=== PATIENT | female | born 1950 | race African-American/Black ===

== ENCOUNTER 2017-05-23 18:22 | Observation (INO) | payer OTHER ==
--- NOTE | 2017-05-23 19:42 | PDOC ---
History of Present Illness - General Chief Complaint: Chest Pain Stated Complaint: CHEST PAIN Time Seen by Provider: 05/23/17 18:42 - History of Present Illness Initial Comments: 05/23/17 19:27 66 F with h/o HTN, pre-DM, presenting to ER with chest pain that began at approx 5:30 PM. Pt states that she was at rest when it began. The pain starts in her L chest and radiates down to her L arm. Pt denies SOB but endorses occasional lightheadedness since pain began. Denies any diaphoresis. Pt states that the pain is not exertional, not pleuritic. She does not know of any exacerbating or alleviating factors. Pt denies any leg swelling. No h/o immobilization or blood clots. Past History - Past Medical History Allergies/Adverse Reactions: Allergies Allergy/AdvReac Type Severity Reaction Status Date / Time No Known Drug Allergies Allergy Verified 05/23/17 18:31 peanut [Peanut] Allergy Verified 05/23/17 18:31 Home Medications: Ambulatory Orders Levothyroxine [Synthroid -] 50 mcg PO DAILY 03/23/14 Valsartan/Hydrochlorothiazide [Diovan Hct 160-25 mg Tablet] 1 combo PO DAILY Anemia: Yes Asthma: Yes COPD: No HTN: Yes Thyroid Disease: Yes (HYPO.) Other medical history: VERTIGO. - Surgical History Orthopedic Surgery: Yes (right knee replacement) - Immunization History Immunization Up to Date: Yes - Suicide/Smoking/Psychosocial Hx Smoking Status: No Smoking History: Never smoked Number of Cigarettes Smoked Daily: 0 Hx Alcohol Use: No Drug/Substance Use Hx: No Substance Use Type: None Review of Systems - Review of Systems Comments:: 05/23/17 19:47 "GENERAL/CONSTITUTIONAL: No fever or chills. No weakness. HEAD, EYES, EARS, NOSE AND THROAT: No change in vision. No ear pain or discharge. No sore throat. CARDIOVASCULAR: + chest pain, no shortness of breath. RESPIRATORY: No cough, wheezing, or hemoptysis. GASTROINTESTINAL: No nausea, vomiting, diarrhea or constipation. GENITOURINARY: No dysuria, frequency, or change in urination. MUSCULOSKELETAL: No joint or muscle swelling or pain. No neck or back pain. SKIN: No rash NEUROLOGIC: No headache, vertigo, loss of consciousness, or change in strength/ sensation. ENDOCRINE: No increased thirst. No abnormal weight change. HEMATOLOGIC/LYMPHATIC: No anemia, easy bleeding, or history of blood clots. ALLERGIC/IMMUNOLOGIC: No hives or skin allergy. " *Physical Exam - Vital Signs Last Vital Signs Temp Pulse Resp BP Pulse Ox 98.4 F 78 22 111/97 99 05/23/17 18:23 05/23/17 18:23 05/23/17 18:23 05/23/17 18:23 05/23/17 18:53 - Physical Exam Comments: 05/23/17 19:48 "GENERAL: Awake, alert, and fully oriented, in no acute distress HEAD: No signs of trauma EYES: PERRLA, EOMI, sclera anicteric, conjunctiva clear ENT: Auricles normal inspection, hearing grossly normal, nares patent, oropharynx clear without exudates. Moist mucosa NECK: Nontender, no stepoffs, Normal ROM, supple, no lymphadenopathy, JVD, or masses LUNGS: Breath sounds equal, clear to auscultation bilaterally. No wheezes, and no crackles HEART: Regular rate and rhythm, normal S1 and S2, no murmurs, rubs or gallops ABDOMEN: Soft, nontender, normoactive bowel sounds. No guarding, no rebound. No masses EXTREMITIES: Normal range of motion, no edema. No clubbing or cyanosis. No cords, erythema, or tenderness NEUROLOGICAL: Cranial nerves II through XII intact. 5/5 strength and sensation in all extremities, Normal speech, normal gait SKIN: Warm, Dry, normal turgor, no rashes or lesions noted. " Heart Score/ECG Review - History History: Moderately suspicious - Electrocardiogram EKG: Normal - Age Age: >/= 65 - Risk Factors Risk Factors Heart Score: Yes Hx Hypertension, Yes Hx Obesity Based on the list above the patient has:: 1-2 risk factors - Troponin Troponin: </= normal limit - Score Heart Score - Total: 4 - ECG Impressions Comment:: 05/23/17 19:50 NSR, no KATRIN/STDs, no TWIs, axis wnll, intervals wnl ED Treatment Course - LABORATORY CBC & Chemistry Diagram: 05/23/17 19:50 05/23/17 19:50 - ADDITIONAL ORDERS Additional order review: Laboratory Results 05/23/17 05/23/17 05/23/17 20:10 19:50 19:50 PT with INR 12.40 H INR 1.10 PTT (Actin FS) 28.6 Sodium 142 Potassium 3.8 Chloride 107 Carbon Dioxide 29 Anion Gap 6 L BUN 33 H Creatinine 1.1 H Creat Clearance w eGFR 49.69 Random Glucose 87 D Calcium 7.9 L Total Bilirubin 0.2 D AST 25 D ALT 28 D Alkaline Phosphatase 101 Creatine Kinase 639 H Creatine Kinase Index 0.3 CK-MB (CK-2) 2.422 Troponin I < 0.02 B-Natriuretic Peptide 36.80 Total Protein 7.6 Albumin 2.7 L Lipase 137 05/23/17 19:50 RBC 3.76 MCV 78.5 L MCHC 32.6 RDW 17.9 H MPV 8.7 Neutrophils % 64.8 Lymphocytes % 18.0 D Monocytes % 8.9 Eosinophils % 7.3 H Basophils % 1.0 - RADIOLOGY Radiology Studies Ordered: Category Date Time Status CHEST PA & LAT [RAD] Stat Radiology 05/23/17 19:24 Taken Medical Decision Making - Medical Decision Making 05/23/17 19:50 66 F with chest pain radiating to L arm associated with lightheadedness. Concerning for ACS. Pt with no PE risk factors, no clinical findings of DVT on exam. Vitals stable. - Labs, trop - CXR - Admit tele 05/23/17 21:45 CBC,CMP WBC 6.3 K/mm3 (4.0-10.0) D 05/23/17 19:50 RBC 3.76 M/mm3 (3.60-5.2) 05/23/17 19:50 Hgb 9.6 GM/dL (10.7-15.3) L 05/23/17 19:50 Hct 29.5 % (32.4-45.2) L 05/23/17 19:50 MCV 78.5 fl (80-96) L 05/23/17 19:50 MCH 25.6 pg (25.7-33.7) L 05/23/17 19:50 MCHC 32.6 g/dl (32.0-36.0) 05/23/17 19:50 RDW 17.9 % (11.6-15.6) H 05/23/17 19:50 Plt Count 206 K/MM3 (134-434) 05/23/17 19:50 MPV 8.7 fl (7.5-11.1) 05/23/17 19:50 Neutrophils % 64.8 % (42.8-82.8) 05/23/17 19:50 Lymphocytes % 18.0 % (8-40) D 05/23/17 19:50 Monocytes % 8.9 % (3.8-10.2) 05/23/17 19:50 Eosinophils % 7.3 % (0-4.5) H 05/23/17 19:50 Basophils % 1.0 % (0-2.0) 05/23/17 19:50 Sodium 142 mmol/L (136-145) 05/23/17 19:50 Potassium 3.8 mmol/L (3.5-5.1) 05/23/17 19:50 Chloride 107 mmol/L (98-107) 05/23/17 19:50 Carbon Dioxide 29 mmol/L (21-32) 05/23/17 19:50 Anion Gap 6 (8-16) L 05/23/17 19:50 BUN 33 mg/dL (7-18) H 05/23/17 19:50 Creatinine 1.1 mg/dL (0.55-1.02) H 05/23/17 19:50 Creat Clearance w eGFR 49.69 (>60) 05/23/17 19:50 Random Glucose 87 mg/dL (74-106) D 05/23/17 19:50 Calcium 7.9 mg/dL (8.5-10.1) L 05/23/17 19:50 Total Bilirubin 0.2 mg/dL (0.2-1.0) D 05/23/17 19:50 AST 25 U/L (15-37) D 05/23/17 19:50 ALT 28 U/L (12-78) D 05/23/17 19:50 Alkaline Phosphatase 101 U/L (45-117) 05/23/17 19:50 Creatine Kinase 639 IU/L (26-192) H 05/23/17 20:10 Creatine Kinase Index 0.3 % (0.0-5.0) 05/23/17 20:10 CK-MB (CK-2) 2.422 ng/mL (0.5-3.6) 05/23/17 20:10 Troponin I < 0.02 ng/ml (0.00-0.05) 05/23/17 20:10 B-Natriuretic Peptide 36.80 pg/ml (5-125) 05/23/17 20:10 Total Protein 7.6 g/dl (6.4-8.2) 05/23/17 19:50 Albumin 2.7 g/dl (3.4-5.0) L 05/23/17 19:50 Lipase 137 U/L (73-393) 05/23/17 19:50 Trop negative x 1. Case discussed with Dr. Lopez, who has accepted pt for admission to [facility]. Case discussed in detail with admitting physician including history, physical exam and ancillary studies. Admitting physician has assumed care for the patient and will follow all pending diagnostics and complete the evaluation and treatment. *DC/Admit/Observation/Transfer Diagnosis at time of Disposition: Chest pain - Discharge Dispostion Admit: Yes - Referrals - Patient Instructions - Post Discharge Activity - Attestations Physician Attestion: 05/23/17 21:44 I, Dr. Ga Ramires MD, attest that this document has been prepared under my direction and personally reviewed by me in its entirety. I further attest, that it accurately reflects all work, treatment, procedures and medical decision -making performed by me.
[2017-05-23 19:56] LABS: EOS % 7.3 % (0-4.5); MCH 25.6 pg (25.7-33.7); MCHC 32.6 g/dl (32.0-36.0); MEAN CELL VOLUME 78.5 fl (80-96); MEAN PLT VOLUME 8.7 fl (7.5-11.1); NEUT % 64.8 % (42.8-82.8); PLATELET COUNT 206 K/MM3 (134-434); RDW 17.9 % (11.6-15.6); WHITE BLOOD COUNT 6.3 K/mm3 (4.0-10.0)
[2017-05-23 20:18] LABS: INR 1.1 (0.82-1.09); PROTHROMBIN TIME (PATIENT) 12.4 SEC (9.98-11.88)
[2017-05-23 20:20] LABS: ALBUMIN 2.7 g/dl (3.4-5.0); ANION GAP 6 (8-16); CALCIUM 7.9 mg/dL (8.5-10.1); CO2 29 mmol/L (21-32); CREATININE 1.1 mg/dL (0.55-1.02); GLUCOSE,RANDOM 87 mg/dL (74-106); SGOT/AST 25 U/L (15-37); SGPT/ALT 28 U/L (12-78)
[2017-05-23 20:21] LABS: ACTIVATED PTT 28.6 SECONDS (26.9-34.4)
[2017-05-23 20:22] LABS: ALK PHOS 101 U/L (45-117); BILIRUBIN,TOTAL 0.2 mg/dL (0.2-1.0); TOT PROT 7.6 g/dl (6.4-8.2)
[2017-05-23 20:43] LABS: CPK 639 IU/L (26-192); TROPONIN I < 0.02 ng/ml (0.00-0.05)
[2017-05-23 23:36] VITALS: BMI 53.9
--- NOTE | 2017-05-24 01:08 | HP ---
CHIEF COMPLAINT: Chest tightness PCP: Dr. Whittaker HISTORY OF PRESENT ILLNESS: Patient is a 66 year old female with a PMHx of HTN, Asthma, Anemia, Hypothyroidism and Vertigo who presented today for increasing left sided chest tightness and dull pain that started yesterday around 17:00. Patient states the pain is constant radiating to her left arm and across the back. Patient reports she took two baby aspirins with no relief of symptoms, which prompted this hospital visit. Patient reports she does have shortness of breath but has been chronic and at baseline due to her being overweight. Patient states she is still performing her normal daily activities. Patient states she is more comfortable sleeping on a recliner rather than flat due to her vertigo. Patient reports feeling dizzy and more off balance when she lays flat and would rather stay up on a recliner. Otherwise, patient denies fever, chills, nausea, diaphoresis, LOC, dizziness, headaches, diarrhea, constipation, abdominal pain, dysuria, frequency, hematuria. ER course was notable for: (1) EKG wnl (2) Chest X-Ray revealed no acute pathology (3) Troponin negative x1 Recent Travel: Denies PAST MEDICAL HISTORY: HTN, Asthma, Anemia, Hypothyroidism and Vertigo PAST SURGICAL HISTORY: Right Knee replacement Social History: Smoking: Denies Alcohol: Denies Drugs: Denies Family History: Mother and Sister had breast cancer Allergies: No Known Drug Allergies Allergy (Verified 05/23/17 18:31) peanut [Peanut] Allergy (Verified 05/23/17 18:31) HOME MEDICATIONS: Home Medications Medication Instructions Recorded Levothyroxine [Synthroid -] 50 mcg PO DAILY 03/23/14 Valsartan/Hydrochlorothiazide 1 combo PO DAILY 03/23/14 [Diovan Hct 160-25 mg Tablet] REVIEW OF SYSTEMS CONSTITUTIONAL: Absent: fever, chills, diaphoresis, generalized weakness, malaise, loss of appetite, weight change HEENT: Absent: rhinorrhea, nasal congestion, throat pain, throat swelling, difficulty swallowing, mouth swelling, ear pain, eye pain, visual changes CARDIOVASCULAR: Chest tightness Absent: chest pain, syncope, palpitations, irregular heart rate, lightheadedness , peripheral edema RESPIRATORY: Absent: cough, shortness of breath, dyspnea with exertion, orthopnea, wheezing, stridor, hemoptysis GASTROINTESTINAL: Absent: abdominal pain, abdominal distension, nausea, vomiting, diarrhea, constipation, melena, hematochezia GENITOURINARY: Absent: dysuria, frequency, urgency, hesitancy, hematuria, flank pain, genital pain MUSCULOSKELETAL: Absent: myalgia, arthralgia, joint swelling, back pain, neck pain SKIN: Absent: rash, itching, pallor HEMATOLOGIC/IMMUNOLOGIC: Absent: easy bleeding, easy bruising, lymphadenopathy, frequent infections ENDOCRINE: Absent: unexplained weight gain, unexplained weight loss, heat intolerance, cold intolerance NEUROLOGIC: Absent: headache, focal weakness or paresthesias, dizziness, unsteady gait, seizure, mental status changes, bladder or bowel incontinence PSYCHIATRIC: Absent: anxiety, depression, suicidal or homicidal ideation, hallucinations. PHYSICAL EXAMINATION Vital Signs - 24 hr 05/23/17 05/23/17 05/23/17 18:23 18:53 22:36 Temperature 98.4 F 98.4 F Pulse Rate 78 Pulse Rate [ 75 Left Radial] Respiratory 22 19 Rate Blood Pressure 111/97 Blood Pressure 112/57 [Right Arm] O2 Sat by Pulse 100 99 96 Oximetry (%) 05/23/17 05/23/17 23:32 23:53 Temperature 97.8 F Pulse Rate 72 Pulse Rate [ Left Radial] Respiratory 20 20 Rate Blood Pressure 121/70 Blood Pressure [Right Arm] O2 Sat by Pulse 96 Oximetry (%) GENERAL: Awake, alert, and fully oriented, in no acute distress. HEAD: Normal with no signs of trauma. EYES: Pupils equal, round and reactive to light, extraocular movements intact, sclera anicteric, conjunctiva clear. No lid lag. EARS, NOSE, THROAT: Oropharynx clear without exudates. Moist mucous membranes. NECK: Normal range of motion, supple without lymphadenopathy, JVD, or masses. LUNGS: Breath sounds equal, clear to auscultation bilaterally. No wheezes, and no crackles. No accessory muscle use. HEART: Regular rate and rhythm, normal S1 and S2 without murmur, rub or gallop. ABDOMEN: Soft, Obese, nontender, not distended, normoactive bowel sounds, no guarding, no rebound, no masses. MUSCULOSKELETAL: No CVA tenderness. UPPER EXTREMITIES: No peripheral edema. LOWER EXTREMITIES: Chronic venous stasis L>R, especially on the Left calf. Tenderness upon palpation of bilateral shins and calf NEUROLOGICAL: Cranial nerves II-XII intact. Normal speech. Motor strength 5/5 bilaterally. Sensory intact PSYCHIATRIC: Cooperative. Good eye contact. Appropriate mood and affect. SKIN: Warm, dry, normal turgor, no rashes or lesions noted, normal capillary refill. Laboratory Results - last 24 hr 05/23/17 05/23/17 05/23/17 19:50 19:50 19:50 WBC 6.3 D RBC 3.76 Hgb 9.6 L Hct 29.5 L MCV 78.5 L MCH 25.6 L MCHC 32.6 RDW 17.9 H Plt Count 206 MPV 8.7 Neutrophils % 64.8 Lymphocytes % 18.0 D Monocytes % 8.9 Eosinophils % 7.3 H Basophils % 1.0 PT with INR 12.40 H INR 1.10 PTT (Actin FS) 28.6 Sodium 142 Potassium 3.8 Chloride 107 Carbon Dioxide 29 Anion Gap 6 L BUN 33 H Creatinine 1.1 H Creat Clearance w eGFR 49.69 Random Glucose 87 D Calcium 7.9 L Total Bilirubin 0.2 D AST 25 D ALT 28 D Alkaline Phosphatase 101 Creatine Kinase Creatine Kinase Index CK-MB (CK-2) Troponin I B-Natriuretic Peptide Total Protein 7.6 Albumin 2.7 L Lipase 137 05/23/17 20:10 WBC RBC Hgb Hct MCV MCH MCHC RDW Plt Count MPV Neutrophils % Lymphocytes % Monocytes % Eosinophils % Basophils % PT with INR INR PTT (Actin FS) Sodium Potassium Chloride Carbon Dioxide Anion Gap BUN Creatinine Creat Clearance w eGFR Random Glucose Calcium Total Bilirubin AST ALT Alkaline Phosphatase Creatine Kinase 639 H Creatine Kinase Index 0.3 CK-MB (CK-2) 2.422 Troponin I < 0.02 B-Natriuretic Peptide 36.80 Total Protein Albumin Lipase Chest X-Ray (05/23/17): ASSESSMENT/PLAN: Patient is a 66 year old female who presented with chest tightness and admitted for observation to rule out ACS Chest Tightness -Patient denies chest pain and reports feeling more of a chest tightness radiating to the left arm. -Patient has Risk factors of HTN and morbid obesity -First set of troponin negative. Repeat Troponins at 0200. -EKG normal rate and rhythm with no ST-T changes -Lipid panel ordered -A1C ordered Microcytic Anemia -Patient reports history of iron deficiency -Continue to trend Iron CKD -Creatnine 1.1 at baseline -Reports taking Ibuprofen 200mg every night -Continue to trend BMP HTN-Controlled -Continue Valsartan/HCTZ 160/25mg -Continue to monitor BP Hypothyroidism -Continue Levothyroxine 50mcg -Will check TSH Asthma-Controlled -Patient on Advair and reports not being compliant F/E/N -On no fluids. Tolerating PO -Electrolytes wnl -Sodium controlled diet Prophylaxis -Low risk. Ambulation -No GI required Disposition -Full code -Will remain under obs to rule out ACS with repeat Troponins Visit type - Emergency Visit Emergency Visit: Yes ED Registration Date: 05/23/17 Care time: The patient presented to the Emergency Department on the above date and was hospitalized for further evaluation of their emergent condition. - New Patient This patient is new to me today: Yes Date on this admission: 05/23/17 - Critical Care Critical Care patient: No
--- NOTE | 2017-05-24 02:08 | PN ---
Teaching Attending Note Name of Resident: Lima Morgan ATTENDING PHYSICIAN STATEMENT I saw and evaluated the patient. Chart, data, imaging reviewed. I reviewed the resident's note and discussed the case with the resident. I agree with the resident's findings and plan as documented. SUBJECTIVE: 66 year old female with a PMHx of HTN, Asthma, Anemia, Hypothyroidism and Vertigo c/o left sided chest tightness, left arm pain that started 05/23 around 17:00. She reports that she was moving a shovel when she developed pain in her left arm. There is tenderness to palpation of her left arm. She denied any significant shortness of breath. Patient does not have any cardiac history, no tobacco use. Grandfather with heart disease. OBJECTIVE: Last Vital Signs Temp Pulse Resp BP Pulse Ox 97.7 F 74 18 115/64 96 05/24/17 00:10 05/24/17 00:10 05/24/17 00:10 05/24/17 00:10 05/24/17 00:10 General- nad, aaox3, obese, appears comfortable heent- nc, at, moist oral mucosa CV-s1+s2+ rrr, no murmurs chest- cta b/l abdomen- obese, nt, BS+ ext -no pitting edema Abnormal Lab Results 05/23/17 05/23/17 05/23/17 19:50 19:50 19:50 Hgb 9.6 L Hct 29.5 L MCV 78.5 L MCH 25.6 L RDW 17.9 H Eosinophils % 7.3 H PT with INR 12.40 H Anion Gap 6 L BUN 33 H Creatinine 1.1 H Calcium 7.9 L Creatine Kinase Albumin 2.7 L 05/23/17 20:10 Hgb Hct MCV MCH RDW Eosinophils % PT with INR Anion Gap BUN Creatinine Calcium Creatine Kinase 639 H Albumin ekg- NSR, no ST -T changes ASSESSMENT AND PLAN: #chest pain- r/o PR - unlikely acs, EKG normal, troponin negative x2. More likely to be musculoskelatal type of pain related to pushing shovel. Tenderness to palpation of left upper extremity. -observation telemetry -send one more troponin -can give ibuprofen prn for left arm pain continue home medications for chronic medical problems -heparin sc for dvt ppx -2gNa, low fat diet
[2017-05-24] MEDS: LEVOTHYROXINE NA 50 MCG TABLET (FP) PO SCH (06:32)
[2017-05-24 09:14] LABS: MCH 24.8 pg (25.7-33.7); MCHC 31.4 g/dl (32.0-36.0); MEAN CELL VOLUME 78.9 fl (80-96); MEAN PLT VOLUME 9.2 fl (7.5-11.1); PLATELET COUNT 207 K/MM3 (134-434); RDW 17.7 % (11.6-15.6); WHITE BLOOD COUNT 6.3 K/mm3 (4.0-10.0)
[2017-05-24] MEDS: HYDROCHLOROTHIAZIDE 25 MG TABLET (FP) PO SCH (09:34)
[2017-05-24] MEDS: IBUPROFEN 600 MG TABLET (FP) PO PRN (09:34)
[2017-05-24] MEDS: VALSARTAN 160 MG TABLET (UD) PO SCH (09:34)
[2017-05-24 09:43] LABS: ANION GAP 8 (8-16); CHOLESTEROL 149 mg/dL (50-200); CO2 28 mmol/L (21-32); CREATININE 0.9 mg/dL (0.55-1.02); GLUCOSE,RANDOM 88 mg/dL (74-106); THYROID STIMULATING HORMONE 2.92 uIU/ml (0.358-3.74)
[2017-05-24] MEDS ORDERED: PATIENT'S OWN MEDICATION (NON-FORMULARY) (Valsartan/Hydrochlorothiazide [Diovan Hct 160-25 PO SCH (10:00)
[2017-05-24] MEDS ORDERED: ALBUTEROL SO4 2.5/IPRATROPIUM 0.5 INH SOL 3 ML VIAL.NEB. NEB ONE (10:56)
[2017-05-24] MEDS ORDERED: ALBUTEROL SO4 2.5/IPRATROPIUM 0.5 INH SOL 3 ML VIAL.NEB. NEB PRN (10:56)
--- NOTE | 2017-05-24 10:58 | PN ---
Physical Exam: SUBJECTIVE: Patient seen and examined at the bedside. Still having chest tightness, does not radiate, on center of chest. States she had chest tightness at 0745 again this morning. OBJECTIVE: + wheezing auscultated on posterior lungs, chest tightness may be due to asthma. Pt reports non compliance with her advair. She also has a few cardiac risk factors: hypertension history, morbid obesity, age and race. She is asking for a referral to a programmer operator numerical control and PCP as her insurance is changing in the near future Her last echo was over 10 years ago. Trops negative x 2, elevated cpk plan: cardio consult, albuterol, echo, d/c in a.m. likely Vital Signs Period Temp Pulse Resp BP Sys/Gaona Pulse Ox Last 24 Hr 97.7 F-98.4 F 72-78 18-22 110-121/57-97 96-100 GENERAL: The patient is awake, alert, and fully oriented, in no acute distress. HEAD: Normal with no signs of trauma. EYES: PERRL, extraocular movements intact, sclera anicteric, conjunctiva clear. No ptosis. ENT: Ears normal, nares patent, oropharynx clear without exudates, moist mucous membranes. NECK: Trachea midline, full range of motion, supple. LUNGS: mild expiratory wheezing on bilateral lung brewster HEART: NSR on tele monitor ABDOMEN: Soft, nontender, nondistended, normoactive bowel sounds, no guarding, no rebound, no hepatosplenomegaly, no masses. EXTREMITIES: bilateral trace edema. NEUROLOGICAL: Normal speech, gait not observed. PSYCH: Normal mood, normal affect. SKIN: Warm, dry, normal turgor, no rashes or lesions noted Laboratory Results - last 24 hr 05/23/17 05/23/17 05/23/17 19:50 19:50 19:50 WBC 6.3 D RBC 3.76 Hgb 9.6 L Hct 29.5 L MCV 78.5 L MCH 25.6 L MCHC 32.6 RDW 17.9 H Plt Count 206 MPV 8.7 Neutrophils % 64.8 Lymphocytes % 18.0 D Monocytes % 8.9 Eosinophils % 7.3 H Basophils % 1.0 PT with INR 12.40 H INR 1.10 PTT (Actin FS) 28.6 Sodium 142 Potassium 3.8 Chloride 107 Carbon Dioxide 29 Anion Gap 6 L BUN 33 H Creatinine 1.1 H Creat Clearance w eGFR 49.69 Random Glucose 87 D Calcium 7.9 L Total Bilirubin 0.2 D AST 25 D ALT 28 D Alkaline Phosphatase 101 Creatine Kinase Creatine Kinase Index CK-MB (CK-2) Troponin I B-Natriuretic Peptide Total Protein 7.6 Albumin 2.7 L Triglycerides Cholesterol Total LDL Cholesterol HDL Cholesterol Lipase 137 TSH 05/23/17 05/24/17 05/24/17 20:10 01:30 07:00 WBC RBC Hgb Hct MCV MCH MCHC RDW Plt Count MPV Neutrophils % Lymphocytes % Monocytes % Eosinophils % Basophils % PT with INR INR PTT (Actin FS) Sodium 144 Potassium 3.9 Chloride 108 H Carbon Dioxide 28 Anion Gap 8 BUN 27 H Creatinine 0.9 Creat Clearance w eGFR Random Glucose 88 Calcium 8.0 L Total Bilirubin AST ALT Alkaline Phosphatase Creatine Kinase 639 H Creatine Kinase Index 0.3 CK-MB (CK-2) 2.422 Troponin I < 0.02 < 0.02 B-Natriuretic Peptide 36.80 Total Protein Albumin Triglycerides 53 Cholesterol 149 Total LDL Cholesterol 92 HDL Cholesterol 48 Lipase TSH 2.92 05/24/17 07:00 WBC 6.3 RBC 3.72 Hgb 9.2 L Hct 29.4 L MCV 78.9 L MCH 24.8 L MCHC 31.4 L RDW 17.7 H Plt Count 207 MPV 9.2 Neutrophils % Lymphocytes % Monocytes % Eosinophils % Basophils % PT with INR INR PTT (Actin FS) Sodium Potassium Chloride Carbon Dioxide Anion Gap BUN Creatinine Creat Clearance w eGFR Random Glucose Calcium Total Bilirubin AST ALT Alkaline Phosphatase Creatine Kinase Creatine Kinase Index CK-MB (CK-2) Troponin I B-Natriuretic Peptide Total Protein Albumin Triglycerides Cholesterol Total LDL Cholesterol HDL Cholesterol Lipase TSH Active Medications Generic Name Dose Route Start Last Admin Trade Name Freq PRN Reason Stop Dose Admin Albuterol/Ipratropium 1 amp 05/24/17 10:56 Duoneb - NEB 05/24/17 10:57 ONCE ONE Albuterol/Ipratropium 1 amp 05/24/17 10:56 Duoneb - NEB Q6H PRN SHORTNESS OF BREATH Hydrochlorothiazide 25 mg 05/24/17 10:00 05/24/17 09:34 Hctz - PO 25 mg DAILY DAVONTE Administration Ibuprofen 600 mg 05/24/17 09:26 05/24/17 09:34 Motrin - PO 600 mg Q8H PRN Administration PAIN Levothyroxine Sodium 50 mcg 05/24/17 07:00 05/24/17 06:32 Synthroid - PO 50 mcg DAILY@0700 DAVONTE Administration Valsartan 160 mg 05/24/17 10:00 05/24/17 09:34 Diovan - PO 160 mg DAILY DAVONTE Administration ASSESSMENT/PLAN: Patient is a 66 year old female with a past medical history of hypertension, asthma, anemia, vertigo and hypothyroidism. She presented to the ED on 2016 with complaints of left sided chest pain and chest tightness that started yesterday after shoveling outside. On exam, patient states she is still having chest tightness at rest, that comes and goes. Last episode of chest tightness was today at 0745, she describes the tightness as intermittent, with mild shortness of breath. On exam, she was noted to have mild wheezing auscultated on posterior lung brewster. Cardiology: Chest tightness/Chest pain, acute Continues to c/o of chest pain/tightness Wheezing auscultated on bilateral lung brewster Trops negative x 2, will trend one more Risk factors of htn, obesity, hypothyroidism Hmga1c wnl, lipid panel wnl Rule out ACS EKG Hypertension, controlled On Hctz 25mg PO daily Diovan 160mg PO daily Last echo was 10 years ago, echo ordered for a.m. Monitor BP Hypothyroidism, on home dose of Synthroid Pulmonary: Asthma history with wheezing on bilateral lung brewster Patient reports non compliance with daily use of Advair 500/50, which she carries with her Will order this med to continue here Albuterol ordered for nebs q6 Monitor respiratory status Tolerating room air Importance of maintenance advair discussed Hematology Anemia Patient reported that she was worked up for anemia by PCP and told she needed to start iron supplements but has not yet done so hmg/hmt low stable F.E.N. Fluids: tolerating PO Electrolytes: monitor Nutrition: low salt Prophylaxis: DVT: LOS <48 hrs GI; deferred Disposition: requires inpatient observation, full code. Visit type - Emergency Visit Emergency Visit: Yes ED Registration Date: 05/23/17 Care time: The patient presented to the Emergency Department on the above date and was hospitalized for further evaluation of their emergent condition. - New Patient This patient is new to me today: Yes Date on this admission: 05/24/17 - Critical Care Critical Care patient: No - Discharge Referral Referred to [facility] Yes Physician Referral: Dima Deleon MD ([facility]), Ambar Paez MD ([facility])
[2017-05-24] MEDS ORDERED: FLUTICASONE/SALMETEROL 100 MCG/50 MCG DISKUS IH SCH (11:15)
[2017-05-24 13:17] LABS: TROPONIN I < 0.02 ng/ml (0.00-0.05)
[2017-05-24] MEDS: SALMETEROL PO SCH (17:41)
[2017-05-24] MEDS: FLUTICASONE PO SCH (17:41)
--- NOTE | 2017-05-24 22:23 | CON.CARD ---
Consult Consult Specialty:: prelim note--chart reviewed, pt not yet seen - History of Present Illness History of Present Illness: 66 yo female here for cp. - Past Medical History Cardio/Vascular: Yes: HTN Pulmonary: Yes: Asthma ...: No Endocrine: Yes: Hypothyroidism - Past Surgical History Past Surgical History: Yes: None - Alcohol/Substance Use Hx Alcohol Use: No History of Substance Use: reports: None - Smoking History Smoking history: Never smoked Have you smoked in the past 12 months: No Aproximately how many cigarettes per day: 0 Home Medications - Allergies Allergies/Adverse Reactions: Allergies Allergy/AdvReac Type Severity Reaction Status Date / Time No Known Drug Allergies Allergy Verified 05/23/17 18:31 peanut [Peanut] Allergy Verified 05/23/17 18:31 - Home Medications Home Medications: Ambulatory Orders Levothyroxine [Synthroid -] 50 mcg PO DAILY 03/23/14 Valsartan/Hydrochlorothiazide [Diovan Hct 160-25 mg Tablet] 1 combo PO DAILY Latanoprost 0.005% Eye Drops [Xalatan 0.005% Eye Drops -] 1 drop HS 05/24/17 Vital Signs: Vital Signs Temperature 98.0 F 05/24/17 21:00 Pulse Rate 80 05/24/17 21:00 Respiratory Rate 20 05/24/17 21:08 Blood Pressure 103/60 05/24/17 21:00 O2 Sat by Pulse Oximetry (%) 97 05/24/17 21:08 - Other Data Labs, Other Data: CBC, BMP 05/24/17 07:00 05/24/17 07:00 INR, PTT INR 1.10 (0.82-1.09) 05/23/17 19:50 Troponin, BNP 05/24/17 05/24/17 01:30 07:00 Troponin I < 0.02 < 0.02 Troponin, BNP 05/24/17 05/24/17 01:30 07:00 Troponin I < 0.02 < 0.02 Assessment/Plan - ECG 05/23/17: NSR, normal axis/intervals; no q waves, no ST-T abn CXR (images reviewed): clear lungs/pleura; no widened mediastinum chest pain: -ecg normal, trop neg x 3 HTN: -bp controlled -cont home meds
[2017-05-24] MEDS: LATANOPROST 0.005% OPHTH SOLN 2.5ML BOTTLE OU SCH (22:54)
[2017-05-25] MEDS: IBUPROFEN 600 MG TABLET (FP) PO PRN ×2 (00:23→21:45)
[2017-05-25] MEDS: LEVOTHYROXINE NA 50 MCG TABLET (FP) PO SCH (06:55)
[2017-05-25] MEDS: HYDROCHLOROTHIAZIDE 25 MG TABLET (FP) PO SCH (09:23)
[2017-05-25] MEDS: FLUTICASONE PO SCH (09:23)
[2017-05-25] MEDS: VALSARTAN 160 MG TABLET (UD) PO SCH (09:23)
[2017-05-25] MEDS: SALMETEROL PO SCH (09:23)
--- NOTE | 2017-05-25 09:40 | DS ---
Physical Exam: SUBJECTIVE: Patient seen and examined OBJECTIVE: Vital Signs Period Temp Pulse Resp BP Sys/Gaona Pulse Ox Last 24 Hr 97.7 F-98.4 F 74-86 18-20 101-119/53-60 96-97 PHYSICAL EXAM GENERAL: The patient is awake, alert, and fully oriented, in no acute distress. HEAD: Normal with no signs of trauma. EYES: PERRL, extraocular movements intact, sclera anicteric, conjunctiva clear. ENT: Ears normal, nares patent, oropharynx clear without exudates, moist mucous membranes. NECK: Trachea midline, full range of motion, supple. LUNGS: Breath sounds equal, clear to auscultation bilaterally, no wheezes, no crackles, no accessory muscle use. HEART: Regular rate and rhythm, S1, S2 without murmur, rub or gallop. ABDOMEN: Soft, nontender, nondistended, normoactive bowel sounds, no guarding, no rebound, no hepatosplenomegaly, no masses. EXTREMITIES: 2+ pulses, warm, well-perfused, no edema. NEUROLOGICAL: Cranial nerves II through XII grossly intact. Normal speech, gait not observed. PSYCH: Normal mood, normal affect. SKIN: Warm, dry, normal turgor, no rashes or lesions noted. LABS Laboratory Results - last 24 hr 05/24/17 05/24/17 07:00 07:00 Sodium 144 Potassium 3.9 Chloride 108 H Carbon Dioxide 28 Anion Gap 8 BUN 27 H Creatinine 0.9 Random Glucose 88 Hemoglobin A1c % 5.8 Calcium 8.0 L Troponin I < 0.02 Triglycerides 53 Cholesterol 149 Total LDL Cholesterol 92 HDL Cholesterol 48 TSH 2.92 HOSPITAL COURSE: Date of Admission:05/23/17 Date of Discharge: 05/25/17 Discharge Summary Reason For Visit: CHEST PAIN Current Active Problems Chest pain (Acute) - Instructions Referrals: Dima Carcamo MD [Staff Physician] - Ambar Paez MD [Staff Physician] - - Home Medications Comprehensive Discharge Medication List: Ambulatory Orders Levothyroxine [Synthroid -] 50 mcg PO DAILY 03/23/14 Valsartan/Hydrochlorothiazide [Diovan Hct 160-25 mg Tablet] 1 combo PO DAILY Latanoprost 0.005% Eye Drops [Xalatan 0.005% Eye Drops -] 1 drop HS 05/24/17 - Discharge Referral Referred to [facility] Yes Physician Referral: Dima Deleon MD ([facility]), Ambar Paez MD ([facility])
--- NOTE | 2017-05-25 11:59 | CON.CARD ---
Consult Consult Specialty:: cardio Referred by:: hospitalist Reason for Consultation:: cp - History of Present Illness Chief Complaint: cp History of Present Illness: 66 yo female here with cp. had cp at rest on DOA. lasted approx 1-2 min only she says. also assctd with 1 min or so of pain down the L arm, ? tingling in L hand. felt assctd LH with it one time. no sob or diaph asstd. says she has had this pain off and on in the past. still has had brief (1 min) episodes pain including earlier this am, but no more LH assctd walks with cane sec to prior TKRs PMH: HTN denies HPL, DM denies cigs denies FH of [place]/CAD - Past Medical History Cardio/Vascular: Yes: HTN Pulmonary: Yes: Asthma ...: No Endocrine: Yes: Hypothyroidism - Past Surgical History Past Surgical History: Yes: None - Alcohol/Substance Use Hx Alcohol Use: No History of Substance Use: reports: None - Smoking History Smoking history: Never smoked Have you smoked in the past 12 months: No Aproximately how many cigarettes per day: 0 Home Medications - Allergies Allergies/Adverse Reactions: Allergies Allergy/AdvReac Type Severity Reaction Status Date / Time No Known Drug Allergies Allergy Verified 05/23/17 18:31 peanut [Peanut] Allergy Verified 05/23/17 18:31 - Home Medications Home Medications: Ambulatory Orders Levothyroxine [Synthroid -] 50 mcg PO DAILY 03/23/14 Valsartan/Hydrochlorothiazide [Diovan Hct 160-25 mg Tablet] 1 combo PO DAILY Latanoprost 0.005% Eye Drops [Xalatan 0.005% Eye Drops -] 1 drop HS 05/24/17 Review of Systems - Review of Systems Constitutional: denies: Chills, Fever Eyes: denies: Eye Pain HENT: denies: Nasal Congestion Neck: denies: Stiffness Cardiovascular: denies: Palpitations Respiratory: denies: Orthopnea, PND Gastrointestinal: denies: Diarrhea, Rectal Bleeding Genitourinary: denies: Burning, Hematuria Musculoskeletal: denies: Muscle Pain Integumentary: denies: Rash Neurological: denies: Numbness, Seizure, Syncope Endocrine: denies: Excessive Sweating Hematology/Lymphatic: denies: Excessive Bleeding Vital Signs: Vital Signs Temperature 97.8 F 05/25/17 09:00 Pulse Rate 78 05/25/17 10:45 Respiratory Rate 18 05/25/17 09:00 Blood Pressure 120/62 05/25/17 09:00 O2 Sat by Pulse Oximetry (%) 96 05/25/17 10:45 Constitutional: Yes: No Distress, Obese Eyes: No: Sclera Icterus HENT: No: Nasal Congestion Neck: No: Decreased ROM Respiratory: Yes: CTA Bilaterally. No: Accessory Muscle Use, Rales, Wheezes Gastrointestinal: Yes: Normal Bowel Sounds. No: Distention, Hepatomegaly, Palpable Mass, Tenderness Cardiovascular: Yes: Regular Rate and Rhythm JVD: No Carotid Bruit: No PMI: Non-Displaced Heart Sounds: Yes: S1, S2. No: Gallop Murmur: No: Systolic Murmur, Diastolic Murmur Musculoskeletal: Yes: Other (No kyphosis) Extremities: No: Cold, Cyanosis Edema: No Peripheral Pulses: 2+ Left Carotid, 2+ Right Carotid, 2+ Left Doralis Pedis, 2+ Right Dorsalis Pedis Integumentary: No: Jaundice Neurological: Yes: Alert, Oriented (x3) Psychiatric: No: Agitated - Other Data Labs, Other Data: CBC, BMP 05/24/17 07:00 05/24/17 07:00 INR, PTT INR 1.10 (0.82-1.09) 05/23/17 19:50 Troponin, BNP 05/24/17 07:00 Troponin I < 0.02 Troponin, BNP 05/24/17 07:00 Troponin I < 0.02 telem: NSR, artifact Assessment/Plan ECG 05/23/17: NSR, normal axis/intervals; no q waves, no ST-T abn CXR (images reviewed): clear lungs/pleura; no widened mediastinum Echo here: nl LVEF, no RWMA. nl RV. mod TR. RVSP 30-40 chest pain: -sx features c/w atypical angina -r/o ischemia, vs ? c-spine or shoulder pathology (denies known c-spine dz or arthritis of shoulder) -ecg normal, trop neg x 3 -echo normal -interm pretest probability--per guidelines, reasonable to do inpatient vs outpatient dobutamine stress echo. d/w'd pt who is uncertain which she prefers, needs to speak to her dtr. HTN: -bp controlled -cont home meds
--- NOTE | 2017-05-25 13:55 | PN ---
Physical Exam: SUBJECTIVE: Patient seen and examined OBJECTIVE: Vital Signs Period Temp Pulse Resp BP Sys/Gaona Pulse Ox Last 24 Hr 97.7 F-98.4 F 74-80 18-20 101-120/56-62 96-97 GENERAL: The patient is awake, alert, and fully oriented, in no acute distress. HEAD: Normal with no signs of trauma. EYES: PERRL, extraocular movements intact, sclera anicteric, conjunctiva clear. No ptosis. ENT: Ears normal, nares patent, oropharynx clear without exudates, moist mucous membranes. NECK: Trachea midline, full range of motion, supple. LUNGS: clear upper lobes, diminished lungs at the bases, tolerating room air HEART: NSR on tele monitor ABDOMEN: Soft, nontender, nondistended, normoactive bowel sounds, no guarding, no rebound, no hepatosplenomegaly, no masses. EXTREMITIES: bilateral trace edema. NEUROLOGICAL: Normal speech, gait not observed. PSYCH: Normal mood, normal affect. SKIN: Warm, dry, normal turgor, no rashes or lesions noted Active Medications Generic Name Dose Route Start Last Admin Trade Name Freq PRN Reason Stop Dose Admin Albuterol/Ipratropium 1 amp 05/24/17 10:56 05/24/17 21:45 Duoneb - NEB 1 amp Q6H PRN Administration SHORTNESS OF BREATH Hydrochlorothiazide 25 mg 05/24/17 10:00 05/25/17 09:23 Hctz - PO 25 mg DAILY DAVONTE Administration Ibuprofen 600 mg 05/24/17 09:26 05/25/17 00:23 Motrin - PO 600 mg Q8H PRN Administration PAIN Latanoprost 1 drop 05/24/17 22:30 05/24/17 22:54 Xalatan 0.005% Eye Drops - OU 1 drop HS DAVONTE Administration Levothyroxine Sodium 50 mcg 05/24/17 07:00 05/25/17 06:55 Synthroid - PO 50 mcg DAILY@0700 DAVONTE Administration Fluticasone/ 1 each 05/24/17 16:00 05/25/17 09:23 Salmeterol (Advair) PO 1 each 500mcg/50mcg (Pt's DAILY DAVONTE Administration Own) Valsartan 160 mg 05/24/17 10:00 05/25/17 09:23 Diovan - PO 160 mg DAILY DAVONTE Administration ASSESSMENT/PLAN: Patient is a 66 year old female with a past medical history of hypertension, asthma, anemia, vertigo and hypothyroidism. She presented to the ED on 2016 with complaints of left sided chest pain and chest tightness that started yesterday after shoveling outside. On exam, patient states she is still having chest tightness at rest, that comes and goes. Last episode of chest tightness was today at 0745, she describes the tightness as intermittent, with mild shortness of breath. On exam, she was noted to have mild wheezing auscultated on posterior lung brewster. Cardiology: Chest tightness/Chest pain, acute/improving Denies chest pain, but has intermittent left arm pain, for stress test tomorrow Lungs clear/diminished to auscultation Trops negative Risk factors of htn, obesity, hypothyroidism Hmga1c wnl, lipid panel wnl Hypertension, controlled On Hctz 25mg PO daily Diovan 160mg PO daily echo reviewed Hypothyroidism, on home dose of Synthroid Pulmonary: Asthma history with wheezing on bilateral lung brewster Patient reports non compliance with daily use of Advair 500/50, which she carries with her Albuterol ordered for nebs q6 Tolerating room air Importance of maintenance advair discussed Hematology Anemia Patient reported that she was worked up for anemia by PCP and told she needed to start iron supplements but has not yet done so hmg/hmt low stable F.E.N. Fluids: tolerating PO Electrolytes: monitor Nutrition: low salt Prophylaxis: DVT: ambulatory GI; deferred Disposition: full code. discharge tomorrow after stress test.
[2017-05-25] MEDS: LATANOPROST 0.005% OPHTH SOLN 2.5ML BOTTLE OU SCH (21:47)
--- NOTE | 2017-05-26 01:40 | EKG ---
Test Reason : Blood Pressure : / mmHG Vent. Rate : 073 BPM Atrial Rate : 073 BPM P-R Int : 174 ms QRS Dur : 096 ms QT Int : 392 ms P-R-T Axes : 039 023 034 degrees QTc Int : 431 ms NORMAL SINUS RHYTHM NORMAL ECG WHEN COMPARED WITH ECG OF 23-MAR-2014 01:50, NO SIGNIFICANT CHANGE WAS FOUND Confirmed by SARA URIAS MD ([id number]) on 05/26/2017 1:40:26 AM Referred By: Confirmed By:SARA URIAS MD
[2017-05-26] MEDS: LEVOTHYROXINE NA 50 MCG TABLET (FP) PO SCH (06:36)
[2017-05-26 07:29] LABS: BASO % 0.9 % (0-2.0); EOS % 8.5 % (0-4.5); MCH 24.9 pg (25.7-33.7); MCHC 31.6 g/dl (32.0-36.0); MEAN CELL VOLUME 78.9 fl (80-96); MEAN PLT VOLUME 9.2 fl (7.5-11.1); PLATELET COUNT 193 K/MM3 (134-434); RDW 17.6 % (11.6-15.6); WHITE BLOOD COUNT 6.4 K/mm3 (4.0-10.0)
[2017-05-26 07:32] LABS: ALBUMIN 2.7 g/dl (3.4-5.0); ANION GAP 8 (8-16); CALCIUM 8.4 mg/dL (8.5-10.1); CO2 30 mmol/L (21-32); GLUCOSE,RANDOM 77 mg/dL (74-106)
[2017-05-26 07:35] LABS: ALK PHOS 87 U/L (45-117); BILIRUBIN,TOTAL 0.4 mg/dL (0.2-1.0); SGOT/AST 16 U/L (15-37); SGPT/ALT 22 U/L (12-78); TOT PROT 7.2 g/dl (6.4-8.2)
--- NOTE | 2017-05-26 08:46 | PN ---
Physical Exam: SUBJECTIVE: Patient seen and examined, waiting for stress test. OBJECTIVE: Vital Signs Period Temp Pulse Resp BP Sys/Gaona Pulse Ox Last 24 Hr 97.8 F-98.7 F 64-79 16-20 90-131/52-71 96-98 GENERAL: The patient is awake, alert, and fully oriented, in no acute distress. HEAD: Normal with no signs of trauma. EYES: PERRL, extraocular movements intact, sclera anicteric, conjunctiva clear. No ptosis. ENT: Ears normal, nares patent, oropharynx clear without exudates, moist mucous membranes. NECK: Trachea midline, full range of motion, supple. LUNGS: clear upper lobes, diminished lungs at the bases, tolerating room air HEART: NSR on tele monitor ABDOMEN: Soft, nontender, nondistended, normoactive bowel sounds, no guarding, no rebound, no hepatosplenomegaly, no masses. EXTREMITIES: bilateral trace edema. NEUROLOGICAL: Normal speech, gait not observed. PSYCH: Normal mood, normal affect. SKIN: Warm, dry, normal turgor, no rashes or lesions noted Laboratory Results - last 24 hr 05/26/17 05/26/17 05:05 05:05 WBC 6.4 RBC 3.52 L Hgb 8.8 L Hct 27.7 L MCV 78.9 L MCH 24.9 L MCHC 31.6 L RDW 17.6 H Plt Count 193 MPV 9.2 Neutrophils % 63.0 Lymphocytes % 19.8 Monocytes % 7.8 Eosinophils % 8.5 H Basophils % 0.9 Sodium 141 Potassium 3.8 Chloride 103 Carbon Dioxide 30 Anion Gap 8 BUN 20 H D Creatinine 1.0 Creat Clearance w eGFR 55.47 Random Glucose 77 Calcium 8.4 L Total Bilirubin 0.4 D AST 16 D ALT 22 D Alkaline Phosphatase 87 Total Protein 7.2 Albumin 2.7 L Active Medications Generic Name Dose Route Start Last Admin Trade Name Freq PRN Reason Stop Dose Admin Albuterol/Ipratropium 1 amp 05/24/17 10:56 05/24/17 21:45 Duoneb - NEB 1 amp Q6H PRN Administration SHORTNESS OF BREATH Hydrochlorothiazide 25 mg 05/24/17 10:00 05/25/17 09:23 Hctz - PO 25 mg DAILY DAVONTE Administration Ibuprofen 600 mg 05/24/17 09:26 05/25/17 21:45 Motrin - PO 600 mg Q8H PRN Administration PAIN Latanoprost 1 drop 05/24/17 22:30 05/25/17 21:47 Xalatan 0.005% Eye Drops - OU 1 drop HS DAVONTE Administration Levothyroxine Sodium 50 mcg 05/24/17 07:00 05/26/17 06:36 Synthroid - PO 50 mcg DAILY@0700 DAVONTE Administration Fluticasone/ 1 each 05/24/17 16:00 05/25/17 09:23 Salmeterol (Advair) PO 1 each 500mcg/50mcg (Pt's DAILY DAVONTE Administration Own) Valsartan 160 mg 05/24/17 10:00 05/25/17 09:23 Diovan - PO 160 mg DAILY DAVONTE Administration ASSESSMENT/PLAN: Patient is a 66 year old female with a past medical history of hypertension, asthma, anemia, vertigo and hypothyroidism. She presented to the ED on 2016 with complaints of left sided chest pain and chest tightness that started yesterday after shoveling outside. On exam, patient states she is still having chest tightness at rest, that comes and goes. Last episode of chest tightness was today at 0745, she describes the tightness as intermittent, with mild shortness of breath. On exam, she was noted to have mild wheezing auscultated on posterior lung brewster. Cardiology: Chest tightness/Chest pain, resolved Denies chest pain, but has intermittent left arm pain Dobutamine stress echo today Lungs clear/diminished to auscultation Trops negative x 3 Risk factors of htn, obesity, hypothyroidism Hmga1c wnl, lipid panel wnl d/c once cleared by cardiology Pt asking for cardiology consult on d/c Hypertension, controlled On Hctz 25mg PO daily Diovan 160mg PO daily echo reviewed Hypothyroidism, on home dose of Synthroid Pulmonary: Asthma history, not in exacerbation On home advair, nebs prn Tolerating room air Importance of maintenance advair discussed Hematology: Anemia Patient reported that she was worked up for anemia by PCP and told she needed to start iron supplements but has not yet done so hmg/hmt low stable Outpatient followup with PCP [facility]. Fluids: tolerating PO Electrolytes: monitor Nutrition: low salt Prophylaxis: DVT: ambulatory GI; deferred Disposition: full code. Patient is requesting a new PCP on discharge secondary to change of insurance . She will also need a cardiology follow up. Visit type - Emergency Visit Emergency Visit: Yes ED Registration Date: 05/23/17 Care time: The patient presented to the Emergency Department on the above date and was hospitalized for further evaluation of their emergent condition. - New Patient This patient is new to me today: No - Critical Care Critical Care patient: No - Discharge Referral Referred to [facility] Yes Physician Referral: Dima Deleon MD ([facility]), Ambar Paez MD ([facility])
[2017-05-26] MEDS ORDERED: DOBUTAMINE HCL 100,000 MCG in DEXTROSE 5%-WATER - 92 ML IVPB ONE (11:30)
--- NOTE | 2017-05-26 12:40 | PN ---
Progress Note (short form) - Note Progress Note: Chief Complaint: cp History of Present Illness: - Past Medical History Cardio/Vascular: Yes: HTN Pulmonary: Yes: Asthma ...: No Endocrine: Yes: Hypothyroidism Current Medications Albuterol/Ipratropium (Duoneb -) 1 amp NEB Q6H PRN PRN Reason: SHORTNESS OF BREATH Last Admin: 05/24/17 21:45 Dose: 1 amp Hydrochlorothiazide (Hctz -) 25 mg PO DAILY [facility] Last Admin: 05/25/17 09:23 Dose: 25 mg Dobutamine HCl 100,000 mcg/ (Dextrose) 100 mls @ 41.47 mls/hr IVPB ONCE ONE; 5 MCG/KG/MIN PRN Reason: Protocol Stop: 05/26/17 13:54 Ibuprofen (Motrin -) 600 mg PO Q8H PRN PRN Reason: PAIN Last Admin: 05/25/17 21:45 Dose: 600 mg Latanoprost (Xalatan 0.005% Eye Drops -) 1 drop OU HS [facility] Last Admin: 05/25/17 21:47 Dose: 1 drop Levothyroxine Sodium (Synthroid -) 50 mcg PO DAILY@0700 [facility] Last Admin: 05/26/17 06:36 Dose: 50 mcg Fluticasone/Salmeterol (Advair) 500mcg/50mcg (Pt's Own) 1 each PO DAILY [facility] Last Admin: 05/25/17 09:23 Dose: 1 each Valsartan (Diovan -) 160 mg PO DAILY [facility] Last Admin: 05/25/17 09:23 Dose: 160 mg Vital Signs - 24 hr 05/25/17 05/25/17 05/25/17 14:15 16:00 17:00 Temperature 98 F 97.9 F Pulse Rate 78 79 Respiratory 18 20 Rate Blood Pressure 123/70 131/71 O2 Sat by Pulse 98 Oximetry (%) 05/25/17 05/25/17 05/25/17 18:00 20:15 22:00 Temperature 98.2 F 98.0 F Pulse Rate 74 72 Respiratory 18 20 Rate Blood Pressure 112/70 125/66 O2 Sat by Pulse 98 Oximetry (%) 05/26/17 05/26/17 05/26/17 02:00 05:46 07:30 Temperature 98.7 F 98.3 F 97.9 F Pulse Rate 64 70 69 Respiratory 20 20 16 Rate Blood Pressure 108/57 90/52 126/71 O2 Sat by Pulse 97 Oximetry (%) Intake & Output 05/24/17 05/25/17 05/26/17 05/27/17 07:59 07:59 07:59 07:59 Intake Total 200 490 410 Output Total 2 1 Balance 198 489 410 Weight 304 lb 12.8 oz Constitutional: Yes: No Distress, Obese Eyes: No: Sclera Icterus HENT: No: Nasal Congestion Neck: No: Decreased ROM Respiratory: Yes: CTA Bilaterally. No: Accessory Muscle Use, Rales, Wheezes Gastrointestinal: Yes: Normal Bowel Sounds. No: Distention, Hepatomegaly, Palpable Mass, Tenderness Cardiovascular: Yes: Regular Rate and Rhythm JVD: No Carotid Bruit: No PMI: Non-Displaced Heart Sounds: Yes: S1, S2. No: Gallop Murmur: No: Systolic Murmur, Diastolic Murmur Musculoskeletal: Yes: Other (No kyphosis) Extremities: No: Cold, Cyanosis Edema: No Peripheral Pulses: 2+ Left Carotid, 2+ Right Carotid, 2+ Left Doralis Pedis, 2+ Right Dorsalis Pedis Integumentary: No: Jaundice Neurological: Yes: Alert, Oriented (x3) Psychiatric: No: Agitated - Other Data Labs, Other Data: CBC, BMP 05/26/17 05:05 05/26/17 05:05 Laboratory Tests 05/24/17 05/26/17 07:00 05:05 Albumin 2.7 L Total LDL Cholesterol 92 TSH 2.92 telem: NSR, artifact Assessment/Plan ECG 05/23/17: NSR, normal axis/intervals; no q waves, no ST-T abn CXR (images reviewed): clear lungs/pleura; no widened mediastinum Echo here: nl LVEF, no RWMA. nl RV. mod TR. RVSP 30-40 chest pain: -sx features c/w atypical angina -r/o ischemia, vs ? c-spine or shoulder pathology (denies known c-spine dz or arthritis of shoulder). plan for stress echo today. -ecg normal, trop neg x 3 HTN: -bp controlled -cont home meds
[2017-05-26] MEDS: HYDROCHLOROTHIAZIDE 25 MG TABLET (FP) PO SCH (14:16)
[2017-05-26] MEDS: VALSARTAN 160 MG TABLET (UD) PO SCH (14:16)
[2017-05-26] MEDS: FLUTICASONE PO SCH (14:19)
[2017-05-26] MEDS: SALMETEROL PO SCH (14:19)
--- NOTE | 2017-05-26 17:10 | DS ---
Physical Exam: SUBJECTIVE: Patient seen and examined OBJECTIVE: Vital Signs Period Temp Pulse Resp BP Sys/Gaona Pulse Ox Last 24 Hr 97.5 F-98.7 F 64-80 16-20 90-126/52-71 97-98 PHYSICAL EXAM GENERAL: The patient is awake, alert, and fully oriented, in no acute distress. HEAD: Normal with no signs of trauma. EYES: PERRL, extraocular movements intact, sclera anicteric, conjunctiva clear. No ptosis. ENT: Ears normal, nares patent, oropharynx clear without exudates, moist mucous membranes. NECK: Trachea midline, full range of motion, supple. LUNGS: clear upper lobes, diminished lungs at the bases, tolerating room air HEART: NSR on tele monitor ABDOMEN: Soft, nontender, nondistended, normoactive bowel sounds, no guarding, no rebound, no hepatosplenomegaly, no masses. EXTREMITIES: bilateral trace edema. NEUROLOGICAL: Normal speech, gait not observed. PSYCH: Normal mood, normal affect. SKIN: Warm, dry, normal turgor, no rashes or lesions noted LABS Laboratory Results - last 24 hr 05/26/17 05/26/17 05:05 05:05 WBC 6.4 RBC 3.52 L Hgb 8.8 L Hct 27.7 L MCV 78.9 L MCH 24.9 L MCHC 31.6 L RDW 17.6 H Plt Count 193 MPV 9.2 Neutrophils % 63.0 Lymphocytes % 19.8 Monocytes % 7.8 Eosinophils % 8.5 H Basophils % 0.9 Sodium 141 Potassium 3.8 Chloride 103 Carbon Dioxide 30 Anion Gap 8 BUN 20 H D Creatinine 1.0 Creat Clearance w eGFR 55.47 Random Glucose 77 Calcium 8.4 L Total Bilirubin 0.4 D AST 16 D ALT 22 D Alkaline Phosphatase 87 Total Protein 7.2 Albumin 2.7 L HOSPITAL COURSE: Date of Admission:05/23/17 Date of Discharge: 05/26/17 ASSESSMENT/PLAN: Patient is a 66 year old female with a past medical history of hypertension, asthma, anemia, vertigo and hypothyroidism. She presented to the ED on 2016 with complaints of left sided chest pain and chest tightness that started yesterday after shoveling outside. Cardiology: Chest tightness/Chest pain, resolved Denies chest pain, intermittent left arm pain likely muscular/skeletal Lungs clear/diminished to auscultation Trops negative x 3 Hmga1c wnl, lipid panel wnl Echo and stress test negative Follow up with meat grader outpatient Hypertension, controlled On Hctz 25mg PO daily Diovan 160mg PO daily Hypothyroidism, on home dose of Synthroid Pulmonary: Asthma history, not in exacerbation On home advair, nebs prn Tolerating room air Importance of maintenance advair discussed Hematology: Anemia Patient reported that she was worked up for anemia by PCP and told she needed to start iron supplements but has not yet done so hmg/hmt low stable Outpatient followup with PCP Disposition: full code. Patient is requesting a new PCP on discharge secondary to change of insurance . She will also need a cardiology follow up. Minutes to complete discharge: 60 Discharge Summary Reason For Visit: CHEST PAIN Current Active Problems Chest pain (Acute) Condition: Improved - Instructions Diet, Activity, Other Instructions: Mrs. Ann: Please continue all your home medications as ordered. Please follow up with meat grader and new primary care physician as outlined on your discharge instructions. Please call me with any questions you may have. Amaris Sorensen [place] [employer] [facility] [phone] Referrals: Dima Carcamo MD [Staff Physician] - Ambar Paez MD [Staff Physician] - James Domínguez MD [Staff Physician] - 1 Week Disposition: HOME - Home Medications Comprehensive Discharge Medication List: Ambulatory Orders Levothyroxine [Synthroid -] 50 mcg PO DAILY 03/23/14 Valsartan/Hydrochlorothiazide [Diovan Hct 160-25 mg Tablet] 1 combo PO DAILY Latanoprost 0.005% Eye Drops [Xalatan 0.005% Eye Drops -] 1 drop HS 05/24/17 This patient is new to me today: No Emergency Visit: Yes ED Registration Date: 05/23/17 Care time: The patient presented to the Emergency Department on the above date and was hospitalized for further evaluation of their emergent condition. Critical Care patient: No - Discharge Referral Referred to [facility] Yes Physician Referral: Dima Deleon MD ([facility]), Ambar Paez MD ([facility])
[2017-05-26 18:02] VITALS: BP 110/58; PULSE 78; TEMP 97.7
== END 2017-05-26 18:04 | disposition home or self-care (01) ==
LOC: JER 18:22 → JERBED 21:45 → J4W 23:14
PROVIDERS: ADMIT Internal Medicine; ATTEND Nurse Practitioner Family
PROC: 3E033GC Introduction of Other Therapeutic Substance into Peripheral Vein, Percutaneous Approach (ICD-10-PCS; principal; 2017-05-23)
PROC: 3E0F7GC Introduction of Other Therapeutic Substance into Respiratory Tract, Via Natural or Artificial Opening (ICD-10-PCS; 2017-05-23)
PROC: 3E0F7GC Introduction of Other Therapeutic Substance into Respiratory Tract, Via Natural or Artificial Opening (ICD-10-PCS; 2017-05-23)
DX: R07.9 Chest pain, unspecified (principal); R73.03 Prediabetes; J45.909 Unspecified asthma, uncomplicated; D50.9 Iron deficiency anemia, unspecified; E03.9 Hypothyroidism, unspecified; Z91.010 Allergy to peanuts; Z96.651 Presence of right artificial knee joint; I12.9 Hypertensive chronic kidney disease with stage 1 through stage 4 chronic kidney disease, or unspecified chronic kidney disease; N18.9 Chronic kidney disease, unspecified
CPT/HCPCS: 36415; 71020-TC; 80048; 80053; 80061; 82550; 82553; 83036; 83690; 83721; 83880; 84443; 84484; 85025; 85027; 85610; 85730; 93005; 93010; 93306-TC; 93351; 94640; 96365; 99285-25; G0378

== ENCOUNTER 2017-07-18 17:09 | Emergency (ER) | payer OTHER ==
[2017-07-18 17:51] VITALS: BP 119/63; PULSE 81; TEMP 98.8; BMI 51.3
--- NOTE | 2017-07-18 18:26 | PDOC ---
History of Present Illness - General Chief Complaint: Weakness Stated Complaint: WEAKNESS Time Seen by Provider: 07/18/17 17:21 History Source: Patient Exam Limitations: No Limitations - History of Present Illness Initial Comments: 07/18/17 18:09 The patient is a 67F with a PMH of HTN and prediabetes who presents to the ER after having an episode of lightheadedness. The patient states that she ate at 3 -4 am today, then [place] the [place], where she began to feel lightheaded and nauseous. She went to look for a place to eat, had some crackers and juice and felt better. EMS was called so she came to our facility. She states that when she felt lightheaded, she also felt a sensation like her heart was racing. She denies any current CP, SOB, fever, chills, nausea, vomiting, numbness, tingling , weakness. Past History - Past Medical History Allergies/Adverse Reactions: Allergies Allergy/AdvReac Type Severity Reaction Status Date / Time No Known Drug Allergies Allergy Verified 07/18/17 17:44 peanut [Peanut] Allergy Verified 07/18/17 17:44 Home Medications: Ambulatory Orders Levothyroxine [Synthroid -] 50 mcg PO DAILY 03/23/14 Valsartan/Hydrochlorothiazide [Diovan Hct 160-25 mg Tablet] 1 combo PO DAILY Latanoprost 0.005% Eye Drops [Xalatan 0.005% Eye Drops -] 1 drop HS 05/24/17 Anemia: Yes Asthma: Yes COPD: No HTN: Yes Thyroid Disease: Yes (HYPO.) - Surgical History Orthopedic Surgery: Yes (right knee replacement) - Immunization History Immunization Up to Date: Yes - Suicide/Smoking/Psychosocial Hx Smoking Status: No Smoking History: Never smoked Have you smoked in the past 12 months: No Number of Cigarettes Smoked Daily: 0 Hx Alcohol Use: No Drug/Substance Use Hx: No Substance Use Type: None Hx Substance Use Treatment: No Review of Systems - Review of Systems Able to Perform ROS?: Yes Comments:: 07/18/17 18:26 GENERAL/CONSTITUTIONAL: Positive for lightheadedness. No fever or chills. HEAD, EYES, EARS, NOSE AND THROAT: No change in vision. No ear pain or discharge. No sore throat. CARDIOVASCULAR: Positive for heart racing. No chest pain or lightheadedness. RESPIRATORY: No cough, wheezing, shortness of breath, or hemoptysis. GASTROINTESTINAL: No nausea, vomiting, diarrhea, constipation, or abdominal pain. GENITOURINARY: No dysuria, frequency, hematuria, or change in urination. MUSCULOSKELETAL: No joint or muscle swelling or pain. No neck or back pain. SKIN: No rash or lesions. NEUROLOGIC: No headache, numbness, tingling, loss of consciousness, or change in strength/sensation. ENDOCRINE: No increased thirst. No abnormal weight change. HEMATOLOGIC/LYMPHATIC: No anemia, easy bleeding, or history of blood clots. ALLERGIC/IMMUNOLOGIC: No hives or skin allergy. Is the patient limited Peruvian proficient: No *Physical Exam - Vital Signs Last Vital Signs Temp Pulse Resp BP Pulse Ox 98.8 F 81 19 119/63 100 07/18/17 17:48 07/18/17 17:48 07/18/17 17:48 07/18/17 17:48 07/18/17 17:48 - Physical Exam Comments: 07/18/17 18:26 GENERAL: Well developed, well nourished. Awake and alert. No acute distress. HEENT: Normocephalic, atraumatic. Hearing grossly normal. Moist mucous membranes. PERRLA, EOMI. No conjunctival pallor. Sclera are non-icteric. NECK: Supple. Full ROM. No JVD. No lymphadenopathy. CARDIOVASCULAR: Regular rate and rhythm. No murmurs, rubs, or gallops. PULMONARY: No evidence of respiratory distress. Lungs clear to auscultation bilaterally. No wheezing, rales or rhonchi. ABDOMINAL: Soft. Non-tender. Non-distended. No rebound or guarding. GENITOURINARY: No CVA tenderness bilaterally. MUSCULOSKELETAL: Normal range of motion at all joints. No bony deformities or tenderness. EXTREMITIES: No cyanosis. No clubbing. No edema. No calf tenderness. SKIN: Warm and dry. Normal capillary refill. No rashes. No jaundice. NEUROLOGICAL: Alert, awake, appropriate. Cranial nerves 2-12 intact. No deficits to light touch and temperature in face, upper extremities and lower extremities. No motor deficits in the in face, upper extremities and lower extremities. Finger to nose normal bilaterally. Normal speech. Gait is normal without ataxia. PSYCHIATRIC: Cooperative. Good eye contact. Appropriate mood and affect. Heart Score/ECG Review #1 ECG reviewed & interpreted by me at: 18:28 General ECG Interpretation: Sinus Rhythm, Normal Rate, Normal Intervals, No acute ischemic changes Compared to previous ECG there are: No significant change 07/18/17 18:28 NSR Rate 79 OH 182 QRS 86 QTc 438 No acute ischemic changes noted. ED Treatment Course - LABORATORY CBC & Chemistry Diagram: 07/18/17 18:05 07/18/17 18:05 - RADIOLOGY Radiology Studies Ordered: Category Date Time Status CHEST X-RAY PORTABLE* [RAD] Stat Radiology 07/18/17 17:59 Taken Medical Decision Making - Medical Decision Making 07/18/17 18:30 The patient is a well appearing 67F with a PMH of HTN and prediabetes who presents with a near syncopal episode. She was recently admitted for a cardiac workup which was negative. Based on a negative physical exam, I have low concern for an acute pathology. Will monitor closely and f/u will labs and imaging. 07/18/17 19:00 Labs WNL. Preliminary read for XR negative. Will give fluid and d/c home with PCP f/u. *DC/Admit/Observation/Transfer Diagnosis at time of Disposition: Lightheadedness - Discharge Dispostion Disposition: HOME Condition at time of disposition: Stable Admit: No - Referrals Referrals: Sukhwinder Mccoy MD [Staff Physician] - - Patient Instructions Additional Instructions: Please return to the ER if symptoms persist, worsen, or new symptoms arise. Please follow up with your primary care physician in 2-3 days, which is at the [facility] listed. Please return to the ER if you have any signs or symptoms of chest pain, shortness of breath, uncontrollable fever, chills, nausea, vomiting, numbness, tingling, or weakness in any part of your body, changes in vision, or slurred speech. - Post Discharge Activity
--- NOTE | 2017-07-18 18:27 | PDOC ---
Attending Attestation - Resident Resident Name: MahadcinthyaUri - ED Attending Attestation I have performed the following: I have examined & evaluated the patient, The case was reviewed & discussed with the resident, I agree w/resident's findings & plan, Exceptions are as noted - HPI HPI: 07/18/17 18:23 67-year-old female with history of hypertension, borderline diabetes presents with episode of lightheadedness today. Patient was in her usual state of good health, last had by mouth intake around 3 AM, [place] all day and around 4 PM developed lightheadedness with nausea while seated, no associated chest pain or difficulty breathing or focal neurological deficit. Her symptoms resolved after eating juice and crackers, but EMS had been activated and she presents now without complaints. At baseline, has unlimited exercise tolerance. Had admission in May which was negative including echo and stress test. No recent infectious or dehydration complaints. - Physicial Exam PE: 07/18/17 18:24 Vital signs stable. Well-appearing, smiling and persistent Heart is regular without audible murmur Lungs are clear Neurologically intact - Medical Decision Making 07/18/17 18:25 Patient seen and evaluated with the resident. I agree with the overall evaluation, assessment, and management with the following summary of visit: 67-year-old female with episode of lightheadedness, likely hypoglycemia under the circumstances. Less likely cardiovascular or neurological in etiology, asymptomatic now. Willl check labs, EKG, chest x-ray Monitor and dispo accordingly. In light of recently negative cardiac workup, if continues to feel well could be discharged to outpatient follow-up. Heart Score/ECG Review #1 ECG reviewed & interpreted by me at: 17:35 General ECG Interpretation: Sinus Rhythm, Normal Rate (79), Normal Intervals ( qtc 438), No acute ischemic changes
[2017-07-18 18:28] LABS: BASO % 0.5 % (0-2.0); EOS % 2.2 % (0-4.5); HEMATOCRIT 31.8 % (32.4-45.2); HEMOGLOBIN 10.3 GM/dL (10.7-15.3); LYMPH % 11.1 % (8-40); MCH 25.3 pg (25.7-33.7); MCHC 32.3 g/dl (32.0-36.0); MEAN CELL VOLUME 78.3 fl (80-96); MONO % 6.4 % (3.8-10.2); NEUT % 79.8 % (42.8-82.8); PLATELET COUNT 188 K/MM3 (134-434); RBC 4.06 M/mm3 (3.60-5.2); RDW 17.2 % (11.6-15.6); URINE APPEARANCE CLEAR; URINE BILIRUBIN NEGATIVE (NEGATIVE); URINE BLOOD 1+ (NEGATIVE); URINE COLOR YELLOW; URINE GLUCOSE (UA) NEGATIVE (NEGATIVE); URINE KETONE NEGATIVE (NEGATIVE); URINE LEUK ESTERASE TRACE (NEGATIVE); URINE NITRITE NEGATIVE (NEGATIVE); URINE PROTEIN NEGATIVE (NEGATIVE); URINE UROBILINOGEN NEGATIVE mg/dL (0.2-1.0); WHITE BLOOD COUNT 7.8 K/mm3 (4.0-10.0)
[2017-07-18 18:37] LABS: EPI CELLS RARE /HPF (FEW); URINE BACTERIA RARE /hpf (NONE SEEN); URINE MUCUS FEW
[2017-07-18 18:49] LABS: ALBUMIN 3.2 g/dl (3.4-5.0); ANION GAP 6 (8-16); BILIRUBIN,TOTAL 0.4 mg/dL (0.2-1.0); BLOOD UREA NITROGEN 27 mg/dL (7-18); CALCIUM 8.3 mg/dL (8.5-10.1); CHLORIDE 102 mmol/L (98-107); CO2 30 mmol/L (21-32); CREATININE 1.2 mg/dL (0.55-1.02); GLUCOSE,RANDOM 105 mg/dL (74-106); POTASSIUM 3.6 mmol/L (3.5-5.1); SGOT/AST 17 U/L (15-37); SGPT/ALT 22 U/L (12-78); SODIUM 138 mmol/L (136-145); TOT PROT 8.5 g/dl (6.4-8.2)
[2017-07-18] MEDS ORDERED: SODIUM CHLORIDE 500 ML IV ONE (18:50)
[2017-07-18 18:52] LABS: ALK PHOS 107 U/L (45-117)
--- NOTE | 2017-07-19 08:41 | EKG ---
Test Reason : Blood Pressure : / mmHG Vent. Rate : 079 BPM Atrial Rate : 079 BPM P-R Int : 182 ms QRS Dur : 086 ms QT Int : 382 ms P-R-T Axes : 043 027 034 degrees QTc Int : 438 ms NORMAL SINUS RHYTHM NORMAL ECG WHEN COMPARED WITH ECG OF 23-MAY-2017 19:01, NO SIGNIFICANT CHANGE WAS FOUND Confirmed by LAKEISHA DEGROOT MD ([id number]) on 07/19/2017 8:41:14 AM Referred By: Confirmed By:LAKEISHA DEGROOT MD
== END 2017-07-18 20:38 | disposition home or self-care (01) ==
LOC: JER 17:09
PROC: 3E0337Z Introduction of Electrolytic and Water Balance Substance into Peripheral Vein, Percutaneous Approach (ICD-10-PCS; principal; 2017-07-18)
DX: R42 Dizziness and giddiness (principal); I10 Essential (primary) hypertension; E03.9 Hypothyroidism, unspecified; J45.909 Unspecified asthma, uncomplicated
CPT/HCPCS: 36415; 71045-TC; 80053; 81003; 81015; 82550; 82553; 83735; 84484; 85025; 93005; 93010; 96360; 99282-25

== ENCOUNTER 2017-07-21 02:18 | Observation (INO) | payer OTHER ==
[2017-07-21] MEDS ORDERED: ONDANSETRON 4 MG/2 ML VIAL IVPUSH ONE (03:05)
[2017-07-21] MEDS ORDERED: ONDANSETRON 4 MG/2 ML VIAL ONE (03:16)
--- NOTE | 2017-07-21 03:25 | PDOC ---
Attending Attestation - HPI HPI: 07/21/17 06:53 Patient is a 67 year old female with a significant past medical history of HTN, Diabetes, Anemia, Asthma, COPD, who presents to the ED with complaints of Sob and palpitations that began tonight at 9pm. Patient reports drinking peppermint tea when she suddenly began to experience heart palpitations and SOB that she states was constant until past midnight, prompting her to come to the ED for further evaluation. She reports experiencing intermittent nausea and left sided chest pain that she states radiated to her L arm. Rhythm strip from EMS with possible atrial flutter with 5/1 block vs artifact which resolved to sinus rhythm on arrival to the ED. Denies fevers, chills. Denies head pain, change in vision. Denies change in diet , constipation, diarrhea, dysuria, hematuria. Denies any other symptoms. Allergies: Peanuts. Social history: No smoking. No alcohol. No illicit drugs. Surgical history: right knee replacement PMD: Gavi Son: Pranav [phone] - Physicial Exam PE: 07/21/17 06:53 GENERAL: Obese, awake, alert, and fully oriented, in no acute distress HEAD: No signs of trauma EYES: PERRLA, EOMI, sclera anicteric, conjunctiva clear ENT: Auricles normal inspection, hearing grossly normal, nares patent, oropharynx clear without exudates. Moist mucosa NECK: Normal ROM, supple, no lymphadenopathy, JVD, or masses LUNGS: Breath sounds equal, clear to auscultation bilaterally. No wheezes, and no crackles HEART: Regular rate and rhythm, normal S1 and S2, no murmurs, rubs or gallops ABDOMEN: Soft, nontender, normoactive bowel sounds. No guarding, no rebound. No masses EXTREMITIES: +2+ symmetric lower extreme edema to the calves Normal range of motion, no edema. No clubbing or cyanosis. No cords, erythema, or tenderness NEUROLOGICAL: Normal speech, cranial nerves intact, negative pronator drift, 5/ 5 strength in all 4 extremities, normal sensation to light touch in all 4 extremities, normal cerebellar exam, normal gait, normal reflexes and tone SKIN: Warm, Dry, normal turgor, no rashes or lesions noted. - Medical Decision Making 07/21/17 06:53 Documentation prepared by Jer Cottrell, acting as medical claims specialist for Lizzie Marks MD, /DO. <Jer Cottrell - Last Filed: 07/21/17 06:53> - Resident Resident Name: Uri Cat - ED Attending Attestation I have performed the following: I have examined & evaluated the patient, The case was reviewed & discussed with the resident, I agree w/resident's findings & plan, Exceptions are as noted - Medical Decision Making 07/21/17 06:55 67yo F hx HTN, Diabetes, Anemia, Asthma, COPD presents to ED with SOB, CP, palpitations with possible Aflutter in the field, resolved in the ED. Vitals on arrival wnl. Exam unremarkable other than LE edema. GIven possible aflutter and associate palpitaitons and SOB, pt will require observation on telemetry. Will obtain labs, CXR and admit. <Lizzie Marks - Last Filed: 07/21/17 06:57> Heart Score/ECG Review #1 07/21/17 06:57 Twelve-lead EKG was performed and reviewed by me. Normal sinus rhythm, rate 71. Normal axis and intervals. No ST elevations or T-wave inversions. <Lizzie Marks - Last Filed: 07/21/17 06:57>
--- NOTE | 2017-07-21 04:37 | PDOC ---
History of Present Illness - General Chief Complaint: Palpitations Stated Complaint: PALPATATIONS Time Seen by Provider: 07/21/17 02:38 History Source: Patient Exam Limitations: No Limitations - History of Present Illness Initial Comments: 07/21/17 04:30 The patient is a 67F with a PMH of HTN and DM who presents to the ER with complaints of palpitations, shortness of breath, and nausea. The patient states that at 2100 on 07/20/17 she felt like her heart was racing, had SOB, with associated L sided CP and nausea. She called EMS and was found to be in a- flutter on their monitor. She states that she currently only feels nauseous with intermittent CP. Past History - Past Medical History Allergies/Adverse Reactions: Allergies Allergy/AdvReac Type Severity Reaction Status Date / Time No Known Drug Allergies Allergy Verified 07/21/17 02:33 peanut [Peanut] Allergy Verified 07/21/17 02:33 Home Medications: Ambulatory Orders Levothyroxine [Synthroid -] 50 mcg PO DAILY 03/23/14 Valsartan/Hydrochlorothiazide [Diovan Hct 160-25 mg Tablet] 1 combo PO DAILY Latanoprost 0.005% Eye Drops [Xalatan 0.005% Eye Drops -] 1 drop HS 05/24/17 Anemia: Yes Asthma: Yes COPD: No HTN: Yes Thyroid Disease: Yes (HYPO.) - Surgical History Orthopedic Surgery: Yes (right knee replacement) - Immunization History Immunization Up to Date: Yes - Suicide/Smoking/Psychosocial Hx Smoking Status: No Smoking History: Never smoked Have you smoked in the past 12 months: No Number of Cigarettes Smoked Daily: 0 Information on smoking cessation initiated: No Hx Alcohol Use: No Drug/Substance Use Hx: No Substance Use Type: None Hx Substance Use Treatment: No Review of Systems - Review of Systems Able to Perform ROS?: Yes Comments:: 07/21/17 04:38 GENERAL/CONSTITUTIONAL: No fever or chills. No weakness. HEAD, EYES, EARS, NOSE AND THROAT: No change in vision. No ear pain or discharge. No sore throat. CARDIOVASCULAR: Positive for CP and palpitations.No chest pain, palpitations, or lightheadedness. RESPIRATORY: Positive for shortness of breath. No cough, wheezing, or hemoptysis. GASTROINTESTINAL: Positive for nausea. No vomiting, diarrhea, constipation, or abdominal pain. GENITOURINARY: No dysuria, frequency, hematuria, or change in urination. MUSCULOSKELETAL: No joint or muscle swelling or pain. No neck or back pain. SKIN: No rash or lesions. NEUROLOGIC: No headache, numbness, tingling, weakness, loss of consciousness, or change in strength/sensation. ENDOCRINE: No increased thirst. No abnormal weight change. HEMATOLOGIC/LYMPHATIC: No anemia, easy bleeding, or history of blood clots. ALLERGIC/IMMUNOLOGIC: No hives or skin allergy. Is the patient limited Turkish proficient: No *Physical Exam - Vital Signs Last Vital Signs Temp Pulse Resp BP Pulse Ox 97.8 F 71 18 137/70 96 07/21/17 02:18 07/21/17 02:18 07/21/17 02:18 07/21/17 02:18 07/21/17 02:18 - Physical Exam Comments: 07/21/17 04:55 GENERAL: Well developed, well nourished. Awake and alert. No acute distress. HEENT: Normocephalic, atraumatic. Hearing grossly normal. Moist mucous membranes. PERRLA, EOMI. No conjunctival pallor. Sclera are non-icteric. NECK: Supple. Full ROM. No JVD. Carotid pulses 2+ and symmetric, without bruits. CARDIOVASCULAR: Regular rate and rhythm. No murmurs, rubs, or gallops. PULMONARY: No evidence of respiratory distress. Lungs clear to auscultation bilaterally. No wheezing, rales or rhonchi. ABDOMINAL: Soft. Non-tender. Non-distended. No rebound or guarding. MUSCULOSKELETAL: Normal range of motion at all joints. No bony deformities or tenderness. EXTREMITIES: No cyanosis. No clubbing. 3+ edema in b/l LE. No calf tenderness. SKIN: Warm and dry. Normal capillary refill. No rashes. No jaundice. NEUROLOGICAL: Alert, awake, appropriate. Cranial nerves 2-12 intact. Normal speech. Gait is normal without ataxia. PSYCHIATRIC: Cooperative. Good eye contact. Appropriate mood and affect. Heart Score/ECG Review #1 ECG reviewed & interpreted by me at: 04:56 General ECG Interpretation: Sinus Rhythm, Normal Rate, Normal Intervals, No acute ischemic changes Compared to previous ECG there are: Other (See remarks) 07/21/17 04:56 Obtained from rhythm strip off EMS A-flutter noted Rate 99 #2 ECG reviewed & interpreted by me at: 04:57 General ECG Interpretation: Sinus Rhythm, Normal Rate, Normal Intervals, No acute ischemic changes Compared to previous ECG there are: Changes noted (No longer in a-flutter) 07/21/17 04:58 NSR 71 IN 188 QRS 90 Qtc 430 ED Treatment Course - LABORATORY CBC & Chemistry Diagram: 07/21/17 03:06 07/21/17 04:00 - RADIOLOGY Radiology Studies Ordered: Category Date Time Status CHEST X-RAY PORTABLE* [RAD] Stat Radiology 07/21/17 03:57 Taken - Medications Given in the ED: ED Medications Discontinued Medications Generic Name Dose Route Start Last Admin Trade Name Freq PRN Reason Stop Dose Admin Ondansetron HCl 4 mg 07/21/17 03:05 07/21/17 03:19 Zofran Injection IVPUSH 07/21/17 03:06 4 mg ONCE ONE Administration Medical Decision Making - Medical Decision Making 07/21/17 04:58 The patient is a 67F with a PMH of HTN and DM who presents with palpitations and nausea. EKG strip with EMS looks like a-flutter. Pt is in NSR in ED stating that her symptoms resolved. Pending labs/imaging. CXR negative on preliminary reading. 07/21/17 06:59 Dr. Perera accepts admission with Dr. Stanfodr for cardiology. *DC/Admit/Observation/Transfer Diagnosis at time of Disposition: Palpitations - Discharge Dispostion Condition at time of disposition: Stable Admit: Yes - Referrals Referrals: Jeanmarie Gatica MD [Primary Care Provider] - - Patient Instructions - Post Discharge Activity
[2017-07-21 05:22] LABS: ALBUMIN 3.1 g/dl (3.4-5.0); ANION GAP 6 (8-16); BILIRUBIN,TOTAL 0.5 mg/dL (0.2-1.0); BLOOD UREA NITROGEN 18 mg/dL (7-18); CHLORIDE 104 mmol/L (98-107); CO2 28 mmol/L (21-32); CREATININE 0.9 mg/dL (0.55-1.02); GLUCOSE,RANDOM 92 mg/dL (74-106); MAGNESIUM 1.9 mg/dL (1.8-2.4); POTASSIUM 3.5 mmol/L (3.5-5.1); SGOT/AST 15 U/L (15-37); SGPT/ALT 21 U/L (12-78); SODIUM 138 mmol/L (136-145); TOT PROT 7.7 g/dl (6.4-8.2)
[2017-07-21 05:24] LABS: BASO % 0.8 % (0-2.0); EOS % 5.4 % (0-4.5); HEMATOCRIT 29.7 % (32.4-45.2); HEMOGLOBIN 9.7 GM/dL (10.7-15.3); MCH 25.4 pg (25.7-33.7); MCHC 32.5 g/dl (32.0-36.0); MEAN CELL VOLUME 78.3 fl (80-96); MEAN PLT VOLUME 9.1 fl (7.5-11.1); NEUT % 71.8 % (42.8-82.8); PLATELET COUNT 184 K/MM3 (134-434); RDW 17.3 % (11.6-15.6); WHITE BLOOD COUNT 6.7 K/mm3 (4.0-10.0)
[2017-07-21 05:25] LABS: ALK PHOS 101 U/L (45-117)
[2017-07-21 08:36] LABS: N-TERMINAL BNP 25.73 pg/ml (5-125)
--- NOTE | 2017-07-21 08:56 | CON.CARD ---
Consult Consult Specialty:: Cardiology Referred by:: Dr. Jeanmarie Gatica Reason for Consultation:: Evaluate for possible aflutter - History of Present Illness Chief Complaint: palpitations History of Present Illness: 67 F w/ hypothyroidism, HTN, obesity admitted here 2 months ago with atypical CP, had dobutamine stress echo which was normal at 95% of predicted heart rate. Now returns via EMS for episodes of palpitations at rest. As per EMS, possible "aflutter" noted on initial rhythm strip. On review of strip, it is artifact. She reports feeling depressed, anxious, tired and dizzy lately since the passing of her . She is tearful and thinks she may have anxiety and or depression. + Chronic MURILLO, unchanged. Denies syncope or PND/orhtopnea. No recent URI. No fevers/chills. No neuro sx. 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 - History Source History Provided By: Patient, Medical Record Limitations to Obtaining History: No Limitations - Past Medical History Cardio/Vascular: Yes: HTN Pulmonary: Yes: Asthma (triggered by Viral URIs) Endocrine: Yes: Hypothyroidism - Past Surgical History Past Surgical History: Yes: None, Joint Replacement Additional Surgical History: Lumpectomy for benign disease - Alcohol/Substance Use Hx Alcohol Use: No History of Substance Use: reports: None - Smoking History Smoking history: Never smoked Have you smoked in the past 12 months: No Aproximately how many cigarettes per day: 0 - Social History Usual Living Arrangement: With Child Occupation: Retired History of Recent Travel: No Home Medications - Allergies Allergies/Adverse Reactions: Allergies Allergy/AdvReac Type Severity Reaction Status Date / Time No Known Drug Allergies Allergy Verified 07/21/17 02:33 peanut [Peanut] Allergy Verified 07/21/17 02:33 - Home Medications Home Medications: Ambulatory Orders Levothyroxine [Synthroid -] 50 mcg PO DAILY 03/23/14 Valsartan/Hydrochlorothiazide [Diovan Hct 160-25 mg Tablet] 1 combo PO DAILY Latanoprost 0.005% Eye Drops [Xalatan 0.005% Eye Drops -] 1 drop HS 05/24/17 Family Disease History - Family Disease History Family History: Unremarkable (not pertinent to this presentation: no early CAD or SCD) Review of Systems Findings/Remarks: SEE HPI - Review of Systems Constitutional: reports: Weakness Cardiovascular: reports: Palpitations Respiratory: reports: Exercise Intolerance Neurological: reports: Dizziness - Risk Factors Known Risk Factors: Yes: Hypertension Vital Signs: Vital Signs Temperature 97.8 F 07/21/17 02:18 Pulse Rate 74 07/21/17 06:26 Respiratory Rate 19 07/21/17 06:26 Blood Pressure 104/51 07/21/17 06:26 O2 Sat by Pulse Oximetry (%) 100 07/21/17 06:26 Constitutional: Yes: Calm Eyes: Yes: Conjunctiva Clear, EOM Intact HENT: Yes: Atraumatic, Normocephalic Neck: Yes: Supple, Trachea Midline Respiratory: Yes: Regular, CTA Bilaterally Gastrointestinal: Yes: Soft, Abdomen, Obese (non-tender) Cardiovascular: Yes: Regular Rate and Rhythm JVD: No Carotid Bruit: No PMI: Non-Displaced Heart Sounds: Yes: S1, S2 (RRR, no murmurs) Edema: No Peripheral Pulses WNL: Yes Integumentary: Yes: WNL Neurological: Yes: Alert, Oriented ...Motor Strength: WNL Psychiatric: Yes: WNL - Other Data Labs, Other Data: CBC, BMP 07/21/17 03:06 07/21/17 04:00 Troponin, BNP 07/21/17 04:00 Troponin I < 0.02 B-Natriuretic Peptide 25.73 Troponin, BNP 07/21/17 04:00 Troponin I < 0.02 B-Natriuretic Peptide 25.73 Laboratory Tests 07/21/17 07/21/17 07/21/17 03:06 04:00 04:00 WBC 6.7 Hgb 9.7 L Hct 29.7 L Plt Count 184 Sodium 138 Potassium 3.5 BUN 18 Creatinine 0.9 Creatine Kinase 374 H Creatine Kinase Index 0.4 Troponin I < 0.02 Albumin 3.1 L TSH 2.36 NSR, no acute ST changes Rhythm strip from EMS: almost certainly artifact. Unlikely a-flutter as V- beats clearly march out at a normal rate. Echo: Pending, Report Reviewed Stress Echo: Report Reviewed (negative 05/24) Imaging - Results Chest X-ray: Image Reviewed (increased interstitial markings.) EKG: Image Reviewed Problem List - Problems (1) Palpitations Code(s): R00.2 - PALPITATIONS (2) Abnormal chest xray Code(s): R93.8 - ABNORMAL FINDINGS ON DIAGNOSTIC IMAGING OF BODY STRUCTURES (3) Anemia Code(s): D64.9 - ANEMIA, UNSPECIFIED Qualifiers: Chronic kidney disease stage: unspecified stage (4) Dyspnea Code(s): R06.00 - DYSPNEA, UNSPECIFIED (5) Hypertension Code(s): I10 - ESSENTIAL (PRIMARY) HYPERTENSION Qualifiers: Hypertension type: essential hypertension Qualified Code(s): I10 - Essential (primary) hypertension (6) Hypothyroidism Code(s): E03.9 - HYPOTHYROIDISM, UNSPECIFIED Qualifiers: Hypothyroidism type: acquired Qualified Code(s): E03.9 - Hypothyroidism, unspecified Assessment/Plan IMP: Palpitations Chronic fatigue and MURILLO Anemia Abnl CXR REC: 1. Review of EMS rhythm strip shows artifact, no arrhythmias detected thus far. Continue telemetry x 24 hours; recommend extended outpatient holter as outpatient. Would not initiate AC at this point as we have no evidence of AF or Aflutter. Echo today, compare 05/2017. TSH is WNL. Recent dobutamine echo 05/2017 was normal, no indication to repeat ischemic evaluation at this time. 2. Work up of anemia as per PMD: microcytic. 3. CXR with increased interstitial markings, lungs clear and nl BNP. Pulmonary consult. Thank you.
[2017-07-21 16:08] VITALS: BMI 49.6
--- NOTE | 2017-07-21 16:41 | EKG ---
Test Reason : Blood Pressure : / mmHG Vent. Rate : 071 BPM Atrial Rate : 071 BPM P-R Int : 188 ms QRS Dur : 090 ms QT Int : 396 ms P-R-T Axes : 039 026 029 degrees QTc Int : 430 ms NORMAL SINUS RHYTHM NORMAL ECG WHEN COMPARED WITH ECG OF 18-JUL-2017 17:35, NO SIGNIFICANT CHANGE WAS FOUND Confirmed by MD Myrick Edward ([id number]) on 07/21/2017 4:40:28 PM Referred By: Confirmed By:Kadeem Myrick MD
--- NOTE | 2017-07-21 19:21 | HP ---
Admitting History and Physical - Admission History of Present Illness: Patient is a 67 year old female with a significant past medical history of HTN, Diabetes, Anemia, Asthma, COPD, who presents to the ED with complaints of Sob and palpitations that began tonight at 9pm. Patient reports drinking peppermint tea when she suddenly began to experience heart palpitations and SOB that she states was constant until past midnight, prompting her to come to the ED for further evaluation. She reports experiencing intermittent nausea and left sided chest pain that she states radiated to her L arm. Rhythm strip from EMS with possible atrial flutter with 5/1 block vs artifact which resolved to sinus rhythm on arrival to the ED. Pt also c/o feeling fatigued and depressed since passing of her in 09/22. - Past Medical History Cardiovascular: Yes: HTN Pulmonary: Yes: Asthma (triggered by Viral URIs) Endocrine: Yes: Hypothyroidism - Past Surgical History Past Surgical History: Yes: None, Joint Replacement - Smoking History Smoking history: Never smoked Have you smoked in the past 12 months: No Aproximately how many cigarettes per day: 0 - Alcohol/Substance Use Hx Alcohol Use: No History of Substance Use: reports: None - Social History Occupation: Retired History of Recent Travel: No Home Medications - Allergies Allergies/Adverse Reactions: Allergies Allergy/AdvReac Type Severity Reaction Status Date / Time No Known Drug Allergies Allergy Verified 07/21/17 02:33 peanut [Peanut] Allergy Verified 07/21/17 02:33 - Home Medications Home Medications: Ambulatory Orders Levothyroxine [Synthroid -] 50 mcg PO DAILY 03/23/14 Valsartan/Hydrochlorothiazide [Diovan Hct 160-25 mg Tablet] 1 combo PO DAILY Latanoprost 0.005% Eye Drops [Xalatan 0.005% Eye Drops -] 1 drop HS 05/24/17 Family Disease History - Family Disease History Family History: Unremarkable Review of Systems - Review of Systems Constitutional: reports: Lethargy, Loss of Appetite Eyes: reports: No Symptoms HENT: reports: No Symptoms Neck: reports: No Symptoms Cardiovascular: reports: Palpitations, Shortness of Breath Respiratory: reports: SOB Gastrointestinal: reports: No Symptoms Psychiatric: reports: Depression Physical Examination Vital Signs: Vital Signs Temperature 97.8 F 07/21/17 17:00 Pulse Rate 69 07/21/17 17:00 Respiratory Rate 20 07/21/17 17:00 Blood Pressure 113/70 07/21/17 17:00 O2 Sat by Pulse Oximetry (%) 98 07/21/17 17:00 Constitutional: Yes: Well Nourished Eyes: Yes: WNL HENT: Yes: WNL Neck: Yes: WNL, Supple Cardiovascular: Yes: WNL, Regular Rate and Rhythm Respiratory: Yes: WNL, Regular, CTA Bilaterally Gastrointestinal: Yes: WNL, Normal Bowel Sounds, Soft, Abdomen, Obese Musculoskeletal: Yes: WNL Extremities: Yes: WNL Edema: No Neurological: Yes: WNL, Alert, Oriented ...Motor Strength: WNL Labs: CBC, BMP 07/21/17 03:06 07/21/17 04:00 Problem List - Problems (1) Palpitations Assessment/Plan: Admit to tele Serial cpk/troponin As per cardio Observe on tele Possible artifact Possible dc planning in am Code(s): R00.2 - PALPITATIONS (2) Hypertension Assessment/Plan: BP stable Cont hctz/diovan Code(s): I10 - ESSENTIAL (PRIMARY) HYPERTENSION Qualifiers: Hypertension type: essential hypertension Qualified Code(s): I10 - Essential (primary) hypertension (3) Hypothyroidism Assessment/Plan: Cont loevothyroxine TSH was normal Code(s): E03.9 - HYPOTHYROIDISM, UNSPECIFIED Qualifiers: Hypothyroidism type: acquired Qualified Code(s): E03.9 - Hypothyroidism, unspecified (4) Asthma Code(s): J45.909 - UNSPECIFIED ASTHMA, UNCOMPLICATED (5) Anemia Assessment/Plan: Further w/u as outpt Code(s): D64.9 - ANEMIA, UNSPECIFIED Qualifiers: Chronic kidney disease stage: unspecified stage
[2017-07-22 06:01] VITALS: TEMP 98.1
[2017-07-22] MEDS ORDERED: LEVOTHYROXINE NA 50 MCG TABLET (FP) PO SCH (07:00)
[2017-07-22 07:14] LABS: BASO % 0.8 % (0-2.0); EOS % 7.2 % (0-4.5); HEMATOCRIT 28.7 % (32.4-45.2); HEMOGLOBIN 9.2 GM/dL (10.7-15.3); LYMPH % 21.3 % (8-40); MCH 25.2 pg (25.7-33.7); MCHC 32.1 g/dl (32.0-36.0); MEAN CELL VOLUME 78.6 fl (80-96); MEAN PLT VOLUME 9.2 fl (7.5-11.1); MONO % 8.9 % (3.8-10.2); NEUT % 61.8 % (42.8-82.8); PLATELET COUNT 173 K/MM3 (134-434); RBC 3.66 M/mm3 (3.60-5.2); RDW 17.8 % (11.6-15.6); WHITE BLOOD COUNT 6.4 K/mm3 (4.0-10.0)
[2017-07-22 07:39] LABS: BLOOD UREA NITROGEN 23 mg/dL (7-18); CHLORIDE 104 mmol/L (98-107); GLUCOSE,RANDOM 80 mg/dL (74-106); POTASSIUM 3.9 mmol/L (3.5-5.1); SGOT/AST 16 U/L (15-37); SGPT/ALT 20 U/L (12-78); SODIUM 141 mmol/L (136-145)
[2017-07-22 07:45] LABS: ALBUMIN 2.6 g/dl (3.4-5.0); ALK PHOS 98 U/L (45-117); ANION GAP 7 (8-16); BILIRUBIN,TOTAL 0.4 mg/dL (0.2-1.0); CALCIUM 8.9 mg/dL (8.5-10.1); CO2 30 mmol/L (21-32); TOT PROT 7.5 g/dl (6.4-8.2)
[2017-07-22 08:11] VITALS: BP 123/72; PULSE 70
--- NOTE | 2017-07-22 08:36 | PN ---
Progress Note, Physician Chief Complaint: TELE: NORMAL SINUS NO ARRHYTHMIAS x 24 HOURS ECHO: NL LV FX, NL RVSP, no valve disease - Current Medication List Current Medications: Active Medications Hydrochlorothiazide (Hctz -) 25 mg PO DAILY [facility] Levothyroxine Sodium (Synthroid -) 50 mcg PO DAILY@0700 [facility] Last Admin: 07/22/17 06:07 Dose: 50 mcg Valsartan (Diovan -) 160 mg PO DAILY [facility] - Objective Vital Signs: Vital Signs Temperature 98.1 F 07/22/17 08:11 Pulse Rate 70 07/22/17 08:11 Respiratory Rate 16 07/22/17 08:11 Blood Pressure 123/72 07/22/17 08:11 O2 Sat by Pulse Oximetry (%) 97 07/22/17 03:19 Constitutional: Yes: No Distress, Calm Eyes: Yes: Conjunctiva Clear Cardiovascular: Yes: Regular Rate and Rhythm Respiratory: Yes: CTA Bilaterally Gastrointestinal: Yes: Soft, Abdomen, Obese Edema: No Neurological: Yes: Alert, Oriented ...Motor Strength: WNL Labs: CBC, BMP 07/22/17 06:25 07/22/17 06:25 - ....Imaging EKG: Image Reviewed Problem List - Problems (1) Palpitations Code(s): R00.2 - PALPITATIONS (2) Abnormal chest xray Code(s): R93.8 - ABNORMAL FINDINGS ON DIAGNOSTIC IMAGING OF BODY STRUCTURES (3) Anemia Code(s): D64.9 - ANEMIA, UNSPECIFIED Qualifiers: Chronic kidney disease stage: unspecified stage (4) Dyspnea Code(s): R06.00 - DYSPNEA, UNSPECIFIED (5) Hypertension Code(s): I10 - ESSENTIAL (PRIMARY) HYPERTENSION Qualifiers: Hypertension type: essential hypertension Qualified Code(s): I10 - Essential (primary) hypertension (6) Hypothyroidism Code(s): E03.9 - HYPOTHYROIDISM, UNSPECIFIED Qualifiers: Hypothyroidism type: acquired Qualified Code(s): E03.9 - Hypothyroidism, unspecified Assessment/Plan IMP: Palpitations Chronic fatigue and MURILLO Anemia Abnl CXR REC: No arrhythmias x 24 hour. Nl EF, normal right sided pressures. Can d/c tele. Further w/u w/ extended holter as outpatient. Work up of anemia and ?abnl CXR as outpatient as per PMD.
[2017-07-22] MEDS ORDERED: PATIENT'S OWN MEDICATION (NON-FORMULARY) (Valsartan/Hydrochlorothiazide [Diovan Hct 160-25 PO SCH (10:00)
[2017-07-22] MEDS ORDERED: VALSARTAN 160 MG TABLET (UD) PO SCH (10:00)
[2017-07-22] MEDS ORDERED: HYDROCHLOROTHIAZIDE 25 MG TABLET (FP) PO SCH (10:00)
--- NOTE | 2017-07-22 12:14 | CON.PSY ---
Psychiatry Consult Chief Complaint: I am in more leg pain, I feel sad but I am not depressed. I have never been trated for DEpression. Symptoms: reports: Somatic Symptoms - Previous Psychiatric Treatment Outpatient: None Inpatient: None - Previous Substance Abuse Treatment Outpatient: None Inpatient: None - Current Medications Current Medications: Active Medications Hydrochlorothiazide (Hctz -) 25 mg PO DAILY [facility] Last Admin: 07/22/17 10:23 Dose: 25 mg Levothyroxine Sodium (Synthroid -) 50 mcg PO DAILY@0700 [facility] Last Admin: 07/22/17 06:07 Dose: 50 mcg Valsartan (Diovan -) 160 mg PO DAILY [facility] Last Admin: 07/22/17 10:23 Dose: 160 mg - Allergies Allergies: Allergies Allergy/AdvReac Type Severity Reaction Status Date / Time No Known Drug Allergies Allergy Verified 07/21/17 02:33 peanut [Peanut] Allergy Verified 07/21/17 02:33 - Current Living Status Usual Living Arrangement: Alone - Current Mental Status Evaluation Appearance: Well Groomed Attitude: Cooperative - Affect Affect: Constrictive Appropriateness: Appropriate to Content - Mood Mood: Irritable - Speech/Language Expressive: Coherent - Psychomotor Activity Psychomotor Activity: Slowed - Thought Process Thought Process: Intact - Thought Content Hallucinations: Absent Delusions: Absent - Self Perception Self Perception: No Impairment - Cognition Attention: Alert Orientation: Time Memory, Immediate Recall: Intact Memory, Short Term: 3/3 Memory, Remote with Promptin/3 - Concentration Serial Sevens Intact: No Simple Calculations Intact: No - Abstraction Proverb Interpretation: Intact Judgement: Intact - Insight Insight: Intact - Impulse Control Impulse Control: Good Control - Suicidal Ideation Suicidal Ideation: No - Homicidal Ideation Homicidal Ideation: No Assessment/Plan 1) Patient is not clinically depressed at this time and is not suicidal. 2) May need Psychotherapy for grief reaction, advised to seek grief therapy.
[2017-07-22] MEDS ORDERED: ACETAMINOPHEN 325 MG TABLET (FP) PO ONE (13:15)
== END 2017-07-22 19:39 | disposition home or self-care (01) ==
LOC: JER 02:18 → INTOOBSV 07:00 → JERBED 07:00 → J4W 16:49
PROVIDERS: ADMIT Internal Medicine; ATTEND Internal Medicine
PROC: 3E033GC Introduction of Other Therapeutic Substance into Peripheral Vein, Percutaneous Approach (ICD-10-PCS; principal; 2017-07-21)
DX: R00.2 Palpitations (principal); R93.8 Abnormal findings on diagnostic imaging of other specified body structures; D64.9 Anemia, unspecified; R06.00 Dyspnea, unspecified; I10 Essential (primary) hypertension; E03.9 Hypothyroidism, unspecified; J45.909 Unspecified asthma, uncomplicated; J44.9 Chronic obstructive pulmonary disease, unspecified; Z91.010 Allergy to peanuts; E66.9 Obesity, unspecified; Z68.42 Body mass index [BMI] 45.0-49.9, adult; Z96.651 Presence of right artificial knee joint
CPT/HCPCS: 36415; 71045-TC-FY; 80053; 82550; 82553; 83735; 83880; 84443; 84484; 85025; 93005; 93010; 93306-TC; 93970-TC; 96374; 99285-25; G0378

== ENCOUNTER 2017-10-14 05:02 | Day surgery (SDC) | payer OTHER ==
[2017-10-12 15:17] VITALS: BMI 55.0
[2017-10-14] MEDS ORDERED: oxyCODONE HCL 5 MG TABLET PO PRN (13:03)
[2017-10-14] MEDS ORDERED: LIDOCAINE HCL 1%, 10 MG/ML (20ML VIAL) ONE (13:03)
[2017-10-14] MEDS ORDERED: ONDANSETRON 4 MG/2 ML VIAL IVPUSH PRN (13:03)
[2017-10-14] MEDS ORDERED: LACTATED RINGERS SOLUTION 1,000 ML IV SCH (13:15)
[2017-10-14] MEDS ORDERED: PROPOFOL 20 ML ONE (13:28)
[2017-10-14] MEDS ORDERED: MIDAZOLAM HCL 2 MG/2 ML SINGLE DOSE VIAL ONE ×3 (13:28→13:45)
[2017-10-14] MEDS ORDERED: ceFAZolin SODIUM 1 GM VIAL IVPB ONE (13:36)
[2017-10-14] MEDS ORDERED: LIDOCAINE HCL 1%, 10 MG/ML (50 mL VIAL) IJ ONE ×2 (13:51)
--- NOTE | 2017-10-14 14:53 | OP ---
Operative Note - Note: Operative Date: 10/14/17 Pre-Operative Diagnosis: R/O temporal arteritis Operation: Right temporal artery biopsy Post-Operative Diagnosis: Same as Pre-op Surgeon: Akash Jacob Anesthesia: Fractional Estimated Blood Loss (mls): 10 Operative Report Dictated: Yes
[2017-10-14 14:56] VITALS: TEMP 98
--- NOTE | 2017-10-14 14:56 | HP ---
Admitting History and Physical - Admission Chief Complaint: right sided headaches, elevated ERS, CRP Limitations to Obtaining History: No Limitations - Past Medical History Cardiovascular: Yes: HTN Pulmonary: Yes: Asthma (triggered by Viral URIs) ...: No Endocrine: Yes: Hypothyroidism - Past Surgical History Past Surgical History: Yes: None, Joint Replacement - Advance Directives Advance Directives: Yes: Living Will, Health Care Proxy - Smoking History Smoking history: Never smoked Have you smoked in the past 12 months: No Aproximately how many cigarettes per day: 0 - Alcohol/Substance Use Hx Alcohol Use: No History of Substance Use: reports: None - Social History Occupation: Retired History of Recent Travel: No Home Medications - Allergies Allergies/Adverse Reactions: Allergies Allergy/AdvReac Type Severity Reaction Status Date / Time No Known Drug Allergies Allergy Verified 10/12/17 15:04 peanut [Peanut] Allergy Verified 10/12/17 15:04 - Home Medications Home Medications: Ambulatory Orders Levothyroxine [Synthroid -] 50 mcg PO DAILY 03/23/14 Valsartan/Hydrochlorothiazide [Diovan Hct 160-25 mg Tablet] 1 combo PO DAILY Latanoprost 0.005% Eye Drops [Xalatan 0.005% Eye Drops -] 1 drop OU HS 10/14/17 Review of Systems - Review of Systems Constitutional: reports: No Symptoms Eyes: reports: No Symptoms HENT: reports: No Symptoms Neck: reports: No Symptoms Cardiovascular: reports: No Symptoms Respiratory: reports: No Symptoms Gastrointestinal: reports: No Symptoms Genitourinary: reports: No Symptoms Breasts: reports: No Symptoms Reported Musculoskeletal: reports: No Symptoms Integumentary: reports: No Symptoms Neurological: reports: No Symptoms Endocrine: reports: No Symptoms Hematology/Lymphatic: reports: No Symptoms Psychiatric: reports: No Symptoms Physical Examination Vital Signs: Vital Signs Temperature 98.2 F 10/14/17 14:26 Pulse Rate 69 10/14/17 14:40 Respiratory Rate 18 10/14/17 14:40 Blood Pressure 112/62 10/14/17 14:40 O2 Sat by Pulse Oximetry (%) 95 10/14/17 14:40 Constitutional: Yes: Well Nourished, No Distress, Calm Eyes: Yes: WNL, Conjunctiva Clear, EOM Intact HENT: Yes: WNL, Atraumatic, Normocephalic Neck: Yes: WNL, Supple, Trachea Midline Cardiovascular: Yes: WNL, Regular Rate and Rhythm Respiratory: Yes: WNL, Regular, CTA Bilaterally Gastrointestinal: Yes: WNL, Normal Bowel Sounds Musculoskeletal: Yes: WNL Extremities: Yes: WNL Edema: No Integumentary: Yes: WNL Neurological: Yes: WNL, Alert, Oriented ...Motor Strength: WNL Psychiatric: Yes: WNL Problem List - Problems (1) Temporal arteritis Code(s): M31.6 - OTHER GIANT CELL ARTERITIS Assessment/Plan headaches, R/O temporal arteritis 1. For right temporal artery biopsy
[2017-10-14 16:35] VITALS: BP 115/63; PULSE 79
--- NOTE | 2017-10-16 12:12 | PATH ---
Surgical Pathology Report Patient Name: BEULAH TESFAYE Med. Rec. #: [id number] /Age/Gender: 1950 (Age: 67) / F Account: [id number] Location: [facility] Taken: 10/14/2017 Received: 10/15/2017 Reported: 10/16/2017 Physicians: Akash Jacob Specimen(s) Received RIGHT TEMPORAL ARTERY Clinical History Giant cell arteritis Final Diagnosis TEMPORAL ARTERY, RIGHT, BIOPSY: MUSCULAR ARTERY WITH NO EVIDENCE OF ARTERITIS. MULTIPLE LEVELS EXAMINED. Electronically Signed Belle Buchanan M.D. Gross Description Received in formalin labeled "right temporal artery biopsy," is a 0.9 cm in length portion of vasculature, consistent with a temporal artery biopsy. The specimen is trisected and entirely submitted in one cassette. /10/15/2017 saudi10/15/2017
== END 2017-10-14 16:30 | disposition home or self-care (01) ==
LOC: JASU-SURG 05:02
PROVIDERS: ATTEND Surgery Vascular Surgery
PROC: 03BS0ZX Excision of Right Temporal Artery, Open Approach, Diagnostic (ICD-10-PCS; principal; 2017-10-14 13:00)
DX: M31.6 Other giant cell arteritis (principal)
CPT/HCPCS: 88305-TC; 94760

== ENCOUNTER 2018-02-26 02:25 | Emergency (ER) | payer OTHER ==
[2018-02-26 02:59] VITALS: BP 109/66; PULSE 83; TEMP 98.4; BMI 44.0
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
[2018-02-26] MEDS ORDERED: KETOROLAC TROMETHAMINE 30 MG/1 ML VIAL IM ONE (03:14)
[2018-02-26] MEDS ORDERED: diazePAM 5 MG TABLET PO ONE (03:14)
[2018-02-26] MEDS ORDERED: diazePAM 5 MG TABLET ONE (03:24)
[2018-02-26] MEDS ORDERED: KETOROLAC TROMETHAMINE 30 MG/1 ML VIAL ONE (03:24)
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
[2018-02-26] MEDS ORDERED: BENZOCAINE/MENTH/CETYLPYRD CL 1 EACH LOZENGE MM ONE (03:27)
--- NOTE | 2018-02-27 07:51 | PDOC ---
Patient Follow-up (Call Back) - Post ED Follow - Up Condition at time of discharge: Stable Disposition at time of original discharge: HOME Reason for Call Back: Radiology (Received phone call from radiologist stating positive vertebral swelling to the cervical column greater around C5 recommending a CT of the cervical region. Called patient at both numbers listed in chart and left message at [phone]. Patient returned phone call will return to the ER for CAT scan the neck.)
== END 2018-02-26 06:15 | disposition home or self-care (01) ==
LOC: JER 02:25
PROC: 3E0233Z Introduction of Anti-inflammatory into Muscle, Percutaneous Approach (ICD-10-PCS; principal; 2018-02-26)
DX: S16.1XXA Strain of muscle, fascia and tendon at neck level, initial encounter (principal); V43.52XA Car driver injured in collision with other type car in traffic accident, initial encounter; Y93.89 Activity, other specified; Y92.410 Unspecified street and highway as the place of occurrence of the external cause; I10 Essential (primary) hypertension; E03.9 Hypothyroidism, unspecified; R42 Dizziness and giddiness; J45.909 Unspecified asthma, uncomplicated
CPT/HCPCS: 70360-TC-FY; 71046-TC-FY; 96372; 99283-25

== ENCOUNTER 2018-02-27 09:56 | Emergency (ER) | payer OTHER ==
[2018-02-27 10:26] VITALS: BP 128/56; PULSE 68; TEMP 98.4; BMI 57.2
--- NOTE | 2018-02-27 10:27 | PDOC ---
History of Present Illness - General Chief Complaint: Revisit,Radiology Variance Stated Complaint: PCP SENT Time Seen by Provider: 02/27/18 10:19 History Source: Patient Exam Limitations: No Limitations (Recall for C-spine CT) - History of Present Illness Associated Symptoms: denies: chest pain, cough, fever/chills Past History - Travel Traveled outside of the country in the last 30 days: No Close contact w/someone who was outside of country & ill: No - Past Medical History Allergies/Adverse Reactions: Allergies Allergy/AdvReac Type Severity Reaction Status Date / Time peanut [Peanut] Allergy Verified 02/27/18 10:16 Home Medications: Ambulatory Orders Levothyroxine [Synthroid -] 50 mcg PO DAILY 03/23/14 Valsartan/Hydrochlorothiazide [Diovan Hct 160-25 mg Tablet] 1 combo PO DAILY Latanoprost 0.005% Eye Drops [Xalatan 0.005% Eye Drops -] 1 drop OU HS 10/14/17 Naproxen 250 mg PO BID PRN #10 tablet 02/26/18 Anemia: Yes Asthma: Yes Cancer: No Cardiac Disorders: Yes (chest pain 07/2017) CVA: No COPD: No CHF: No Dementia: No Diabetes: No GI Disorders: No Disorders: No HTN: Yes Hypercholesterolemia: No Liver Disease: No Seizures: No Thyroid Disease: Yes (HYPO.) - Surgical History Abdominal Surgery: No Appendectomy: No Cardiac Surgery: No Cholecystectomy: No Lung Surgery: No Neurologic Surgery: No Orthopedic Surgery: Yes (right knee replacement) - Immunization History Immunization Up to Date: Yes - Suicide/Smoking/Psychosocial Hx Smoking Status: No Smoking History: Never smoked Have you smoked in the past 12 months: No Number of Cigarettes Smoked Daily: 0 Hx Alcohol Use: No Drug/Substance Use Hx: No Substance Use Type: None Hx Substance Use Treatment: No Review of Systems - Review of Systems Constitutional: No: Chills, Fever HEENTM: No: Nose Congestion Respiratory: No: Orthopnea, Shortness of Breath, Stridor Cardiac (ROS): No: Chest Pain, Edema, Irregular Heart Rate ABD/GI: No: Abdominal Distended Neurological: No: Headache, Numbness, Paresthesia, Weakness *Physical Exam - Vital Signs Last Vital Signs Temp Pulse Resp BP Pulse Ox 98.4 F 68 16 128/56 L 99 02/27/18 10:10 02/27/18 10:10 02/27/18 10:10 02/27/18 10:10 02/27/18 10:10 - Physical Exam Neck: positive: Supple Respiratory/Chest: positive: Lungs Clear, Normal Breath Sounds Cardiovascular: positive: Regular Rhythm, Regular Rate, S1, S2 Extremity: positive: Normal Capillary Refill Neurologic: positive: [facility] II-XII NML intact, Fully Oriented, Alert ED Treatment Course - RADIOLOGY Radiology Studies Ordered: Category Date Time Status CERVICAL SPINE CT W/O CONTR [CT] Stat CT Scan 02/27/18 10:19 Ordered Medical Decision Making - Medical Decision Making 02/27/18 10:25 67y/o F in the seen in the ER yesterday for neck pain status post trauma she was recalled to emergency room for abnormal thickening noted in the C4-C5 of the spine CT. dedicated C spine CT recommended. Patiet denies any new complaints today she is otherwise okay. CTA of the spine ordered 02/27/18 11:[address] consistent with muscle spasm is no evidence of fracture or any bony pathology noted patient made aware of this *DC/Admit/Observation/Transfer Diagnosis at time of Disposition: Strain of neck muscle Qualifiers: Encounter type: initial encounter Qualified Code(s): S16.1XXA - Strain of muscle, fascia and tendon at neck level, initial encounter - Discharge Dispostion Disposition: HOME Condition at time of disposition: Stable Decision to Admit order: No - Referrals - Patient Instructions Printed Discharge Instructions: Whiplash Additional Instructions: I discussed the physical exam findings, ancillary test results and final diagnoses with the patient. I answered all of the patient's questions. The patient was satisfied with the care received and felt comfortable with the discharge plan and treatment plan. The patient will call their primary care physician within 24 hours to arrange follow-up and will return to the Emergency Department with any new, persistant or worsening symptoms. - Post Discharge Activity
== END 2018-02-27 11:15 | disposition home or self-care (01) ==
LOC: JERFT 09:56
DX: M62.830 Muscle spasm of back (principal); S16.1XXD Strain of muscle, fascia and tendon at neck level, subsequent encounter; V49.49XD Driver injured in collision with other motor vehicles in traffic accident, subsequent encounter; I10 Essential (primary) hypertension; E03.9 Hypothyroidism, unspecified; Z87.09 Personal history of other diseases of the respiratory system; Z86.2 Personal history of diseases of the blood and blood-forming organs and certain disorders involving the immune mechanism; Z96.651 Presence of right artificial knee joint
CPT/HCPCS: 72125-TC; 99281-25

== ENCOUNTER 2018-04-23 14:08 | Emergency (ER) | payer OTHER ==
[2018-04-23 14:18] VITALS: BMI 53.0
--- NOTE | 2018-04-23 14:32 | PDOC ---
History of Present Illness - General Chief Complaint: Chest Pain Stated Complaint: CHEST PAIN Time Seen by Provider: 04/23/18 14:32 History Source: Patient, Old Records Exam Limitations: No Limitations - History of Present Illness Initial Comments: 67 y/o female presenting to [facility] ER via cab complaining of chest pain for the past four days. Pain radiates across the right and left upper chest, described as sharp pain. Pt reports she has been coughing for the past two weeks with clear/white-royer sputum. Also endorses wheezing starting today. Used her albuterol inhaler for the first time during this period. Immediately felt lightheaded and dizzy, something she reports has happened to her in the past after using Albuterol. This feeling prompted her to seek emergency care. Medical Hx: - HTN - Asthma - Anemia - Hypothyroidism - Vertigo Past History - Past Medical History Allergies/Adverse Reactions: Allergies Allergy/AdvReac Type Severity Reaction Status Date / Time peanut [Peanut] Allergy Verified 04/23/18 14:14 Home Medications: Ambulatory Orders Levothyroxine [Synthroid -] 50 mcg PO DAILY 03/23/14 Valsartan/Hydrochlorothiazide [Diovan Hct 160-25 mg Tablet] 1 combo PO DAILY Latanoprost 0.005% Eye Drops [Xalatan 0.005% Eye Drops -] 1 drop OU HS 10/14/17 Albuterol 0.083% Nebulizer Dalia [Ventolin 0.083% Nebulizer Soln -] 1 neb NEB Q6H PRN #60 vial 04/23/18 Aspirin [ASA -] 81 mg PO ONCE 04/23/18 Prednisone [Deltasone] 40 mg PO DAILY 4 Days #8 tablet 04/23/18 Anemia: Yes Asthma: Yes Cancer: No Cardiac Disorders: Yes (chest pain 07/2017) CVA: No COPD: No CHF: No Dementia: No Diabetes: No GI Disorders: No Disorders: No HTN: Yes Hypercholesterolemia: No Liver Disease: No Seizures: No Thyroid Disease: Yes (HYPO.) - Surgical History Abdominal Surgery: No Appendectomy: No Cardiac Surgery: No Cholecystectomy: No Lung Surgery: No Neurologic Surgery: No Orthopedic Surgery: Yes (right knee replacement) - Immunization History Immunization Up to Date: Yes - Suicide/Smoking/Psychosocial Hx Smoking Status: No Smoking History: Never smoked Have you smoked in the past 12 months: No Number of Cigarettes Smoked Daily: 0 Hx Alcohol Use: No Drug/Substance Use Hx: No Substance Use Type: None Hx Substance Use Treatment: No Review of Systems - Review of Systems Able to Perform ROS?: Yes Comments:: In addition to that documented in the HPI above, the additional ROS was obtained : Constitutional: Denies fevers or chills Eyes: Denies vision changes ENMT: Denies sore throat CV: Endorses chest pain Resp: Endorses SOB GI: Denies vomiting or diarrhea *Physical Exam - Vital Signs Last Vital Signs Temp Pulse Resp BP Pulse Ox 97.7 F 96 H 19 107/49 L 98 04/23/18 14:14 04/23/18 14:14 04/23/18 14:14 04/23/18 14:14 04/23/18 14:14 - Physical Exam Comments: Constitutional: Well-developed, well-nourished, obese female in no acute distress or obvious discomfort. Found semi-fowlers in hospital bed. Alert and oriented x4. Answered all questions appropriately and completely. Speech was non -labored, non-pressured. HEENT: Normocephalic. No obvious external signs of trauma. Hearing grossly normal. No nasal discharge. Neck is supple, trachea is midline. Cardiovascular/Chest: Regular rate and regular rhythm. No murmur, rubs, clicks , or gallops. Peripheral pulses: Radial pulses full. Exquisite tenderness to palpation of costovertebral joints. Pain also reproducible with movement of left upper extremity. Respiratory: Breathing unlabored. Equal chest rise and fall. Diffuse wheezing in all lung brewster. No stridor or rhonchi. Gastrointestinal: abdomen is soft, non-tender, non-distended. Neuro: Alert and oriented. Moving all four extremities spontaneously. Skin: Warm, dry, and intact. Psych: Affect: appropriate. Mood: normal. ED Treatment Course - LABORATORY CBC & Chemistry Diagram: 04/23/18 14:41 04/23/18 14:41 Medical Decision Making - Medical Decision Making *Reviewed vital signs, nursing notes, and prior visit documentation (if available). 67 y/o female complaining of reproducible chest pain, coughing, and wheezing. H/ o asthma. Afebrile. Vitals unremarkable. Suspect URI with overlying asthma/ bronchospasm. D/D includes pneumonia, ACS, aortic dissection, pericardial effusion, pericarditis, metabolic derangement. EKG showed a sinus rhythm without ectopy. CBC unrevealing for leukocytosis or anemia. CMP revealed borderline hypokalemia. Suspect this is secondary to albuterol use just prior to arrival. CXR unremarkable for acute cardiopulmonary process. Low suspicion for pneumonia. Continue to suspect URI with overlying acute asthma exacerbation. Will prescribed albuterol ampules and four day course of prednisone for asthma exacerbation. Discussed imaging and laboratory results with pt. Answered all questions. Provided return precautions. Pt expressed verbal understanding and agreement with plan to discharge home with outpatient follow up. [facility] called after pt was discharged from the pharmacy. Requested switching Albuterol to lower dose. New prescription transmitted. *DC/Admit/Observation/Transfer Diagnosis at time of Disposition: Asthma exacerbation Qualifiers: Asthma severity: mild Asthma persistence: intermittent Qualified Code(s): J45.21 - Mild intermittent asthma with (acute) exacerbation Chest pain Qualifiers: Chest pain type: unspecified Qualified Code(s): R07.9 - Chest pain, unspecified - Discharge Dispostion Disposition: HOME Condition at time of disposition: Stable Decision to Admit order: No - Prescriptions Prescriptions: Albuterol 0.083% Nebulizer Dalia [Ventolin 0.083% Nebulizer Soln -] 1 neb NEB Q6H PRN #60 vial PRN Reason: Asthma Prednisone [Deltasone] 40 mg PO DAILY 4 Days #8 tablet - Referrals Referrals: Anju Diamond MD [Primary Care Provider] - - Patient Instructions Printed Discharge Instructions: DI for Asthma -- Adult, DI for Viral Upper Respiratory Infection -- Adult, DI for Atypical Chest Pain Additional Instructions: Your labs and chest xray did not show signs of pneumonia, heart problems, or infections. Your symptoms are likely because of a viral respiratory infection and an acute asthma exacerbation. I have sent a prescription for Prednisone and Albuterol to your pharmacy. Takes as directed on the package insert. Do not take more than the recommended dose. You can follow up with your primary care physician within the next 3-4 days. You will need to call to make an appointment. Take your home medications as instructed. No change was made in your medications today. Go to the nearest emergency department if your condition worsens or you feel like you need additional emergency evaluation. Print Language: [place] ISLAND[place] - Post Discharge Activity
[2018-04-23 14:52] LABS: BASO % 0.6 % (0-2.0); EOS % 4.6 % (0-4.5); HEMATOCRIT 32.8 % (32.4-45.2); HEMOGLOBIN 10.5 GM/dL (10.7-15.3); LYMPH % 18.2 % (8-40); MCH 24.9 pg (25.7-33.7); MEAN PLT VOLUME 8.8 fl (7.5-11.1); MONO % 7.7 % (3.8-10.2); NEUT % 68.9 % (42.8-82.8); PLATELET COUNT 244 K/MM3 (134-434); RBC 4.21 M/mm3 (3.60-5.2); RDW 17.6 % (11.6-15.6); WHITE BLOOD COUNT 6.1 K/mm3 (4.0-10.0)
--- NOTE | 2018-04-23 14:58 | PDOC ---
Attending Attestation - Resident Resident Name: LiDanny - ED Attending Attestation I have performed the following: I have examined & evaluated the patient, The case was reviewed & discussed with the resident, I agree w/resident's findings & plan, Exceptions are as noted - HPI HPI: 04/23/18 14:58 67y F hx of asthma, copd, htn, CP x 3 days, described as a tingling sensation in the chest radiating to th eL arm. The patient endorses having approximately 2 weeks of nasal congestion, cough productive of yellowish whitish sputum associated fever, chills. The patient does endorse some chest tightness and shortness breath and wheezing that is consistent with her asthma. Patient notes that for the past 3 days she has been having a brief intermittent spike like chest pain in her left chest that lasts for 1-2 seconds at a time before resolving. The patient use her albuterol this morning and began to feel lightheaded and had an episode of chest pain to present to the ER. The patient denies any dyspnea on exertion, hemoptysis, leg swelling, calf pain. no recent travel. The patient endorses her chest tightness, shortness of breath is consistent with her asthma she also notes that her symptoms are improved after using his albuterol. - Physicial Exam PE: 04/23/18 15:31 GENERAL: The patient is awake, alert, and fully oriented, Nontoxic - in no acute distress. HEAD: Normocephalic, atraumatic. EYES: extraocular movements intact, sclera anicteric, conjunctiva clear. ENT: Normal voice, Moist mucous membranes. NECK: Normal range of motion, supple LUNGS: Diffuse wheezing bilaterally, good inspiratory effort and lung excursion , speaking sentences without acute respiratory distress, mildly tachpneic, mild ttp to L chest HEART: Regular rate and rhythm, normal S1 and S2 without murmur, rub or gallop. ABDOMEN: Soft, nontender, normoactive bowel sounds. No guarding, no rebound. . No CVA tenderness EXTREMITIES: Normal range of motion, no edema, no calf tendernes, neg homans b/l NEUROLOGICAL: No facial assymetry, Normal speech, moving all 4 extremities spontneously. PSYCH: Normal mood, normal affect. SKIN: Warm, Dry, normal turgor, - Medical Decision Making 11/16/18 15:33 suspect viral syndrome with acute asthma exacerbation will give prednisone, albuterol xray to r/o pna ekg to screen for acs 04/23/18 16:22 The patient's blood work was reviewed there is no leukocytosis, labs otherwise unremarkable. will erassess anticipate dc with pmd fu Heart Score/ECG Review - ECG Impressions Comment:: 04/23/18 15:39 Twelve-lead EKG was performed and reviewed by me. There is normal sinus rhythm with a normal rate. Rate of 91 The axis is normal. The intervals are normal. There is normal R wave progression There are no ST or T wave abnormalities. Impression: Normal twelve-lead EKG
[2018-04-23] MEDS ORDERED: ASPIRIN 81 MG CHEWABLE TABLETS PO ONE (15:06)
[2018-04-23] MEDS ORDERED: ASPIRIN 81 MG CHEWABLE TABLETS ONE (15:08)
[2018-04-23 15:21] LABS: ALBUMIN 2.9 g/dl (3.4-5.0); ALK PHOS 105 U/L (45-117); ANION GAP 9 MMOL/L (8-16); BILIRUBIN,TOTAL 0.3 mg/dL (0.2-1); BLOOD UREA NITROGEN 21 mg/dL (7-18); CALCIUM 8.6 mg/dL (8.5-10.1); CHLORIDE 104 mmol/L (98-107); CO2 27 mmol/L (21-32); CREATININE 1.2 mg/dL (0.55-1.3); GLUCOSE,RANDOM 124 mg/dL (74-106); POTASSIUM 3.4 mmol/L (3.5-5.1); SGOT/AST 22 U/L (15-37); SGPT/ALT 24 U/L (13-61); SODIUM 140 mmol/L (136-145); TOT PROT 8.2 g/dl (6.4-8.2)
[2018-04-23] MEDS ORDERED: ALBUTEROL SO4 2.5/IPRATROPIUM 0.5 INH SOL 3 ML VIAL.NEB. NEB ONE ×5 (16:03→17:06)
[2018-04-23] MEDS ORDERED: predniSONE 20 MG TABLET (UD) PO ONE (16:34)
[2018-04-23] MEDS ORDERED: predniSONE 20 MG TABLET (UD) ONE ×2 (16:36→17:06)
[2018-04-23 19:18] VITALS: BP 115/58; PULSE 87; TEMP 98.2
--- NOTE | 2018-04-26 23:47 | EKG ---
Test Reason : Blood Pressure : / mmHG Vent. Rate : 091 BPM Atrial Rate : 091 BPM P-R Int : 172 ms QRS Dur : 086 ms QT Int : 376 ms P-R-T Axes : 026 003 046 degrees QTc Int : 462 ms NORMAL SINUS RHYTHM NORMAL ECG WHEN COMPARED WITH ECG OF 21-JUL-2017 02:30, NO SIGNIFICANT CHANGE WAS FOUND Confirmed by SARA URIAS MD ([id number]) on 04/26/2018 11:47:05 PM Referred By: Confirmed By:SARA URIAS MD
== END 2018-04-23 19:19 | disposition home or self-care (01) ==
LOC: JER 14:08
PROC: 3E0F7GC Introduction of Other Therapeutic Substance into Respiratory Tract, Via Natural or Artificial Opening (ICD-10-PCS; principal; 2018-04-23)
DX: J45.21 Mild intermittent asthma with (acute) exacerbation (principal); E03.9 Hypothyroidism, unspecified; D64.9 Anemia, unspecified; I10 Essential (primary) hypertension; Z96.651 Presence of right artificial knee joint
CPT/HCPCS: 36415; 71046-TC-FY; 80053; 82550; 82553; 84484; 85025; 93005; 93010; 94640; 99285-25

== ENCOUNTER 2018-05-03 18:18 | Observation (INO) | payer OTHER ==
--- NOTE | 2018-05-03 18:36 | PDOC ---
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
[2018-05-03 19:40] LABS: BASO % 0.7 % (0-2.0); EOS % 6.6 % (0-4.5); HEMATOCRIT 31.4 % (32.4-45.2); HEMOGLOBIN 10.6 GM/dL (10.7-15.3); LYMPH % 18.5 % (8-40); MCH 26.2 pg (25.7-33.7); MCHC 33.7 g/dl (32.0-36.0); MEAN CELL VOLUME 77.6 fl (80-96); MONO % 7.5 % (3.8-10.2); NEUT % 66.7 % (42.8-82.8); PLATELET COUNT 225 K/MM3 (134-434); RBC 4.05 M/mm3 (3.60-5.2); RDW 17.7 % (11.6-15.6); WHITE BLOOD COUNT 7.1 K/mm3 (4.0-10.0)
[2018-05-03 19:44] LABS: ALBUMIN 2.9 g/dl (3.4-5.0); ALK PHOS 95 U/L (45-117); ANION GAP 10 MMOL/L (8-16); BILIRUBIN,TOTAL 0.3 mg/dL (0.2-1); BLOOD UREA NITROGEN 21 mg/dL (7-18); CALCIUM 8.4 mg/dL (8.5-10.1); CHLORIDE 104 mmol/L (98-107); CO2 27 mmol/L (21-32); CREATININE 1.1 mg/dL (0.55-1.3); GLUCOSE,RANDOM 90 mg/dL (74-106); POTASSIUM 3.8 mmol/L (3.5-5.1); SGOT/AST 18 U/L (15-37); SGPT/ALT 24 U/L (13-61); SODIUM 140 mmol/L (136-145); TOT PROT 7.8 g/dl (6.4-8.2)
--- NOTE | 2018-05-03 20:31 | PDOC ---
Attending Attestation - HPI HPI: 05/03/18 21:37 The patient is a 67 year old female, with a significant past medical history of anemia, asthma, CAD, HTN, and HLD, who presents to the emergency department with , chest pain and left calf pain radiating to her groin. Patient notes her chest pain has been ongoing for multiple weeks and she was worked up in the ED for this 04/23. Patient endorses that her calf pain onset yesterday, prompting her visit to the ER. She denies recent fevers, chills, headache or dizziness. She denies recent nausea, vomit, diarrhea or constipation. She denies recent dysuria, frequency, urgency or hematuria. Allergies: Peanut. Primary Care Physician: Dr. Diamond. - Physicial Exam PE: 05/03/18 21:37 +GENERAL: Obese. Awake, alert, and fully oriented, in no acute distress HEAD: No signs of trauma NECK: Normal ROM. LUNGS: Breath sounds equal, clear to auscultation bilaterally. No wheezes, and no crackles HEART: Regular rate and rhythm, normal S1 and S2, no murmurs, rubs or gallops EXTREMITIES: Left thigh and calf tenderness. Left shoulder tenderness. NEUROLOGICAL: Cranial nerves II through XII grossly intact. Normal speech. SKIN: Warm, Dry, normal turgor, no rashes or lesions noted. <Edwardo Atkins - Last Filed: 05/03/18 21:37> - Resident Resident Name: Emerson Dasilva - ED Attending Attestation I have performed the following: I have examined & evaluated the patient, The case was reviewed & discussed with the resident, I agree w/resident's findings & plan, Exceptions are as noted - Medical Decision Making 05/03/18 21:28 A portion of this note was documented by scribe services under my direction. I have reviewed the details of the note, within reason, and agree with the documentation with the following case summary and management plan written by me. Patient treated in the ED. Nursing notes are reviewed and incorporated into the medical decision-making. Vital signs reviewed. Peripheral IV access obtained by the nurse, laboratory studies are drawn and sent, reviewed and interpreted by myself. Vital Signs Temp Pulse Resp BP Pulse Ox 97.9 F 16 L 18 131/71 97 05/03/18 18:31 05/03/18 18:31 05/03/18 18:31 05/03/18 18:31 05/03/18 18:31 67 year old female with past medical history of hypertension, obesity, diabetes , anemia, asthma, COPD presents with persistent chest pain and left leg pain.The patient was seen here on April 23 for chest pain for 3 days. She described it as aching with sensation rating to left arm. At that time, she did endorse some chest tightness and shortness of breath. They suspect viral syndrome at that time patient patient was given prednisone and albuterol. Patient was then discharged. However, the patient continued to have persistent left sided chest pain. The pain is not told exertional. States that sometimes it occurs with movement and palpation. However, the pain does come at rest as well. Denies shortness of breath. 2 days ago, did develop some left calf pain. Patient's last stress test and echocardiogram reportedly one year ago was normal. Given the circumstances, and her age and her comorbidities, I agree with resident's finding rule out pulmonary embolism and DVT. We'll also rule out OR, though has some atypical features. Ultimately, given that this is her second presentation for chest pain, I would consider at the minimum observation the hospital for cardiac workup. 05/03/18 22:59 CBC, BMP 05/03/18 19:09 05/03/18 19:09 CMP Sodium 140 mmol/L (136-145) 05/03/18 19:09 Potassium 3.8 mmol/L (3.5-5.1) 05/03/18 19:09 Chloride 104 mmol/L (98-107) 05/03/18 19:09 Carbon Dioxide 27 mmol/L (21-32) 05/03/18 19:09 Anion Gap 10 MMOL/L (8-16) 05/03/18 19:09 BUN 21 mg/dL (7-18) H 05/03/18 19:09 Creatinine 1.1 mg/dL (0.55-1.3) 05/03/18 19:09 Creat Clearance w eGFR 49.54 (>60) 05/03/18 19:09 Random Glucose 90 mg/dL (74-106) 05/03/18 19:09 Calcium 8.4 mg/dL (8.5-10.1) L 05/03/18 19:09 Total Bilirubin 0.3 mg/dL (0.2-1) 05/03/18 19:09 AST 18 U/L (15-37) 05/03/18 19:09 ALT 24 U/L (13-61) 05/03/18 19:09 Alkaline Phosphatase 95 U/L (45-117) 05/03/18 19:09 Creatine Kinase 200 IU/L (26-192) H 05/03/18 19:09 Creatine Kinase Index 0.7 % (0.0-5.0) 05/03/18 19:09 CK-MB (CK-2) 1.4 ng/mL (0.5-3.6) 05/03/18 19:09 Troponin I < 0.02 ng/ml (0.00-0.05) 05/03/18 19:09 Total Protein 7.8 g/dl (6.4-8.2) 05/03/18 19:09 Albumin 2.9 g/dl (3.4-5.0) L 05/03/18 19:09 05/03/18 23:00 CAT scan demonstrates no evidence of pulmonary embolism but the main pulmonary diameter appears borderline measuring 2.97 m possible suggest increased pulmonary artery pressure. There is some minimal to mild bilateral ground glass interstitial thickening in the mid lung brewster which could be small airway disease. Cholelithiasis. Will discuss case with pt's primary care physician. <Buddy Tran - Last Filed: 05/03/18 23:00> Heart Score/ECG Review #1 ECG reviewed & interpreted by me at: 18:50 05/03/18 20:31 NSR 89 no std/johnathan, T wave flat III, normal axis, normal intervals, QTC 428 msec <Buddy Tran - Last Filed: 05/03/18 23:00> Attestations - Attestations 05/03/18 21:37 Documentation prepared by Edwardo Atkins, acting as vp medical for Buddy Tran MD. <Edwardo Atkins - Last Filed: 05/03/18 21:37>
--- NOTE | 2018-05-03 20:34 | PDOC ---
History of Present Illness - General Chief Complaint: Chest Pain Stated Complaint: CHEST PAIN Time Seen by Provider: 05/03/18 18:31 - History of Present Illness Initial Comments: 05/03/18 21:09 The patient is a 67 year old female with a history of HTN, HLD, CAD, Asthma, Anemia who presents for evaluation of chest pain and calf pain. The patient reports a several week history of intermittent left sided chest pain. She states that over the past few days she has been experiencing worsening left sided chest pain with new radiation down her left arm worse with movements. She also noted left calf and thigh pain prompting her presentation to the ED for further evaluation. She otherwise denies fevers, chills, cough, SOB, nausea , vomiting, abdominal pain, or changes with urination or bowel movements. Past History - Past Medical History Allergies/Adverse Reactions: Allergies Allergy/AdvReac Type Severity Reaction Status Date / Time peanut [Peanut] Allergy Verified 05/03/18 18:30 Home Medications: Ambulatory Orders Levothyroxine [Synthroid -] 50 mcg PO DAILY 03/23/14 Valsartan/Hydrochlorothiazide [Diovan Hct 160-25 mg Tablet] 1 combo PO DAILY Latanoprost 0.005% Eye Drops [Xalatan 0.005% Eye Drops -] 1 drop OU HS 10/14/17 Albuterol 0.083% Nebulizer Dalia [Ventolin 0.083% Nebulizer Soln -] 1 neb NEB Q6H PRN #60 vial 04/23/18 Aspirin [ASA -] 81 mg PO ONCE 04/23/18 Prednisone [Deltasone] 40 mg PO DAILY 4 Days #8 tablet 04/23/18 Anemia: Yes Asthma: Yes Cancer: No Cardiac Disorders: Yes (chest pain 07/2017) CVA: No COPD: No CHF: No Dementia: No Diabetes: No GI Disorders: No Disorders: No HTN: Yes Hypercholesterolemia: No Liver Disease: No Seizures: No Thyroid Disease: Yes (HYPO.) - Surgical History Abdominal Surgery: No Appendectomy: No Cardiac Surgery: No Cholecystectomy: No Lung Surgery: No Neurologic Surgery: No Orthopedic Surgery: Yes (right knee replacement) - Immunization History Immunization Up to Date: Yes - Suicide/Smoking/Psychosocial Hx Smoking Status: No Smoking History: Never smoked Have you smoked in the past 12 months: No Number of Cigarettes Smoked Daily: 0 Hx Alcohol Use: No Drug/Substance Use Hx: No Substance Use Type: None Hx Substance Use Treatment: No Review of Systems - Review of Systems Comments:: 05/03/18 21:11 Constitutional: No fevers, chills, fatigue, malaise HEENT: No Rhinorrhea, nasal congestion, visual changes Cardiovascular: Chest pain. No syncope, palpitations, lightheadedness Respiratory: No Cough, SOB, Hemoptysis, Gastrointestinal: No Abdominal pain, Nausea, Vomiting, Constipation, Diarrhea, Melena Genitourinary: No Dysuria, Frequency, Urgency, Hesitancy, Hematuria, Flank pain Musculoskeletal: Left Lower extremity pain. No Myalgia, arthralgia Skin: No rashes, itching, bruising, pallor Neurologic: No Headache, Dizziness, Numbness, Weakness, or Tingling Psychiatric: No Hallucinations. No SI or HI *Physical Exam - Vital Signs Last Vital Signs Temp Pulse Resp BP Pulse Ox 97.9 F 16 L 18 131/71 97 05/03/18 18:31 05/03/18 18:31 05/03/18 18:31 05/03/18 18:31 05/03/18 18:31 - Physical Exam Comments: 05/03/18 21:13 General Appearance: Nourished. Obese. No Apparent Distress HEENT: No Pharyngeal Erythema, Tonsillar Exudate, Tonsillar Erythema Neck: No Cervical Lymphadenopathy Respiratory/Chest: Lungs Clear, Normal Breath Sounds. No Crackles, Rales, Rhonchi, Wheezing Cardiovascular: Regular Rhythm, Regular Rate. No Murmur, Gallops, Rubs Gastrointestinal/Abdominal: Normal Bowel Sounds, Soft. No Guarding, Rebound, Tenderness Musculoskeletal: No CVA Tenderness Extremity: Bilateral pitting edema noted on exam with tenderness to palpation of the left calf and left thigh. Normal Capillary Refill Integumentary: Normal Color, Dry, Warm Neurologic: Fully Oriented, Alert, Normal Mood/Affect, Normal Response, Heart Score/ECG Review - History History: Slightly suspicious - Electrocardiogram EKG: Normal - Age Age: >/= 65 - Risk Factors Risk Factors Heart Score: Yes Hx Hypercholesterolemia, Yes Hx Hypertension, Yes Hx Obesity Based on the list above the patient has:: >/=3 risk factors or Hx atherosclerotic disease - Troponin Troponin: </= normal limit - Score Heart Score - Total: 4 #1 ECG reviewed & interpreted by me at: 21:14 General ECG Interpretation: Sinus Rhythm, Normal Rate, Normal Intervals, No acute ischemic changes ED Treatment Course - LABORATORY CBC & Chemistry Diagram: 05/03/18 19:09 05/03/18 19:09 - ADDITIONAL ORDERS Additional order review: Laboratory Results 05/03/18 05/03/18 19:09 19:09 D-Dimer 2353 H Sodium 140 Potassium 3.8 Chloride 104 Carbon Dioxide 27 Anion Gap 10 BUN 21 H Creatinine 1.1 Creat Clearance w eGFR 49.54 Random Glucose 90 Calcium 8.4 L Total Bilirubin 0.3 AST 18 ALT 24 Alkaline Phosphatase 95 Creatine Kinase 200 H Creatine Kinase Index 0.7 CK-MB (CK-2) 1.4 Troponin I < 0.02 Total Protein 7.8 Albumin 2.9 L 05/03/18 19:09 RBC 4.05 MCV 77.6 L MCHC 33.7 RDW 17.7 H MPV 9.0 Neutrophils % 66.7 Lymphocytes % 18.5 Monocytes % 7.5 Eosinophils % 6.6 H Basophils % 0.7 Medical Decision Making - Medical Decision Making 05/03/18 21:14 The patient is a 67 year old female with a history of HTN, HLD, CAD, Asthma, Anemia who presents for evaluation of chest pain and calf pain. Differential includes but is not limited to: PE, ACS, Arrhythmia, Pneumonia, Musculoskeletal , Infectious, Metabolic Derangement. CBC, cmp, troponin obtained in the [facility] were unremarkable. D-dimer was elevated. Given the patient's history and physical exam, we will obtain a CTA chest and lower extremity US to evaluate further. The patient will likely require observation admission for further monitoring. We will continue to monitor and reassess while here in the ED. 05/04/18 01:41 CTA was unremarkable as read by our radiologist. Lower extremity US was unremarkable as read by our radiologist. We discussed the case with the admitting team who accepted the patient for admission. *DC/Admit/Observation/Transfer Diagnosis at time of Disposition: Chest pain Qualifiers: Chest pain type: unspecified Qualified Code(s): R07.9 - Chest pain, unspecified - Discharge Dispostion Condition at time of disposition: Stable Decision to Admit order: Yes - Referrals - Patient Instructions - Post Discharge Activity
[2018-05-04] MEDS ORDERED: SODIUM CHLORIDE 1,000 ML IV STA (01:07)
[2018-05-04] MEDS ORDERED: ACETAMINOPHEN 325 MG TABLET (FP) PO PRN (01:48)
[2018-05-04] MEDS ORDERED: ALBUTEROL SO4 0.083% IH SOL 2.5 MG/3 ML VIAL.NEB. NEB PRN (01:52)
[2018-05-04] MEDS ORDERED: ASPIRIN 81 MG CHEWABLE TABLETS PO ONE (02:00)
--- NOTE | 2018-05-04 02:30 | PN ---
Teaching Attending Note Name of Resident: Servando Quinonez ATTENDING PHYSICIAN STATEMENT I saw and evaluated the patient. I reviewed the resident's note and discussed the case with the resident. I agree with the resident's findings and plan as documented. SUBJECTIVE: Seen and examined; in summation this is a 67 y/o AAF with a PMH significant for HTN, HLD, Hypothyroidism, Asthma, Anemia, Morbid Obesity, Vertigo who has been seen here in the past for similar issues presents to the ER with a CC of chest and body pain; when pursued deeper this reveals that she has reproducible L-arm , R-chest, L-chest, L-leg, and some R-leg pain. Here in the ER >1 wk ago for this and was DC'd home. Some of the pain radiates to her abdomen. Present with movement or at rest, somewhat improved after she took aspirin at jom,e; ROM restricted in upper and lower ext 2/2 pain. Has had these sx before worsening over the past several weeks. Review of her chart shows that she had a normal echo in july and a negative stress test in May when she was seen by Dr. Domínguez with her dobutamine stress without any ischemia at 95% of predicted HR. She came back in July for the same complaint and was cleared by after checking an echo for any WMAs. He recommended pulmonary medicine eval and stated no further benefit to repeating a stress test at that point. It should be noted that she saw psychiatry and in the CC of the consult the pateint was complaining of leg pain. She is hemodynamically stable and afebrile. She is very sensitive to touch which limits exam. She has had elevated ESR in the past and recently had a negative temporal artery bx. Admit to medicine. 10 sys ROS done and negative aside from HPI PMH and PSH reviewed Medications reviewed Socially she denies EtOH or tobacco. Admits she may be depressed since her . FH asked and noncontributory OBJECTIVE: VS, labs, imaging reviewed NAD, resting in bed RRR s1/2 no mgr Lung exam limited by habitus but appearing clear with sym exp NT ND +BS Pain to palpation in the LE (L>>R), LUE, L-chest, R-chest; venous stasis changes evident on LE. Very large legs but one is not frankly swollen more than the other. CN2-12 wnl, no fnd Labs show elevated D dimer in 2k range, Albumin of 2.9, Hb 10, normal WBC with eosinophilia that has been chronic since 2012, 2x negative cardiac enzymes, unremarkable LFTs and chemistry. US LE negative for DVT bilaterally EKG without any significant ST-T changes in contiguous leads Old Echocardiogram reviewed CTA today shows no PE with questionably increased PAP and ground glass findings in the mid lungs. ASSESSMENT AND PLAN: Ms. Bustillo presents with atypical chest pain and limb/body pain; within 12 months she has had a negative stress test, 2 cardiology consults, and 2 echoes all unrevealing for underlying ischemia. She would by guidelines have an intermediate pretest probability but given repeat recent workups being negative and the atypical nature of her sx I have a low index of suspicion clinically that her pain is cardiac but given her risk factors must assess for CAD. 1) Atypical Chest Pain -Moderate risk factors include age, race, PMH, obesity but with aforementioned negative workup willopt to trend troponins and check a limited echo to assess for any wma's. We will work up the non-cardiac causes of CP as well. PRN APAP -Admit to obsevation on tele; negative trop x2 and unremarkable EKG 2) Limb pain -Negative for DVT; been present weeks -Elevated ESR in the past; rechecking and will go ahead and also order B12, TSH , and screening KARTHIKEYAN and RF to rule out any esoteric causes. Distribution is non -stocking/glove but if persistent could try gabapentin, etc. to see if any relief. -Consider OP PT referral given this limiting her home functional status; she actually has been quite sedetary for the past year. 3) Elevated D Dimer -Negative CTA and LE doppler; consider non-PE causes. 4) Groundglass lung findings -Agree with prior CV consult; she is doing well now and satting well w/o pulm complaints, but we will refer to pulm on DC for further workup 5) HLD -Checking lipids; adjust tx as needed 6) Hypothyroidism -Checking TSH; adjust synthroid as needed 7) Asthma -No exacerbation 8) Cholelithiasis -Nonemergent; incidental finding 9) Hypoalbuminemia -Consider checking prealbumin and nutritional supplementation Full Code
[2018-05-04 03:05] LABS: URINE APPEARANCE CLEAR; URINE BILIRUBIN NEGATIVE (<2.0 mg/dL); URINE COLOR STRAW; URINE GLUCOSE (UA) NEGATIVE (NEGATIVE); URINE KETONE NEGATIVE (NEGATIVE); URINE LEUK ESTERASE NEGATIVE (NEGATIVE); URINE NITRITE NEGATIVE (NEGATIVE); URINE PROTEIN NEGATIVE (NEGATIVE); URINE UROBILINOGEN NEGATIVE mg/dL (0.2-1.0)
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
[2018-05-04 05:33] LABS: HEMATOCRIT 30.5 % (32.4-45.2); HEMOGLOBIN 9.7 GM/dL (10.7-15.3); MCH 24.8 pg (25.7-33.7); MCHC 31.8 g/dl (32.0-36.0); MEAN PLT VOLUME 8.9 fl (7.5-11.1); PLATELET COUNT 201 K/MM3 (134-434); RBC 3.92 M/mm3 (3.60-5.2); WHITE BLOOD COUNT 6.3 K/mm3 (4.0-10.0)
[2018-05-04 06:17] LABS: ANION GAP 7 MMOL/L (8-16); BLOOD UREA NITROGEN 19 mg/dL (7-18); CALCIUM 8.4 mg/dL (8.5-10.1); CHLORIDE 105 mmol/L (98-107); CO2 28 mmol/L (21-32); GLUCOSE,RANDOM 92 mg/dL (74-106); MAGNESIUM 1.9 mg/dL (1.8-2.4); PHOSPHOROUS 3.4 mg/dL (2.5-4.9); SODIUM 140 mmol/L (136-145)
[2018-05-04] MEDS ORDERED: LEVOTHYROXINE NA 25 MCG TABLET (FP) ONE (06:51)
[2018-05-04] MEDS: LEVOTHYROXINE NA 50 MCG TABLET (FP) PO SCH (07:14)
--- NOTE | 2018-05-04 09:43 | PN ---
Progress Note, Physician Chief Complaint: Body pain and chest pain History of Present Illness: 67AAF with a PMH significant for HTN, HLD, Hypothyroidism, Asthma, Anemia, Morbid Obesity, Vertigo who has been seen here in the past for similar issues presents to the ER with a CC of chest and body pain, previously worked up -ve stress test in May 2018 and ECHO in Jul 2017, also worked up for temporal arteritits -ve Temporal A Biopsy, yesterday elevated D Dimmers CTA for PE and LE Doppler -ve for DVT elevated ESR - Current Medication List Current Medications: Active Medications Acetaminophen (Tylenol -) 650 mg PO Q4H PRN PRN Reason: PAIN Albuterol Sulfate (Ventolin 0.083% Nebulizer Soln -) 1 amp NEB Q6H PRN PRN Reason: ASTHMA Aspirin (Ecotrin -) 81 mg PO DAILY DAVONTE Enoxaparin Sodium (Lovenox -) 40 mg SQ DAILY DAVONTE Hydrochlorothiazide (Hctz -) 25 mg PO DAILY [facility] Latanoprost (Xalatan 0.005% Eye Drops -) 1 drop OU HS [facility] Levothyroxine Sodium (Synthroid -) 50 mcg PO DAILY@0700 [facility] Last Admin: 05/04/18 07:14 Dose: 50 mcg Valsartan (Diovan -) 160 mg PO DAILY [facility] - Objective Vital Signs: Vital Signs Temperature 98.0 F 05/04/18 07:15 Pulse Rate 78 05/04/18 07:15 Respiratory Rate 18 05/04/18 07:15 Blood Pressure 122/78 05/04/18 07:15 O2 Sat by Pulse Oximetry (%) 98 05/04/18 07:15 Elderly F not in distress HEENT: Mm moist, no JVd No Brui CHEST: CTA B/L ,tenderness + Left pectoral area aband shoulder aggravates with passive movement. CVS: S1S2 R no m/g/r ABD: no distention non tender BS + EXT: Trace edema, tenderness + Left calf and thigh no joints pain or swelling [employer]ATOR: AOX3 non focal Labs: CBC, BMP 05/04/18 05:05 05/04/18 05:05 Problem List - Problems (1) Chest pain Assessment/Plan: Atypical no EKG changes normal serial CE X3, last Dobutamine stress test -ve in May 2017 and Last ECHO reported normal in 07/2017 cont ASA BP meds Code(s): R07.9 - CHEST PAIN, UNSPECIFIED Qualifiers: Chest pain type: unspecified Qualified Code(s): R07.9 - Chest pain, unspecified (2) Asthma Assessment/Plan: Satble cont home meds Code(s): J45.909 - UNSPECIFIED ASTHMA, UNCOMPLICATED (3) Hypothyroidism Assessment/Plan: Cont Levothyroxine F/U TSH Code(s): E03.9 - HYPOTHYROIDISM, UNSPECIFIED Qualifiers: Hypothyroidism type: acquired Qualified Code(s): E03.9 - Hypothyroidism, unspecified (4) Hypertension Assessment/Plan: Cont home meds Code(s): I10 - ESSENTIAL (PRIMARY) HYPERTENSION Qualifiers: Hypertension type: essential hypertension Qualified Code(s): I10 - Essential (primary) hypertension (5) Musculoskeletal arm pain Assessment/Plan: Most likely myofacitis, considering recurrent Chronic multiple point pain , Elevated ESR was elevated in the past Temporal artery Biopsy -ve, possibility of Rhematological disorders will F/U KARTHIKEYAN, CRP, ESR RA factor Consider Rhematology consult , add Motrin 400 mg q6 hrs PRN for inflamatory pain. Code(s): M79.603 - PAIN IN ARM, UNSPECIFIED Qualifiers: Laterality: left Qualified Code(s): M79.602 - Pain in left arm (6) Elevated d-dimer Assessment/Plan: -ve CT chest for PE and LE Doppler can be due to acute inflammation Code(s): R79.89 - OTHER SPECIFIED ABNORMAL FINDINGS OF BLOOD CHEMISTRY (7) Anemia Assessment/Plan: Chronic H/H are stable Code(s): D64.9 - ANEMIA, UNSPECIFIED Qualifiers: Chronic kidney disease stage: unspecified stage
[2018-05-04] MEDS ORDERED: PATIENT'S OWN MEDICATION (NON-FORMULARY) (Valsartan/Hydrochlorothiazide [Diovan Hct 160-25 PO SCH (10:00)
[2018-05-04] MEDS ORDERED: IBUPROFEN 400 MG TABLET (FP) PO PRN (10:23)
[2018-05-04] MEDS ORDERED: RANITIDINE HCL 150 MG TABLET (FP) ONE (12:13)
[2018-05-04] MEDS: ENOXAPARIN NA (PORCINE) 40 MG/0.4 ML DISP.SYRIN SQ SCH (12:22)
--- NOTE | 2018-05-04 12:34 | EKG ---
Test Reason : Blood Pressure : / mmHG Vent. Rate : 089 BPM Atrial Rate : 089 BPM P-R Int : 166 ms QRS Dur : 078 ms QT Int : 352 ms P-R-T Axes : 034 012 024 degrees QTc Int : 428 ms NORMAL SINUS RHYTHM NORMAL ECG Confirmed by MD ISAACS GREGORY ([id number]) on 05/04/2018 12:34:29 PM Referred By: Confirmed By:HALLE ISAACS MD
[2018-05-04] MEDS: ASPIRIN COATED 81 MG TABLET.EC PO SCH (13:01)
[2018-05-04] MEDS: VALSARTAN 160 MG TABLET (UD) PO SCH (13:01)
[2018-05-04] MEDS: RANITIDINE HCL 150 MG TABLET (FP) PO SCH ×2 (13:01→21:39)
[2018-05-04] MEDS: HYDROCHLOROTHIAZIDE 25 MG TABLET (FP) PO SCH (13:01)
[2018-05-04 20:51] VITALS: BMI 53.0
[2018-05-04] MEDS ORDERED: LATANOPROST 0.005% OPHTH SOLN 2.5ML BOTTLE OU SCH (22:00)
[2018-05-05] MEDS: LEVOTHYROXINE NA 50 MCG TABLET (FP) PO SCH (06:35)
[2018-05-05 07:21] LABS: BASO % 0.8 % (0-2.0); HEMATOCRIT 29.8 % (32.4-45.2); HEMOGLOBIN 9.4 GM/dL (10.7-15.3); LYMPH % 22.2 % (8-40); MCH 24.8 pg (25.7-33.7); MCHC 31.6 g/dl (32.0-36.0); MEAN CELL VOLUME 78.6 fl (80-96); MEAN PLT VOLUME 9.2 fl (7.5-11.1); PLATELET COUNT 191 K/MM3 (134-434); RBC 3.79 M/mm3 (3.60-5.2); RDW 18.2 % (11.6-15.6); WHITE BLOOD COUNT 5.1 K/mm3 (4.0-10.0)
[2018-05-05 08:17] LABS: ALBUMIN 2.6 g/dl (3.4-5.0); ALK PHOS 93 U/L (45-117); ANION GAP 8 MMOL/L (8-16); BILIRUBIN,TOTAL 0.8 mg/dL (0.2-1); BLOOD UREA NITROGEN 15 mg/dL (7-18); CALCIUM 8.3 mg/dL (8.5-10.1); CHLORIDE 105 mmol/L (98-107); CO2 28 mmol/L (21-32); GLUCOSE,RANDOM 81 mg/dL (74-106); POTASSIUM 3.8 mmol/L (3.5-5.1); SGOT/AST 22 U/L (15-37); SGPT/ALT 22 U/L (13-61); SODIUM 140 mmol/L (136-145); TOT PROT 7.1 g/dl (6.4-8.2)
[2018-05-05] MEDS: VALSARTAN 160 MG TABLET (UD) PO SCH (09:02)
[2018-05-05] MEDS: HYDROCHLOROTHIAZIDE 25 MG TABLET (FP) PO SCH (09:03)
[2018-05-05] MEDS: RANITIDINE HCL 150 MG TABLET (FP) PO SCH (09:03)
[2018-05-05] MEDS: ASPIRIN COATED 81 MG TABLET.EC PO SCH (09:04)
[2018-05-05] MEDS: ENOXAPARIN NA (PORCINE) 40 MG/0.4 ML DISP.SYRIN SQ SCH (09:04)
[2018-05-05] MEDS ORDERED: FLU VACCINE QUAD 60 MCG/0.5 ML (MDV 18-19) IM ONE (10:00)
[2018-05-05 11:05] VITALS: BP 130/77; PULSE 76; TEMP 97.8
--- NOTE | 2018-05-05 12:33 | DS ---
Physical Examination Vital Signs: Vital Signs Temperature 36.6 C 05/05/18 10:00 Pulse Rate 76 05/05/18 10:00 Respiratory Rate 20 05/05/18 10:00 Blood Pressure 130/77 05/05/18 10:00 O2 Sat by Pulse Oximetry (%) 97 05/05/18 10:00 Constitutional: Yes: No Distress, Calm, Obese Cardiovascular: Yes: Regular Rate and Rhythm. No: Gallop, Murmur, Rub Respiratory: Yes: Regular, CTA Bilaterally. No: Rales, Rhonchi, Wheezes Gastrointestinal: Yes: Normal Bowel Sounds, Soft. No: Distention, Tenderness Extremities: Yes: WNL Edema: No Labs: CBC, BMP 05/05/18 05:30 05/05/18 05:30 Discharge Summary Reason For Visit: CHEST PAIN Current Active Problems Body condition unknown (Acute) Chest pain (Acute) Elevated d-dimer (Acute) Musculoskeletal arm pain (Acute) Hospital Course: (1) Chest pain Code(s): R07.9 - CHEST PAIN, UNSPECIFIED Qualifiers: Chest pain type: unspecified Qualified Code(s): R07.9 - Chest pain, unspecified (2) Asthma Code(s): J45.909 - UNSPECIFIED ASTHMA, UNCOMPLICATED (3) Hypothyroidism Code(s): E03.9 - HYPOTHYROIDISM, UNSPECIFIED Qualifiers: Hypothyroidism type: acquired Qualified Code(s): E03.9 - Hypothyroidism, unspecified (4) Hypertension Code(s): I10 - ESSENTIAL (PRIMARY) HYPERTENSION Qualifiers: Hypertension type: essential hypertension Qualified Code(s): I10 - Essential (primary) hypertension (5) Musculoskeletal arm pain Code(s): M79.603 - PAIN IN ARM, UNSPECIFIED Qualifiers: Laterality: left Qualified Code(s): M79.602 - Pain in left arm (6) Elevated d-dimer Code(s): R79.89 - OTHER SPECIFIED ABNORMAL FINDINGS OF BLOOD CHEMISTRY (7) Anemia Code(s): D64.9 - ANEMIA, UNSPECIFIED Qualifiers: Chronic kidney disease stage: unspecified stage Ms Bustillo is a pleasant 67 year old female who came in with chest pain. Cardiac enzymes x3 were sent and negative. Her pain was reproducible and atypical. She was found to have an elevated D-dimer, CTA and vascular studies were negative. She also had elevated ESR and CRP. Rheumatoid factor is negative. She was feeling better and safe for discharge home. She will continue on her home regimen without change. She is to follow up with her PCP and consider outpatient rheumatology consult. 33 minutes spent in preparation of this discharge Condition: Stable - Instructions Diet, Activity, Other Instructions: resume previous diet and activity Referrals: Anju Diamond MD [Primary Care Provider] - Disposition: HOME - Home Medications Comprehensive Discharge Medication List: Ambulatory Orders Levothyroxine [Synthroid -] 50 mcg PO DAILY 03/23/14 Valsartan/Hydrochlorothiazide [Diovan Hct 160-25 mg Tablet] 1 combo PO DAILY Latanoprost 0.005% Eye Drops [Xalatan 0.005% Eye Drops -] 1 drop OU HS 10/14/17 Albuterol 0.083% Nebulizer Dalia [Ventolin 0.083% Nebulizer Soln -] 1 neb NEB Q6H PRN #60 vial 04/23/18 Aspirin [ASA -] 81 mg PO ONCE 04/23/18
== END 2018-05-05 15:01 | disposition home or self-care (01) ==
LOC: JER 18:18 → JERBED 05-04 00:43 → UNDOADMOB 05-04 00:53 → J4W 05-04 20:28
PROVIDERS: ADMIT Internal Medicine; ATTEND Internal Medicine
PROC: 3E0337Z Introduction of Electrolytic and Water Balance Substance into Peripheral Vein, Percutaneous Approach (ICD-10-PCS; principal; 2018-05-04)
PROC: 3E013GC Introduction of Other Therapeutic Substance into Subcutaneous Tissue, Percutaneous Approach (ICD-10-PCS; 2018-05-04)
PROC: 3E0234Z Introduction of Serum, Toxoid and Vaccine into Muscle, Percutaneous Approach (ICD-10-PCS; 2018-05-04)
DX: R07.89 Other chest pain (principal); M79.662 Pain in left lower leg; R79.89 Other specified abnormal findings of blood chemistry; R91.8 Other nonspecific abnormal finding of lung field; I10 Essential (primary) hypertension; E78.5 Hyperlipidemia, unspecified; E03.9 Hypothyroidism, unspecified; I25.10 Atherosclerotic heart disease of native coronary artery without angina pectoris; D64.9 Anemia, unspecified; J45.909 Unspecified asthma, uncomplicated; K80.20 Calculus of gallbladder without cholecystitis without obstruction; E88.09 Other disorders of plasma-protein metabolism, not elsewhere classified; M79.602 Pain in left arm; E66.9 Obesity, unspecified; Z68.43 Body mass index [BMI] 50.0-59.9, adult; Z96.651 Presence of right artificial knee joint; Z91.010 Allergy to peanuts; Z79.82 Long term (current) use of aspirin; Z23 Encounter for immunization
CPT/HCPCS: 36415; 71045-TC-FY; 71275-TC; 80048; 80053; 80061; 81003; 82550; 82553; 82607; 83036; 83721; 83735; 84100; 84443; 84484; 85025; 85027; 85379; 85651; 86038; 86140; 86431; 90471; 90688; 93005; 93010; 93970-TC; 94010; 96360; 96372; 99285-25; G0378; J7030

== ENCOUNTER 2018-06-05 13:24 | Emergency (ER) | payer OTHER ==
[2018-06-05 13:33] VITALS: TEMP 98.7; BMI 53.0
--- NOTE | 2018-06-05 16:09 | PDOC ---
History of Present Illness - General Chief Complaint: Asthma Stated Complaint: ASTHMA Time Seen by Provider: 06/05/18 16:09 History Source: Patient Exam Limitations: No Limitations - History of Present Illness Initial Comments: Pt is a 68 yo F, with PMH of HTN, HLD, asthma, anemia, hypothyroidism, and vertigo, who is presenting with complaints of wheezing since this morning. Pt has also noticed productive white, "sticky" sputum for a few days, with b/l pedal edema which is chronic for her. Pt normally cannot sleep flat, but that is due to her vertigo. Pt denies any recent fevers/chills, headache, vision changes, hemoptysis, chest pain, palpitations, nausea/vomiting, abdominal pain, urinary symptoms, or diarrhea/constipation. Pt was recently admitted in April for chest pain. Work-up at that time showed elevated D-dimer, but negative CTA and b/l LE doppler (r/o DVT and PE). Pt had echo done this year with normal EF. PCP: [facility] Social: Pt denies any cigarette, alcohol, or drug use. Pt denies any recent travel or sick contacts. Surgical: no relevant history Family: no relevant history 06/05/18 16:59 Past History - Travel Traveled outside of the country in the last 30 days: No Close contact w/someone who was outside of country & ill: No - Past Medical History Allergies/Adverse Reactions: Allergies Allergy/AdvReac Type Severity Reaction Status Date / Time No Known Drug Allergies Allergy Verified 06/05/18 13:33 peanut [Peanut] Allergy Verified 06/05/18 13:33 Home Medications: Ambulatory Orders Levothyroxine [Synthroid -] 50 mcg PO DAILY 03/23/14 Valsartan/Hydrochlorothiazide [Diovan Hct 160-25 mg Tablet] 1 combo PO DAILY Latanoprost 0.005% Eye Drops [Xalatan 0.005% Eye Drops -] 1 drop OU HS 10/14/17 Albuterol 0.083% Nebulizer Dalia [Ventolin 0.083% Nebulizer Soln -] 1 neb NEB Q6H PRN #60 vial 04/23/18 Aspirin [ASA -] 81 mg PO ONCE 04/23/18 Azithromycin 250 mg PO DAILY #4 tablet 06/05/18 Prednisone [Prednisone 50 MG TABLETS] 50 mg PO DAILY #4 tablet 06/05/18 Anemia: Yes Asthma: Yes Cancer: No Cardiac Disorders: Yes (chest pain 07/2017) CVA: No COPD: No CHF: No Dementia: No Diabetes: No GI Disorders: No Disorders: No HTN: Yes Hypercholesterolemia: Yes Liver Disease: No Seizures: No Thyroid Disease: Yes (HYPO.) - Surgical History Abdominal Surgery: No Appendectomy: No Cardiac Surgery: No Cholecystectomy: No Lung Surgery: No Neurologic Surgery: No Orthopedic Surgery: Yes (right knee replacement) - Immunization History Immunization Up to Date: Yes - Suicide/Smoking/Psychosocial Hx Smoking Status: No Smoking History: Never smoked Have you smoked in the past 12 months: No Number of Cigarettes Smoked Daily: 0 Hx Alcohol Use: No Drug/Substance Use Hx: No Substance Use Type: None Hx Substance Use Treatment: No Review of Systems - Review of Systems Able to Perform ROS?: Yes Is the patient limited British proficient: No Constitutional: Yes: Weight Stable. No: Chills, Diaphoresis, Fever, Loss of Appetite, Weakness HEENTM: No: Recent change in vision, Nose Congestion, Throat Pain, Difficulty Swallowing Respiratory: Yes: See HPI, Cough, Shortness of Breath, Wheezing, Productive cough. No: Orthopnea, Hemoptysis Cardiac (ROS): Yes: See HPI, Edema, Chest Tightness. No: Chest Pain, Irregular Heart Rate, Lightheadedness, Palpitations, Syncope ABD/GI: No: Constipated, Diarrhea, Nausea, Poor Appetite, Poor Fluid Intake, Vomiting : No: Burning, Dysuria, Pain, Urgency Musculoskeletal: No: Back Pain, Joint Pain Integumentary: No: Rash Neurological: No: Headache, Weakness, Unsteady Gait, Dizziness Psychiatric: No: Sleep Pattern Change, Change in Appetite Endocrine: No: Increased Urine, Change in Weight Hematologic/Lymphatic: Yes: Anemia. No: Blood Clots, Easy Bleeding, Easy Bruising All Other Systems: Reviewed and Negative *Physical Exam - Vital Signs Last Vital Signs Temp Pulse Resp BP Pulse Ox 98.7 F 92 H 18 110/65 98 06/05/18 13:31 06/05/18 13:31 06/05/18 13:31 06/05/18 13:31 06/05/18 13:31 - Physical Exam General Appearance: Yes: Nourished, Appropriately Dressed, Mild Distress (mild dyspnea when walking to the bathroom), Obese HEENT: positive: EOMI, MARIELA, Normal ENT Inspection, Normal Voice, Symmetrical, Pharynx Normal, Hearing Grossly Normal. negative: Scleral Icterus (R), Scleral Icterus (L), Pharyngeal Erythema, Tonsillar Exudate, Tonsillar Erythema, Rhinorrhea Neck: positive: Trachea midline, Normal Thyroid, Supple. negative: Tender, Rigid, Decreased range of motion, Lymphadenopathy (R), Lymphadenopathy (L) Respiratory/Chest: positive: Wheezing (b/l wheezing, no crackles. mild dyspnea, but no accessory muscle use). negative: Chest Tender, Lungs Clear, Normal Breath Sounds, Respiratory Distress, Accessory Muscle Use, Crackles, Stridor Cardiovascular: positive: Regular Rhythm, Regular Rate, S1, S2. negative: Edema , JVD, Murmur, Tachycardia Vascular Pulses: Carotid (R): 4+, Carotid (L): 4+ Gastrointestinal/Abdominal: positive: Normal Bowel Sounds, Flat, Soft. negative : Tender, Organomegaly, Pulsatile Mass, Distended, Guarding, Rebound Rectal Exam: positive: deferred Lymphatic: negative: Adenopathy, Tenderness Musculoskeletal: positive: Normal Inspection. negative: CVA Tenderness Extremity: positive: Normal Capillary Refill, Normal Inspection, Normal Range of Motion, Pelvis Stable. negative: Tender Integumentary: positive: Normal Color, Dry, Warm. negative: Jaundice, Clammy, Diaphoresis, Rash Neurologic: positive: lacquer sprayer II-XII NML intact, Fully Oriented, Alert, Normal Mood/ Affect, Normal Response, Motor Strength 5/5 Moderate Sedation - Procedure Monitoring Vital Signs: Procedure Monitoring Vital Signs Temperature 98.7 F 06/05/18 13:31 Pulse Rate 92 H 06/05/18 13:31 Respiratory Rate 18 06/05/18 13:31 Blood Pressure 110/65 06/05/18 13:31 O2 Sat by Pulse Oximetry (%) 98 06/05/18 13:31 ED Treatment Course - LABORATORY CBC & Chemistry Diagram: 06/05/18 16:43 06/05/18 16:43 Medical Decision Making - Medical Decision Making Pt was seen at bedside, also will be seen by attending Dr. Lewis. Pt presenting with complaints of wheezing since this morning. Pt has also noticed productive white, "sticky" sputum for a few days, with b/l pedal edema which is chronic for her. Pt normally cannot sleep flat, but that is due to her vertigo. Pt denies any recent fevers/chills, headache, vision changes, chest pain, palpitations, nausea/vomiting, abdominal pain, urinary symptoms, or diarrhea/ constipation. PE showed diffuse wheezing b/l, no focal decrease with percussion. Strong s1/s2 , no murmur. Considering asthma exacerbation 2/2 viral URI vs pneumonia vs ACS vs heart failure. Ordered work-up including CBC, CMP, troponin, BNP, chest x-ray, ECG. Provided duoneb and 125 mg IV solumedrol for improvement of dyspnea/wheezing. Will continue to reassess pt and monitor for symptomatic improvement. 06/05/18 16:54 CBC: anemia, but at pt baseline. Pt receiving nebs and then will go for chest x-ray. 06/05/18 17:05 ECG NSR, normal intervals. No acute changes from prior ECG. Chest x-ray read in ED with Dr. Lewis showed no acute infiltrate. Trop and BNP WNL. CMP generally WNL. 06/05/18 18:07 Pt states feels much improved after treatments. Only mild expiratory wheeze remains, but pt comfortable and moving much better air. Spoke with Dr. Jackman, who agreed with plan. Pt can follow-up on Thursday morning or walk-in to clinic. Provided first dose of azithromycin in ED. Sent additional azithro and prednisone to pt pharmacy. Pt can be discharged to home with follow-up. Pt advised to follow-up with PCP in 1-2 days. Strict return precautions provided with pt understanding. 06/05/18 18:45 *DC/Admit/Observation/Transfer Diagnosis at time of Disposition: Asthma exacerbation Qualifiers: Asthma severity: mild Asthma persistence: unspecified Qualified Code(s): J45.901 - Unspecified asthma with (acute) exacerbation - Discharge Dispostion Disposition: HOME Condition at time of disposition: Improved Decision to Admit order: No - Prescriptions Prescriptions: Azithromycin 250 mg PO DAILY #4 tablet Prednisone [Prednisone 50 MG TABLETS] 50 mg PO DAILY #4 tablet - Referrals Referrals: Anju Diamond MD [Staff Physician] - - Patient Instructions Printed Discharge Instructions: Asthma -- Adult Additional Instructions: You were seen in the ER today for an asthma exacerbation. The results of your labs and imaging today were normal. Please follow-up with your primary care doctor within 1-2 days to discuss your visit and make sure your symptoms have improved. Please return to the ER if you have any worsening wheezing or trouble breathing, development of fevers or chills, loss of consciousness, inability to tolerate food or fluids, or any other concerns. We have sent azithromycin (to cover for any potential pneumonia to your pharmacy ). Please take 1 tablet (250 mg) per day for 4 more days. Please take 50 mg prednisone also for 4 more days. - Post Discharge Activity
[2018-06-05] MEDS ORDERED: methylPREDNISolone NA SUCC 125 MG/2 ML VIAL IVPB ONE (16:26)
[2018-06-05] MEDS ORDERED: ALBUTEROL SO4 2.5/IPRATROPIUM 0.5 INH SOL 3 ML VIAL.NEB. NEB ONE ×3 (16:27→16:48)
[2018-06-05] MEDS ORDERED: methylPREDNISolone NA SUCC 125 MG/2 ML VIAL ONE (16:32)
--- NOTE | 2018-06-05 16:50 | PDOC ---
Attending Attestation - Medical Decision Making 06/05/18 18:[address] Diamond's answering service to update, awaiting call back. <Edwardo Atkins - Last Filed: 06/05/18 18:12> - Resident Resident Name: Lnua Falcon - ED Attending Attestation I have performed the following: I have examined & evaluated the patient, The case was reviewed & discussed with the resident, I agree w/resident's findings & plan - HPI HPI: 06/05/18 17:49 Mereigh 68 YOF with HTN, HLD, anemia, hypothyroidism, anemia, asthma Presenting with cough/sputum production and wheezing x 1 week. No fevers. PMD: Dr Blum Last admitted 05/03-- with neg CTA and vascular studies, ruled out for ACS with neg trops. - Physicial Exam PE: 06/05/18 17:49 NAD, well appearing, +coughing. PERRL, EOMI, MMM, nl conjunctiva, anicteric; neck supple. +scant bilateral exp wheezing, RRR, abdomen soft nontender. VOGEL x4 , no focal neuro deficits. No peripheral edema. normal color for ethnicity, WWP. - Medical Decision Making 06/05/18 18:03 See HPI for details Vital signs reviewed, wnl. Prior notes reviewed, including admissions, discharges and consultations. laboratory results and imaging reviewed, basic labs and lytes wnl, notable for_ . CXR_clear, no acute pathology Cardiac panel_neg trop and bnp, doubt cardiac/cardiomyopathy EKG normal sinus rhythm, no interval abnormalities, narrow QRS, ST and T wave segments and morphology normal. Nonspecific T wave abnormalities ED course: duonebs x3, with relief. IV steroids. feels symptomatically improved PMD called, updated, close followup rx azithromycin for suspected atypical pna with clinical sx, prednisone and albuterol use Q4-6 hr Dispo: I discussed the physical exam findings, ancillary test results and final diagnoses with the patient. I answered all of the patient's questions. The patient was satisfied with the care received and felt comfortable with the discharge plan and treatment plan. The patient will return to the Emergency Department with any new, persistent or worsening symptoms. I, Shannan Lewis MD, attest that this document has been prepared under my direction and personally reviewed by me in its entirety. I further attest, that it accurately reflects all work, treatment, procedures and medical decision -making performed by me. 06/05/18 18:04 06/05/18 19:17 <Shannan Lewis - Last Filed: 06/05/18 19:17> Heart Score/ECG Review - ECG Impressions Normal ECG: Yes Comment:: 06/05/18 18:04 EKG normal sinus rhythm, no interval abnormalities, narrow QRS, ST and T wave segments and morphology normal. Nonspecific T wave abnormalities <Shannan Lewis - Last Filed: 06/05/18 19:17> Attestations - Attestations 06/05/18 18:14 Documentation prepared by Edwardo Atkins, acting as medical policy specialist for Shannan Lewis MD. <Edwardo Atkins - Last Filed: 06/05/18 18:12>
[2018-06-05 16:52] LABS: BASO % 1.1 % (0-2.0); EOS % 3.6 % (0-4.5); HEMATOCRIT 29.9 % (32.4-45.2); HEMOGLOBIN 10.2 GM/dL (10.7-15.3); LYMPH % 14.6 % (8-40); MCH 26.6 pg (25.7-33.7); MEAN CELL VOLUME 78.2 fl (80-96); MEAN PLT VOLUME 8.6 fl (7.5-11.1); MONO % 6.1 % (3.8-10.2); NEUT % 74.6 % (42.8-82.8); PLATELET COUNT 252 K/MM3 (134-434); RBC 3.83 M/mm3 (3.60-5.2); RDW 17.8 % (11.6-15.6); WHITE BLOOD COUNT 7.1 K/mm3 (4.0-10.0)
[2018-06-05 17:31] LABS: ALBUMIN 3.1 g/dl (3.4-5.0); ALK PHOS 105 U/L (45-117); ANION GAP 7 MMOL/L (8-16); BILIRUBIN,TOTAL 0.3 mg/dL (0.2-1); BLOOD UREA NITROGEN 21 mg/dL (7-18); CALCIUM 8.8 mg/dL (8.5-10.1); CHLORIDE 104 mmol/L (98-107); CO2 27 mmol/L (21-32); GLUCOSE,RANDOM 89 mg/dL (74-106); MAGNESIUM 1.9 mg/dL (1.8-2.4); SGOT/AST 32 U/L (15-37); SGPT/ALT 28 U/L (13-61); SODIUM 138 mmol/L (136-145); TOT PROT 8.2 g/dl (6.4-8.2)
[2018-06-05 17:37] LABS: N-TERMINAL BNP 22.9 pg/ml (5-125)
[2018-06-05] MEDS ORDERED: AZITHROMYCIN 250 MG TABLET PO ONE (18:10)
[2018-06-05 19:22] VITALS: BP 147/78; PULSE 71
[2018-06-05] MEDS ORDERED: AZITHROMYCIN 250 MG TABLET ONE (19:27)
--- NOTE | 2018-06-06 11:26 | EKG ---
Test Reason : Blood Pressure : / mmHG Vent. Rate : 098 BPM Atrial Rate : 098 BPM P-R Int : 172 ms QRS Dur : 084 ms QT Int : 298 ms P-R-T Axes : 057 021 004 degrees QTc Int : 380 ms POOR DATA QUALITY, INTERPRETATION MAY BE ADVERSELY AFFECTED NORMAL SINUS RHYTHM NONSPECIFIC T WAVE ABNORMALITY ABNORMAL ECG WHEN COMPARED WITH ECG OF 03-MAY-2018 18:46, NONSPECIFIC T WAVE ABNORMALITY NOW EVIDENT IN LATERAL LEADS Confirmed by CRISTINA IBANEZ MD ([id number]) on 06/06/2018 11:26:30 AM Referred By: Confirmed By:CRISTINA IBANEZ MD
== END 2018-06-05 19:19 | disposition home or self-care (01) ==
LOC: JER 13:24
PROC: 3E0333Z Introduction of Anti-inflammatory into Peripheral Vein, Percutaneous Approach (ICD-10-PCS; principal; 2018-06-05)
PROC: 3E0F7GC Introduction of Other Therapeutic Substance into Respiratory Tract, Via Natural or Artificial Opening (ICD-10-PCS; 2018-06-05)
PROC: 3E0F7GC Introduction of Other Therapeutic Substance into Respiratory Tract, Via Natural or Artificial Opening (ICD-10-PCS; 2018-06-05)
DX: J45.901 Unspecified asthma with (acute) exacerbation (principal); I10 Essential (primary) hypertension; E78.5 Hyperlipidemia, unspecified; E03.9 Hypothyroidism, unspecified; R42 Dizziness and giddiness; D86.2 Sarcoidosis of lung with sarcoidosis of lymph nodes
CPT/HCPCS: 36415; 71046-TC-FY; 80053; 83735; 83880; 84484; 85025; 93005; 93010; 99283-25

== ENCOUNTER 2018-08-04 12:12 | Inpatient (IN) | payer OTHER ==
--- NOTE | 2018-08-04 12:30 | PDOC ---
History of Present Illness - General History Source: Patient Exam Limitations: No Limitations - History of Present Illness Initial Comments: 08/04/18 13:47 The patient is a 68-year-old female, with a past medical history of anemia, asthma, HTN, HLD, and hypothyroidism, who presents to the ED with 1.5 weeks of LT temporal and LT facial pain. The patient states that her pain initially was localized to the left temporal region but has now traveled down the left side of her face to her neck. She called her PCP who advised her to report to the ED for further evaluation. On exam, the patient states that she feels like her mouth is twisted. Patient has been experiencing drooling from the LT side of her mouth and bilateral blurred vision. Son is at bedside and states that he does not notice any facial changes. The patient denies any fevers, chills, nausea, vomiting, diarrhea, or abdominal pain. She denies any chest pain or shortness of breath. Denies any Allergies: NKDA, peanut Surgical History: RT knee replacement. Social History: None reported. PCP: Dr. Diamond <Remedios Scanlon - Last Filed: 08/04/18 13:47> <Niles Dickson - Last Filed: 08/11/18 15:56> - General Stated Complaint: Headache Time Seen by Provider: 08/04/18 12:30 Past History <Remedios Scanlon - Last Filed: 08/04/18 13:47> - Past Medical History Anemia: Yes Asthma: Yes Cancer: No Cardiac Disorders: Yes (chest pain 07/2017) CVA: No COPD: No CHF: No Dementia: No Diabetes: No GI Disorders: No Disorders: No HTN: Yes Hypercholesterolemia: Yes Liver Disease: No Seizures: No Thyroid Disease: Yes (HYPO.) - Surgical History Abdominal Surgery: No Appendectomy: No Cardiac Surgery: No Cholecystectomy: No Lung Surgery: No Neurologic Surgery: No Orthopedic Surgery: Yes (right knee replacement) - Immunization History Immunization Up to Date: Yes - Suicide/Smoking/Psychosocial Hx Smoking Status: No Smoking History: Never smoked Have you smoked in the past 12 months: No Number of Cigarettes Smoked Daily: 0 Hx Alcohol Use: No Drug/Substance Use Hx: No Substance Use Type: None Hx Substance Use Treatment: No <Niles Dickson - Last Filed: 08/11/18 15:56> - Past Medical History Allergies/Adverse Reactions: Allergies Allergy/AdvReac Type Severity Reaction Status Date / Time No Known Drug Allergies Allergy Verified 08/08/18 10:14 peanut [Peanut] Allergy Verified 08/08/18 10:14 Home Medications: Ambulatory Orders Levothyroxine [Synthroid -] 50 mcg PO DAILY 03/23/14 Valsartan/Hydrochlorothiazide [Diovan Hct 160-25 mg Tablet] 1 combo PO DAILY Latanoprost 0.005% Eye Drops [Xalatan 0.005% Eye Drops -] 1 drop OU HS 10/14/17 Albuterol 0.083% Nebulizer Dalia [Ventolin 0.083% Nebulizer Soln -] 1 neb NEB Q6H PRN #60 vial 04/23/18 Aspirin [ASA -] 81 mg PO ONCE 04/23/18 predniSONE [Deltasone -] See Taper PO ASDIR #32 tab 08/06/18 Review of Systems - Review of Systems Able to Perform ROS?: Yes Comments:: 08/04/18 13:50 CONSTITUTIONAL: No fever, no chills, no fatigue EYES: (+)Blurred vision. ENT: (+)LT sided facial pain. No ear pain, no sore throat CARDIOVASCULAR: No chest pain, no palpitations RESPIRATORY: No cough, no SOB GI: No abdominal pain, no nausea, no vomiting, no constipation, no diarrhea GENITOURINARY: No dysuria, no frequency, no hematuria MUSKULOSKELETAL: No back pain, no joint pain, no myalgias SKIN: No rash NEURO: (+)Left temporal pain. <Remedios Scanlon - Last Filed: 08/04/18 13:47> *Physical Exam - Vital Signs Last Vital Signs Temp Pulse Resp BP Pulse Ox 97.4 F L 77 22 H 145/76 100 08/04/18 12:27 08/04/18 12:27 08/04/18 12:27 08/04/18 12:27 08/04/18 12:27 <Remedios Scanlon - Last Filed: 08/04/18 13:47> - Physical Exam Comments: 08/04/18 16:16 EXAMINATION CONSTITUTIONAL: alert, awake, morbidly [place] HEAD: Normocephalic; atraumatic EYES: PERRL; EOM intact ENMT: External appears normal; + reproducable ttp along the left temporal region , left tmj, left parotid gland and left submandibular area; +poor dentition NECK: Supple; non-tender; no cervical lymphadenopathy CARD: Normal S1, S2; no murmurs, rubs, or gallops RESP: Normal chest excursion with respiration; breath sounds clear and equal bilaterally; no wheezes, rhonchi, or rales ABD: Soft, non-distended; non-tender; no palpable organomegaly, no palpable hernias EXT: Normal ROM in all four extremities; non-tender to palpation; distal pulses intact SKIN: Warm, dry, several plaque like lessions to dorsum of [place] hands (more prominent on the left) NEURO: cn ii-xii groslly intact; motor: 5/5x4; ambulates with cane. <Niles Dickson - Last Filed: 08/11/18 15:56> Moderate Sedation - Procedure Monitoring Vital Signs: Procedure Monitoring Vital Signs Temperature 97.4 F L 08/04/18 12:27 Pulse Rate 77 08/04/18 12:27 Respiratory Rate 22 H 08/04/18 12:27 Blood Pressure 145/76 08/04/18 12:27 O2 Sat by Pulse Oximetry (%) 100 08/04/18 12:27 <Remedios Scanlon - Last Filed: 08/04/18 13:47> ED Treatment Course - LABORATORY CBC & Chemistry Diagram: 08/04/18 12:50 08/04/18 12:50 - ADDITIONAL ORDERS Additional order review: Laboratory Results 08/04/18 08/04/18 12:50 12:50 PT with INR 14.20 H INR 1.20 H Sodium 140 Potassium 3.7 Chloride 104 Carbon Dioxide 29 Anion Gap 7 L BUN 14 Creatinine 1.0 Creat Clearance w eGFR 55.14 Random Glucose 81 Calcium 8.6 Total Bilirubin 0.4 AST 15 ALT 17 Alkaline Phosphatase 104 Total Protein 8.0 Albumin 2.9 L 08/04/18 12:50 RBC 3.86 MCV 79.9 L MCHC 33.1 RDW 17.0 H MPV 9.2 Neutrophils % 71.7 Lymphocytes % 15.3 Monocytes % 7.7 Eosinophils % 4.1 Basophils % 1.2 - Medications Given in the ED: ED Medications Discontinued Medications Generic Name Dose Route Start Last Admin Trade Name Freq PRN Reason Stop Dose Admin Acetaminophen 1,000 mg 08/04/18 12:46 08/04/18 13:00 Ofirmev Injection - IVPB 08/04/18 12:47 1,000 mg ONCE ONE Administration <Remedios Scanlon - Last Filed: 08/04/18 13:47> - LABORATORY CBC & Chemistry Diagram: 08/06/18 06:30 08/06/18 06:30 <Niles Dickson - Last Filed: 08/11/18 15:56> Medical Decision Making - Medical Decision Making 08/04/18 16:40 68-year-old morbidly obese female who presents with atraumatic left-sided hemicranial headache that extends Into the left TMJ, left mandible and left submandibular area. CT of head and CT of facial bones reveals no evidence of acute pathology. There is no evidence of parotid gland pathology. Patient's is our is noted to be 94. Patient has in the past undergone a right temporal artery biopsy for suspected giant cell arteritis which was found to be negative. Will obtain CT of neck to rule out carotid artery dissection. We'll administer prednisone will admit for a repeat biopsy on the left. We'll consult neurology and vascular surgery. <Niles Dickson - Last Filed: 08/11/18 15:56> *DC/Admit/Observation/Transfer - Attestations Scribe Attestion: 08/04/18 13:51 Documentation prepared by Remedios Scanlon, acting as biomedical scientist for Niles Dickson MD. <Remedios Scanlon - Last Filed: 08/04/18 13:47> - Attestations Physician Attestion: 08/04/18 16:16 The documentation was prepared by the scribe under my direct supervision. I have reviewed the documentation which correctly represents the findings, medical decision-making and critical action taken by me. <Niles Dickson - Last Filed: 08/11/18 15:56> Diagnosis at time of Disposition: Headache Qualifiers: Headache type: unspecified Headache chronicity pattern: acute headache Intractability: not intractable Qualified Code(s): R51 - Headache - Discharge Dispostion Disposition: HOME Condition at time of disposition: Stable
[2018-08-04] MEDS ORDERED: ACETAMINOPHEN 1000 MG/100 ML VIAL (NON FORMULARY) IVPB ONE (12:46)
[2018-08-04] MEDS ORDERED: ACETAMINOPHEN INJECTION 100 ML IVPB ONE (12:49)
[2018-08-04 13:04] LABS: BASO % 1.2 % (0-2.0); EOS % 4.1 % (0-4.5); HEMATOCRIT 30.9 % (32.4-45.2); HEMOGLOBIN 10.2 GM/dL (10.7-15.3); LYMPH % 15.3 % (8-40); MCH 26.4 pg (25.7-33.7); MCHC 33.1 g/dl (32.0-36.0); MEAN CELL VOLUME 79.9 fl (80-96); MEAN PLT VOLUME 9.2 fl (7.5-11.1); MONO % 7.7 % (3.8-10.2); NEUT % 71.7 % (42.8-82.8); PLATELET COUNT 211 K/MM3 (134-434); RBC 3.86 M/mm3 (3.60-5.2); WHITE BLOOD COUNT 6.1 K/mm3 (4.0-10.0)
[2018-08-04 13:30] LABS: ALBUMIN 2.9 g/dl (3.4-5.0); ALK PHOS 104 U/L (45-117); ANION GAP 7 MMOL/L (8-16); BILIRUBIN,TOTAL 0.4 mg/dL (0.2-1); BLOOD UREA NITROGEN 14 mg/dL (7-18); CALCIUM 8.6 mg/dL (8.5-10.1); CHLORIDE 104 mmol/L (98-107); CO2 29 mmol/L (21-32); GLUCOSE,RANDOM 81 mg/dL (74-106); POTASSIUM 3.7 mmol/L (3.5-5.1); SGOT/AST 15 U/L (15-37); SGPT/ALT 17 U/L (13-61); SODIUM 140 mmol/L (136-145)
[2018-08-04 13:42] LABS: INR 1.2 (0.83-1.09); PROTHROMBIN TIME (PATIENT) 14.2 SEC (9.7-13.0)
[2018-08-04] MEDS ORDERED: oxyCODONE HCL 5 MG TABLET PO ONE (14:36)
[2018-08-04] MEDS ORDERED: oxyCODONE HCL 5 MG TABLET ONE (14:40)
[2018-08-04 15:01] LABS: URINE APPEARANCE CLEAR; URINE BILIRUBIN NEGATIVE (<2.0 mg/dL); URINE COLOR LTYELLOW; URINE GLUCOSE (UA) NEGATIVE (NEGATIVE); URINE KETONE NEGATIVE (NEGATIVE); URINE LEUK ESTERASE NEGATIVE (NEGATIVE); URINE NITRITE NEGATIVE (NEGATIVE); URINE PROTEIN NEGATIVE (NEGATIVE); URINE UROBILINOGEN NEGATIVE mg/dL (0.2-1.0)
[2018-08-04] MEDS ORDERED: predniSONE 20 MG TABLET (UD) PO ONE (15:18)
[2018-08-04] MEDS ORDERED: predniSONE 20 MG TABLET (UD) ONE (18:10)
--- NOTE | 2018-08-04 21:20 | HP ---
CHIEF COMPLAINT: left temporal headache PCP: Dr. Diamond HISTORY OF PRESENT ILLNESS: 68-year-old female c/o 1.5 weeks of LT temporal and LT facial pain, associated with pulsating headaches. Denied any nausea, vomiting or vision changes, although she reports that light does bother her at times. Denied any significant dizziness. Patient reports similar incidence on her right side and underwent right temporal a. biopsy which was wnl. She reports some relief with ibuprofen. ER course was notable for: (1) prednisone 60mg (2) head CT (3) Recent Travel:no PAST MEDICAL HISTORY: anemia, asthma, HTN, HLD, and hypothyroidism PAST SURGICAL HISTORY:RT knee replacement, lumpectomy Social History: Smoking: no Alcohol: no Drugs: no Family History: extensive family history of breast cancer Allergies No Known Drug Allergies Allergy (Verified 08/04/18 12:39) peanut [Peanut] Allergy (Verified 08/04/18 12:39) HOME MEDICATIONS: Home Medications Medication Instructions Recorded Levothyroxine [Synthroid -] 50 mcg PO DAILY 03/23/14 Valsartan/Hydrochlorothiazide 1 combo PO DAILY 03/23/14 [Diovan Hct 160-25 mg Tablet] Latanoprost 0.005% Eye Drops 1 drop OU HS 10/14/17 [Xalatan 0.005% Eye Drops -] Albuterol 0.083% Nebulizer Dalia 1 neb NEB Q6H PRN #60 vial 04/23/18 [Ventolin 0.083% Nebulizer Soln -] Aspirin [ASA -] 81 mg PO ONCE 04/23/18 REVIEW OF SYSTEMS CONSTITUTIONAL: Absent: fever, chills, diaphoresis, generalized weakness, malaise, loss of appetite, weight change HEENT: Absent: rhinorrhea, nasal congestion, throat pain, throat swelling, difficulty swallowing, mouth swelling, ear pain, eye pain, visual changes CARDIOVASCULAR: Absent: chest pain, syncope, palpitations, irregular heart rate, lightheadedness , peripheral edema RESPIRATORY: Absent: cough, shortness of breath, dyspnea with exertion, orthopnea, wheezing, stridor, hemoptysis GASTROINTESTINAL: Absent: abdominal pain, abdominal distension, nausea, vomiting, diarrhea, constipation, melena, hematochezia GENITOURINARY: Absent: dysuria, frequency, urgency, hesitancy, hematuria, flank pain, genital pain MUSCULOSKELETAL: Absent: myalgia, arthralgia, joint swelling, back pain, neck pain SKIN: Absent: rash, itching, pallor HEMATOLOGIC/IMMUNOLOGIC: Absent: easy bleeding, easy bruising, lymphadenopathy, frequent infections ENDOCRINE: Absent: unexplained weight gain, unexplained weight loss, heat intolerance, cold intolerance NEUROLOGIC: Absent: focal weakness or paresthesias, dizziness, unsteady gait, seizure, mental status changes, bladder or bowel incontinence present- headache, PSYCHIATRIC: Absent: anxiety, depression, suicidal or homicidal ideation, hallucinations. PHYSICAL EXAMINATION Vital Signs - 24 hr 08/04/18 08/04/18 12:27 18:18 Temperature 97.4 F L 97.8 F Pulse Rate 77 Pulse Rate [ 72 Left Brachial] Respiratory 22 H 20 Rate Blood Pressure 145/76 Blood Pressure 124/64 [Left Arm] O2 Sat by Pulse 100 97 Oximetry (%) GENERAL: Awake, alert, and fully oriented, in no acute distress, obese HEAD: left temporal area of head was tender to touch EYES: Pupils equal, round and reactive to light, extraocular movements intact, sclera anicteric, conjunctiva clear. No lid lag. EARS, NOSE, THROAT: Ears normal, nares patent, oropharynx clear without exudates. Moist mucous membranes. NECK: Normal range of motion, supple without lymphadenopathy, JVD, or masses. LUNGS: Breath sounds equal, clear to auscultation bilaterally. No wheezes, and no crackles. No accessory muscle use. HEART: Regular rate and rhythm, normal S1 and S2 without murmur, rub or gallop. ABDOMEN: Soft, nontender, not distended, normoactive bowel sounds, no guarding, no rebound, no masses. No hepatomegaly or splenomegaly. MUSCULOSKELETAL: Normal range of motion at all joints. No bony deformities or tenderness. No CVA tenderness. UPPER EXTREMITIES: 2+ pulses, warm, well-perfused. No cyanosis. No clubbing. No peripheral edema. LOWER EXTREMITIES: 2+ pulses, warm, well-perfused. No calf tenderness. No peripheral edema. NEUROLOGICAL: Cranial nerves II-XII intact. Normal speech. PSYCHIATRIC: Cooperative. Good eye contact. Appropriate mood and affect. SKIN: Warm, dry, normal turgor, no rashes or lesions noted, normal capillary refill. Laboratory Results - last 24 hr 08/04/18 08/04/18 08/04/18 12:50 12:50 12:50 WBC 6.1 RBC 3.86 Hgb 10.2 L Hct 30.9 L MCV 79.9 L MCH 26.4 MCHC 33.1 RDW 17.0 H Plt Count 211 MPV 9.2 Absolute Neuts (auto) 4.3 Neutrophils % 71.7 Lymphocytes % 15.3 Monocytes % 7.7 Eosinophils % 4.1 Basophils % 1.2 Nucleated RBC % 0 ESR PT with INR 14.20 H INR 1.20 H Sodium 140 Potassium 3.7 Chloride 104 Carbon Dioxide 29 Anion Gap 7 L BUN 14 Creatinine 1.0 Creat Clearance w eGFR 55.14 Random Glucose 81 Calcium 8.6 Total Bilirubin 0.4 AST 15 ALT 17 Alkaline Phosphatase 104 Total Protein 8.0 Albumin 2.9 L Urine Color Urine Appearance Urine pH Ur Specific [place] Urine Protein Urine Glucose (UA) Urine Ketones Urine Blood Urine Nitrite Urine Bilirubin Urine Urobilinogen Ur Leukocyte Esterase 08/04/18 08/04/18 12:50 14:50 WBC RBC Hgb Hct MCV MCH MCHC RDW Plt Count MPV Absolute Neuts (auto) Neutrophils % Lymphocytes % Monocytes % Eosinophils % Basophils % Nucleated RBC % ESR 94 H PT with INR INR Sodium Potassium Chloride Carbon Dioxide Anion Gap BUN Creatinine Creat Clearance w eGFR Random Glucose Calcium Total Bilirubin AST ALT Alkaline Phosphatase Total Protein Albumin Urine Color Ltyellow Urine Appearance Clear Urine pH 7.0 Ur Specific [place] 1.011 Urine Protein Negative Urine Glucose (UA) Negative Urine Ketones Negative Urine Blood Negative Urine Nitrite Negative Urine Bilirubin Negative Urine Urobilinogen Negative Ur Leukocyte Esterase Negative imaging studies reviewed head CT was negative for any acute insults neck CTA- no evidence of carotid a. dissection ASSESSMENT/PLAN: #68yo woman with temporal, pulsating headache. High suspiscion for temporal arteritis as there are questionable visual changes (patient attributes them to not wearing glasses), high ESR, and tenderness to palpation of left temporal area. She is s/p prednisone 60mg in ER. Differential diagnosis also includes migraine (photophotobia, pulsating nature) -admit to med/surg -c/w prednisone 60mg po daily -ibuprofen 400mg po prn if headache -neuro evaluation -vascular surgery evaluation for possible left temporal artery biospy #Hypothyroidism -c/w home dose levothyroxine #HTN -c/w home dose valsartan/HCTZ #DVT ppx- heparin sc Visit type - Emergency Visit Emergency Visit: Yes ED Registration Date: 08/04/18 Care time: The patient presented to the Emergency Department on the above date and was hospitalized for further evaluation of their emergent condition. - New Patient This patient is new to me today: Yes Date on this admission: 08/05/18 - Critical Care Critical Care patient: No
[2018-08-04] MEDS ORDERED: ALBUTEROL SO4 0.083% IH SOL 2.5 MG/3 ML VIAL.NEB. NEB PRN (21:25)
[2018-08-04] MEDS ORDERED: SODIUM CHLORIDE 1,000 ML IV SCH (21:30)
[2018-08-04] MEDS ORDERED: ACETAMINOPHEN 500 MG TABLET (FP) PO PRN (21:34)
[2018-08-04] MEDS ORDERED: ASPIRIN 81 MG CHEWABLE TABLETS ONE (21:48)
[2018-08-04] MEDS: ASPIRIN 81 MG CHEWABLE TABLETS PO SCH (21:54)
[2018-08-04] MEDS ORDERED: HEPARIN NA (PORCINE) 5,000 UNITS/ML 1ML VIAL ONE (21:55)
[2018-08-04] MEDS: HEPARIN NA (PORCINE) 5,000 UNITS/ML 1ML VIAL SQ SCH (21:59)
[2018-08-05] MEDS ORDERED: IBUPROFEN 400 MG TABLET (FP) PO PRN (00:04)
[2018-08-05] MEDS: LEVOTHYROXINE NA 50 MCG TABLET (FP) PO SCH (06:39)
[2018-08-05 08:11] LABS: BASO % 0.2 % (0-2.0); EOS % 0.1 % (0-4.5); HEMOGLOBIN 9.7 GM/dL (10.7-15.3); LYMPH % 7.8 % (8-40); MCHC 32.5 g/dl (32.0-36.0); MEAN PLT VOLUME 9.5 fl (7.5-11.1); MONO % 1.3 % (3.8-10.2); NEUT % 90.6 % (42.8-82.8); PLATELET COUNT 179 K/MM3 (134-434); RBC 3.75 M/mm3 (3.60-5.2); RDW 17.2 % (11.6-15.6); WHITE BLOOD COUNT 5.5 K/mm3 (4.0-10.0)
[2018-08-05 08:34] LABS: ANION GAP 8 MMOL/L (8-16); BLOOD UREA NITROGEN 21 mg/dL (7-18); CALCIUM 8.7 mg/dL (8.5-10.1); CHLORIDE 105 mmol/L (98-107); CO2 27 mmol/L (21-32); CREATININE 1.2 mg/dL (0.55-1.3); GLUCOSE,RANDOM 124 mg/dL (74-106); POTASSIUM 4.2 mmol/L (3.5-5.1); SODIUM 140 mmol/L (136-145)
[2018-08-05] MEDS ORDERED: PATIENT'S OWN MEDICATION (NON-FORMULARY) (Valsartan/Hydrochlorothiazide [Diovan Hct 160-25 PO SCH (10:00)
[2018-08-05] MEDS: ASPIRIN 81 MG CHEWABLE TABLETS PO SCH (10:57)
[2018-08-05] MEDS: VALSARTAN 160 MG TABLET (UD) PO SCH (10:57)
[2018-08-05] MEDS: HYDROCHLOROTHIAZIDE 25 MG TABLET (FP) PO SCH (10:58)
[2018-08-05] MEDS: HEPARIN NA (PORCINE) 5,000 UNITS/ML 1ML VIAL SQ SCH ×2 (10:58→21:49)
[2018-08-05] MEDS ORDERED: ACETAMINOPHEN 325 MG TABLET (FP) PO PRN (11:49)
[2018-08-05 12:02] VITALS: BMI 52.0
--- NOTE | 2018-08-05 12:47 | PN ---
Physical Exam: SUBJECTIVE: Patient seen and examined at bed side still complaing of slight headach 5/10 , phtophobia , she reports recent ear ringing but no loss of hearing , she denies any recent cole work up , deneis any fever, chills, N/V/D?C. denies any chest pain or shortness of breath. for possible temporal biopsy today OBJECTIVE: Vital Signs Period Temp Pulse Resp BP Sys/Gaona Pulse Ox Last 24 Hr 97.8 F-98 F 72-76 17-20 124-138/64-77 97-98 GENERAL: AAOx3 in NAD HEAD: NC/AT , slight tenderness on left side . EYES: PERRLA, EOMI, ENT: MMM NECK: Trachea midline, FROM, Supple LUNGS: CTA B/L HEART: RRR, no MRG ABDOMEN: Soft, nontender, nondistended, normoactive bowel sounds, no guarding, no rebound, EXTREMITIES: 2+ pulses, warm, well-perfused, no edema. NEUROLOGICAL: no focal deficit , KAYLEY, EOMI, Sensation intact upper and lower ext , strength 5/5 upper and LE proximal and distal, no facail assymtery , uvula med line PSYCH: Normal mood, normal affect. SKIN: Warm, dry, normal turgor, Laboratory Results - last 24 hr 08/04/18 08/04/18 08/04/18 12:50 12:50 12:50 WBC 6.1 RBC 3.86 Hgb 10.2 L Hct 30.9 L MCV 79.9 L MCH 26.4 MCHC 33.1 RDW 17.0 H Plt Count 211 MPV 9.2 Absolute Neuts (auto) 4.3 Neutrophils % 71.7 Lymphocytes % 15.3 Monocytes % 7.7 Eosinophils % 4.1 Basophils % 1.2 Nucleated RBC % 0 ESR PT with INR 14.20 H INR 1.20 H Sodium 140 Potassium 3.7 Chloride 104 Carbon Dioxide 29 Anion Gap 7 L BUN 14 Creatinine 1.0 Creat Clearance w eGFR 55.14 Random Glucose 81 Calcium 8.6 Total Bilirubin 0.4 AST 15 ALT 17 Alkaline Phosphatase 104 Total Protein 8.0 Albumin 2.9 L Urine Color Urine Appearance Urine pH Ur Specific [place] Urine Protein Urine Glucose (UA) Urine Ketones Urine Blood Urine Nitrite Urine Bilirubin Urine Urobilinogen Ur Leukocyte Esterase 08/04/18 08/04/18 08/05/18 12:50 14:50 07:10 WBC 5.5 RBC 3.75 Hgb 9.7 L Hct 30.0 L MCV 80.0 MCH 26.0 MCHC 32.5 RDW 17.2 H Plt Count 179 MPV 9.5 Absolute Neuts (auto) 5.0 Neutrophils % 90.6 H Lymphocytes % 7.8 L D Monocytes % 1.3 L D Eosinophils % 0.1 D Basophils % 0.2 Nucleated RBC % 0 ESR 94 H PT with INR INR Sodium Potassium Chloride Carbon Dioxide Anion Gap BUN Creatinine Creat Clearance w eGFR Random Glucose Calcium Total Bilirubin AST ALT Alkaline Phosphatase Total Protein Albumin Urine Color Ltyellow Urine Appearance Clear Urine pH 7.0 Ur Specific [place] 1.011 Urine Protein Negative Urine Glucose (UA) Negative Urine Ketones Negative Urine Blood Negative Urine Nitrite Negative Urine Bilirubin Negative Urine Urobilinogen Negative Ur Leukocyte Esterase Negative 08/05/18 07:10 WBC RBC Hgb Hct MCV MCH MCHC RDW Plt Count MPV Absolute Neuts (auto) Neutrophils % Lymphocytes % Monocytes % Eosinophils % Basophils % Nucleated RBC % ESR PT with INR INR Sodium 140 Potassium 4.2 Chloride 105 Carbon Dioxide 27 Anion Gap 8 BUN 21 H Creatinine 1.2 Creat Clearance w eGFR 44.68 Random Glucose 124 H Calcium 8.7 Total Bilirubin AST ALT Alkaline Phosphatase Total Protein Albumin Urine Color Urine Appearance Urine pH Ur Specific [place] Urine Protein Urine Glucose (UA) Urine Ketones Urine Blood Urine Nitrite Urine Bilirubin Urine Urobilinogen Ur Leukocyte Esterase Active Medications Generic Name Dose Route Start Last Admin Trade Name Freq PRN Reason Stop Dose Admin Acetaminophen 325 mg 08/05/18 11:49 Tylenol - PO Q4H PRN PAIN 1-3 Albuterol Sulfate 1 amp 08/04/18 21:25 Ventolin 0.083% Nebulizer Soln - NEB Q6H PRN ASTHMA Aspirin 81 mg 08/04/18 21:30 08/05/18 10:57 Asa - PO 81 mg DAILY DAVONTE Administration Cyclobenzaprine HCl 5 mg 08/05/18 14:00 Cyclobenzaprine Hcl PO TID DAVONTE Heparin Sodium (Porcine) 5,000 unit 08/04/18 22:00 08/05/18 10:58 Heparin - SQ 5,000 unit BID DAVONTE Administration Hydrochlorothiazide 25 mg 08/05/18 10:00 08/05/18 10:58 Hctz - PO 25 mg DAILY DAVONTE Administration Sodium Chloride 1,000 mls @ 50 mls/hr 08/04/18 21:30 08/04/18 21:54 Normal Saline - IV 08/05/18 21:24 50 mls/hr ASDIR DAVONTE Administration Latanoprost 1 drop 08/05/18 22:00 Xalatan 0.005% Eye Drops - OU HS DAVONTE Levothyroxine Sodium 50 mcg 08/05/18 07:00 08/05/18 06:39 Synthroid - PO 50 mcg AM DAVONTE Administration Pantoprazole Sodium 40 mg 08/05/18 15:00 Protonix - PO DAILY@1500 DAVONTE Prednisone 60 mg 08/05/18 15:00 Deltasone - PO DAILY@1500 DAVONTE Valsartan 160 mg 08/05/18 10:00 08/05/18 10:57 Diovan - PO 160 mg DAILY DAVONTE Administration imaging studies reviewed head CT was negative for any acute insults neck CTA- no evidence of carotid stenosis or dissection ASSESSMENT/PLAN: 68yo woman with 10 days h/o temporal, pulsating headache admitted to [facility] for further evaluation # Headach, migraine vs temporal arteries vs tension headache * cont prednisone 60 mg po daily * Consult Dr Pollard * Consult Dr messina for possible temporal artery biopsy * ESR is elevated * Tylenol for pain * neuro check q 4hr #Hypothyroidism * c/w home dose levothyroxine 50 mcg daily #HTN * c/w home dose valsartan/HCTZ # Asthma , stable , cont home meds #DVT ppx: heparin sc # GI proph : protonix as pt is on Prednisone # FEN * F: Ns@50 cc/hr * E: WNL , monitor * N: low sodium diet Visit type - Emergency Visit Emergency Visit: Yes ED Registration Date: 08/04/18 Care time: The patient presented to the Emergency Department on the above date and was hospitalized for further evaluation of their emergent condition. - New Patient This patient is new to me today: Yes Date on this admission: 08/05/18 - Critical Care Critical Care patient: No
--- NOTE | 2018-08-05 13:48 | CONSULT ---
- Consultation REQUESTING PROVIDER: CONSULT REQUEST: We have been asked to surgically evaluate this patient for (L temporal arteritis). PCP:Mera Bolanos HISTORY OF PRESENT ILLNESS: 68 y/o F w/ PMHx htn, hypothyroidism, now a/w Lt temporal h/a, facial pain. Pt reports approximately a week and a half ago she woke with a throbbing headache which began on the left side of her forehead and was "jumping back and forth from the left to the right side and to the back of my head and down into my neck". Endorses jaw pain/claudication and a brief period of blurry vision in her L eye. Pt has been followed by Neurology for h/a' s since her R temporal artery biopsy in October of 2017 (result negative). Reports abatement of h/a's since that admission. Has been taking Ibuprofen at home with relief. Denies n/v/d, cp/sob, palpitations. PMHx: as above PSHx: RT knee replacement, lumpectomy Home Medications Medication Instructions Recorded Levothyroxine [Synthroid -] 50 mcg PO DAILY 03/23/14 Valsartan/Hydrochlorothiazide 1 combo PO DAILY 03/23/14 [Diovan Hct 160-25 mg Tablet] Latanoprost 0.005% Eye Drops 1 drop OU HS 10/14/17 [Xalatan 0.005% Eye Drops -] Albuterol 0.083% Nebulizer Dalia 1 neb NEB Q6H PRN #60 vial 04/23/18 [Ventolin 0.083% Nebulizer Soln -] Aspirin [ASA -] 81 mg PO ONCE 04/23/18 Allergies Allergy/AdvReac Type Severity Reaction Status Date / Time No Known Drug Allergies Allergy Verified 08/04/18 12:39 peanut [Peanut] Allergy Verified 08/04/18 12:39 REVIEW OF SYSTEMS: CONSTITUTIONAL: Absent: fever, chills, diaphoresis CARDIOVASCULAR: Absent: chest pain, syncope, palpitations RESPIRATORY: Absent: cough, shortness of breath GASTROINTESTINAL: Absent: abdominal pain NEUROLOGIC: +headache PHYSICAL EXAM: GENERAL: Awake, alert, and fully oriented, in no acute distress. HEAD: Normal with no signs of trauma. Temporal region: L side- no ttp, no enlarged temporal artery appreciated on exam , +temporal artery pulse. Vital Signs Temperature 98 F 08/05/18 04:24 Pulse Rate 72 08/05/18 04:24 Respiratory Rate 18 08/05/18 04:24 Blood Pressure 136/77 08/05/18 04:24 O2 Sat by Pulse Oximetry (%) 98 08/05/18 03:13 Lab Results WBC 5.5 K/mm3 (4.0-10.0) 08/05/18 07:10 RBC 3.75 M/mm3 (3.60-5.2) 08/05/18 07:10 Hgb 9.7 GM/dL (10.7-15.3) L 08/05/18 07:10 Hct 30.0 % (32.4-45.2) L 08/05/18 07:10 MCV 80.0 fl (80-96) 08/05/18 07:10 MCHC 32.5 g/dl (32.0-36.0) 08/05/18 07:10 RDW 17.2 % (11.6-15.6) H 08/05/18 07:10 Plt Count 179 K/MM3 (134-434) 08/05/18 07:10 Sodium 140 mmol/L (136-145) 08/05/18 07:10 Potassium 4.2 mmol/L (3.5-5.1) 08/05/18 07:10 Chloride 105 mmol/L (98-107) 08/05/18 07:10 Carbon Dioxide 27 mmol/L (21-32) 08/05/18 07:10 Anion Gap 8 MMOL/L (8-16) 08/05/18 07:10 BUN 21 mg/dL (7-18) H 08/05/18 07:10 Creatinine 1.2 mg/dL (0.55-1.3) 08/05/18 07:10 Random Glucose 124 mg/dL (74-106) H 08/05/18 07:10 Calcium 8.7 mg/dL (8.5-10.1) 08/05/18 07:10 INR 1.20 (0.83-1.09) H 08/04/18 12:50 A/P: 68 y/o F w/ PMHx htn, hypothyroidism, now a/w Lt temporal h/a, facial pain. ESR 94 On steroid therapy -OR tomorrow as add on with Dr Jacob for Left temporal artery biopsy -NPO after midnight -Am labs d/w attending Dr Jacob
[2018-08-05] MEDS ORDERED: PT OWN MED DRAWER 7, Y5N ONE ×2 (14:11→21:48)
[2018-08-05] MEDS: PANTOPRAZOLE 40 MG TABLET (FP) PO SCH (14:17)
[2018-08-05] MEDS: predniSONE 20 MG TABLET (UD) PO SCH (14:17)
[2018-08-05] MEDS: CYCLOBENZAPRINE HCL 5 MG TABLET PO SCH ×2 (14:17→21:49)
--- NOTE | 2018-08-05 16:08 | PN ---
Teaching Attending Note Name of Resident: Dashawn Prestoncecil ATTENDING PHYSICIAN STATEMENT I saw and evaluated the patient. I reviewed the resident's note and discussed the case with the resident. I agree with the resident's findings and plan as documented. SUBJECTIVE: Patient is c/o having headache. no diplopia or any vision changes, seen by her three dimensional art instructor recently and as per patient was told that is not Temporal arthiritis. OBJECTIVE: Vital Signs Temperature 97.8 F 08/05/18 14:56 Pulse Rate 73 08/05/18 14:56 Respiratory Rate 17 08/05/18 14:56 Blood Pressure 121/62 08/05/18 14:56 O2 Sat by Pulse Oximetry (%) 98 08/05/18 03:13 GENERAL: Awake, alert, and fully oriented, in no acute distress, obese HEAD: left temporal area of head was tender to touch EYES: Pupils equal, round and reactive to light, extraocular movements intact, sclera anicteric, conjunctiva clear. EARS, NOSE, THROAT: Ears normal, oropharynx clear without exudates. Moist mucous membranes. NECK: Normal range of motion, supple without lymphadenopathy, JVD, or masses. LUNGS: Breath sounds equal, clear to auscultation bilaterally. No wheezes, and no crackles. No accessory muscle use. HEART: Regular rate and rhythm, normal S1 and S2 without murmur, rub or gallop. ABDOMEN: Soft, nontender, not distended, normoactive bowel sounds, no guarding, no rebound, no masses. No hepatomegaly or splenomegaly. MUSCULOSKELETAL: Normal range of motion at all joints. No bony deformities or tenderness. No CVA tenderness. EXTREMITIES: 2+ pulses, warm, well-perfused. No cyanosis. No clubbing. No peripheral edema. NEUROLOGICAL: Cranial nerves II-XII intact. Normal speech. PSYCHIATRIC: Cooperative. Good eye contact. Appropriate mood and affect. SKIN: Warm, dry, normal turgor, no rashes or lesions noted, normal capillary refill. CBCD WBC 5.5 K/mm3 (4.0-10.0) 08/05/18 07:10 RBC 3.75 M/mm3 (3.60-5.2) 08/05/18 07:10 Hgb 9.7 GM/dL (10.7-15.3) L 08/05/18 07:10 Hct 30.0 % (32.4-45.2) L 08/05/18 07:10 MCV 80.0 fl (80-96) 08/05/18 07:10 MCHC 32.5 g/dl (32.0-36.0) 08/05/18 07:10 RDW 17.2 % (11.6-15.6) H 08/05/18 07:10 Plt Count 179 K/MM3 (134-434) 08/05/18 07:10 MPV 9.5 fl (7.5-11.1) 08/05/18 07:10 CMP Sodium 140 mmol/L (136-145) 08/05/18 07:10 Potassium 4.2 mmol/L (3.5-5.1) 08/05/18 07:10 Chloride 105 mmol/L (98-107) 08/05/18 07:10 Carbon Dioxide 27 mmol/L (21-32) 08/05/18 07:10 Anion Gap 8 MMOL/L (8-16) 08/05/18 07:10 BUN 21 mg/dL (7-18) H 08/05/18 07:10 Creatinine 1.2 mg/dL (0.55-1.3) 08/05/18 07:10 Creat Clearance w eGFR 44.68 (>60) 08/05/18 07:10 Random Glucose 124 mg/dL (74-106) H 08/05/18 07:10 Calcium 8.7 mg/dL (8.5-10.1) 08/05/18 07:10 Total Bilirubin 0.4 mg/dL (0.2-1) 08/04/18 12:50 AST 15 U/L (15-37) 08/04/18 12:50 ALT 17 U/L (13-61) 08/04/18 12:50 Alkaline Phosphatase 104 U/L (45-117) 08/04/18 12:50 Total Protein 8.0 g/dl (6.4-8.2) 08/04/18 12:50 Albumin 2.9 g/dl (3.4-5.0) L 08/04/18 12:50 Current Medications Generic Name Dose Route Start Last Admin Trade Name Freq PRN Reason Stop Dose Admin Acetaminophen 325 mg 08/05/18 11:49 08/05/18 12:49 Tylenol - PO 325 mg Q4H PRN Administration PAIN 1-3 Albuterol Sulfate 1 amp 08/04/18 21:25 Ventolin 0.083% Nebulizer Soln - NEB Q6H PRN ASTHMA Aspirin 81 mg 08/04/18 21:30 08/05/18 10:57 Asa - PO 81 mg DAILY DAVONTE Administration Cyclobenzaprine HCl 5 mg 08/05/18 14:00 08/05/18 14:17 Cyclobenzaprine Hcl PO 5 mg TID DAVONTE Administration Heparin Sodium (Porcine) 5,000 unit 08/04/18 22:00 08/05/18 10:58 Heparin - SQ 5,000 unit BID DAVONTE Administration Hydrochlorothiazide 25 mg 08/05/18 10:00 08/05/18 10:58 Hctz - PO 25 mg DAILY DAVONTE Administration Sodium Chloride 1,000 mls @ 50 mls/hr 08/04/18 21:30 08/04/18 21:54 Normal Saline - IV 08/05/18 21:24 50 mls/hr ASDIR DAVONTE Administration Latanoprost 1 drop 08/05/18 22:00 Xalatan 0.005% Eye Drops - OU HS [facility] Levothyroxine Sodium 50 mcg 08/05/18 07:00 08/05/18 06:39 Synthroid - PO 50 mcg AM DAVONTE Administration Pantoprazole Sodium 40 mg 08/05/18 15:00 08/05/18 14:17 Protonix - PO 40 mg DAILY@1500 DAVONTE Administration Prednisone 60 mg 08/05/18 15:00 08/05/18 14:17 Deltasone - PO 60 mg DAILY@1500 DAVONTE Administration Valsartan 160 mg 08/05/18 10:00 08/05/18 10:57 Diovan - PO 160 mg DAILY DAVONTE Administration Home Medications Medication Instructions Recorded Levothyroxine [Synthroid -] 50 mcg PO DAILY 03/23/14 Valsartan/Hydrochlorothiazide 1 combo PO DAILY 03/23/14 [Diovan Hct 160-25 mg Tablet] Latanoprost 0.005% Eye Drops 1 drop OU HS 10/14/17 [Xalatan 0.005% Eye Drops -] Albuterol 0.083% Nebulizer Dalia 1 neb NEB Q6H PRN #60 vial 04/23/18 [Ventolin 0.083% Nebulizer Soln -] Aspirin [ASA -] 81 mg PO ONCE 04/23/[address] was negative for any acute insults neck CTA- no evidence of carotid stenosis or dissection ASSESSMENT AND PLAN: Patient is a 68yo female with Pmhx of headache with 10 days h/o temporal, pulsating headache admitted to [facility] for further evaluation # Headache with questionable migraine vs temporal arteries , neuro consult for headache appreciated #Hypothyroidism continue levothyroxine 50 mcg daily #HTN continue home dose valsartan/HCTZ # Asthma , stable , cont home meds DVT ppx: heparin sc GI proph : protonix as pt is on Prednisone
--- NOTE | 2018-08-05 16:23 | PN ---
Progress Note (short form) - Note Progress Note: Vascular Surgery Pt seen and examined. Pt with symptoms of blurry vision, head aches left side. Will do temporal artery biopsy left side sal. Pt with history of right side TAB - which was negative. Akash Jacob DO
--- NOTE | 2018-08-05 16:55 | EKG ---
Test Reason : Blood Pressure : / mmHG Vent. Rate : 074 BPM Atrial Rate : 074 BPM P-R Int : 192 ms QRS Dur : 088 ms QT Int : 390 ms P-R-T Axes : 043 -01 030 degrees QTc Int : 432 ms NORMAL SINUS RHYTHM NORMAL ECG WHEN COMPARED WITH ECG OF 05-JUN-2018 17:56, NONSPECIFIC T WAVE ABNORMALITY, IMPROVED IN LATERAL LEADS QT HAS LENGTHENED Confirmed by MARCELLE BARTON, CRISTINA ([id number]) on 08/05/2018 4:55:02 PM Referred By: Confirmed By:CRISTINA IBANEZ MD
[2018-08-05] MEDS ORDERED: LATANOPROST 0.005% OPHTH SOLN 2.5ML BOTTLE OU SCH (22:00)
[2018-08-06] MEDS: CYCLOBENZAPRINE HCL 5 MG TABLET PO SCH ×2 (05:21→18:19)
[2018-08-06] MEDS: LEVOTHYROXINE NA 50 MCG TABLET (FP) PO SCH (06:47)
[2018-08-06 07:45] LABS: BASO % 0.2 % (0-2.0); HEMATOCRIT 29.1 % (32.4-45.2); HEMOGLOBIN 9.5 GM/dL (10.7-15.3); MCH 26.1 pg (25.7-33.7); MCHC 32.6 g/dl (32.0-36.0); MEAN CELL VOLUME 80.1 fl (80-96); MEAN PLT VOLUME 9.4 fl (7.5-11.1); MONO % 6.1 % (3.8-10.2); NEUT % 82.7 % (42.8-82.8); PLATELET COUNT 185 K/MM3 (134-434); RBC 3.64 M/mm3 (3.60-5.2); RDW 17.3 % (11.6-15.6); WHITE BLOOD COUNT 6.8 K/mm3 (4.0-10.0)
--- NOTE | 2018-08-06 08:24 | PN ---
Physical Exam: SUBJECTIVE: Patient seen and examined at bedside- no acute events overnight; patient states that she had a slight headache overnight rated it 3/10- denies any CP/SOB/N/V fevers or chills OBJECTIVE: Vital Signs Period Temp Pulse Resp BP Sys/Gaona Pulse Ox Last 24 Hr 97.6 F-98 F 59-73 17-20 111-134/62-83 97-98 GENERAL: The patient is awake, alert, and fully oriented, in no acute distress. EYES: PEERLA; EOMI; no scleral icterus. . NECK: no JVD; no lymphadenopathy. LUNGS: Breath sounds equal, clear to auscultation bilaterally, no wheezes, no crackles, no accessory muscle use. HEART: Regular rate and rhythm, S1, S2 without murmur, rub or gallop. ABDOMEN: Soft, nontender, nondistended, normoactive bowel sounds, no guarding, no rebound, no hepatosplenomegaly, no masses. EXTREMITIES: 2+ pulses, warm, well-perfused, no edema. NEUROLOGICAL: Cranial nerves II through XII grossly intact. Normal speech, gait not observed. PSYCH: Normal mood, normal affect. SKIN: Warm, dry, normal turgor, no rashes or lesions noted Laboratory Results - last 24 hr 08/05/18 08/06/18 08/06/18 07:10 06:30 06:30 WBC 6.8 RBC 3.64 Hgb 9.5 L Hct 29.1 L MCV 80.1 MCH 26.1 MCHC 32.6 RDW 17.3 H Plt Count 185 MPV 9.4 Absolute Neuts (auto) 5.6 Neutrophils % 82.7 Lymphocytes % 11.0 D Monocytes % 6.1 D Eosinophils % 0.0 D Basophils % 0.2 Nucleated RBC % 0 Sodium 140 Potassium 4.2 Chloride 105 Carbon Dioxide 27 Anion Gap 8 BUN 21 H Creatinine 1.2 Creat Clearance w eGFR 44.68 Random Glucose 124 H Calcium 8.7 C-Reactive Protein 1.3 H Active Medications Generic Name Dose Route Start Last Admin Trade Name Freq PRN Reason Stop Dose Admin Acetaminophen 325 mg 08/05/18 11:49 08/05/18 12:49 Tylenol - PO 325 mg Q4H PRN Administration PAIN 1-3 Albuterol Sulfate 1 amp 08/04/18 21:25 Ventolin 0.083% Nebulizer Soln - NEB Q6H PRN ASTHMA Aspirin 81 mg 08/04/18 21:30 08/05/18 10:57 Asa - PO 81 mg DAILY DAVONTE Administration Cyclobenzaprine HCl 5 mg 08/05/18 14:00 08/06/18 05:21 Cyclobenzaprine Hcl PO Not Given TID [facility] Heparin Sodium (Porcine) 5,000 unit 08/04/18 22:00 08/05/18 21:49 Heparin - SQ 5,000 unit BID DAVONTE Administration Hydrochlorothiazide 25 mg 08/05/18 10:00 08/05/18 10:58 Hctz - PO 25 mg DAILY DAVONTE Administration Latanoprost 1 drop 08/05/18 22:00 08/05/18 21:49 Xalatan 0.005% Eye Drops - OU 1 drop HS DAVONTE Administration Levothyroxine Sodium 50 mcg 08/05/18 07:00 08/06/18 06:47 Synthroid - PO 50 mcg AM DAVONTE Administration Pantoprazole Sodium 40 mg 08/05/18 15:00 08/05/18 14:17 Protonix - PO 40 mg DAILY@1500 DAVONTE Administration Prednisone 60 mg 08/05/18 15:00 08/05/18 14:17 Deltasone - PO 60 mg DAILY@1500 DAVONTE Administration Valsartan 160 mg 08/05/18 10:00 08/05/18 10:57 Diovan - PO 160 mg DAILY DAVONTE Administration ASSESSMENT/PLAN: 68yo woman with 10 days h/o temporal, pulsating headache admitted to [facility] for further evaluation # Headach, migraine vs temporal arteries vs tension headache * cont prednisone 60 mg po daily * patient going for temporal artery biopsy today * ESR is elevated * Tylenol for pain * neuro check q 4hr #Hypothyroidism * c/w home dose levothyroxine 50 mcg daily #HTN * c/w home dose valsartan/HCTZ * # Asthma , stable , cont home meds #DVT ppx: heparin sc # GI proph : protonix as pt is on Prednisone # FEN * F: Ns@50 cc/hr * E: WNL , monitor * N: low sodium diet
[2018-08-06 08:25] LABS: ALBUMIN 2.7 g/dl (3.4-5.0); ALK PHOS 93 U/L (45-117); ANION GAP 6 MMOL/L (8-16); BILIRUBIN,TOTAL 0.2 mg/dL (0.2-1); BLOOD UREA NITROGEN 25 mg/dL (7-18); CALCIUM 8.2 mg/dL (8.5-10.1); CHLORIDE 107 mmol/L (98-107); CO2 27 mmol/L (21-32); CREATININE 1.1 mg/dL (0.55-1.3); GLUCOSE,RANDOM 100 mg/dL (74-106); MAGNESIUM 2.2 mg/dL (1.8-2.4); PHOSPHOROUS 3.1 mg/dL (2.5-4.9); POTASSIUM 3.8 mmol/L (3.5-5.1); SGOT/AST 16 U/L (15-37); SGPT/ALT 17 U/L (13-61); SODIUM 141 mmol/L (136-145); TOT PROT 7.5 g/dl (6.4-8.2)
[2018-08-06] MEDS: ASPIRIN 81 MG CHEWABLE TABLETS PO SCH (09:31)
[2018-08-06] MEDS: HEPARIN NA (PORCINE) 5,000 UNITS/ML 1ML VIAL SQ SCH (09:32)
[2018-08-06] MEDS: HYDROCHLOROTHIAZIDE 25 MG TABLET (FP) PO SCH (09:41)
[2018-08-06] MEDS: VALSARTAN 160 MG TABLET (UD) PO SCH (09:41)
--- NOTE | 2018-08-06 14:17 | PN ---
Teaching Attending Note Name of Resident: Maria Thompson ATTENDING PHYSICIAN STATEMENT I saw and evaluated the patient. I reviewed the resident's note and discussed the case with the resident. I agree with the resident's findings and plan as documented. SUBJECTIVE: Patient is going for Bx today ; temporal arthritis. Headache is better. OBJECTIVE: Vital Signs Temperature 97.6 F 08/06/18 10:00 Pulse Rate 61 08/06/18 10:00 Respiratory Rate 20 08/06/18 10:00 Blood Pressure 137/66 08/06/18 10:00 O2 Sat by Pulse Oximetry (%) 97 08/06/18 09:00 GENERAL: Awake, alert, and fully oriented, in no acute distress, obese HEAD: left temporal area of head was tender to touch EYES: Pupils equal, round and reactive to light, extraocular movements intact, sclera anicteric, conjunctiva clear. EARS, NOSE, THROAT: Ears normal, oropharynx clear without exudates. Moist mucous membranes. NECK: Normal range of motion, supple without lymphadenopathy, JVD, or masses. LUNGS: Breath sounds equal, clear to auscultation bilaterally. No wheezes, and no crackles. No accessory muscle use. HEART: Regular rate and rhythm, normal S1 and S2 without murmur, rub or gallop. ABDOMEN: Soft, nontender, not distended, normoactive bowel sounds, no guarding, no rebound, no masses. MUSCULOSKELETAL: Normal range of motion at all joints. No bony deformities or tenderness. No CVA tenderness. EXTREMITIES: 2+ pulses, warm, well-perfused. No cyanosis. No clubbing. No peripheral edema. NEUROLOGICAL: Cranial nerves II-XII intact. Normal speech. PSYCHIATRIC: Cooperative. Good eye contact. Appropriate mood and affect. SKIN: Warm, dry, normal turgor, no rashes or lesions noted, normal capillary refill. CBCD WBC 6.8 K/mm3 (4.0-10.0) 08/06/18 06:30 RBC 3.64 M/mm3 (3.60-5.2) 08/06/18 06:30 Hgb 9.5 GM/dL (10.7-15.3) L 08/06/18 06:30 Hct 29.1 % (32.4-45.2) L 08/06/18 06:30 MCV 80.1 fl (80-96) 08/06/18 06:30 MCHC 32.6 g/dl (32.0-36.0) 08/06/18 06:30 RDW 17.3 % (11.6-15.6) H 08/06/18 06:30 Plt Count 185 K/MM3 (134-434) 08/06/18 06:30 MPV 9.4 fl (7.5-11.1) 08/06/18 06:30 CMP Sodium 141 mmol/L (136-145) 08/06/18 06:30 Potassium 3.8 mmol/L (3.5-5.1) 08/06/18 06:30 Chloride 107 mmol/L (98-107) 08/06/18 06:30 Carbon Dioxide 27 mmol/L (21-32) 08/06/18 06:30 Anion Gap 6 MMOL/L (8-16) L 08/06/18 06:30 BUN 25 mg/dL (7-18) H 08/06/18 06:30 Creatinine 1.1 mg/dL (0.55-1.3) 08/06/18 06:30 Creat Clearance w eGFR 49.39 (>60) 08/06/18 06:30 Random Glucose 100 mg/dL (74-106) 08/06/18 06:30 Calcium 8.2 mg/dL (8.5-10.1) L 08/06/18 06:30 Total Bilirubin 0.2 mg/dL (0.2-1) 08/06/18 06:30 AST 16 U/L (15-37) 08/06/18 06:30 ALT 17 U/L (13-61) 08/06/18 06:30 Alkaline Phosphatase 93 U/L (45-117) 08/06/18 06:30 Total Protein 7.5 g/dl (6.4-8.2) 08/06/18 06:30 Albumin 2.7 g/dl (3.4-5.0) L 08/06/18 06:30 Current Medications Generic Name Dose Route Start Last Admin Trade Name Freq PRN Reason Stop Dose Admin Acetaminophen 325 mg 08/05/18 11:49 08/05/18 12:49 Tylenol - PO 325 mg Q4H PRN Administration PAIN 1-3 Albuterol Sulfate 1 amp 08/04/18 21:25 Ventolin 0.083% Nebulizer Soln - NEB Q6H PRN ASTHMA Aspirin 81 mg 08/04/18 21:30 08/06/18 09:31 Asa - PO Not Given DAILY DAVONTE Cyclobenzaprine HCl 5 mg 08/05/18 14:00 08/06/18 05:21 Cyclobenzaprine Hcl PO Not Given TID DAVONTE Heparin Sodium (Porcine) 5,000 unit 08/04/18 22:00 08/06/18 09:32 Heparin - SQ Not Given BID DAVONTE Hydrochlorothiazide 25 mg 08/05/18 10:00 08/06/18 09:41 Hctz - PO 25 mg DAILY DAVONTE Administration Latanoprost 1 drop 08/05/18 22:00 08/05/18 21:49 Xalatan 0.005% Eye Drops - OU 1 drop HS DAVONTE Administration Levothyroxine Sodium 50 mcg 08/05/18 07:00 08/06/18 06:47 Synthroid - PO 50 mcg AM DAVONTE Administration Pantoprazole Sodium 40 mg 08/05/18 15:00 08/05/18 14:17 Protonix - PO 40 mg DAILY@1500 DAVONTE Administration Prednisone 60 mg 08/05/18 15:00 08/05/18 14:17 Deltasone - PO 60 mg DAILY@1500 DAVONTE Administration Valsartan 160 mg 08/05/18 10:00 08/06/18 09:41 Diovan - PO 160 mg DAILY DAVONTE Administration Home Medications Medication Instructions Recorded Levothyroxine [Synthroid -] 50 mcg PO DAILY 03/23/14 Valsartan/Hydrochlorothiazide 1 combo PO DAILY 03/23/14 [Diovan Hct 160-25 mg Tablet] Latanoprost 0.005% Eye Drops 1 drop OU HS 10/14/17 [Xalatan 0.005% Eye Drops -] Albuterol 0.083% Nebulizer Dalia 1 neb NEB Q6H PRN #60 vial 04/23/18 [Ventolin 0.083% Nebulizer Soln -] Aspirin [ASA -] 81 mg PO ONCE 04/23/18 predniSONE [Deltasone -] See Taper PO ASDIR #32 tab 08/06/[address] was negative for any acute insults neck CTA- no evidence of carotid stenosis or dissection ASSESSMENT AND PLAN: Patient is a 68yo female with Pmhx of headache with 10 days h/o temporal, pulsating headache admitted to [facility] for further evaluation # Headache with questionable migraine vs temporal arteries, neuro consult for headache appreciated #Hypothyroidism: continue levothyroxine 50 mcg daily #HTN: continue home dose valsartan/HCTZ # Asthma , stable , cont home meds DVT ppx: heparin sc GI proph : protonix as pt is on Prednisone
[2018-08-06] MEDS ORDERED: MIDAZOLAM HCL 2 MG/2 ML SINGLE DOSE VIAL ONE (15:56)
[2018-08-06] MEDS ORDERED: SODIUM CHLORIDE 0.9% P/F 10 ML VIAL IJ ONE (16:01)
[2018-08-06] MEDS ORDERED: ceFAZolin SODIUM 1 GM VIAL ONE (16:01)
[2018-08-06] MEDS ORDERED: ceFAZolin SODIUM 1 GM VIAL IVPB ONE (16:04)
[2018-08-06] MEDS ORDERED: LIDOCAINE HCL 1%, 10 MG/ML (20ML VIAL) INF ONE ×2 (16:08)
[2018-08-06] MEDS ORDERED: PROPOFOL 20 ML ONE (16:08)
--- NOTE | 2018-08-06 16:57 | OP ---
Operative Note - Note: Operative Date: 08/06/18 Pre-Operative Diagnosis: Rule out temporal arteritis Operation: Left temporal artery biopsy Post-Operative Diagnosis: Same as Pre-op Surgeon: Akash Jacob Anesthesia: Fractional Estimated Blood Loss (mls): 10 Operative Report Dictated: Yes
--- NOTE | 2018-08-06 17:00 | PN ---
Progress Note (short form) - Note Progress Note: Vascular Surgery Left temporal artery biopsy. Cleared for DC. Please have pt come to office next week for suture line check. Biopsy results should be back in a couple of days. Akash Jacob DO
[2018-08-06 17:32] VITALS: PULSE 62
[2018-08-06] MEDS ORDERED: ACETAMINOPHEN 325 MG TABLET (FP) PO PRN (17:32)
[2018-08-06] MEDS ORDERED: ALBUTEROL SO4 0.083% IH SOL 2.5 MG/3 ML VIAL.NEB. NEB PRN (17:32)
[2018-08-06 17:35] VITALS: BP 115/76; TEMP 98
[2018-08-06] MEDS: PANTOPRAZOLE 40 MG TABLET (FP) PO SCH (18:19)
[2018-08-06] MEDS: predniSONE 20 MG TABLET (UD) PO SCH (18:19)
[2018-08-06] MEDS ORDERED: predniSONE 20 MG TABLET (UD) PO ONE (18:57)
[2018-08-06] MEDS ORDERED: LATANOPROST 0.005% OPHTH SOLN 2.5ML BOTTLE OU SCH (22:00)
[2018-08-06] MEDS ORDERED: CYCLOBENZAPRINE HCL 5 MG TABLET PO SCH (22:00)
[2018-08-06] MEDS ORDERED: HEPARIN NA (PORCINE) 5,000 UNITS/ML 1ML VIAL SQ SCH (22:00)
[2018-08-07] MEDS ORDERED: LEVOTHYROXINE NA 50 MCG TABLET (FP) PO SCH (07:00)
--- NOTE | 2018-08-07 08:57 | OP ---
DATE OF OPERATION: 08/06/2018 PREOPERATIVE DIAGNOSIS: Rule out left temporal arteritis. POSTOPERATIVE DIAGNOSIS: Rule out left temporal arteritis. PROCEDURE: Left temporal artery biopsy. SURGEON: Akash Felipe DO ANESTHESIA: Fractional. BLOOD LOSS: 10 mL. INDICATIONS: The patient is a 68-year-old female who complains of left jaw claudication, left-sided headaches, left-sided blurred vision. It was decided by Medicine and Rheumatology and that she needs a temporal artery biopsy. The patient was consented for the procedure understanding all of the risks, benefits, and alternatives then taken to the operating room. DESCRIPTION OF PROCEDURE: Once in the operative suite, was laid on the operating table in supine manner, and the area of the left temporal region was prepped and draped in a sterile surgical manner. We went ahead and using a skin marker horacio a little 3-cm incision over the pulse of the temporal artery. We then went ahead and injected 10 mL of lidocaine 1% in the area. We then used a No. 15 blade and made a 3-cm incision. Bovie electrocautery was used to control hemostasis. We then were able to use a Weitlaner and opened the incision. We then went ahead and used Metzenbaum scissors and were able to get down to the subcutaneous tissue and through the fascia. We then dissected out our temporal artery. Temporal artery was dissected anteriorly and posteriorly, and we were then able to place 4-0 silk sutures proximally and distally and transect the artery and send it to down to Pathology. The wound was then well irrigated. A 3-0 Vicryl was used, and the subcutaneous tissue was approximated in an interrupted manner. The skin was closed with 4-0 Biosyn in a subcuticular running fashion. The area was wet and dried, and 2 Steri-Strips were placed. The patient tolerated the procedure with no complication. The patient was transferred to the PACU in stable condition. AKASH FELIPE DO [employer] SHEET REPAIRER/[id number]
[2018-08-07] MEDS ORDERED: HYDROCHLOROTHIAZIDE 25 MG TABLET (FP) PO SCH (10:00)
[2018-08-07] MEDS ORDERED: ASPIRIN 81 MG CHEWABLE TABLETS PO SCH (10:00)
[2018-08-07] MEDS ORDERED: VALSARTAN 160 MG TABLET (UD) PO SCH (10:00)
[2018-08-07] MEDS ORDERED: PANTOPRAZOLE 40 MG TABLET (FP) PO SCH (15:00)
[2018-08-07] MEDS ORDERED: predniSONE 20 MG TABLET (UD) PO SCH (15:00)
--- NOTE | 2018-08-10 13:01 | PATH ---
Surgical Pathology Report Patient Name: BEULAH TESFAYE Med. Rec. #: [id number] /Age/Gender: 1950 (Age: 68) / F Account: [id number] Location: [facility] MED/SURG Taken: 08/06/2018 Received: 08/09/2018 Reported: 08/10/2018 Physicians: Akash Diamond M.D. Specimen(s) Received TEMPORAL ARTERY Clinical History Temporal arteritis, blurry vision, headaches Final Diagnosis TEMPORAL ARTERY, BIOPSY: PORTION OF ARTERY WITH NO DIAGNOSTIC ABNORMALITIES. NEGATIVE FOR INFLAMMATION. Electronically Signed Spencer Lopez M.D. Gross Description Received in formalin labeled "temporal artery," is a 0.7 cm in length x 0.1 cm in diameter portion of vasculature, consistent with a temporal artery biopsy. The specimen is trisected and entirely submitted in one cassette. /08/09/2018 saudi08/09/2018
--- NOTE | 2018-08-12 14:17 | DS ---
Physical Exam: SUBJECTIVE: Patient seen and examined OBJECTIVE: PHYSICAL EXAM GENERAL: The patient is awake, alert, and fully oriented, in no acute distress. HEAD: Normal with no signs of trauma. EYES: PERRL, extraocular movements intact, sclera anicteric, conjunctiva clear. ENT: Ears normal, nares patent, oropharynx clear without exudates, moist mucous membranes. NECK: Trachea midline, full range of motion, supple. LUNGS: Breath sounds equal, clear to auscultation bilaterally, no wheezes, no crackles, no accessory muscle use. HEART: Regular rate and rhythm, S1, S2 without murmur, rub or gallop. ABDOMEN: Soft, nontender, nondistended, normoactive bowel sounds, no guarding, no rebound, no hepatosplenomegaly, no masses. EXTREMITIES: 2+ pulses, warm, well-perfused, no edema. NEUROLOGICAL: Cranial nerves II through XII grossly intact. Normal speech, gait not observed. PSYCH: Normal mood, normal affect. SKIN: Warm, dry, normal turgor, no rashes or lesions noted. LABS HOSPITAL COURSE: Date of Admission:08/04/18 patient withj PMH pf HTN presented to the ED with worsening temporal headache vision changes . head CT was done which was negative- patient has had this in the past and has had a right sided temporal artery bopsey which was negative/ patient was started on high dose prednisone. she was seen by [facility] surgeon who completed a left temporal artery biopsy. her symptoms imporved and she was stable to be d/c Date of Discharge: 08/06/18 Minutes to complete discharge: 39 Discharge Summary Reason For Visit: TEMPORAL ARTERITIS/MUSCULOSKELETAL PAIN OF UPPER Condition: Stable - Instructions Diet, Activity, Other Instructions: You came to the hospital with complaints of left facial pain and left sided temporal headache. A cat scan of your head was done which was negative, in addition, you underwent a left sided temporal artery biopsy. Please resume all of your home medications in addition; We are placing you on a steroid taper: start with 50mg of prednisone tomorrow (08/07/18) 45 mg day 2 40 day 3 35 day 4 30 day 5 25 day 6 20 day 7 15 day 8 10 day 9 Please follow up with Dr. Diamond within one week Please follow up with Dr. Pollard, the neurologist within one week Please follow up with Dr Jacob within one week for your biopsy results *if you begin to have worsening headaches, chest pain, shortness of breath, vision changes please return to the emergency room immediately Referrals: Harry Mejia MD [Staff Physician] - 1 Week Anju Diamond MD [Primary Care Provider] - 1 Week Akash Jacob MD [Non Staff, Medical] - 1 Week Disposition: HOME - Home Medications Comprehensive Discharge Medication List: Ambulatory Orders Levothyroxine [Synthroid -] 50 mcg PO DAILY 03/23/14 Valsartan/Hydrochlorothiazide [Diovan Hct 160-25 mg Tablet] 1 combo PO DAILY Latanoprost 0.005% Eye Drops [Xalatan 0.005% Eye Drops -] 1 drop OU HS 10/14/17 Albuterol 0.083% Nebulizer Dalia [Ventolin 0.083% Nebulizer Soln -] 1 neb NEB Q6H PRN #60 vial 04/23/18 Aspirin [ASA -] 81 mg PO ONCE 04/23/18 predniSONE [Deltasone -] See Taper PO ASDIR #32 tab 08/06/18 This patient is new to me today: No Emergency Visit: Yes ED Registration Date: 08/04/18 Care time: The patient presented to the Emergency Department on the above date and was hospitalized for further evaluation of their emergent condition. Critical Care patient: No - Discharge Referral Referred to [facility] No
== END 2018-08-06 19:36 | disposition home or self-care (01) | DRG 41 ==
LOC: JER 12:12 → JERBED 18:57 → J8W 08-05 04:01
PROVIDERS: ADMIT Internal Medicine; ATTEND Internal Medicine
PROC: 03BT0ZX Excision of Left Temporal Artery, Open Approach, Diagnostic (ICD-10-PCS; principal; 2018-08-06 17:00)
DX: R51 Headache (principal); Z68.43 Body mass index [BMI] 50.0-59.9, adult; E66.01 Morbid (severe) obesity due to excess calories; I10 Essential (primary) hypertension; E03.9 Hypothyroidism, unspecified; E78.5 Hyperlipidemia, unspecified; J45.909 Unspecified asthma, uncomplicated; D64.9 Anemia, unspecified; Z96.651 Presence of right artificial knee joint; Z80.3 Family history of malignant neoplasm of breast
CPT/HCPCS: 36415; 70450-TC; 70486-TC; 70498-TC; 71045-TC-FY; 80048; 80053; 81003; 83036; 83735; 84100; 85025; 85610; 85651; 86140; 88305-TC; 93005; 93010; 94760; 99284-25; J0131; J1644; J7030

== ENCOUNTER 2018-08-08 10:04 | Observation (INO) | payer OTHER ==
--- NOTE | 2018-08-08 10:18 | PDOC ---
History of Present Illness - General Chief Complaint: Chest Pain Stated Complaint: CHEST PAIN Time Seen by Provider: 08/08/18 10:17 History Source: Patient Exam Limitations: No Limitations - History of Present Illness Initial Comments: 08/08/18 10:33 68 year old female with PMH HTN, HLD, temporal arteritis, hypothyroidism presented to ED for chest pain since 0800 today. Pt stated she walked to the bathroom, walked back, and when she sat down she had chest pain to her left chest, radiating to her left arm and back, heavy, intermittent, aggravated by exertion. Pt admitted to SOB, nonproductive cough. Pt denied lower extremity swelling, nausea, vomiting, diarrhea, abdominal pain. Allergies: peanuts Past History - Past Medical History Allergies/Adverse Reactions: Allergies Allergy/AdvReac Type Severity Reaction Status Date / Time No Known Drug Allergies Allergy Verified 08/08/18 10:14 peanut [Peanut] Allergy Verified 08/08/18 10:14 Home Medications: Ambulatory Orders Levothyroxine [Synthroid -] 50 mcg PO DAILY 03/23/14 Valsartan/Hydrochlorothiazide [Diovan Hct 160-25 mg Tablet] 1 combo PO DAILY Latanoprost 0.005% Eye Drops [Xalatan 0.005% Eye Drops -] 1 drop OU HS 10/14/17 Albuterol 0.083% Nebulizer Dalia [Ventolin 0.083% Nebulizer Soln -] 1 neb NEB Q6H PRN #60 vial 04/23/18 Aspirin [ASA -] 81 mg PO ONCE 04/23/18 predniSONE [Deltasone -] See Taper PO ASDIR #32 tab 08/06/18 Anemia: Yes Asthma: Yes Cancer: No Cardiac Disorders: Yes (chest pain 07/2017) CVA: No COPD: No CHF: No Dementia: No Diabetes: No GI Disorders: No Disorders: No HTN: Yes Hypercholesterolemia: Yes Liver Disease: No Seizures: No Thyroid Disease: Yes (HYPO.) - Surgical History Abdominal Surgery: No Appendectomy: No Cardiac Surgery: No Cholecystectomy: No Lung Surgery: No Neurologic Surgery: No Orthopedic Surgery: Yes (right knee replacement) - Immunization History Immunization Up to Date: Yes - Suicide/Smoking/Psychosocial Hx Smoking Status: No Smoking History: Never smoked Have you smoked in the past 12 months: No Number of Cigarettes Smoked Daily: 0 Hx Alcohol Use: No Drug/Substance Use Hx: No Substance Use Type: None Hx Substance Use Treatment: No Review of Systems - Review of Systems Able to Perform ROS?: Yes Comments:: 08/08/18 10:35 General: denied fever, chills, night sweats, generalized weakness. HEENT: denied sore throat, rhinorrhea, ear pain. Heart: admitted to chest pain. denied palpitations, syncope, diaphoresis. Respiratory: admitted to shortness of breath, cough. denied sputum production, hemoptysis. Abdomen: denied abdominal pain, nausea, vomiting, diarrhea, constipation, blood in stool. : denied dysuria, increased urinary frequency, hematuria, urinary incontinence , flank pain. Back: denied back pain. Musculoskeletal: denied joint pain, muscle pain, joint swelling. Neurological: denied headache, dizziness, numbness, tingling, weakness. Skin: denied rash, laceration, abrasion. *Physical Exam - Vital Signs Last Vital Signs Temp Pulse Resp BP Pulse Ox 97.3 F L 61 18 145/54 L 99 08/08/18 10:07 08/08/18 10:07 08/08/18 10:07 08/08/18 10:07 08/08/18 10:07 - Physical Exam Comments: 08/08/18 10:36 Constitutional: Well-nourished, Well-developed, appearing stated age. morbidly obese. HEENT: head is normocephalic, atraumatic. EOMI. PERRLA. Neck: supple. Full ROM. Heart: regular rhythm. no murmurs, rubs or gallops. Lungs: clear to auscultation bilaterally. no crackles, rhonchi or wheezing. no stridor. Abdomen: soft, nontender. normal bowel sounds. no rebound, guarding, masses. Extremities: Peripheral pulses intact. No lower extremity edema. Neurological: CN 2-12 grossly intact. Moves all four extremities. Psych: awake, alert, oriented x3. Follows commands. Answers questions appropriately. Moderate Sedation - Procedure Monitoring Vital Signs: Procedure Monitoring Vital Signs Temperature 97.3 F L 08/08/18 10:07 Pulse Rate 61 08/08/18 10:07 Respiratory Rate 18 08/08/18 10:07 Blood Pressure 145/54 L 08/08/18 10:07 O2 Sat by Pulse Oximetry (%) 99 03/03/19 10:07 ED Treatment Course - LABORATORY CBC & Chemistry Diagram: 08/08/18 10:40 08/08/18 10:40 Medical Decision Making - Medical Decision Making 08/08/18 10:36 68 year old female with above PMH presented to ED for chest pain, shortness of breath, nonproductive cough. Initial Vital Signs Temp Pulse Resp BP Pulse Ox 97.3 F L 61 18 145/54 L 99 08/08/18 10:07 08/08/18 10:07 08/08/18 10:07 08/08/18 10:07 08/08/18 10:07 Afebrile. No tachycardia. No tachypnea. Mild systolic hypertension. No hypoxia on room air. EKG performed at 1010: rate 62, regular rhythm, normal axis, normal intervals, no acute ST changes. Labs ordered: CBC, CMP, troponin, BNP, coags, mag Imaging ordered: CXR Medications ordered: ASA 162 Last ECHO 07/21/17: EF 69.4%, trace MR, trace TR. 08/08/18 12:33 CBC WBC 8.3 K/mm3 (4.0-10.0) 08/08/18 10:40 RBC 3.87 M/mm3 (3.60-5.2) 08/08/18 10:40 Hgb 10.1 GM/dL (10.7-15.3) L 08/08/18 10:40 Hct 30.9 % (32.4-45.2) L 08/08/18 10:40 MCV 79.9 fl (80-96) L 08/08/18 10:40 MCH 26.0 pg (25.7-33.7) 08/08/18 10:40 MCHC 32.5 g/dl (32.0-36.0) 08/08/18 10:40 RDW 17.7 % (11.6-15.6) H 08/08/18 10:40 Plt Count 212 K/MM3 (134-434) 08/08/18 10:40 MPV 9.3 fl (7.5-11.1) 08/08/18 10:40 Absolute Neuts (auto) 7.0 K/mm3 (1.5-8.0) 08/08/18 10:40 Neutrophils % 84.2 % (42.8-82.8) H 08/08/18 10:40 Lymphocytes % 10.5 % (8-40) 08/08/18 10:40 Monocytes % 5.0 % (3.8-10.2) 08/08/18 10:40 Eosinophils % 0.1 % (0-4.5) D 08/08/18 10:40 Basophils % 0.2 % (0-2.0) 08/08/18 10:40 Nucleated RBC % 0 % (0-0) 08/08/18 10:40 No leukocytosis. Mild microcytic anemia. 08/08/18 12:34 CXR report: right hilum new atelectic changes. 08/08/18 13:59 PCP, Dr. Abad, paged, office stated she is not accepting patients for admission today. Dr. Berman, cardiology international recruiter paged. 08/08/18 14:13 Cardiology paged again. CMP Sodium 140 mmol/L (136-145) 08/08/18 10:40 Potassium 3.7 mmol/L (3.5-5.1) 08/08/18 10:40 Chloride 106 mmol/L (98-107) 08/08/18 10:40 Carbon Dioxide 30 mmol/L (21-32) 08/08/18 10:40 Anion Gap 5 MMOL/L (8-16) L 08/08/18 10:40 BUN 29 mg/dL (7-18) H 08/08/18 10:40 Creatinine 1.0 mg/dL (0.55-1.3) 08/08/18 10:40 Creat Clearance w eGFR 55.14 (>60) 08/08/18 10:40 Random Glucose 91 mg/dL (74-106) 08/08/18 10:40 Calcium 8.1 mg/dL (8.5-10.1) L 08/08/18 10:40 Magnesium 2.3 mg/dL (1.8-2.4) 08/08/18 10:40 Total Bilirubin 0.2 mg/dL (0.2-1) 08/08/18 10:40 AST 11 U/L (15-37) L 08/08/18 10:40 ALT 14 U/L (13-61) 08/08/18 10:40 Alkaline Phosphatase 89 U/L (45-117) 08/08/18 10:40 Troponin I < 0.02 ng/ml (0.00-0.05) 08/08/18 10:40 B-Natriuretic Peptide 64.9 pg/ml (5-125) 08/08/18 10:40 Total Protein 8.0 g/dl (6.4-8.2) 08/08/18 10:40 Albumin 2.8 g/dl (3.4-5.0) L 08/08/18 10:40 TSH 0.79 uIU/ml (0.358-3.74) 08/08/18 10:45 No electrolyte abnormalities. No PAGE. Mild dehydration. - normal saline bolus ordered BNP normal 08/08/18 14:32 Pt reported she has not had chest pain for a couple of hours, reported she is feeling better and she feels everything is fine. She stated she does not want to stay in the hospital. Dr. Saenz spoke with Dr. Berman about the case, stated pt can follow up in Sang' s office tomorrow if she signs out AMA. 08/08/18 15:06 Pt reassessed. Stated she is willing to stay in the hospital for observation. Pt to be admitted. Microblog sent. 08/08/18 15:13 Second troponin normal. 08/08/18 15:[address] Cecil Cyr, resident about the case. Pt to be admitted to Dr. Bolanos's service. Pending admission. *DC/Admit/Observation/Transfer Diagnosis at time of Disposition: Chest pain - Discharge Dispostion Condition at time of disposition: Stable Decision to Admit order: Yes - Referrals Referrals: Anju Diamond MD [Primary Care Provider] - James Domínguez MD [Staff Physician] - - Patient Instructions Printed Discharge Instructions: DI for Chest Pain - Post Discharge Activity Forms/Work/School Notes: Back to Work
[2018-08-08] MEDS ORDERED: ASPIRIN 81 MG CHEWABLE TABLETS PO ONE ×2 (10:20→20:30)
[2018-08-08] MEDS ORDERED: ASPIRIN 81 MG CHEWABLE TABLETS ONE (10:46)
--- NOTE | 2018-08-08 11:04 | PDOC ---
Attending Attestation - Medical Decision Making 08/08/18 13:30 Dr. Worthington was paged via phone service awaiting call back. 08/08/18 14:27 Dr. Worthington returned the call and case was discussed with Dr. Saenz <VinBeba - Last Filed: 08/08/18 14:27> - Resident Resident Name: Geeta Hogan - ED Attending Attestation I have performed the following: I have examined & evaluated the patient, The case was reviewed & discussed with the resident, I agree w/resident's findings & plan, Exceptions are as noted - HPI HPI: 08/08/18 14:12 The patient is a 68 year old female, with a significant PMH of HTN, HLD, asthma , anemia, hypothyroidism, vertigo, and temporal arteritis who presents to the emergency department with SOB and chest pain, that began this morning. The patient reports around 8am this morning she walked to the bathroom and felt fine. The patient notes when she returned and sat down she felt a L sided chest pain that radiated to her L arm and back, and SOB. The patient notes this chest pain lasted around 10 minutes. The patient notes the chest pain is intermittent. The patient states her chest pain has subsidded but she is currently feeling "heaviness" in her chest. The patient reports she has previously experienced similar symptoms, and has had stress tests, EKG, and Echocardiogram, with normal results. The patient reports she was in the ER thursday08/04/18 for severe headaches and temporal arteritis work-up. She was discharged Thursday08/06/18. The patient also reports a few days of nonproductive cough. Denies fever, chills, nausea, vomit, diarrhea and constipation. Denies dysuria, frequency, urgency and hematuria. Allergies: NKDA, peanut Past surgical history: R knee replacement Social history: denies tobacco use, alcohol use, and illicit drug use. PCP: Dr. Anju Diamond - Physicial Exam PE: 08/09/18 19:49 wilver cid - Medical Decision Making 08/08/18 11:01 68y F hx of HTN, HL, hypothyfoidism, Temporal arteritis presents for chest pain since 8am. The chest pain started after she was walkinga round, had some sob. sat down to rest and developed mild L sided chest pain that radiated down her left arm lasting approx 10 mintes. no associated n/v, diaphorsis, cough, leg swelling. pt notes she has had similar episodes of cp in the past, and had been worked up with dobutamine stress echo (05/24 -normal) and echo (performed here 07/2017, EF 69%, otherwise normal) Consider possible ACS as cause of the patient's chest pain/shortness of breath Performed here reveals no ischemic changes, aspirin was given Will obtain troponin We'll discuss with the patient's PMD regarding disposition. Patient has not seen a application processor as an outpatient A portion of this note was documented by scribe services under my direction. I have reviewed the details of the note, within reason, and agree with the documentation with the following case summary and management plan written by me 08/08/18 14:28 pt states she prefers to go home. i recomended admission for further management of her chest pain as her heart score is 4-6% 08/08/18 15:07 after further discussion, the pt decided to stay. will place in observation for further stratefication of acs <Tanner Saenz - Last Filed: 08/09/18 19:49> Heart Score/ECG Review - History History: Highly suspicious - Electrocardiogram EKG: Normal - Age Age: >/= 65 - Risk Factors Risk Factors Heart Score: Yes Hx Hypercholesterolemia, Yes Hx Hypertension, Yes Hx Obesity Based on the list above the patient has:: >/=3 risk factors or Hx atherosclerotic disease - Troponin Troponin: </= normal limit - Score Heart Score - Total: 6 - ECG Impressions Comment:: 08/08/18 16:44 Twelve-lead EKG was performed and reviewed by me. There is normal sinus rhythm with a normal rate. Rate of 62 The axis is normal. The intervals are normal. There is normal R wave progression There are no ST or T wave abnormalities. Impression: Normal twelve-lead EKG <Tanner Saenz - Last Filed: 08/09/18 19:49> Attestations - Attestations 08/08/18 14:27 Documentation prepared by Beba Banuelos, acting as lpn or medical assistant for Tanner Saenz MD. <Beba Banuelos - Last Filed: 08/08/18 14:27>
[2018-08-08 11:05] LABS: BASO % 0.2 % (0-2.0); EOS % 0.1 % (0-4.5); HEMATOCRIT 30.9 % (32.4-45.2); HEMOGLOBIN 10.1 GM/dL (10.7-15.3); LYMPH % 10.5 % (8-40); MCHC 32.5 g/dl (32.0-36.0); MEAN CELL VOLUME 79.9 fl (80-96); MEAN PLT VOLUME 9.3 fl (7.5-11.1); NEUT % 84.2 % (42.8-82.8); PLATELET COUNT 212 K/MM3 (134-434); RBC 3.87 M/mm3 (3.60-5.2); RDW 17.7 % (11.6-15.6); WHITE BLOOD COUNT 8.3 K/mm3 (4.0-10.0)
[2018-08-08 11:17] LABS: INR 1.12 (0.83-1.09); PROTHROMBIN TIME (PATIENT) 13.2 SEC (9.7-13.0)
[2018-08-08 11:19] LABS: ACTIVATED PTT 26.2 SECONDS (25.2-36.5)
[2018-08-08 13:24] LABS: ALBUMIN 2.8 g/dl (3.4-5.0); ALK PHOS 89 U/L (45-117); ANION GAP 5 MMOL/L (8-16); BILIRUBIN,TOTAL 0.2 mg/dL (0.2-1); BLOOD UREA NITROGEN 29 mg/dL (7-18); CALCIUM 8.1 mg/dL (8.5-10.1); CHLORIDE 106 mmol/L (98-107); CO2 30 mmol/L (21-32); GLUCOSE,RANDOM 91 mg/dL (74-106); MAGNESIUM 2.3 mg/dL (1.8-2.4); N-TERMINAL BNP 64.9 pg/ml (5-125); POTASSIUM 3.7 mmol/L (3.5-5.1); SGOT/AST 11 U/L (15-37); SGPT/ALT 14 U/L (13-61); SODIUM 140 mmol/L (136-145)
[2018-08-08] MEDS ORDERED: SODIUM CHLORIDE 1,000 ML IV STA (14:18)
--- NOTE | 2018-08-08 17:26 | PN ---
Teaching Attending Note Name of Resident: Ger Jacob ATTENDING PHYSICIAN STATEMENT I saw and evaluated the patient. I reviewed the resident's note and discussed the case with the resident. I agree with the resident's findings and plan as documented. SUBJECTIVE: Patient is a 68yo female , feels better with no acute distress. OBJECTIVE: Vital Signs Temperature 97.3 F L 08/08/18 10:07 Pulse Rate 61 08/08/18 10:07 Respiratory Rate 18 08/08/18 10:07 Blood Pressure 145/54 L 08/08/18 10:07 O2 Sat by Pulse Oximetry (%) 99 08/08/18 10:07 Constitutional: Well-nourished, Well-developed, appearing stated age. morbidly obese. HEENT: head is normocephalic, atraumatic. EOMI. PERRLA. Neck: supple. Full ROM. Heart: regular rhythm. no murmurs, rubs or gallops. Lungs: clear to auscultation bilaterally. no crackles, rhonchi or wheezing. no stridor. Abdomen: soft, nontender. normal bowel sounds. no rebound, guarding, masses. Extremities: Peripheral pulses intact. No lower extremity edema. Neurological: CN 2-12 grossly intact. Moves all four extremities. Psych: awake, alert, oriented x3. Follows commands. Answers questions appropriately. CBCD WBC 8.3 K/mm3 (4.0-10.0) 08/08/18 10:40 RBC 3.87 M/mm3 (3.60-5.2) 08/08/18 10:40 Hgb 10.1 GM/dL (10.7-15.3) L 08/08/18 10:40 Hct 30.9 % (32.4-45.2) L 08/08/18 10:40 MCV 79.9 fl (80-96) L 08/08/18 10:40 MCHC 32.5 g/dl (32.0-36.0) 08/08/18 10:40 RDW 17.7 % (11.6-15.6) H 08/08/18 10:40 Plt Count 212 K/MM3 (134-434) 08/08/18 10:40 MPV 9.3 fl (7.5-11.1) 08/08/18 10:40 CMP Sodium 140 mmol/L (136-145) 08/08/18 10:40 Potassium 3.7 mmol/L (3.5-5.1) 08/08/18 10:40 Chloride 106 mmol/L (98-107) 08/08/18 10:40 Carbon Dioxide 30 mmol/L (21-32) 08/08/18 10:40 Anion Gap 5 MMOL/L (8-16) L 08/08/18 10:40 BUN 29 mg/dL (7-18) H 08/08/18 10:40 Creatinine 1.0 mg/dL (0.55-1.3) 08/08/18 10:40 Creat Clearance w eGFR 55.14 (>60) 08/08/18 10:40 Random Glucose 91 mg/dL (74-106) 08/08/18 10:40 Calcium 8.1 mg/dL (8.5-10.1) L 08/08/18 10:40 Total Bilirubin 0.2 mg/dL (0.2-1) 08/08/18 10:40 AST 11 U/L (15-37) L 08/08/18 10:40 ALT 14 U/L (13-61) 08/08/18 10:40 Alkaline Phosphatase 89 U/L (45-117) 08/08/18 10:40 Total Protein 8.0 g/dl (6.4-8.2) 08/08/18 10:40 Albumin 2.8 g/dl (3.4-5.0) L 08/08/18 10:40 CARDIAC ENZYMES Troponin I < 0.02 ng/ml (0.00-0.05) 08/08/18 14:30 Home Medications Medication Instructions Recorded Levothyroxine [Synthroid -] 50 mcg PO DAILY 03/23/14 Valsartan/Hydrochlorothiazide 1 combo PO DAILY 03/23/14 [Diovan Hct 160-25 mg Tablet] Latanoprost 0.005% Eye Drops 1 drop OU HS 10/14/17 [Xalatan 0.005% Eye Drops -] Albuterol 0.083% Nebulizer Dalia 1 neb NEB Q6H PRN #60 vial 04/23/18 [Ventolin 0.083% Nebulizer Soln -] Aspirin [ASA -] 81 mg PO ONCE 04/23/18 predniSONE [Deltasone -] See Taper PO ASDIR #32 tab 08/06/18 ASSESSMENT AND PLAN: Patient is a 68yo female with Pmhx of headache with 10 days h/o temporal, pulsating headache admitted to [facility] for further evaluation # Acute chest pain r/o ACS; Troponin is negative x2 # Hx of Headache: s/p temporal artery Bx on taper dose steroid #Hypothyroidism continue levothyroxine 50 mcg daily #HTN continue home dose valsartan/HCTZ # Asthma , stable , cont home meds DVT ppx: heparin sc GI proph : protonix as pt is on Prednisone
--- NOTE | 2018-08-08 18:01 | HP ---
CHIEF COMPLAINT: PCP: Dr Anju Diamond HISTORY OF PRESENT ILLNESS: Pt is a pleasant 68 y/o lady with a significant past medical history of hypothyroidism, HTN, Asthma, and Temporal arteritis who presented to [facility] c/o chest pain and shortness of breath which commenced at approximately 0800 this AM. Pt endorses that she went to the restroom in her home and on her way back to the couch, she began to experience a pressure-like pain on the left side of her chest which radiated to her left arm. Pain lasted approximately 10 minutes. Pt endorses she has experienced similar chest pain in the past for which she underwent a full cardiac workup which was unremarkable. Currently denies chest pain, shortness of breath, nausea/vomiting, or lightheadedness. Social Hx: Retired from [employer]. Denies smoking drinking, or illicit drug use. Family Hx: Father NC. Mother HTN, Breast Ca. Sister Breast Cancer. Sister HTN. Past SurgHx: R knee replacement ER course was notable for: (1) Troponin Negative x2 (2) (3) PAST MEDICAL HISTORY: PER HPI PAST SURGICAL HISTORY: Family History: Allergies No Known Drug Allergies Allergy (Verified 08/08/18 10:14) peanut [Peanut] Allergy (Verified 08/08/18 10:14) HOME MEDICATIONS: Home Medications Medication Instructions Recorded Levothyroxine [Synthroid -] 50 mcg PO DAILY 03/23/14 Valsartan/Hydrochlorothiazide 1 combo PO DAILY 03/23/14 [Diovan Hct 160-25 mg Tablet] Latanoprost 0.005% Eye Drops 1 drop OU HS 10/14/17 [Xalatan 0.005% Eye Drops -] Albuterol 0.083% Nebulizer Dalia 1 neb NEB Q6H PRN #60 vial 04/23/18 [Ventolin 0.083% Nebulizer Soln -] Aspirin [ASA -] 81 mg PO ONCE 04/23/18 predniSONE [Deltasone -] See Taper PO ASDIR #32 tab 08/06/18 REVIEW OF SYSTEMS CONSTITUTIONAL: Absent: fever, chills, diaphoresis, generalized weakness, malaise, loss of appetite, weight change HEENT: Absent: rhinorrhea, nasal congestion, throat pain, throat swelling, difficulty swallowing, mouth swelling, ear pain, eye pain, visual changes CARDIOVASCULAR: PRESENT: chest pain RESPIRATORY: Absent: cough, shortness of breath, dyspnea with exertion, orthopnea, wheezing, stridor, hemoptysis GASTROINTESTINAL: Absent: abdominal pain, abdominal distension, nausea, vomiting, diarrhea, constipation, melena, hematochezia GENITOURINARY: Absent: dysuria, frequency, urgency, hesitancy, hematuria, flank pain, genital pain MUSCULOSKELETAL: Absent: myalgia, arthralgia, joint swelling, back pain, neck pain SKIN: Absent: rash, itching, pallor HEMATOLOGIC/IMMUNOLOGIC: Absent: easy bleeding, easy bruising, lymphadenopathy, frequent infections ENDOCRINE: Absent: unexplained weight gain, unexplained weight loss, heat intolerance, cold intolerance NEUROLOGIC: Absent: headache, focal weakness or paresthesias, dizziness, unsteady gait, seizure, mental status changes, bladder or bowel incontinence PSYCHIATRIC: Absent: anxiety, depression, suicidal or homicidal ideation, hallucinations. PHYSICAL EXAMINATION Vital Signs - 24 hr 08/08/18 10:07 Temperature 97.3 F L Pulse Rate 61 Respiratory 18 Rate Blood Pressure 145/54 L O2 Sat by Pulse 99 Oximetry (%) GENERAL:NAD HEAD: Normal with no signs of trauma. EYES: EOMI Sclera Clear EARS, MMM NECK: Supple. LUNGS: CTAB HEART: RRR nl S1S2 ABDOMEN: Soft NDNT No HSM MUSCULOSKELETAL: FROM throughout LOWER EXTREMITIES: Onychomycosis, Trace Edema NEUROLOGICAL: Cranial nerves II-XII intact. Normal speech. Normal gait. PSYCHIATRIC: Cooperative. Good eye contact. Appropriate mood and affect. SKIN: Warm, dry, normal turgor, no rashes or lesions noted, normal capillary refill. Laboratory Results - last 24 hr 08/08/18 08/08/18 08/08/18 10:40 10:40 10:40 WBC 8.3 RBC 3.87 Hgb 10.1 L Hct 30.9 L MCV 79.9 L MCH 26.0 MCHC 32.5 RDW 17.7 H Plt Count 212 MPV 9.3 Absolute Neuts (auto) 7.0 Neutrophils % 84.2 H Lymphocytes % 10.5 Monocytes % 5.0 Eosinophils % 0.1 D Basophils % 0.2 Nucleated RBC % 0 PT with INR 13.20 H INR 1.12 H PTT (Actin FS) 26.2 Sodium 140 Potassium 3.7 Chloride 106 Carbon Dioxide 30 Anion Gap 5 L BUN 29 H Creatinine 1.0 Creat Clearance w eGFR 55.14 Random Glucose 91 Calcium 8.1 L Magnesium 2.3 Total Bilirubin 0.2 AST 11 L ALT 14 Alkaline Phosphatase 89 Troponin I < 0.02 B-Natriuretic Peptide 64.9 Total Protein 8.0 Albumin 2.8 L TSH 08/08/18 08/08/18 10:45 14:30 WBC RBC Hgb Hct MCV MCH MCHC RDW Plt Count MPV Absolute Neuts (auto) Neutrophils % Lymphocytes % Monocytes % Eosinophils % Basophils % Nucleated RBC % PT with INR INR PTT (Actin FS) Sodium Potassium Chloride Carbon Dioxide Anion Gap BUN Creatinine Creat Clearance w eGFR Random Glucose Calcium Magnesium Total Bilirubin AST ALT Alkaline Phosphatase Troponin I < 0.02 B-Natriuretic Peptide Total Protein Albumin TSH 0.79 ASSESSMENT/PLAN: Pt is a pleasant 68 y/o lady with a significant past medical history of hypothyroidism, HTN, Asthma, and Temporal arteritis who presented to [facility] c/o chest pain and shortness of breath which commenced at approximately 0800 this AM #Chest Pain Troponin Negative x2 Cardiology on board -Tele OBS #HTN valsartan/HCTZ # Asthma , stable , cont home meds #Hypothyroidism Continue home Synthroid 50 mcg #FEN No Fluids Monitor Electrolytes Sodium controlled Diet #DVT ppx: HEP SQ TID #Dispo: Med Surg Visit type - Emergency Visit Emergency Visit: Yes ED Registration Date: 08/08/18 Care time: The patient presented to the Emergency Department on the above date and was hospitalized for further evaluation of their emergent condition. - New Patient This patient is new to me today: Yes Date on this admission: 08/08/18 - Critical Care Critical Care patient: No
[2018-08-08] MEDS ORDERED: ALBUTEROL SO4 0.083% IH SOL 2.5 MG/3 ML VIAL.NEB. NEB PRN (20:17)
[2018-08-08 20:56] VITALS: BMI 54.6
[2018-08-08] MEDS ORDERED: LATANOPROST 0.005% OPHTH SOLN 2.5ML BOTTLE OU SCH (22:00)
[2018-08-09] MEDS ORDERED: LEVOTHYROXINE NA 50 MCG TABLET (FP) PO SCH (07:00)
[2018-08-09 07:03] LABS: HEMATOCRIT 29.2 % (32.4-45.2); HEMOGLOBIN 9.6 GM/dL (10.7-15.3); MCH 26.2 pg (25.7-33.7); MCHC 32.7 g/dl (32.0-36.0); MEAN CELL VOLUME 80.2 fl (80-96); MEAN PLT VOLUME 9.8 fl (7.5-11.1); PLATELET COUNT 199 K/MM3 (134-434); RBC 3.64 M/mm3 (3.60-5.2); RDW 17.8 % (11.6-15.6); WHITE BLOOD COUNT 9.1 K/mm3 (4.0-10.0)
[2018-08-09 07:18] LABS: INR 1.12 (0.83-1.09); PROTHROMBIN TIME (PATIENT) 13.2 SEC (9.7-13.0)
[2018-08-09 07:21] LABS: ACTIVATED PTT 27.1 SECONDS (25.2-36.5)
[2018-08-09 07:28] LABS: ANION GAP 9 MMOL/L (8-16); BLOOD UREA NITROGEN 26 mg/dL (7-18); CALCIUM 7.7 mg/dL (8.5-10.1); CHLORIDE 106 mmol/L (98-107); CO2 25 mmol/L (21-32); CREATININE 1.1 mg/dL (0.55-1.3); GLUCOSE,RANDOM 125 mg/dL (74-106); MAGNESIUM 2.1 mg/dL (1.8-2.4); PHOSPHOROUS 3.2 mg/dL (2.5-4.9); POTASSIUM 3.9 mmol/L (3.5-5.1); SODIUM 140 mmol/L (136-145)
[2018-08-09] MEDS ORDERED: VALSARTAN 160 MG TABLET (UD) PO SCH (10:00)
[2018-08-09] MEDS ORDERED: HYDROCHLOROTHIAZIDE 25 MG TABLET (FP) PO SCH (10:00)
[2018-08-09] MEDS ORDERED: PATIENT'S OWN MEDICATION (NON-FORMULARY) (Valsartan/Hydrochlorothiazide [Diovan Hct 160-25 PO SCH (10:00)
[2018-08-09 11:13] VITALS: BP 148/77; PULSE 69; TEMP 98.2
--- NOTE | 2018-08-09 13:08 | CON.CARD ---
Consult Consult Specialty:: cardi0 - History of Present Illness Chief Complaint: cp History of Present Illness: 68 F here with seen here 05/2017 for chest pain. had negative dobut echo stress. at that time, sx description was acute on chronic intermitten cp lasting approx 1-2 min only, assctd with brief radiation of pain down the L arm, ? tingling in L hand. felt assctd LH with it one time. no sob or diaph asstd. impression was likely c-spine or shoulder pathology causing her pain then PRESENTLY COMES WITH SX'S OF: sudden "push" in L pectoral region and shooting pain down L arm lasting few seconds only. cp lingered many minutes but subsided signif on its own--eventually resolved in ER. no cp presently. denies sob, diaph, LH with above sx. SAYS THIS SENSATION IS IDENTICAL TO WHAT SHE FELT BACK IN 2017 WHEN HAD STRESS TEST HERE INPATIENT (AND HAS HAPPENED OFF AND ON MILDLY OVER THE YEARS). recently discharged after presented with FLOREZ, clinical concern for GCA--s/p temporal artery biopsy with dr messina. sent home on prednisone PMH: HTN palpitations anemia hypothyroid - Past Medical History Cardio/Vascular: Yes: HTN Pulmonary: Yes: Asthma (triggered by Viral URIs) ...: No Endocrine: Yes: Hypothyroidism - Past Surgical History Past Surgical History: Yes: None, Joint Replacement - Alcohol/Substance Use Hx Alcohol Use: No History of Substance Use: reports: None - Smoking History Smoking history: Never smoked Have you smoked in the past 12 months: No Aproximately how many cigarettes per day: 0 - Social History Usual Living Arrangement: Alone Occupation: Retired History of Recent Travel: No Home Medications - Allergies Allergies/Adverse Reactions: Allergies Allergy/AdvReac Type Severity Reaction Status Date / Time No Known Drug Allergies Allergy Verified 08/08/18 10:14 peanut [Peanut] Allergy Verified 08/08/18 10:14 - Home Medications Home Medications: Ambulatory Orders Levothyroxine [Synthroid -] 50 mcg PO DAILY 03/23/14 Valsartan/Hydrochlorothiazide [Diovan Hct 160-25 mg Tablet] 1 combo PO DAILY Latanoprost 0.005% Eye Drops [Xalatan 0.005% Eye Drops -] 1 drop OU HS 10/14/17 Albuterol 0.083% Nebulizer Dalia [Ventolin 0.083% Nebulizer Soln -] 1 neb NEB Q6H PRN #60 vial 04/23/18 Aspirin [ASA -] 81 mg PO ONCE 04/23/18 predniSONE [Deltasone -] See Taper PO ASDIR #32 tab 08/06/18 Family Disease History - Family Disease History Family History: Denies (no known cmp) Review of Systems - Review of Systems Constitutional: denies: Chills, Fever Eyes: denies: Eye Pain HENT: denies: Nasal Congestion Neck: denies: Stiffness Cardiovascular: denies: Palpitations Respiratory: denies: Orthopnea, PND Gastrointestinal: denies: Diarrhea, Rectal Bleeding Genitourinary: denies: Burning, Hematuria Musculoskeletal: denies: Muscle Pain Integumentary: denies: Rash Neurological: denies: Numbness, Seizure, Syncope Endocrine: denies: Excessive Sweating Hematology/Lymphatic: denies: Excessive Bleeding Vital Signs: Vital Signs Temperature 98.2 F 08/09/18 10:00 Pulse Rate 69 08/09/18 10:00 Respiratory Rate 20 08/09/18 10:00 Blood Pressure 148/77 08/09/18 10:00 O2 Sat by Pulse Oximetry (%) 95 08/09/18 09:00 Constitutional: Yes: No Distress, Obese Eyes: No: Sclera Icterus HENT: No: Nasal Congestion Neck: No: Decreased ROM Respiratory: Yes: CTA Bilaterally. No: Accessory Muscle Use, Rales, Wheezes Gastrointestinal: Yes: Normal Bowel Sounds. No: Distention, Hepatomegaly, Palpable Mass, Tenderness Cardiovascular: Yes: Regular Rate and Rhythm JVD: No Carotid Bruit: No PMI: Non-Displaced Heart Sounds: Yes: S1, S2. No: Gallop Murmur: No: Systolic Murmur, Diastolic Murmur Musculoskeletal: Yes: Other (No kyphosis) Extremities: No: Cold, Cool, Cyanosis Edema: Yes (mild nonpitting ankles) Peripheral Pulses: 2+ Left Carotid, 2+ Right Carotid, 2+ Left Doralis Pedis, 2+ Right Dorsalis Pedis Integumentary: No: Jaundice Neurological: Yes: Alert, Oriented (x3) Psychiatric: No: Agitated - Other Data Labs, Other Data: CBC, BMP 08/09/18 05:30 08/09/18 05:30 INR, PTT INR 1.12 (0.83-1.09) H 08/09/18 05:30 Troponin, BNP 08/08/18 08/08/18 08/08/18 10:40 14:30 21:15 Troponin I < 0.02 < 0.02 < 0.02 B-Natriuretic Peptide 64.9 Troponin, BNP 08/08/18 08/08/18 08/08/18 10:40 14:30 21:15 Troponin I < 0.02 < 0.02 < 0.02 B-Natriuretic Peptide 64.9 Laboratory Tests 05/23/17 05/24/17 05/24/17 20:10 01:30 07:00 WBC Hgb Plt Count Sodium 144 Potassium 3.9 Carbon Dioxide 28 BUN 27 H Creatinine 0.9 Hemoglobin A1c % AST ALT Troponin I < 0.02 < 0.02 < 0.02 Albumin Triglycerides 53 Cholesterol 149 Total LDL Cholesterol 92 HDL Cholesterol 48 05/24/17 05/04/18 08/06/18 07:00 05:05 10:00 WBC 6.3 Hgb 9.2 L Plt Count 207 Sodium Potassium Carbon Dioxide BUN Creatinine Hemoglobin A1c % 5.9 AST ALT Troponin I Albumin Triglycerides 59 Cholesterol 156 Total LDL Cholesterol 89 HDL Cholesterol 51 08/08/18 08/08/18 08/08/18 10:40 14:30 21:15 WBC Hgb Plt Count Sodium Potassium Carbon Dioxide BUN Creatinine Hemoglobin A1c % AST 11 L ALT 14 Troponin I < 0.02 < 0.02 < 0.02 Albumin 2.8 L Triglycerides Cholesterol Total LDL Cholesterol HDL Cholesterol 08/09/18 08/09/18 05:30 05:30 WBC 9.1 Hgb 9.6 L Plt Count 199 Sodium 140 Potassium 3.9 Carbon Dioxide 25 BUN 26 H Creatinine 1.1 Hemoglobin A1c % AST ALT Troponin I Albumin Triglycerides Cholesterol Total LDL Cholesterol HDL Cholesterol Assessment/Plan Dobutamine Stress Echo 05/2017: 90% MPHR. No ST changes. no ischemia (nl EF) Echo 07/26: NL LV FX, NL RVSP, no valve disease CTA chest 04/25: no PE. 2.9 cm main PA. minimal groundglass interstitial thickening bilat mid lung brewster ? small airways dz. normal heart size. no coronary calcifications described (images reviewed: confirms no coronary calcifications present) CTA neck 07/27: no carotid artery dissection ECG (08/08): NSR, WNL CXR: atx right hilum, o/w clear lungs/pleura. large heart with apical projection noted chest pain: -atypical sx, identical to 2017 sx's for which she had negative stress echo -troponin neg x 3. ECG normal. -suspect c-spine or shoulder pathology as etiology--no need for repeat ischemia w/u at this time. -pt agrees to f/u with dr rudolph. i advised her that if sx's change she should see us as outpatient (d/w'd dr rudolph as well, who agrees) HTN: -bp well controlled -same meds can d/c tele. no further inpatient cardiac testing or tx indicated
--- NOTE | 2018-08-09 13:16 | DS ---
Physical Exam: SUBJECTIVE: Patient seen and examined at bedside. No acute events overnight. OBJECTIVE: Vital Signs Period Temp Pulse Resp BP Sys/Gaona Pulse Ox Last 24 Hr 97.0 F-98.4 F 54-69 16-20 115-148/66-80 95-100 PHYSICAL EXAM GENERAL: AAOx3, NAD HEAD: Normal with no signs of trauma. EYES: EOMI Sclera Clear EARS, MMM NECK: Supple. LUNGS: CTAB HEART: RRR nl S1S2. ABDOMEN: Soft NDNT No HSM MUSCULOSKELETAL: FROM throughout LOWER EXTREMITIES: Onychomycosis, Trace Edema. Stasis dermatitis b/l lower extremities. NEUROLOGICAL: Cranial nerves II-XII intact. Normal speech. Normal gait. PSYCHIATRIC: Cooperative. Good eye contact. Appropriate mood and affect. SKIN: Warm, dry, normal turgor, no rashes or lesions noted, normal capillary refill. LABS Laboratory Results - last 24 hr 08/08/18 08/08/18 08/08/18 10:40 14:30 21:15 WBC RBC Hgb Hct MCV MCH MCHC RDW Plt Count MPV PT with INR INR PTT (Actin FS) Sodium 140 Potassium 3.7 Chloride 106 Carbon Dioxide 30 Anion Gap 5 L BUN 29 H Creatinine 1.0 Creat Clearance w eGFR 55.14 Random Glucose 91 Calcium 8.1 L Phosphorus Magnesium 2.3 Total Bilirubin 0.2 AST 11 L ALT 14 Alkaline Phosphatase 89 Creatine Kinase 157 Creatine Kinase Index 0.6 CK-MB (CK-2) 1.0 Troponin I < 0.02 < 0.02 < 0.02 B-Natriuretic Peptide 64.9 Total Protein 8.0 Albumin 2.8 L 08/09/18 08/09/18 08/09/18 05:30 05:30 05:30 WBC 9.1 RBC 3.64 Hgb 9.6 L Hct 29.2 L MCV 80.2 MCH 26.2 MCHC 32.7 RDW 17.8 H Plt Count 199 MPV 9.8 PT with INR 13.20 H INR 1.12 H PTT (Actin FS) 27.1 Sodium 140 Potassium 3.9 Chloride 106 Carbon Dioxide 25 Anion Gap 9 BUN 26 H Creatinine 1.1 Creat Clearance w eGFR 49.39 Random Glucose 125 H Calcium 7.7 L Phosphorus 3.2 Magnesium 2.1 Total Bilirubin AST ALT Alkaline Phosphatase Creatine Kinase Creatine Kinase Index CK-MB (CK-2) Troponin I B-Natriuretic Peptide Total Protein Albumin HOSPITAL COURSE: Date of Admission:08/08/18 Pt is a pleasant 68 y/o lady with a significant past medical history of hypothyroidism, HTN, Asthma, and Temporal arteritis who presented to [facility] c/o chest pain and shortness of breath the morning of her presentation to the emergency department. Pt underwent an EKG which revealed a rater of 62. nl sinus rhythm, QTc of 383 and no axis deviation, no ST or T wave abnormalities. Troponin was negative x 3. Pt was evaluated by Cardiology who suspected c-spine or shoulder pathology as etiology and that there was no need for repeat ischemia w/u at this time. Date of Discharge: 08/09/18 Minutes to complete discharge: 35 Discharge Summary Reason For Visit: CHEST PAIN Current Active Problems Chest pain (Acute) Condition: Improved - Instructions Diet, Activity, Other Instructions: You presented to the hospital due to chest pain.cardiac work up come back negative . Please continue to take your prescribed medications. Please return to the emergency Department if you begin to experience shortness of breath, chest pain, nausea/vomiting, or any other abnormal symptom. Please follow up with your primary Care Doctor, Dr Diamond this week. Please follow up with the Rad Tech this week, Dr James Domínguez. Referrals: James Domínguez MD [Staff Physician] - Anju Diamond MD [Primary Care Provider] - Disposition: HOME - Home Medications Comprehensive Discharge Medication List: Ambulatory Orders Levothyroxine [Synthroid -] 50 mcg PO DAILY 03/23/14 Valsartan/Hydrochlorothiazide [Diovan Hct 160-25 mg Tablet] 1 combo PO DAILY Latanoprost 0.005% Eye Drops [Xalatan 0.005% Eye Drops -] 1 drop OU HS 10/14/17 Albuterol 0.083% Nebulizer Dalia [Ventolin 0.083% Nebulizer Soln -] 1 neb NEB Q6H PRN #60 vial 04/23/18 Aspirin [ASA -] 81 mg PO ONCE 04/23/18 predniSONE [Deltasone -] See Taper PO ASDIR #32 tab 08/06/18 This patient is new to me today: No Emergency Visit: Yes ED Registration Date: 08/08/18 Care time: The patient presented to the Emergency Department on the above date and was hospitalized for further evaluation of their emergent condition. Critical Care patient: No - Discharge Referral Referred to [facility] No
--- NOTE | 2018-08-09 16:00 | PN ---
Teaching Attending Note Name of Resident: Robin Gatica ATTENDING PHYSICIAN STATEMENT I saw and evaluated the patient. I reviewed the resident's note and discussed the case with the resident. I agree with the resident's findings and plan as documented. SUBJECTIVE: Patient is feeling better with no acute distress. No further chest pain, no nausea or vomiting. OBJECTIVE: Vital Signs Temperature 98.2 F 08/09/18 10:00 Pulse Rate 69 08/09/18 10:00 Respiratory Rate 20 08/09/18 10:00 Blood Pressure 148/77 08/09/18 10:00 O2 Sat by Pulse Oximetry (%) 95 08/09/18 09:00 Constitutional: Well-nourished, Well-developed, appearing stated age. morbidly obese. HEENT: head is normocephalic, atraumatic. EOMI. PERRLA. Neck: supple. Full ROM. Heart: regular rhythm. no murmurs, rubs or gallops. Lungs: clear to auscultation bilaterally. no crackles, rhonchi or wheezing. no stridor. Abdomen: soft, nontender. normal bowel sounds. no rebound, guarding, masses. Extremities: Peripheral pulses intact. No lower extremity edema. Neurological: CN 2-12 grossly intact. Moves all four extremities. Psych: awake, alert, oriented x3. Follows commands. Answers questions appropriately. CBCD WBC 9.1 K/mm3 (4.0-10.0) 08/09/18 05:30 RBC 3.64 M/mm3 (3.60-5.2) 08/09/18 05:30 Hgb 9.6 GM/dL (10.7-15.3) L 08/09/18 05:30 Hct 29.2 % (32.4-45.2) L 08/09/18 05:30 MCV 80.2 fl (80-96) 08/09/18 05:30 MCHC 32.7 g/dl (32.0-36.0) 08/09/18 05:30 RDW 17.8 % (11.6-15.6) H 08/09/18 05:30 Plt Count 199 K/MM3 (134-434) 08/09/18 05:30 MPV 9.8 fl (7.5-11.1) 08/09/18 05:30 CMP Sodium 140 mmol/L (136-145) 08/09/18 05:30 Potassium 3.9 mmol/L (3.5-5.1) 08/09/18 05:30 Chloride 106 mmol/L (98-107) 08/09/18 05:30 Carbon Dioxide 25 mmol/L (21-32) 08/09/18 05:30 Anion Gap 9 MMOL/L (8-16) 08/09/18 05:30 BUN 26 mg/dL (7-18) H 08/09/18 05:30 Creatinine 1.1 mg/dL (0.55-1.3) 08/09/18 05:30 Creat Clearance w eGFR 49.39 (>60) 08/09/18 05:30 Random Glucose 125 mg/dL (74-106) H 08/09/18 05:30 Calcium 7.7 mg/dL (8.5-10.1) L 08/09/18 05:30 Total Bilirubin 0.2 mg/dL (0.2-1) 08/08/18 10:40 AST 11 U/L (15-37) L 08/08/18 10:40 ALT 14 U/L (13-61) 08/08/18 10:40 Alkaline Phosphatase 89 U/L (45-117) 08/08/18 10:40 Total Protein 8.0 g/dl (6.4-8.2) 08/08/18 10:40 Albumin 2.8 g/dl (3.4-5.0) L 08/08/18 10:40 CARDIAC ENZYMES Creatine Kinase 157 U/L (26-192) 08/08/18 21:15 Troponin I < 0.02 ng/ml (0.00-0.05) 08/08/18 21:15 Home Medications Medication Instructions Recorded Levothyroxine [Synthroid -] 50 mcg PO DAILY 03/23/14 Valsartan/Hydrochlorothiazide 1 combo PO DAILY 03/23/14 [Diovan Hct 160-25 mg Tablet] Latanoprost 0.005% Eye Drops 1 drop OU HS 10/14/17 [Xalatan 0.005% Eye Drops -] Albuterol 0.083% Nebulizer Dalia 1 neb NEB Q6H PRN #60 vial 04/23/18 [Ventolin 0.083% Nebulizer Soln -] Aspirin [ASA -] 81 mg PO ONCE 04/23/18 predniSONE [Deltasone -] See Taper PO ASDIR #32 tab 08/06/18 ASSESSMENT AND PLAN: Patient is a 68yo female with Pmhx of headache with 10 days h/o temporal, pulsating headache admitted to [facility] for further evaluation # Acute chest pain , ACS is ruled out. 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 # Hx of Headache: s/p temporal artery Bx on taper dose steroid #Hypothyroidism continue levothyroxine 50 mcg daily #HTN continue home dose valsartan/HCTZ # Asthma ,stable, cont home meds GI px : protonix as pt is on Prednisone
--- NOTE | 2018-08-10 13:51 | EKG ---
Test Reason : Blood Pressure : / mmHG Vent. Rate : 062 BPM Atrial Rate : 062 BPM P-R Int : 182 ms QRS Dur : 100 ms QT Int : 378 ms P-R-T Axes : 046 028 041 degrees QTc Int : 383 ms NORMAL SINUS RHYTHM NORMAL ECG WHEN COMPARED WITH ECG OF 04-AUG-2018 19:25, QT HAS SHORTENED Confirmed by MD Peoples Daniel ([id number]) on 08/10/2018 1:51:11 PM Referred By: Confirmed By:Emerson Peoples MD
== END 2018-08-09 13:50 | disposition home or self-care (01) ==
LOC: JER 10:04 → JERBED 15:07 → J4W 20:05
PROVIDERS: ADMIT Internal Medicine; ATTEND Internal Medicine
PROC: 3E0337Z Introduction of Electrolytic and Water Balance Substance into Peripheral Vein, Percutaneous Approach (ICD-10-PCS; principal; 2018-08-08)
DX: R07.89 Other chest pain (principal); I10 Essential (primary) hypertension; E78.5 Hyperlipidemia, unspecified; E03.9 Hypothyroidism, unspecified; M31.6 Other giant cell arteritis; D64.9 Anemia, unspecified; J45.909 Unspecified asthma, uncomplicated; E86.0 Dehydration; Z96.651 Presence of right artificial knee joint; Z91.010 Allergy to peanuts; Z79.82 Long term (current) use of aspirin
CPT/HCPCS: 36415; 71045-TC-FY; 80048; 80053; 82550; 82553; 83735; 83880; 84100; 84443; 84484; 85025; 85027; 85610; 85730; 93005; 93010; 96360; 99283-25; G0378; J7030

== ENCOUNTER 2018-11-22 16:20 | Emergency (ER) | payer OTHER | END 2018-11-22 18:59 | disposition home or self-care (01) | LOC: JER 16:20 ==

== ENCOUNTER 2019-02-08 11:50 | Observation (INO) | payer OTHER ==
[2019-02-08 12:01] VITALS: PULSE 78; BMI 51.3
--- NOTE | 2019-02-08 12:14 | PDOC ---
History of Present Illness - General Chief Complaint: Chest Pain Stated Complaint: CHEST PAINV RAPID RESPONSE - History of Present Illness Initial Comments: 02/08/19 12:36 68 y/o/f here for chest pain that started yesterday. She states the pain is intermittent and located below her left breast, it radiates to her back and left axilla. She rates the pain as a 6/10 at its worst. She took 2 500mg Tylenol last night with mild improvement and a 81mg aspirin. She had palpitations once yesterday which self resolved. She feels lightheaded and more tired than normal after walking today. Her pain is slightly better when she holds her left breast up. She denies any heavy lifting. She has had a cough for the last week that is worse in the morning and has brought up clear phlegm. She denies any abd pain, N/V/D, headache, SOB, dysuria, or other symptoms. She had an appointment at [facility] today and was sent down to the ER when she complained of chest pain. Medical Hx: Asthma, HTN, hypothyroidism, cataracts, vertigo, PVD Surgical Hx: benign left breast mass removal - 1972, biopsies for temporal arteritis (negative) Social Hx: denies any tobacco, alcohol, or other illicit substance use Past History - Past Medical History Allergies/Adverse Reactions: Allergies Allergy/AdvReac Type Severity Reaction Status Date / Time peanut [Peanut] Allergy Verified 11/22/18 17:14 ammonium lactate Allergy Uncoded 11/22/18 17:14 Home Medications: Ambulatory Orders Levothyroxine [Synthroid -] 50 mcg PO DAILY 03/23/14 Valsartan/Hydrochlorothiazide [Diovan Hct 160-25 mg Tablet] 1 combo PO DAILY Latanoprost 0.005% Eye Drops [Xalatan 0.005% Eye Drops -] 1 drop OU HS 10/14/17 Albuterol 0.083% Nebulizer Dalia [Ventolin 0.083% Nebulizer Soln -] 1 neb NEB Q6H PRN #60 vial 04/23/18 Aspirin [ASA -] 81 mg PO ASDIR 04/23/18 Fluticasone/Salmeterol [Advair 250-50 Diskus] 1 each IH BID 11/22/18 Anemia: Yes Asthma: Yes Cancer: No Cardiac Disorders: Yes (chest pain 07/2017) CVA: No COPD: No CHF: No Dementia: No Diabetes: No GI Disorders: No Disorders: No HTN: Yes Hypercholesterolemia: Yes Liver Disease: No Seizures: No Thyroid Disease: Yes (HYPO.) - Surgical History Abdominal Surgery: No Appendectomy: No Cardiac Surgery: No Cholecystectomy: No Lung Surgery: No Neurologic Surgery: No Orthopedic Surgery: Yes (right knee replacement) - Immunization History Immunization Up to Date: Yes - Suicide/Smoking/Psychosocial Hx Smoking Status: No Smoking History: Never smoked Have you smoked in the past 12 months: No Number of Cigarettes Smoked Daily: 0 Information on smoking cessation initiated: No Hx Alcohol Use: No Drug/Substance Use Hx: No Substance Use Type: None Hx Substance Use Treatment: No Review of Systems - Review of Systems Able to Perform ROS?: Yes Constitutional: No: Diaphoresis, Fever HEENTM: No: Nose Congestion Respiratory: Yes: Cough. No: Shortness of Breath, Wheezing Cardiac (ROS): Yes: Chest Pain, Lightheadedness ABD/GI: No: Constipated, Diarrhea, Nausea, Vomiting : No: Dysuria, Hematuria Musculoskeletal: Yes: Back Pain Integumentary: No: Rash Neurological: No: Headache, Numbness *Physical Exam - Vital Signs Last Vital Signs Temp Pulse Resp BP Pulse Ox 98.3 F 78 18 116/49 L 98 02/08/19 11:58 02/08/19 11:58 02/08/19 11:58 02/08/19 11:58 02/08/19 11:58 - Physical Exam General Appearance: Yes: Nourished, Appropriately Dressed, Obese HEENT: positive: EOMI. negative: Pale Conjunctivae Neck: positive: Supple Respiratory/Chest: positive: Chest Tender (reproducible tenderness to palpation below the left breast ), Lungs Clear, Normal Breath Sounds. negative: Accessory Muscle Use, Crackles, Rales, Rhonchi, Wheezing Cardiovascular: positive: Regular Rhythm, Regular Rate, S1, S2 Gastrointestinal/Abdominal: positive: Normal Bowel Sounds, Soft. negative: Guarding Musculoskeletal: negative: Vertebral Tenderness Extremity: positive: Normal Capillary Refill Integumentary: positive: Normal Color, Dry Neurologic: positive: Fully Oriented, Alert, Motor Strength 5/5 Heart Score/ECG Review #1 ECG reviewed & interpreted by me at: 13:05 General ECG Interpretation: Sinus Rhythm 02/08/19 13:05 vent rate: 73 bpm Pr interval: 182 ms QRS duration: 90ms QT/QTc 396/436ms P-R-T axes: 41 8 39 Normal sinus rhythm No acute ischemic changes ED Treatment Course - LABORATORY CBC & Chemistry Diagram: 02/08/19 13:10 02/08/19 13:00 Medical Decision Making - Medical Decision Making 02/08/19 12:45 68 y/o/f with PMHx of asthma, HTN, hypothyroidism, cataracts, vertigo, PVD here for intermittent chest pain that started yesterday. She has taken 2 Tylenol 500mg and 1 baby aspirin last night with improvement. She complains of lightheadedness and feeling more tired with exertion than normal today. Patient denies any associated sweating, SOB, or palpitations currently. CBC, CMP, UA, cardiac profile, TSH, and CXR ordered. EKG reviewed, normal sinus rhythm. No acute ischemic changes. 02/08/19 16:07 CBC notable for anemia of 9.8, in line with patients prior labs. UA, CMP grossly normal. Trops negative. Elevated Creatinine Kinase. With patient's past medical history, will admit for obversation for cardiac workup. Patient admitted under Dr. Santiago. *DC/Admit/Observation/Transfer Diagnosis at time of Disposition: Chest pain - Discharge Dispostion Condition at time of disposition: Fair - Referrals Referrals: Anju Diamond MD [Primary Care Provider] - - Patient Instructions - Post Discharge Activity
--- NOTE | 2019-02-08 12:40 | EKG ---
Test Reason : Blood Pressure : / mmHG Vent. Rate : 073 BPM Atrial Rate : 073 BPM P-R Int : 182 ms QRS Dur : 090 ms QT Int : 396 ms P-R-T Axes : 041 008 039 degrees QTc Int : 436 ms NORMAL SINUS RHYTHM NORMAL ECG WHEN COMPARED WITH ECG OF 08-AUG-2018 10:10, QT HAS LENGTHENED Confirmed by Omar Lafleur MD ([id number]) on 02/08/2019 12:40:06 PM Referred By: Confirmed By:Omar Lafleur MD
--- NOTE | 2019-02-08 13:01 | PDOC ---
Attending Attestation - Resident Resident Name: Marycarmen Pinzon S - ED Attending Attestation I have performed the following: I have examined & evaluated the patient, The case was reviewed & discussed with the resident, I agree w/resident's findings & plan, Exceptions are as noted
[2019-02-08] MEDS ORDERED: ASPIRIN COATED 81 MG TABLET.EC ONE (13:44)
[2019-02-08] MEDS ORDERED: ASPIRIN COATED 81 MG TABLET.EC PO SCH (13:45)
--- NOTE | 2019-02-08 13:48 | PDOC ---
Documentation entered by Anusha Hatch SCRIBE, acting as scribe for Damaris Wolfe MD. Damaris Wolfe MD: This documentation has been prepared by the Mamie bennett Adrianna, SCRIBE, under my direction and personally reviewed by me in its entirety. I confirm that the documentation accurately reflects all work, treatment, procedures, and medical decision making performed by me. Attending Attestation - Resident Resident Name: Marycarmen Pinzon - ED Attending Attestation I have performed the following: I have examined & evaluated the patient, The case was reviewed & discussed with the resident, I agree w/resident's findings & plan, Exceptions are as noted - HPI HPI: 02/08/19 13:37 Ms. Bustillo is a 68 yo F h/o HTN, hypothyroidism, Asthma, who presents with a complain of left sided chest pain Symptoms began yesterday Chest pain is intermitent, located beneath the left breast, which radiates to her back and left axilla. Pain is 6/10 at its worse (+) palpitations yesterday once (+) fatigue with exertion Took ASA No chest wall trauma or heavy lifting (+) clear phlegm Sent to the ER from wound care - Physicial Exam PE: 02/08/19 13:41 GENERAL: The patient is in no acute distress. ENT: Ears normal, nares patent, oropharynx clear without exudates. Moist mucous membranes. NECK: Normal range of motion, supple LUNGS: Breath sounds equal, clear to auscultation bilaterally. No wheezes, and no crackles. HEART:Regular rate and rhythm, normal S1 and S2 without murmur, rub or gallop. ABDOMEN: Soft, nontender, normoactive bowel sounds. EXTREMITIES: bilateral lower extremity dressings applied by Wound Care NEUROLOGICAL: Cranial nerves II through XII grossly intact. Normal speech. No focal neurological deficits. SKIN: Warm, Dry, normal turgor, no rashes or lesions noted. - Medical Decision Making 02/08/19 13:45 DD: ACS, Pneumothorax, pleural effusion, Will do: Labs EKG Obs EKG: Twelve-lead EKG was performed and reviewed by me. There is normal sinus rhythm with a normal rate pf 73 bpm. The axis is normal. The intervals are normal. There are no ST or T wave abnormalities. Impression: Normal twelve-lead EKG 02/08/19 15:07 Laboratory Tests 02/08/19 02/08/19 02/08/19 13:00 13:10 13:45 WBC 5.8 Hgb 9.8 L Hct 30.2 L Plt Count 218 BUN 18.1 H Creatinine 1.0 Creatine Kinase 295 H CK-MB (CK-2) < 1.0 Troponin I < 0.02 Urine Blood Negative Urine Nitrite Negative Ur Leukocyte Esterase Negative Will admit Clinical impression: chest pain, initial presentation
[2019-02-08 14:30] LABS: BASO % 0.6 % (0-2.0); EOS % 6.3 % (0-4.5); HEMATOCRIT 30.2 % (32.4-45.2); HEMOGLOBIN 9.8 GM/dL (10.7-15.3); LYMPH % 17.6 % (8-40); MCH 25.2 pg (25.7-33.7); MCHC 32.4 g/dl (32.0-36.0); MEAN CELL VOLUME 77.9 fl (80-96); MEAN PLT VOLUME 9.1 fl (7.5-11.1); MONO % 8.9 % (3.8-10.2); NEUT % 66.6 % (42.8-82.8); PLATELET COUNT 218 K/MM3 (134-434); RBC 3.88 M/mm3 (3.60-5.2); RDW 18.4 % (11.6-15.6); WHITE BLOOD COUNT 5.8 K/mm3 (4.0-10.0)
[2019-02-08 14:32] LABS: PH,URINE 5.5 (5.0-8.0); URINE APPEARANCE CLEAR; URINE BILIRUBIN NEGATIVE (NEGATIVE); URINE COLOR YELLOW; URINE GLUCOSE (UA) NEGATIVE (NEGATIVE); URINE KETONE NEGATIVE (NEGATIVE); URINE LEUK ESTERASE NEGATIVE (NEGATIVE); URINE NITRITE NEGATIVE (NEGATIVE); URINE PROTEIN NEGATIVE (NEGATIVE); URINE UROBILINOGEN 0.2 mg/dL (0.2-1.0)
[2019-02-08 14:50] LABS: ALK PHOS 88 U/L (45-117); ANION GAP 6 MMOL/L (8-16); BILIRUBIN,TOTAL 0.3 mg/dL (0.2-1); BLOOD UREA NITROGEN 18.1 mg/dL (7-18); CHLORIDE 104 mmol/L (98-107); CO2 29 mmol/L (21-32); GLUCOSE,RANDOM 78 mg/dL (74-106); POTASSIUM 3.7 mmol/L (3.5-5.1); SGOT/AST 20 U/L (15-37); SGPT/ALT 16 U/L (13-61); SODIUM 139 mmol/L (136-145); TOT PROT 8.3 g/dl (6.4-8.2)
[2019-02-08] MEDS ORDERED: MAG HYDROX/AL HYDROX/SIMETH -MYLANTA- ORAL SUSPENSION PO ONE (16:42)
[2019-02-08] MEDS ORDERED: MAG HYDROX/AL HYDROX/SIMETH 30 ML UNIT-DOSE CUP ONE (16:44)
--- NOTE | 2019-02-08 17:14 | PN ---
Teaching Attending Note Name of Resident: oRbin Suazo ATTENDING PHYSICIAN STATEMENT I saw and evaluated the patient. I reviewed the resident's note and discussed the case with the resident. I agree with the resident's findings and plan as documented with exceptions below. SUBJECTIVE: 68 yof with PMhx of anemia, asthma, HTN, HLD, and hypothyroidism, morbid obesity (BMI 51.4), comes with left sided chest pain under breast, transient sharp non radiating non exertional with no associated dizziness, dyspnea, palpitations, radiation to arm or back per patient. No related fevers, chills, cough, sputum, recent travel or new concerns. Has been admitted with similar symptoms in the past with negative cardiac work up. Currently feels well. recently changed her diet and has been burping a lot. OBJECTIVE: Vital Signs Period Temp Pulse Resp BP Sys/[place]ona Pulse Ox Last 24 Hr 98.3 F 78 18 116/49 98 Intake & Output 02/05/19 02/06/19 02/07/19 02/08/19 23:59 23:59 23:59 23:59 Weight 290 lb GENERAL: Awake, alert, and fully oriented, in no acute distress, morbidly obese (BMI 51.4). HEAD: Normal with no signs of trauma. EYES: Pupils equal, round and reactive to light, extraocular movements intact, sclera anicteric, conjunctiva clear. No lid lag. EARS, NOSE, THROAT: Ears normal, nares patent, oropharynx clear without exudates. Moist mucous membranes. NECK: Normal range of motion, supple without lymphadenopathy, JVD, or masses. LUNGS: Breath sounds equal, clear to auscultation bilaterally. No wheezes, and no crackles. No accessory muscle use, tenderness on palpation of rib area under breast, no crepitus or swelling noted HEART: Regular rate and rhythm, normal S1 and S2 without murmur, rub or gallop. ABDOMEN: Soft, nontender, not distended, normoactive bowel sounds, no guarding, no rebound, no masses. No hepatomegaly or splenomegaly. MUSCULOSKELETAL: Normal range of motion at all joints. No bony deformities or tenderness. No CVA tenderness. UPPER EXTREMITIES: 2+ pulses, warm, well-perfused. No cyanosis. No clubbing. No peripheral edema. LOWER EXTREMITIES: bilateral Lower extremity edema with FELIPE wrapping NEUROLOGICAL: AAOx3, facial symmetry, EOMI, PERRL, Cranial nerves II-XII intact. Normal speech. Gait not observed PSYCHIATRIC: Cooperative. Good eye contact. Appropriate mood and affect. SKIN: Warm, dry, normal turgor, no rashes or lesions noted, normal capillary refill. Home Medications Medication Instructions Recorded Levothyroxine [Synthroid -] 50 mcg PO DAILY 03/23/14 Valsartan/Hydrochlorothiazide 1 combo PO DAILY 03/23/14 [Diovan Hct 160-25 mg Tablet] Latanoprost 0.005% Eye Drops 1 drop OU HS 10/14/17 [Xalatan 0.005% Eye Drops -] Albuterol 0.083% Nebulizer Dalia 1 neb NEB Q6H PRN #60 vial 04/23/18 [Ventolin 0.083% Nebulizer Soln -] Aspirin [ASA -] 81 mg PO ASDIR 04/23/18 Fluticasone/Salmeterol [Advair 1 each IH BID 11/22/18 250-50 Diskus] Active Medications Aspirin (Ecotrin -) 162 mg PO DAILY DAVONTE Last Admin: 02/08/19 13:45 Dose: 162 mg Heparin Sodium (Porcine) (Heparin -) 5,000 unit SQ Q8H-[facility] Laboratory Results - last 24 hr 02/08/19 02/08/19 02/08/19 13:00 13:00 13:10 WBC 5.8 RBC 3.88 Hgb 9.8 L Hct 30.2 L MCV 77.9 L MCH 25.2 L MCHC 32.4 RDW 18.4 H Plt Count 218 MPV 9.1 Absolute Neuts (auto) 3.8 Neutrophils % 66.6 Lymphocytes % 17.6 Monocytes % 8.9 Eosinophils % 6.3 H Basophils % 0.6 Nucleated RBC % 0 Sodium 139 Potassium 3.7 Chloride 104 Carbon Dioxide 29 Anion Gap 6 L BUN 18.1 H Creatinine 1.0 Est GFR (CKD-EPI)AfAm 67.04 Est GFR (CKD-EPI)NonAf 57.84 Random Glucose 78 Calcium 9.0 Total Bilirubin 0.3 AST 20 ALT 16 Alkaline Phosphatase 88 Creatine Kinase 295 H Creatine Kinase Index No Result Required. CK-MB (CK-2) < 1.0 Troponin I < 0.02 Total Protein 8.3 H Albumin 3.0 L Lipase Cancelled 86 TSH 3.38 Urine Color Urine Appearance Urine pH Ur Specific [place] Urine Protein Urine Glucose (UA) Urine Ketones Urine Blood Urine Nitrite Urine Bilirubin Urine Urobilinogen Ur Leukocyte Esterase 02/08/19 13:45 WBC RBC Hgb Hct MCV MCH MCHC RDW Plt Count MPV Absolute Neuts (auto) Neutrophils % Lymphocytes % Monocytes % Eosinophils % Basophils % Nucleated RBC % Sodium Potassium Chloride Carbon Dioxide Anion Gap BUN Creatinine Est GFR (CKD-EPI)AfAm Est GFR (CKD-EPI)NonAf Random Glucose Calcium Total Bilirubin AST ALT Alkaline Phosphatase Creatine Kinase Creatine Kinase Index CK-MB (CK-2) Troponin I Total Protein Albumin Lipase TSH Urine Color Yellow Urine Appearance Clear Urine pH 5.5 D Ur Specific [place] 1.011 Urine Protein Negative Urine Glucose (UA) Negative Urine Ketones Negative Urine Blood Negative Urine Nitrite Negative Urine Bilirubin Negative Urine Urobilinogen 0.2 Ur Leukocyte Esterase Negative EKG NSR, no acute ST-T changes CXR images and results reviewed, no acute process ASSESSMENT AND PLAN: 68 yof with PMhx of anemia, asthma, HTN, HLD, and hypothyroidism, morbid obesity (BMI 51.4) with atypical chest pain and dyspepsia -Atypical chest pain, dyspepsia vs musculoskeletal -Dyspepsia -HTN -HLD -Asthma -Anemia -hypothyroidism Plan: EKG non concerning. Atypical symptoms, similar prior admits when seen by cardiology and prior w/u in 2017. Will repeat troponin. Trial with maalox x 1 patient currently asymptomatic. Continue home meds D/c home if above w/u neg and no new concerns. Discussed with patient and ED RN Total admit time 55 min.
--- NOTE | 2019-02-08 17:52 | HP ---
CHIEF COMPLAINT: chest pain PCP: [facility] HISTORY OF PRESENT ILLNESS: Pt is a 68 y/o F with PMH anemia, asthma, HTN, HLD, and hypothyroidism, morbid obesity (BMI 51.4) who presented to ED with complaint of chest discomfort. Pt states she was on her way to wound care in the hospital when she had a "squirting" chest pain. She is unable to think of a better description for the discomfort. Pain is intermittent lasting a few seconds at a time beginning yesterday afternoon. No relation to exertion. Pt states it is not positional. No other complaints. ER course was notable for: (1) EKG normal (2)Trop neg x2 (3) Recent Travel: denies PAST MEDICAL HISTORY: as above PAST SURGICAL HISTORY: Social History: Smoking: denies Alcohol:denies Drugs: denies Family History: denies Allergies peanut [Peanut] Allergy (Verified 11/22/18 17:14) ammonium lactate Allergy (Uncoded 11/22/18 17:14) HOME MEDICATIONS: Home Medications Medication Instructions Recorded Levothyroxine [Synthroid -] 50 mcg PO DAILY 03/23/14 Valsartan/Hydrochlorothiazide 1 combo PO DAILY 03/23/14 [Diovan Hct 160-25 mg Tablet] Latanoprost 0.005% Eye Drops 1 drop OU HS 10/14/17 [Xalatan 0.005% Eye Drops -] Albuterol 0.083% Nebulizer Dalia 1 neb NEB Q6H PRN #60 vial 04/23/18 [Ventolin 0.083% Nebulizer Soln -] Aspirin [ASA -] 81 mg PO ASDIR 04/23/18 Fluticasone/Salmeterol [Advair 1 each IH BID 11/22/18 250-50 Diskus] REVIEW OF SYSTEMS CONSTITUTIONAL: Absent: fever, chills, diaphoresis, generalized weakness, malaise, loss of appetite, weight change HEENT: Absent: rhinorrhea, nasal congestion, throat pain, throat swelling, difficulty swallowing, mouth swelling, ear pain, eye pain, visual changes CARDIOVASCULAR: chest pain Absent: , syncope, palpitations, irregular heart rate, lightheadedness, peripheral edema RESPIRATORY: Absent: cough, shortness of breath, dyspnea with exertion, orthopnea, wheezing, stridor, hemoptysis GASTROINTESTINAL: Absent: abdominal pain, abdominal distension, nausea, vomiting, diarrhea, constipation, melena, hematochezia GENITOURINARY: Absent: dysuria, frequency, urgency, hesitancy, hematuria, flank pain, genital pain MUSCULOSKELETAL: Absent: myalgia, arthralgia, joint swelling, back pain, neck pain SKIN: Absent: rash, itching, pallor HEMATOLOGIC/IMMUNOLOGIC: Absent: easy bleeding, easy bruising, lymphadenopathy, frequent infections ENDOCRINE: Absent: unexplained weight gain, unexplained weight loss, heat intolerance, cold intolerance NEUROLOGIC: Absent: headache, focal weakness or paresthesias, dizziness, unsteady gait, seizure, mental status changes, bladder or bowel incontinence PSYCHIATRIC: Absent: anxiety, depression, suicidal or homicidal ideation, hallucinations. PHYSICAL EXAMINATION Vital Signs - 24 hr 02/08/19 11:58 Temperature 98.3 F Pulse Rate 78 Respiratory 18 Rate Blood Pressure 116/49 L O2 Sat by Pulse 98 Oximetry (%) Gen: AAOx3, NAD HEENT: NCAT, EOMI Neck: supple, no jvd Chest: tender to palpation sternum, L ribs Cardio: rrr, normal s1s2, sys murmur Pulm: cta b/l Abd: obese, soft, nontender Ext: b/l wound dressings in place Laboratory Results - last 24 hr 02/08/19 02/08/19 02/08/19 13:00 13:00 13:10 WBC 5.8 RBC 3.88 Hgb 9.8 L Hct 30.2 L MCV 77.9 L MCH 25.2 L MCHC 32.4 RDW 18.4 H Plt Count 218 MPV 9.1 Absolute Neuts (auto) 3.8 Neutrophils % 66.6 Lymphocytes % 17.6 Monocytes % 8.9 Eosinophils % 6.3 H Basophils % 0.6 Nucleated RBC % 0 Sodium 139 Potassium 3.7 Chloride 104 Carbon Dioxide 29 Anion Gap 6 L BUN 18.1 H Creatinine 1.0 Est GFR (CKD-EPI)AfAm 67.04 Est GFR (CKD-EPI)NonAf 57.84 Random Glucose 78 Calcium 9.0 Total Bilirubin 0.3 AST 20 ALT 16 Alkaline Phosphatase 88 Creatine Kinase 295 H Creatine Kinase Index No Result Required. CK-MB (CK-2) < 1.0 Troponin I < 0.02 Total Protein 8.3 H Albumin 3.0 L Lipase Cancelled 86 TSH 3.38 Urine Color Urine Appearance Urine pH Ur Specific [place] Urine Protein Urine Glucose (UA) Urine Ketones Urine Blood Urine Nitrite Urine Bilirubin Urine Urobilinogen Ur Leukocyte Esterase 02/08/19 13:45 WBC RBC Hgb Hct MCV MCH MCHC RDW Plt Count MPV Absolute Neuts (auto) Neutrophils % Lymphocytes % Monocytes % Eosinophils % Basophils % Nucleated RBC % Sodium Potassium Chloride Carbon Dioxide Anion Gap BUN Creatinine Est GFR (CKD-EPI)AfAm Est GFR (CKD-EPI)NonAf Random Glucose Calcium Total Bilirubin AST ALT Alkaline Phosphatase Creatine Kinase Creatine Kinase Index CK-MB (CK-2) Troponin I Total Protein Albumin Lipase TSH Urine Color Yellow Urine Appearance Clear Urine pH 5.5 D Ur Specific [place] 1.011 Urine Protein Negative Urine Glucose (UA) Negative Urine Ketones Negative Urine Blood Negative Urine Nitrite Negative Urine Bilirubin Negative Urine Urobilinogen 0.2 Ur Leukocyte Esterase Negative ASSESSMENT/PLAN: Pt is a 68 y/o F with PMH anemia, asthma, HTN, HLD, and hypothyroidism, morbid obesity (BMI 51.4) who presented to ED with complaint of chest discomfort following rapid response. Pt had negative troponin x 2 and normal EKG in ED with resolution of symptoms. ACS has been ruled out. Visit type - Emergency Visit Emergency Visit: Yes ED Registration Date: 02/08/19 Care time: The patient presented to the Emergency Department on the above date and was hospitalized for further evaluation of their emergent condition. - New Patient This patient is new to me today: Yes Date on this admission: 02/08/19 - Critical Care Critical Care patient: No ATTENDING PHYSICIAN STATEMENT I saw and evaluated the patient. I reviewed the resident's note and discussed the case with the resident. I agree with the resident's findings and plan as documented. SUBJECTIVE: OBJECTIVE: ASSESSMENT AND PLAN:
[2019-02-08] MEDS ORDERED: HEPARIN NA (PORCINE) 5,000 UNITS/ML 1ML VIAL SQ SCH (18:00)
[2019-02-08 18:54] VITALS: BP 124/79; TEMP 98
--- NOTE | 2019-02-08 18:55 | DS ---
Physical Exam: SUBJECTIVE: Patient seen and examined at bedside. No new complaints OBJECTIVE: Vital Signs Period Temp Pulse Resp BP Sys/Gaona Pulse Ox Last 24 Hr 98.3 F 78 18 116/49 98 PHYSICAL EXAM Gen: AAOx3, NAD HEENT: NCAT, EOMI Neck: supple, no jvd Chest: tender to palpation sternum, L ribs Cardio: rrr, normal s1s2, sys murmur Pulm: cta b/l Abd: obese, soft, nontender Ext: b/l wound dressings in place LABS Laboratory Results - last 24 hr 02/08/19 02/08/19 02/08/19 13:00 13:00 13:10 WBC 5.8 RBC 3.88 Hgb 9.8 L Hct 30.2 L MCV 77.9 L MCH 25.2 L MCHC 32.4 RDW 18.4 H Plt Count 218 MPV 9.1 Absolute Neuts (auto) 3.8 Neutrophils % 66.6 Lymphocytes % 17.6 Monocytes % 8.9 Eosinophils % 6.3 H Basophils % 0.6 Nucleated RBC % 0 Sodium 139 Potassium 3.7 Chloride 104 Carbon Dioxide 29 Anion Gap 6 L BUN 18.1 H Creatinine 1.0 Est GFR (CKD-EPI)AfAm 67.04 Est GFR (CKD-EPI)NonAf 57.84 Random Glucose 78 Calcium 9.0 Total Bilirubin 0.3 AST 20 ALT 16 Alkaline Phosphatase 88 Creatine Kinase 295 H Creatine Kinase Index No Result Required. CK-MB (CK-2) < 1.0 Troponin I < 0.02 Total Protein 8.3 H Albumin 3.0 L Lipase Cancelled 86 TSH 3.38 Urine Color Urine Appearance Urine pH Ur Specific [place] Urine Protein Urine Glucose (UA) Urine Ketones Urine Blood Urine Nitrite Urine Bilirubin Urine Urobilinogen Ur Leukocyte Esterase 02/08/19 02/08/19 13:45 17:00 WBC RBC Hgb Hct MCV MCH MCHC RDW Plt Count MPV Absolute Neuts (auto) Neutrophils % Lymphocytes % Monocytes % Eosinophils % Basophils % Nucleated RBC % Sodium Potassium Chloride Carbon Dioxide Anion Gap BUN Creatinine Est GFR (CKD-EPI)AfAm Est GFR (CKD-EPI)NonAf Random Glucose Calcium Total Bilirubin AST ALT Alkaline Phosphatase Creatine Kinase Creatine Kinase Index CK-MB (CK-2) Troponin I < 0.02 Total Protein Albumin Lipase TSH Urine Color Yellow Urine Appearance Clear Urine pH 5.5 D Ur Specific [place] 1.011 Urine Protein Negative Urine Glucose (UA) Negative Urine Ketones Negative Urine Blood Negative Urine Nitrite Negative Urine Bilirubin Negative Urine Urobilinogen 0.2 Ur Leukocyte Esterase Negative HOSPITAL COURSE: Date of Admission:02/08/19 Date of Discharge: 02/08/19 Pt is a 68 y/o F with PMH anemia, asthma, HTN, HLD, and hypothyroidism, morbid obesity (BMI 51.4) who presented to ED with complaint of chest discomfort following rapid response. Pt had negative troponin x 2 and normal EKG in ED with resolution of symptoms. ACS has been ruled out. Stable for discharge Minutes to complete discharge: 5 Discharge Summary Reason For Visit: CHEST PAIN AT REST Condition: Fair - Instructions Diet, Activity, Other Instructions: You were in the hospital for chest pain. With chest pain there is sometimes concern for heart disease. Your heart enzymes and EKG were negative. Please take your home medications. See your regular doctor within a week. Disposition: HOME - Home Medications Comprehensive Discharge Medication List: Ambulatory Orders Levothyroxine [Synthroid -] 50 mcg PO DAILY 03/23/14 Valsartan/Hydrochlorothiazide [Diovan Hct 160-25 mg Tablet] 1 combo PO DAILY Latanoprost 0.005% Eye Drops [Xalatan 0.005% Eye Drops -] 1 drop OU HS 10/14/17 Albuterol 0.083% Nebulizer Dalia [Ventolin 0.083% Nebulizer Soln -] 1 neb NEB Q6H PRN #60 vial 04/23/18 Aspirin [ASA -] 81 mg PO ASDIR 04/23/18 Fluticasone/Salmeterol [Advair 250-50 Diskus] 1 each IH BID 11/22/18 Mag Hydrox/Al Hydrox/Simeth [Mylanta Suspension -] 30 ml PO Q6H #1 bottle This patient is new to me today: Yes Date on this admission: 02/08/19 Emergency Visit: Yes ED Registration Date: 02/08/19 Care time: The patient presented to the Emergency Department on the above date and was hospitalized for further evaluation of their emergent condition. Critical Care patient: No - Discharge Referral Referred to [facility] Med [facility].C[facility] No ATTENDING PHYSICIAN STATEMENT I saw and evaluated the patient. I reviewed the resident's note and discussed the case with the resident. I agree with the resident's findings and plan as documented. SUBJECTIVE: OBJECTIVE: ASSESSMENT AND PLAN:
== END 2019-02-08 18:30 | disposition home or self-care (01) ==
LOC: SUPCPDRO 11:50 → JER 11:50 → JERBED 13:42
PROVIDERS: ADMIT Hospitalist; ATTEND Hospitalist
DX: R07.89 Other chest pain (principal); R00.2 Palpitations; R05 Cough; I10 Essential (primary) hypertension; E03.9 Hypothyroidism, unspecified; J45.909 Unspecified asthma, uncomplicated; H26.9 Unspecified cataract; I73.9 Peripheral vascular disease, unspecified; D64.9 Anemia, unspecified; E78.5 Hyperlipidemia, unspecified; Z96.651 Presence of right artificial knee joint; Z79.82 Long term (current) use of aspirin; Z91.010 Allergy to peanuts; Z91.048 Other nonmedicinal substance allergy status
CPT/HCPCS: 36415; 71045-TC-FY; 80053; 81003; 82550; 82553; 83690; 84443; 84484; 85025; 93005; 93010; 99284-25; G0378

== ENCOUNTER 2019-05-10 16:13 | Emergency (ER) | payer OTHER ==
[2019-05-10 16:26] VITALS: BP 126/76; PULSE 78; TEMP 98; BMI 57.5
--- NOTE | 2019-05-10 16:28 | PDOC ---
Rapid Medical Evaluation Time Seen by Provider: 05/10/19 16:23 Medical Evaluation: Allergies Allergy/AdvReac Type Severity Reaction Status Date / Time peanut [Peanut] Allergy Verified 11/22/18 17:14 ammonium lactate Allergy Uncoded 11/22/18 17:14 05/10/19 16:23 Pt c/o: left upper abd pain radiating to left back x 2 days, no fall, no rash, no hx of renal colic, gastritis, worse after lifting package, no urinary or bowel compliants, not improved with motrin every 12 hrs, no fever, no cough Pt on brief exam: no rash, reproducible left flank and left thoracic tenderness Pt ordered for: none Pt to proceed to the ED Discharge Disposition - Diagnosis Left-sided back pain Qualifiers: Back pain location: low back pain Chronicity: acute Sciatica presence: without sciatica Qualified Code(s): M54.5 - Low back pain - Discharge Dispostion Disposition: HOME Condition at time of disposition: Stable - Prescriptions Prescriptions: Cyclobenzaprine HCl [Flexeril -] 10 mg PO HS PRN #7 tablet PRN Reason: Muscle Spasms Lidocaine 5% Patch [Lidoderm -] 1 patch TP DAILY PRN #30 patch PRN Reason: Back Pain Naproxen 500 mg PO BID #14 tablet predniSONE [Deltasone -] 40 mg PO DAILY #4 tablet - Referrals Referrals: Anju Diamond MD [Primary Care Provider] - Call tomorrow - Patient Instructions Printed Discharge Instructions: Low Back Pain Additional Instructions: Do light stretches Apply ice to the area for the first 24 hours. Then alternate with ice and heat after. Take ibuprofen every 6 hours as needed for pain. Take Flexeril as prescribed for muscle spasm. Flexeril can make you sleepy, do not drive or operate heavy machinery after taking the medication. Follow-up with an orthopedic doctor if symptoms persist. A referral was given to you today. Return to the emergency room for any worsening symptoms. - Post Discharge Activity
[2019-05-10 18:01] LABS: URINE APPEARANCE CLEAR; URINE BILIRUBIN NEGATIVE (NEGATIVE); URINE COLOR YELLOW; URINE GLUCOSE (UA) NEGATIVE (NEGATIVE); URINE KETONE NEGATIVE (NEGATIVE); URINE LEUK ESTERASE NEGATIVE (NEGATIVE); URINE NITRITE NEGATIVE (NEGATIVE); URINE PROTEIN NEGATIVE (NEGATIVE); URINE UROBILINOGEN 0.2 mg/dL (0.2-1.0)
[2019-05-10] MEDS ORDERED: LIDOCAINE 5% TOPICAL PATCH TP ONE (18:11)
[2019-05-10] MEDS ORDERED: KETOROLAC TROMETHAMINE 30 MG/1 ML VIAL IM ONE (18:11)
[2019-05-10] MEDS ORDERED: diazePAM 5 MG TABLET ONE (18:11)
--- NOTE | 2019-05-10 18:11 | PDOC ---
History of Present Illness - General Chief Complaint: Pain, Acute Stated Complaint: PAIN Time Seen by Provider: 05/10/19 16:23 History Source: Patient Exam Limitations: No Limitations Past History - Travel Traveled outside of the country in the last 30 days: No Close contact w/someone who was outside of country & ill: No - Past Medical History Allergies/Adverse Reactions: Allergies Allergy/AdvReac Type Severity Reaction Status Date / Time peanut [Peanut] Allergy Verified 05/10/19 16:26 ammonium lactate Allergy Uncoded 05/10/19 16:26 Home Medications: Ambulatory Orders Levothyroxine [Synthroid -] 50 mcg PO DAILY 03/23/14 Valsartan/Hydrochlorothiazide [Diovan Hct 160-25 mg Tablet] 1 combo PO DAILY Latanoprost 0.005% Eye Drops [Xalatan 0.005% Eye Drops -] 1 drop OU HS 10/14/17 Albuterol 0.083% Nebulizer Dalia [Ventolin 0.083% Nebulizer Soln -] 1 neb NEB Q6H PRN #60 vial 04/23/18 Fluticasone/Salmeterol [Advair 250-50 Diskus] 1 each IH BID 11/22/18 Mag Hydrox/Al Hydrox/Simeth [Mylanta Suspension -] 30 ml PO Q6H #1 bottle Cyclobenzaprine HCl [Flexeril -] 10 mg PO HS PRN #7 tablet 05/10/19 Lidocaine 5% Patch [Lidoderm -] 1 patch TP DAILY PRN #30 patch 05/10/19 Naproxen 500 mg PO BID #14 tablet 05/10/19 predniSONE [Deltasone -] 40 mg PO DAILY #4 tablet 05/10/19 Anemia: Yes Asthma: Yes Cancer: No Cardiac Disorders: Yes (chest pain 07/2017) CVA: No COPD: No CHF: No Dementia: No Diabetes: No GI Disorders: No Disorders: No HTN: Yes Hypercholesterolemia: Yes Liver Disease: No Seizures: No Thyroid Disease: Yes (HYPO.) - Surgical History Abdominal Surgery: No Appendectomy: No Cardiac Surgery: No Cholecystectomy: No Lung Surgery: No Neurologic Surgery: No Orthopedic Surgery: Yes (right knee replacement) - Immunization History Immunization Up to Date: Yes - Psycho Social/Smoking Cessation Hx Smoking Status: No Smoking History: Never smoked Have you smoked in the past 12 months: No Number of Cigarettes Smoked Daily: 0 Hx Alcohol Use: No Drug/Substance Use Hx: No Substance Use Type: None Hx Substance Use Treatment: No Review of Systems - Review of Systems Able to Perform ROS?: Yes Comments:: 05/10/19 19:19 CONSTITUTIONAL: Absent: fever, chills, diaphoresis, generalized weakness, malaise, loss of appetite GASTROINTESTINAL: Absent: abdominal pain, abdominal distension, nausea, vomiting, diarrhea, constipation, melena, hematochezia GENITOURINARY: Absent: dysuria, frequency, urgency, hesitancy, hematuria, flank pain, genital pain MUSCULOSKELETAL: Present: L low back pain Absent: arthralgia, joint swelling SKIN: Absent: rash, itching, pallor NEUROLOGIC: Absent: headache, focal weakness or paresthesias, dizziness, unsteady gait, seizure, mental status changes, bladder or bowel incontinence PSYCHIATRIC: Absent: anxiety, depression, suicidal or homicidal ideation, hallucinations. Is the patient limited Maori proficient: No *Physical Exam - Vital Signs Last Vital Signs Temp Pulse Resp BP Pulse Ox 98 F 78 18 126/76 98 05/10/19 16:20 05/10/19 16:20 05/10/19 16:20 05/10/19 16:20 05/10/19 16:20 - Physical Exam 05/10/19 19:19 GENERAL: Well developed, well nourished. Awake and alert. No acute distress. ABDOMINAL: Soft. Non-tender. Non-distended. No rebound or guarding. No organomegaly. Normoactive bowel sounds. MUSCULOSKELETAL Normal range of motion at all joints. No bony deformities or tenderness. No CVA tenderness. EXTREMITIES: No cyanosis. No clubbing. No edema. No calf tenderness. SKIN: Warm and dry. Normal capillary refill. No rashes. No jaundice. NEUROLOGICAL: Alert, awake, appropriate. Cranial nerves 2-12 intact. No deficits to light touch and temperature in face, upper extremities and lower extremities. No motor deficits in the in face, upper extremities and lower extremities. Normoreflexic in the upper and lower extremities. Normal speech. Toes are down- going bilaterally. Gait is normal without ataxia. PSYCHIATRIC: Cooperative. Good eye contact. Appropriate mood and affect. ED Treatment Course - ADDITIONAL ORDERS Additional order review: Laboratory Results 05/10/19 17:30 Urine Color Yellow Urine Appearance Clear Urine pH 5.0 Ur Specific [place] 1.020 Urine Protein Negative Urine Glucose (UA) Negative Urine Ketones Negative Urine Blood Negative Urine Nitrite Negative Urine Bilirubin Negative Urine Urobilinogen 0.2 Ur Leukocyte Esterase Negative Medical Decision Making - Medical Decision Making 05/10/19 19:19 Patient is 68-year-old female past medical history of hypertension, hypothyroid , right knee replacement, presents to the ER today for low back pain on the left side for 1 week. She states that the pain increased in intensity this morning so she came to the ER for evaluation. She notes that the pain is very sharp on her left side and it is hard to move due to the pain. She states that the pain goes from her mid back to her buttock. She states that it sometimes radiates around to her abdomen. She is concerned she may have a UTI however denies urinary symptoms. Denies fevers, chills, trauma, numbness and tingling weakness the affected extremity, saddle anesthesia and bladder bowel incontinence. A/P: Low back pain -Pt with TTP of the L paraspinous muscles, L1-L5, with palpable knot consistent with muscle spasm. No midline tenderness. Negative straight leg raise testing. -No trauma, or fever. No saddle anesthesia or bladder/bowel incontinence. No CVA tenderness. -Pt is neurologically intact on exam with no focal findings. -Toradol, Valium and lidocaine patch given with some relief of symptoms however patient is still complaining of pain -Prednisone added -UA is negative -Patient pending pain control. Signout given to JAY JAY Linn. Discharge - Discharge Information Problems reviewed: Yes Clinical Impression/Diagnosis: Left-sided back pain Qualifiers: Back pain location: low back pain Chronicity: acute Sciatica presence: without sciatica Qualified Code(s): M54.5 - Low back pain Condition: Stable Disposition: HOME - Additional Discharge Information Prescriptions: Cyclobenzaprine HCl [Flexeril -] 10 mg PO HS PRN #7 tablet PRN Reason: Muscle Spasms Lidocaine 5% Patch [Lidoderm -] 1 patch TP DAILY PRN #30 patch PRN Reason: Back Pain Naproxen 500 mg PO BID #14 tablet predniSONE [Deltasone -] 40 mg PO DAILY #4 tablet - Follow up/Referral Referrals: Anju Diamond MD [Primary Care Provider] - Call tomorrow - Patient Discharge Instructions Patient Printed Discharge Instructions: Low Back Pain Additional Instructions: Do light stretches Apply ice to the area for the first 24 hours. Then alternate with ice and heat after. Take ibuprofen every 6 hours as needed for pain. Take Flexeril as prescribed for muscle spasm. Flexeril can make you sleepy, do not drive or operate heavy machinery after taking the medication. Follow-up with an orthopedic doctor if symptoms persist. A referral was given to you today. Return to the emergency room for any worsening symptoms. - Post Discharge Activity
[2019-05-10] MEDS ORDERED: KETOROLAC TROMETHAMINE 30 MG/1 ML VIAL ONE (18:12)
[2019-05-10] MEDS ORDERED: LIDOCAINE 5% TOPICAL PATCH ONE ×2 (18:12→20:15)
[2019-05-10] MEDS ORDERED: diazePAM 5 MG TABLET PO ONE (18:12)
[2019-05-10] MEDS ORDERED: predniSONE 20 MG TABLET (UD) PO ONE (18:45)
--- NOTE | 2019-05-10 19:31 | PDOC ---
*Physical Exam - Vital Signs Last Vital Signs Temp Pulse Resp BP Pulse Ox 98 F 78 18 126/76 98 05/10/19 16:20 05/10/19 16:20 05/10/19 16:20 05/10/19 16:20 05/10/19 16:20 ED Treatment Course - ADDITIONAL ORDERS Additional order review: Laboratory Results 05/10/19 17:30 Urine Color Yellow Urine Appearance Clear Urine pH 5.0 Ur Specific [place] 1.020 Urine Protein Negative Urine Glucose (UA) Negative Urine Ketones Negative Urine Blood Negative Urine Nitrite Negative Urine Bilirubin Negative Urine Urobilinogen 0.2 Ur Leukocyte Esterase Negative - Medications Given in the ED: ED Medications Discontinued Medications Generic Name Dose Route Start Last Admin Trade Name Freq PRN Reason Stop Dose Admin Diazepam 5 mg 05/10/19 18:12 05/10/19 18:23 Valium - PO 05/10/19 18:13 5 mg ONCE ONE Administration Ketorolac Tromethamine 30 mg 05/10/19 18:11 05/10/19 18:23 Toradol Injection - IM 05/10/19 18:12 30 mg ONCE ONE Administration Medical Decision Making - Medical Decision Making 05/10/19 20:03 pstient reports that she is feeling better. will d/c home 05/10/19 20:03 patient is alert awake taking a cab home Discharge - Discharge Information Problems reviewed: Yes Clinical Impression/Diagnosis: Left-sided back pain Qualifiers: Back pain location: low back pain Chronicity: acute Sciatica presence: without sciatica Qualified Code(s): M54.5 - Low back pain Disposition: HOME - Additional Discharge Information Prescriptions: Cyclobenzaprine HCl [Flexeril -] 10 mg PO HS PRN #7 tablet PRN Reason: Muscle Spasms Lidocaine 5% Patch [Lidoderm -] 1 patch TP DAILY PRN #30 patch PRN Reason: Back Pain Naproxen 500 mg PO BID #14 tablet predniSONE [Deltasone -] 40 mg PO DAILY #4 tablet - Follow up/Referral Referrals: Anju Diamond MD [Primary Care Provider] - Call tomorrow - Patient Discharge Instructions Patient Printed Discharge Instructions: Low Back Pain Additional Instructions: Do light stretches Apply ice to the area for the first 24 hours. Then alternate with ice and heat after. Take ibuprofen every 6 hours as needed for pain. Take Flexeril as prescribed for muscle spasm. Flexeril can make you sleepy, do not drive or operate heavy machinery after taking the medication. Follow-up with an orthopedic doctor if symptoms persist. A referral was given to you today. Return to the emergency room for any worsening symptoms. - Post Discharge Activity
[2019-05-10] MEDS ORDERED: predniSONE 20 MG TABLET (UD) ONE (20:14)
[2019-05-10] MEDS ORDERED: LIDOCAINE PATCH REMOVAL MC SCH (22:00)
== END 2019-05-10 20:45 | disposition home or self-care (01) ==
LOC: JER 16:13
PROC: 3E0233Z Introduction of Anti-inflammatory into Muscle, Percutaneous Approach (ICD-10-PCS; principal; 2019-05-10)
DX: M54.5 Low back pain (principal); I10 Essential (primary) hypertension; E03.9 Hypothyroidism, unspecified; Z96.651 Presence of right artificial knee joint; J45.909 Unspecified asthma, uncomplicated; E78.00 Pure hypercholesterolemia, unspecified
CPT/HCPCS: 81003; 87077; 87086; 96372; 99281-25

== ENCOUNTER 2019-07-26 09:14 | Emergency (ER) | payer OTHER ==
[2019-07-26 09:43] VITALS: BP 107/45; PULSE 78; TEMP 97.8; BMI 51.9
--- NOTE | 2019-07-26 10:11 | PDOC ---
History of Present Illness - General History Source: Patient Exam Limitations: No Limitations - History of Present Illness Initial Comments: 07/26/19 10:06 Patient is a 69-year-old female who presents to the ED with complaint of several days of left knee pain to the medial and posterior aspects. She states she is having difficulty walking because of the pain. She denies any known injury. The patient states that she spoke with her primary doctor yesterday and was advised to come to the ED to have an x-ray done. The patient has a history of thyroid disease, hypertension and asthma. She denies any allergies to medications. She does admit to taking an aspirin this morning for the pain. The patient presents walking with a cane today secondary to the pain. The patient denies any recent long travel in a car or plane. She denies any history of DVT. She denies any chest pain or shortness of breath. <Kristen Anderson - Last Filed: 07/26/19 12:01> <Oly Saavedra - Last Filed: 07/26/19 12:16> - General Chief Complaint: Pain Stated Complaint: SENT BY PCP LEG PAIN Time Seen by Provider: 07/26/19 09:50 Past History - Past Medical History Anemia: Yes Asthma: Yes Cancer: No Cardiac Disorders: Yes (chest pain 07/2017) CVA: No COPD: No CHF: No Dementia: No Diabetes: No GI Disorders: No Disorders: No HTN: Yes Hypercholesterolemia: Yes Liver Disease: No Seizures: No Thyroid Disease: Yes (HYPO.) - Surgical History Abdominal Surgery: No Appendectomy: No Cardiac Surgery: No Cholecystectomy: No Lung Surgery: No Neurologic Surgery: No Orthopedic Surgery: Yes (right knee replacement) - Immunization History Immunization Up to Date: Yes - Psycho Social/Smoking Cessation Hx Smoking Status: No Smoking History: Never smoked Have you smoked in the past 12 months: No Number of Cigarettes Smoked Daily: 0 Hx Alcohol Use: No Drug/Substance Use Hx: No Substance Use Type: None Hx Substance Use Treatment: No <Kristen Anderson - Last Filed: 07/26/19 12:01> <Oly Saavedra - Last Filed: 07/26/19 12:16> - Past Medical History Allergies/Adverse Reactions: Allergies Allergy/AdvReac Type Severity Reaction Status Date / Time peanut [Peanut] Allergy Verified 07/26/19 09:37 ammonium lactate Allergy Uncoded 07/26/19 09:37 Home Medications: Ambulatory Orders Levothyroxine [Synthroid -] 50 mcg PO DAILY 03/23/14 Valsartan/Hydrochlorothiazide [Diovan Hct 160-25 mg Tablet] 1 combo PO DAILY Latanoprost 0.005% Eye Drops [Xalatan 0.005% Eye Drops -] 1 drop OU HS 10/14/17 Albuterol 0.083% Nebulizer Dalia [Ventolin 0.083% Nebulizer Soln -] 1 neb NEB Q6H PRN #60 vial 04/23/18 Fluticasone/Salmeterol [Advair 250-50 Diskus] 1 each IH BID 11/22/18 Mag Hydrox/Al Hydrox/Simeth [Mylanta Suspension -] 30 ml PO Q6H #1 bottle Cyclobenzaprine HCl [Flexeril -] 10 mg PO HS PRN #7 tablet 05/10/19 Lidocaine 5% Patch [Lidoderm -] 1 patch TP DAILY PRN #30 patch 05/10/19 Naproxen 500 mg PO BID #14 tablet 05/10/19 predniSONE [Deltasone -] 40 mg PO DAILY #4 tablet 05/10/19 Review of Systems - Review of Systems Comments:: 07/26/19 10:07 - Review of Systems Able to Perform ROS?: Yes Constitutional: No: Fever, Chills, Loss of Appetite, Night Sweats, Weakness Respiratory: No: Cough, Shortness of Breath, Wheezing, Sputum Production Cardiac (ROS): No: Chest Pain, Chest Tightness, Palpitations, Irregular Heart Beat, Edema ABD/GI: No: Nausea, Vomiting, Abdominal Pain, Diarrhea : No Dysuria, No Hematuria, No Frequency, No Urgency Musculoskeletal: No: Muscle Pain, Back Pain, Muscle Weakness, Neck Pain; Positive Left knee pain Integumentary: No: Lesions, Rash Neurological: No: Headache, Numbness, Tingling, Weakness, Speech Difficulties <Kristen Anderson - Last Filed: 07/26/19 12:01> *Physical Exam - Vital Signs Last Vital Signs Temp Pulse Resp BP Pulse Ox 97.8 F 78 18 107/45 L 98 07/26/19 09:37 07/26/19 09:37 07/26/19 09:37 07/26/19 09:37 07/26/19 09:37 - Physical Exam 07/26/19 10:08 - Physical Exam General Appearance: Nourished, Appropriately Dressed, No Distress Neck: Supple, No Lymphadenopathy (R), No Lymphadenopathy (L), No Rigidity, No Decreased range of motion Respiratory/Chest: Lungs Clear, Normal Breath Sounds. No Respiratory Distress, No Accessory Muscle Use Cardiovascular: Regular Rhythm, Regular Rate, S1, S2 Gastrointestinal/Abdominal: Normal Bowel Sounds, Soft. Non-tender, No Guarding , No Rebound, No Rigidity Musculoskeletal: Normal Inspection. Left knee with tenderness to palpation on the medial and posteromedial aspect. There is mild tenderness to palpation to the proximal aspect of the left calf. There is 2+ edema to the bilateral lower extremities. Unable to palpate pulses. Range of motion of the left knee from 0 to 100 degrees actively Extremity: Normal Capillary Refill, Normal Inspection Integumentary: Normal Color, Dry. No Rash Neurologic: hot room attendant II-XII NML intact, Fully Oriented, Alert, Normal Mood/Affect, Normal Response <Kristen Anderson - Last Filed: 07/26/19 12:01> - Vital Signs Last Vital Signs Temp Pulse Resp BP Pulse Ox 97.8 F 78 18 107/45 L 98 07/26/19 09:37 07/26/19 09:37 07/26/19 09:37 07/26/19 09:37 07/26/19 09:37 <Oly Saavedra - Last Filed: 07/26/19 12:16> ED Treatment Course - RADIOLOGY Radiology Studies Ordered: Category Date Time Status KNEE 3 POS-LEFT [RAD] Stat Radiology 07/26/19 10:06 Ordered DUPLEX VASCUL US-1 LEG [US] Stat Ultrasound 07/26/19 10:05 Ordered <Kristen Anderson - Last Filed: 07/26/19 12:01> Medical Decision Making - Medical Decision Making 07/26/19 10:10 Assessment: Patient is a 69-year-old female with left knee and left calf pain for the last several days. Plan: -Left knee x-ray ordered -Left lower extremity Doppler ultrasound ordered to rule out DVT -Will reassess 07/26/19 12:01 The patient has been made aware that she has advanced arthritis of her left knee as well as no evidence of DVT on ultrasound. She should follow-up with orthopedics for possible outpatient corticosteroid injection and further intervention. The patient has been encouraged to ice and elevate her knee. She can alternate Tylenol and ibuprofen for her pain. She understands and agrees with treatment plan and the patient is stable for discharge. <Kristen Anderson - Last Filed: 07/26/19 12:01> - Medical Decision Making I reviewed the case with the mid-level practitioner and agree with the mid- level practitioner's assessment, diagnosis and disposition. <Oly Saavedra - Last Filed: 07/26/19 12:16> Discharge - Discharge Information Problems reviewed: Yes <Kristen Anderson - Last Filed: 07/26/19 12:01> <Oly Saavedra - Last Filed: 07/26/19 12:16> - Discharge Information Clinical Impression/Diagnosis: Left medial knee pain Osteoarthritis of left knee Qualifiers: Osteoarthritis type: primary Qualified Code(s): M17.12 - Unilateral primary osteoarthritis, left knee Condition: Stable Disposition: HOME - Follow up/Referral Referrals: Anju Diamond MD [Primary Care Provider] - Heraclio Hall MD [Staff Physician] - 1 week - Patient Discharge Instructions Patient Printed Discharge Instructions: DI for Osteoarthritis Additional Instructions: Ice and elevate your left knee. Take Tylenol or ibuprofen for pain. You should follow-up with orthopedics within 1 week for repeat evaluation. You may require an outpatient corticosteroid injection or physical therapy. You have advanced arthritis in your left knee. - Post Discharge Activity
== END 2019-07-26 12:26 | disposition home or self-care (01) ==
LOC: JER 09:14
DX: M17.12 Unilateral primary osteoarthritis, left knee (principal); I10 Essential (primary) hypertension; E03.9 Hypothyroidism, unspecified; E78.00 Pure hypercholesterolemia, unspecified; D64.9 Anemia, unspecified; Z87.09 Personal history of other diseases of the respiratory system; Z96.651 Presence of right artificial knee joint
CPT/HCPCS: 73562-TC-LT-FY; 93971-TC; 99284-25

== ENCOUNTER 2020-01-19 05:05 | Observation (INO) | payer OTHER ==
[2020-01-19] MEDS ORDERED: ASPIRIN 81 MG CHEWABLE TABLETS PO ONE (05:53)
[2020-01-19] MEDS ORDERED: ASPIRIN 81 MG CHEWABLE TABLETS ONE (05:57)
--- NOTE | 2020-01-19 06:06 | PDOC ---
History of Present Illness - General Chief Complaint: Chest Pain Stated Complaint: CHEST PAIN,SOB Time Seen by Provider: 01/19/20 05:35 - History of Present Illness Initial Comments: Fanny Bustillo is a 69yo woman with a PMH of OA, obesity, HTN, HLD, temporal arteritis, venous insufficiency, asthma, OA s/p right total knee replacement, anxiety who presents with one day of headache, left chest pain, left neck pain, and nausea after taking Lasix for the first time yesterday. She states that she had previously been taken off of her home losartan/hydrochlorothiazide due to orthostasis, but she developed LE edema. She saw her PMD earlier this week and was prescribed lasix, which she took for the first time yesterday. She gamboa bsequently developed a severe headache yesterday followed by left axillary, left chest, and left neck pain. Today, she also had nausea without vomiting. Ms Bustillo states that she did take 650mg acetaminophen with improvement in her FLOREZ, but she feels "miserable" and came to the ED for evaluation. She denies any lightheadedness, SOB, or other new symptoms but does endorse baseline orthopnea and MURILLO. Past History - Medical History Allergies/Adverse Reactions: Allergies Allergy/AdvReac Type Severity Reaction Status Date / Time peanut [Peanut] Allergy Verified 01/19/20 05:43 ammonium lactate Allergy Uncoded 01/19/20 05:43 Home Medications: Ambulatory Orders Levothyroxine [Synthroid -] 50 mcg PO DAILY 03/23/14 Latanoprost 0.005% Eye Drops [Xalatan 0.005% Eye Drops -] 1 drop HS 01/19/20 Anemia: Yes Asthma: Yes Cancer: No Cardiac Disorders: Yes (chest pain 07/2017) CVA: No COPD: No CHF: No Dementia: No Diabetes: No GI Disorders: No Disorders: No HTN: Yes Hypercholesterolemia: Yes Liver Disease: No Seizures: No Thyroid Disease: Yes (HYPO.) - Surgical History Abdominal Surgery: No Appendectomy: No Cardiac Surgery: No Cholecystectomy: No Lung Surgery: No Neurologic Surgery: No Orthopedic Surgery: Yes (right knee replacement) - Immunization History Immunization Up to Date: Yes - Psycho-Social/Smoking History Smoking Status: No Smoking History: Never smoked Have you smoked in the past 12 months: No Number of Cigarettes Smoked Daily: 0 Information on smoking cessation initiated: No - Substance Abuse Hx (Audit-C & DAST Scrn) How often the patient has a drink containing alcohol: Never Score: In Men: 4 or > Positive; In Women: 3 or > Positive: 0 Screen Result (Pos requires Nsg. Audit-10AR): Negative Review of Systems - Review of Systems Comments:: General: No fevers, no chills, no weight or appetite change, + malaise HEENT: No changes in vision, no changes in hearing, no congestion, no sore throat, +FLOREZ CV: + chest pain, no palpitations, + LE edema, +orthopnea Pulm: No SOB, no cough, no wheezing GI: No nausea or vomiting, no change in bowel habits, no melena : No frequency, no urgency, no dysuria Musc: No back pain, no joint swelling, no recent injury Skin: + BLE rash L>R, no lesions, no erythema Endo: No excessive thirst, no heat/cold intolerance Heme: No unusual bruising or bleeding, no swollen glands Neuro: No syncope, no numbness/tingling, no focal weakness Vasc: No claudication Psych: No recent change in mood, no SI or HI *Physical Exam - Vital Signs Last Vital Signs Temp Pulse Resp BP Pulse Ox 98.5 F 77 18 156/84 97 01/19/20 05:32 01/19/20 05:32 01/19/20 05:32 01/19/20 05:32 01/19/20 05:32 - Physical Exam General: In no acute distress HEENT: PERRL, EOMI, MMM, voice normal, normal neck ROM, no LAD Cards: RRR, no murmur appreciated Pulm: Comfortable on room air, clear to auscultation bilaterally Abd: Soft, nontender, nondistended Ext: Atraumatic. 2+ BLE edema. ROM intact. Strength 5/5 and equal bilaterally Vasc: Extremities WWP Skin: Skin darkening w/ thickening on BLE, L>R. Neuro: A&Ox3, CN grossly intact, normal speech, motor/sensory grossly intact and symmetric Psych: Mildly anxious ED Treatment Course - LABORATORY CBC & Chemistry Diagram: 01/19/20 06:35 01/19/20 06:35 - RADIOLOGY Radiology Studies Ordered: Category Date Time Status CHEST X-RAY PORTABLE* [RAD] Stat Radiology 01/19/20 05:52 Ordered Medical Decision Making - Medical Decision Making 01/19/20 05:53 Fnany Bustillo is a 69yo woman with a PMH of OA, obesity, HTN, HLD, temporal arteritis, venous insufficiency, asthma, OA s/p right total knee replacement, anxiety who presents with one day of headache, left chest pain, left neck pain, and nausea after taking Lasix for the first time yesterday. - ACS, dehydration, anxiety. Unlikely CHF given improvement in LE edema. - CBC, CMP, trop, EKG, CXR - ASA 01/19/20 07:03 - Labs pending - Signed out to Dr Garcia for the remainder of her ED care Discussed with Dr Debbie Waters PGY3 Discharge - Discharge Information Problems reviewed: Yes Clinical Impression/Diagnosis: Chest pain Qualifiers: Chest pain type: unspecified Qualified Code(s): R07.9 - Chest pain, unspecified Condition: Stable - Follow up/Referral - Patient Discharge Instructions - Post Discharge Activity
--- NOTE | 2020-01-19 06:26 | PDOC ---
Attending Attestation - Resident Resident Name: JtCarissa - ED Attending Attestation I have performed the following: I have examined & evaluated the patient, The case was reviewed & discussed with the resident, I agree w/resident's findings & plan - HPI HPI: 01/19/20 06:28 69 y/o lady with h/o OA, obesity, HTN, HLD, temporal arteritis, venous insufficiency, asthma, OA s/p right total knee replacement, anxiety presenting with left sided chest discomfort, headache, dizziness/lightheadedness and nausea this morning. she states she started taking lasix 20mg yesterday per her primary doctor; had changes with her antihypertensives 2/2 orthostatics. - Physicial Exam PE: 01/19/20 06:24 Agree with the resident's HPI and PE as documented in the electronic medical record. NAD, well appearing, mildly anxious, obese, EOMI, PERRL, nl conjunctiva, anicteric; neck supple. lungs clear, RRR, abdomen soft nontender. no rebound, guarding. Back nontender. VOGEL x4, no focal neuro deficits. Bilateral peripheral edema, dry skin and baseline dark discoloration in the lower extremities. normal color for ethnicity, WWP. - Medical Decision Making 01/19/20 06:25 Vital Signs Temp Pulse Resp BP Pulse Ox 98.5 F 77 18 156/84 97 01/19/20 05:32 01/19/20 05:32 01/19/20 05:32 01/19/20 05:32 01/19/20 05:32 DDx chest pain: ACS, coronary vasospasm, NSTEMI, arrhythmia, unstable angina, PE, dissection, PUD, esophageal spasm, GERD, gastritis, costochondritis, pneumonia, pleurisy, pericarditis/myocarditis. dehydration, electrolyte/metabo lic derangements. Considered but clinically doubt based on HPI and PE: Low suspicion for pulmonary embolism or dissection. EKG normal sinus rhythm 69 bpm, no interval abnormalities, narrow QRS, ST and T wave segments and morphology normal. Nonspecific T wave abnormalities Chest pain HEART score 4 which denotes Moderate risk and probability for ACS, risk of 14-16% of MACE at 4-6 wks Given risk factors including comorbidities, clinical history labs and lytes, trop cxr Plan for admit observation, possible Stress testing, to r/o ischemia, serial trops and EKG/tele monitoring. ASA administered, pain controlled, discussion with patient at bedside, made aware of impression and plan, questions answered. 01/19/20 06:51 01/19/20 06:52 01/19/20 06:53 Heart Score/ECG Review - History History: Slightly suspicious - Electrocardiogram EKG: Non specific repolarization disturbance - Age Age: 45-65 - Risk Factors Risk Factors Heart Score: Yes Hx Hypercholesterolemia, Yes Hx Hypertension, Yes Hx Obesity Based on the list above the patient has:: >/=3 risk factors or Hx atherosclerotic disease - Troponin Troponin: </= normal limit - Score Heart Score - Total: 4 #1 ECG reviewed & interpreted by me at: 05:30 General ECG Interpretation: Sinus Rhythm, Normal Rate, Normal Intervals 01/19/20 06:25 EKG normal sinus rhythm 69 bpm, no interval abnormalities, narrow QRS, ST and T wave segments and morphology normal. Nonspecific T wave abnormalities Discharge - Discharge Information Problems reviewed: Yes Clinical Impression/Diagnosis: Chest pain Qualifiers: Chest pain type: unspecified Qualified Code(s): R07.9 - Chest pain, unspecified Condition: Fair - Admission Yes - Follow up/Referral - Patient Discharge Instructions - Post Discharge Activity
[2020-01-19 07:25] LABS: ALBUMIN 2.5 g/dl (3.4-5.0); ALK PHOS 77 U/L (45-117); ANION GAP 5 MMOL/L (8-16); BILIRUBIN,TOTAL 0.4 mg/dL (0.2-1); BLOOD UREA NITROGEN 9.8 mg/dL (7-18); CHLORIDE 108 mmol/L (98-107); CO2 28 mmol/L (21-32); CREATININE 0.8 mg/dL (0.55-1.3); GLUCOSE,RANDOM 88 mg/dL (74-106); POTASSIUM 3.6 mmol/L (3.5-5.1); SGOT/AST 15 U/L (15-37); SGPT/ALT 11 U/L (13-61); SODIUM 142 mmol/L (136-145); TOT PROT 7.1 g/dl (6.4-8.2)
[2020-01-19 07:28] LABS: BASO % 0.6 % (0-2.0); EOS % 4.9 % (0-4.5); HEMATOCRIT 26.9 % (32.4-45.2); HEMOGLOBIN 8.6 GM/dL (10.7-15.3); LYMPH % 15.1 % (8-40); MCH 24.8 pg (25.7-33.7); MEAN CELL VOLUME 77.5 fl (80-96); MEAN PLT VOLUME 9.1 fl (7.5-11.1); MONO % 5.8 % (3.8-10.2); NEUT % 73.6 % (42.8-82.8); PLATELET COUNT 199 K/MM3 (134-434); RBC 3.47 M/mm3 (3.60-5.2); WHITE BLOOD COUNT 5.9 K/mm3 (4.0-10.0)
[2020-01-19] MEDS ORDERED: LEVOTHYROXINE NA 50 MCG TABLET (FP) PO ONE (09:04)
[2020-01-19] MEDS ORDERED: LEVOTHYROXINE NA 25 MCG TABLET (FP) ONE ×3 (09:08→09:13)
[2020-01-19] MEDS ORDERED: HEPARIN NA (PORCINE) 5,000 UNITS/ML 1ML VIAL SQ SCH (10:00)
--- NOTE | 2020-01-19 10:21 | HP ---
<Robin Gatica - Last Filed: 01/19/20 15:29> CHIEF COMPLAINT: Headache/facial weakness/Chest pain PCP: Dr Mccoy HISTORY OF PRESENT ILLNESS: Patient is a 69 yo woman with a PMH of OA, obesity, HTN, HLD, temporal arteritis, venous insufficiency, asthma, vertigo, and anxiety who presented to [facility] due to sudden onset headache and chest discomfort. Patient endorses that ~ 10:30 yesterday morning, she began to develop a constant headache; headache is located across her entire head and was associated with left sided " facial pulling"; patient states she felt as if the left side of her face was rather weak later that evening. Patient then took Tylenol which partially mitigated her headache. Patient denies ever experiencing these symptoms in the past. Furthermore, patient states that during this time, she began to also experience chest pressure located on the left side of her chest. Of note, patient was recently started on Lasix 20 mg Daily in light of +JVD and increasing lower extremity edema. Patient was previously on HCTZ for her HTN but was discontinued due to lightheadedness. Denies LOC, blurry vision, or slurred speech. PMH as above Social- Denies SurgHx- Left breast lumpectomy, R Total Knee Replacement FH- [facility] and Sister Breast Cancer ER course was notable for: (1) ASA 324 (2) EKG NSR No ST-T wave abnormalities. QTc 400 (3) Allergies peanut [Peanut] Allergy (Verified 01/19/20 05:43) ammonium lactate Allergy (Uncoded 01/19/20 05:43) blisters HOME MEDICATIONS: Home Medications Medication Instructions Recorded Levothyroxine [Synthroid -] 50 mcg PO DAILY 03/23/14 Latanoprost 0.005% Eye Drops 1 drop HS 01/19/20 [Xalatan 0.005% Eye Drops -] REVIEW OF SYSTEMS CONSTITUTIONAL: Absent: fever, chills, diaphoresis, generalized weakness, malaise, loss of appetite, weight change HEENT: Absent: rhinorrhea, nasal congestion, throat pain, throat swelling, difficulty swallowing, mouth swelling, ear pain, eye pain, visual changes CARDIOVASCULAR: PRESENT: chest pain, peripheral edema RESPIRATORY: Absent: cough, shortness of breath, dyspnea with exertion, orthopnea, wheezing, stridor, hemoptysis GASTROINTESTINAL: Absent: abdominal pain, abdominal distension, nausea, vomiting, diarrhea, constipation, melena, hematochezia GENITOURINARY: Absent: dysuria, frequency, urgency, hesitancy, hematuria, flank pain, genital pain MUSCULOSKELETAL: Absent: myalgia, arthralgia, joint swelling, back pain, neck pain SKIN: Absent: rash, itching, pallor HEMATOLOGIC/IMMUNOLOGIC: Absent: easy bleeding, easy bruising, lymphadenopathy, frequent infections ENDOCRINE: Absent: unexplained weight gain, unexplained weight loss, heat intolerance, cold intolerance NEUROLOGIC: PRESENT headache, focal weakness or paresthesias PSYCHIATRIC: Absent: anxiety, depression, suicidal or homicidal ideation, hallucinations. PHYSICAL EXAMINATION Vital Signs - 24 hr 01/19/20 01/19/20 01/19/20 05:32 05:40 07:47 Temperature 98.5 F Pulse Rate 77 66 Pulse Rate [ 66 60 Apical] Respiratory 18 18 20 Rate Blood Pressure 156/84 Blood Pressure 141/76 124/89 [Right Arm] O2 Sat by Pulse 97 97 98 Oximetry (%) GENERAL: NAD HEAD:AT/NC EYES: EOMI Sclera clear EARS, NOSE, THROAT: MMM NECK: Slight JVD LUNGS: Clear to auscultation, no wheezing rhonchi or rales HEART: RRR No MRG S1S2 ABDOMEN: Obese NDNT. LOWER EXTREMITIES: LLE 3+ edema/Stasis dermatitis. RLE 2+ edema/Stasis dermatitis NEUROLOGICAL: Cranial nerves II-XII intact. SILT throughout. No motor deficits appreciated PSYCHIATRIC: Cooperative. Good eye contact. Appropriate mood and affect. Laboratory Results - last 24 hr 01/19/20 01/19/20 06:35 06:35 WBC 5.9 RBC 3.47 L Hgb 8.6 L Hct 26.9 L MCV 77.5 L MCH 24.8 L MCHC 32.0 RDW 18.0 H Plt Count 199 MPV 9.1 Absolute Neuts (auto) 4.4 Neutrophils % 73.6 Lymphocytes % 15.1 Monocytes % 5.8 Eosinophils % 4.9 H D Basophils % 0.6 Nucleated RBC % 0 Sodium 142 Potassium 3.6 Chloride 108 H Carbon Dioxide 28 Anion Gap 5 L BUN 9.8 Creatinine 0.8 Est GFR (CKD-EPI)AfAm 87.18 Est GFR (CKD-EPI)NonAf 75.22 Random Glucose 88 Calcium 8.0 L Total Bilirubin 0.4 AST 15 ALT 11 L Alkaline Phosphatase 77 Creatine Kinase 184 Creatine Kinase Index No Result Required. CK-MB (CK-2) < 1.0 Troponin I < 0.02 Total Protein 7.1 Albumin 2.5 L ASSESSMENT/PLAN: Patient is a 69 yo woman with a PMH of OA, obesity, HTN, HLD, temporal arteritis, venous insufficiency, asthma, OA s/p right total knee replacement, vertigo, and anxiety who presented to [facility] due to sudden onset headache and chest discomfort. #Headache/Facial weakness. Possible TIA -Will order Head CT to assess for any infarct -MRI if CT negative -Neurology Consult -Neuro checks -Lipid Profile done in November WNL -Acetaminophen 650 PRN for pain #Chest Pain, r/o ACS -HEART score 4 which denotes moderate risk and probability for ACS, risk of 14- 16% of MACE at 4-6 wks - 1st Trop Negative. Trend. EKG NSR No ST-T wave abnormalities seen. QTc 400. -Dobutamine Stress Echo 05/2017: 90% MPHR. No ST changes. no ischemia (nl EF), Echo 07/26: NL LV FX, NL RVSP, no valve disease. -Consider Transthoracic Echo. Will consult Cardio. Recs appreciated -Received ASA 324 in ED. Will continue on ASA 81 daily -Possible Stress testing per Cardio. #HTN -Patient not on any anti-HTN agents currently. Endorses her home BP measurements have been elevated, around the 160s systolic. -Was recently started on Furosemide for lower extremity edema and + JVD. Patient states she does not like the way the Lasix makes her feel, attributing her headache to the medication. -Will place on Lisinopril 2.5 daily and assess response. #FEN No Fluids Monitor Electrolytes Sodium Controlled #DVT ppx: HepSQTID #Dispo: Tele Obs Family Medical History Family History: As Documented Visit type - Medication Review Med list reviewed for High Risk Meds patients 65 and older: Yes - Emergency Visit Emergency Visit: Yes ED Registration Date: 01/19/20 Care time: The patient presented to the Emergency Department on the above date and was hospitalized for further evaluation of their emergent condition. - New Patient This patient is new to me today: Yes Date on this admission: 01/19/20 - Critical Care Critical Care patient: No ATTENDING PHYSICIAN STATEMENT I saw and evaluated the patient. I reviewed the resident's note and discussed the case with the resident. I agree with the resident's findings and plan as documented. SUBJECTIVE: OBJECTIVE: ASSESSMENT AND PLAN: <Helen Morales - Last Filed: 01/19/20 17:32> CHIEF COMPLAINT: PCP: HISTORY OF PRESENT ILLNESS: ER course was notable for: (1) (2) (3) Recent Travel: PAST MEDICAL HISTORY: PAST SURGICAL HISTORY: Social History: Smoking: Alcohol: Drugs: Allergies peanut [Peanut] Allergy (Verified 01/19/20 05:43) ammonium lactate Allergy (Uncoded 01/19/20 05:43) blisters HOME MEDICATIONS: Home Medications Medication Instructions Recorded Levothyroxine [Synthroid -] 50 mcg PO DAILY 03/23/14 Latanoprost 0.005% Eye Drops 1 drop HS 01/19/20 [Xalatan 0.005% Eye Drops -] REVIEW OF SYSTEMS CONSTITUTIONAL: Absent: fever, chills, diaphoresis, generalized weakness, malaise, loss of appetite, weight change HEENT: Absent: rhinorrhea, nasal congestion, throat pain, throat swelling, difficulty swallowing, mouth swelling, ear pain, eye pain, visual changes CARDIOVASCULAR: Absent: chest pain, syncope, palpitations, irregular heart rate, lightheadedness, peripheral edema RESPIRATORY: Absent: cough, shortness of breath, dyspnea with exertion, orthopnea, wheezing, stridor, hemoptysis GASTROINTESTINAL: Absent: abdominal pain, abdominal distension, nausea, vomiting, diarrhea, constipation, melena, hematochezia GENITOURINARY: Absent: dysuria, frequency, urgency, hesitancy, hematuria, flank pain, genital pain MUSCULOSKELETAL: Absent: myalgia, arthralgia, joint swelling, back pain, neck pain SKIN: Absent: rash, itching, pallor HEMATOLOGIC/IMMUNOLOGIC: Absent: easy bleeding, easy bruising, lymphadenopathy, frequent infections ENDOCRINE: Absent: unexplained weight gain, unexplained weight loss, heat intolerance, cold intolerance NEUROLOGIC: Absent: headache, focal weakness or paresthesias, dizziness, unsteady gait, seizure, mental status changes, bladder or bowel incontinence PSYCHIATRIC: Absent: anxiety, depression, suicidal or homicidal ideation, hallucinations. PHYSICAL EXAMINATION Vital Signs - 24 hr 01/19/20 01/19/20 01/19/20 05:32 05:40 07:47 Temperature 98.5 F Pulse Rate 77 66 Pulse Rate [ 66 60 Apical] Respiratory 18 18 20 Rate Blood Pressure 156/84 Blood Pressure 141/76 124/89 [Right Arm] O2 Sat by Pulse 97 97 98 Oximetry (%) 01/19/20 14:27 Temperature 98.1 F Pulse Rate Pulse Rate [ 61 Apical] Respiratory 20 Rate Blood Pressure Blood Pressure 138/89 [Right Arm] O2 Sat by Pulse 100 Oximetry (%) GENERAL: Awake, alert, and fully oriented, in no acute distress. HEAD: Normal with no signs of trauma. EYES: Pupils equal, round and reactive to light, extraocular movements intact, sclera anicteric, conjunctiva clear. No lid lag. EARS, NOSE, THROAT: Ears normal, nares patent, oropharynx clear without exudates. Moist mucous membranes. NECK: Normal range of motion, supple without lymphadenopathy, JVD, or masses. LUNGS: Breath sounds equal, clear to auscultation bilaterally. No wheezes, and no crackles. No accessory muscle use. HEART: Regular rate and rhythm, normal S1 and S2 without murmur, rub or gallop. ABDOMEN: Soft, nontender, not distended, normoactive bowel sounds, no guarding, no rebound, no masses. No hepatomegaly or splenomegaly. MUSCULOSKELETAL: Normal range of motion at all joints. No bony deformities or tenderness. No CVA tenderness. UPPER EXTREMITIES: 2+ pulses, warm, well-perfused. No cyanosis. No clubbing. No peripheral edema. LOWER EXTREMITIES: 2+ pulses, warm, well-perfused. No calf tenderness. No peripheral edema. NEUROLOGICAL: Cranial nerves II-XII intact. Normal speech. Normal gait. PSYCHIATRIC: Cooperative. Good eye contact. Appropriate mood and affect. SKIN: Warm, dry, normal turgor, no rashes or lesions noted, normal capillary refill. Laboratory Results - last 24 hr 01/19/20 01/19/20 01/19/20 06:35 06:35 12:35 WBC 5.9 RBC 3.47 L Hgb 8.6 L Hct 26.9 L MCV 77.5 L MCH 24.8 L MCHC 32.0 RDW 18.0 H Plt Count 199 MPV 9.1 Absolute Neuts (auto) 4.4 Neutrophils % 73.6 Lymphocytes % 15.1 Monocytes % 5.8 Eosinophils % 4.9 H D Basophils % 0.6 Nucleated RBC % 0 Sodium 142 Potassium 3.6 Chloride 108 H Carbon Dioxide 28 Anion Gap 5 L BUN 9.8 Creatinine 0.8 Est GFR (CKD-EPI)AfAm 87.18 Est GFR (CKD-EPI)NonAf 75.22 Random Glucose 88 Calcium 8.0 L Total Bilirubin 0.4 AST 15 ALT 11 L Alkaline Phosphatase 77 Creatine Kinase 184 Creatine Kinase Index 0.0 CK-MB (CK-2) < 1.0 Troponin I < 0.02 < 0.02 B-Natriuretic Peptide 105.0 Total Protein 7.1 Albumin 2.5 L ASSESSMENT/PLAN: ATTENDING PHYSICIAN STATEMENT I saw and evaluated the patient. I reviewed the resident's note and discussed the case with the resident. I agree with the resident's findings and plan as documented. SUBJECTIVE: OBJECTIVE: ASSESSMENT AND PLAN: 69 year old female with a PMHx notable for OA, obesity, HTN, HLD, temporal arteritis, venous insufficiency, asthma, OA s/p right total knee replacement, v ertigo, and anxiety who presents with sudden onset headache and chest discomfort found to have anemia. #Headache/Facial weakness. Possible TIA -Follow-up with Head CT to assess for any infarct -MRI if CT negative -Neurology Consult #Chest Pain, r/o ACS - Monitor troponin - Follow-up 2D ECHO - cardiology consult # Anemia - Unknown baseline - suggest Iron studies, B12/folate/TSH - consider PRBC if decreases further ? symptomatic anemia #DVT prophylaxsis: Would avoid chemical prophylaxsis in the setting of anemia
[2020-01-19] MEDS ORDERED: LISINOPRIL 5 MG TABLET (FP) PO ONE (10:55)
[2020-01-19] MEDS ORDERED: HEPARIN NA (PORCINE) 5,000 UNITS/ML 1ML VIAL ONE (11:14)
[2020-01-19] MEDS ORDERED: LISINOPRIL 5 MG TABLET (FP) ONE (11:14)
[2020-01-19] MEDS: LISINOPRIL 5 MG TABLET (FP) PO SCH (12:40)
--- NOTE | 2020-01-19 14:45 | EKG ---
Test Reason : Blood Pressure : / mmHG Vent. Rate : 069 BPM Atrial Rate : 069 BPM P-R Int : 178 ms QRS Dur : 088 ms QT Int : 374 ms P-R-T Axes : 038 015 014 degrees QTc Int : 400 ms NORMAL SINUS RHYTHM NORMAL ECG WHEN COMPARED WITH ECG OF 17-NOV-2019 15:09, QT HAS SHORTENED Confirmed by CRISTINA IBANEZ MD ([id number]) on 01/19/2020 2:44:51 PM Referred By: Confirmed By:CRISTINA IBANEZ MD
[2020-01-19] MEDS ORDERED: ACETAMINOPHEN 325 MG TABLET (FP) PO PRN (15:08)
--- NOTE | 2020-01-19 18:59 | CON.CARD ---
Cardiology Consult (text) - Consultation Consultation Note: Chief Complaint: cp History of Present Illness: 69 F here with cp. She has long hx of atypical cp, here again with same. She had le edema so pmd stopped hctz and started lasix. She took one dose and felt headache, neck pain, chest pain, so came to ER. She has hx of this intermittent cp lasting approx 1-2 min only, assctd with brief radiation of pain down the L arm, ? tingling in L hand. felt assctd LH with it one time. no sob or diaph asstd. PMH: HTN anemia hypothyroid - Past Medical History Cardio/Vascular: Yes: HTN Pulmonary: Yes: Asthma (triggered by Viral URIs) ...: No Endocrine: Yes: Hypothyroidism - Past Surgical History Past Surgical History: Yes: None, Joint Replacement - Alcohol/Substance Use Hx Alcohol Use: No History of Substance Use: reports: None - Smoking History Smoking history: Never smoked Have you smoked in the past 12 months: No Aproximately how many cigarettes per day: 0 - Social History Usual Living Arrangement: Alone Occupation: Retired History of Recent Travel: No Home Medications - Allergies Allergies/Adverse Reactions: Allergies Allergy/AdvReac Type Severity Reaction Status Date / Time peanut [Peanut] Allergy Verified 01/19/20 05:43 ammonium lactate Allergy Uncoded 01/19/20 05:43 Ambulatory Orders Levothyroxine [Synthroid -] 50 mcg PO DAILY 03/23/14 Latanoprost 0.005% Eye Drops [Xalatan 0.005% Eye Drops -] 1 drop HS 01/19/20 Family Disease History - Family Disease History Family History: Denies (no known cmp) Review of Systems - Review of Systems per hpi, all others nl Vital Signs: Vital Signs Period Temp Pulse Resp BP Sys/Gaona Pulse Ox Last 24 Hr 98.1 F-98.5 F 60-77 18-20 124-156/74-89 97-100 Constitutional: Yes: No Distress, Obese Eyes: No: Sclera Icterus HENT: No: Nasal Congestion Neck: No: Decreased ROM Respiratory: Yes: CTA Bilaterally. No: Accessory Muscle Use, Rales, Wheezes Gastrointestinal: Yes: Normal Bowel Sounds. No: Distention, Hepatomegaly, Palpable Mass, Tenderness Cardiovascular: Yes: Regular Rate and Rhythm JVD: No Carotid Bruit: No PMI: Non-Displaced Heart Sounds: Yes: S1, S2. No: Gallop Murmur: No: Systolic Murmur, Diastolic Murmur Musculoskeletal: Yes: Other (No kyphosis) Extremities: No: Cold, Cool, Cyanosis Edema: Yes (mild nonpitting ankles, chronic venous stasis changes) Peripheral Pulses: 2+ Left Carotid, 2+ Right Carotid, 2+ Left Doralis Pedis, 2+ Right Dorsalis Pedis Integumentary: No: Jaundice Neurological: Yes: Alert, Oriented (x3) Psychiatric: No: Agitated Laboratory Last Values WBC 5.9 K/mm3 (4.0-10.0) 01/19/20 06:35 RBC 3.47 M/mm3 (3.60-5.2) L 01/19/20 06:35 Hgb 8.6 GM/dL (10.7-15.3) L 01/19/20 06:35 Hct 26.9 % (32.4-45.2) L 01/19/20 06:35 MCV 77.5 fl (80-96) L 01/19/20 06:35 MCH 24.8 pg (25.7-33.7) L 01/19/20 06:35 MCHC 32.0 g/dl (32.0-36.0) 01/19/20 06:35 RDW 18.0 % (11.6-15.6) H 01/19/20 06:35 Plt Count 199 K/MM3 (134-434) 01/19/20 06:35 MPV 9.1 fl (7.5-11.1) 01/19/20 06:35 Absolute Neuts (auto) 4.4 K/mm3 (1.5-8.0) 01/19/20 06:35 Neutrophils % 73.6 % (42.8-82.8) 01/19/20 06:35 Lymphocytes % 15.1 % (8-40) 01/19/20 06:35 Monocytes % 5.8 % (3.8-10.2) 01/19/20 06:35 Eosinophils % 4.9 % (0-4.5) H D 01/19/20 06:35 Basophils % 0.6 % (0-2.0) 01/19/20 06:35 Nucleated RBC % 0 % (0-0) 01/19/20 06:35 Sodium 142 mmol/L (136-145) 01/19/20 06:35 Potassium 3.6 mmol/L (3.5-5.1) 01/19/20 06:35 Chloride 108 mmol/L (98-107) H 01/19/20 06:35 Carbon Dioxide 28 mmol/L (21-32) 01/19/20 06:35 Anion Gap 5 MMOL/L (8-16) L 01/19/20 06:35 BUN 9.8 mg/dL (7-18) 01/19/20 06:35 Creatinine 0.8 mg/dL (0.55-1.3) 01/19/20 06:35 Est GFR (CKD-EPI)AfAm 87.18 01/19/20 06:35 Est GFR (CKD-EPI)NonAf 75.22 01/19/20 06:35 Random Glucose 88 mg/dL (74-106) 01/19/20 06:35 Calcium 8.0 mg/dL (8.5-10.1) L 01/19/20 06:35 Total Bilirubin 0.4 mg/dL (0.2-1) 01/19/20 06:35 AST 15 U/L (15-37) 01/19/20 06:35 ALT 11 U/L (13-61) L 01/19/20 06:35 Alkaline Phosphatase 77 U/L (45-117) 01/19/20 06:35 Creatine Kinase 184 U/L (26-192) 01/19/20 06:35 Creatine Kinase Index 0.0 % (0.0-5.0) 01/19/20 06:35 CK-MB (CK-2) < 1.0 ng/mL (0.5-3.6) 01/19/20 06:35 Troponin I < 0.02 ng/ml (0.00-0.05) 01/19/20 12:35 B-Natriuretic Peptide 105.0 pg/ml (5-125) 01/19/20 06:35 Total Protein 7.1 g/dl (6.4-8.2) 01/19/20 06:35 Albumin 2.5 g/dl (3.4-5.0) L 01/19/20 06:35 Dobutamine Stress Echo 05/2017: 90% MPHR. No ST changes. no ischemia (nl EF) Echo 07/26: NL LV FX, NL RVSP, no valve disease CTA chest 04/25: no PE. 2.9 cm main PA. minimal groundglass interstitial thickening bilat mid lung brewster ? small airways dz. normal heart size. no coronary calcifications described (images reviewed: confirms no coronary calcifications present) CTA neck 07/27: no carotid artery dissection ECG: NSR, WNL, similar to priors CXR: no sig chf tele: sr Assessment/Plan chest pain: -atypical sx, intermitten for years -troponin neg. ECG unremarkable. cp resolved. no signs acs. -does not seem cardiac but has risk factors and no recent cardiac testing so will eval further with echo and mibi. le edema/venous insuff: -pt had adverse side effect with lasix, does not want to take, will start hctz 12.5 qd, le edema minimal at present htn: -cont lisinopril, starting hctz as above
--- NOTE | 2020-01-19 19:27 | CON.NEURO ---
Consult Consult Specialty:: NEURO - History of Present Illness Chief Complaint: HEADACHE History of Present Illness: Patient is a 69 yo woman with a PMH of OA, obesity, HTN, HLD, temporal arteritis, venous insufficiency, asthma, vertigo, and anxiety who presented to [facility] due to sudden onset headache and chest discomfort. Patient endorses that ~ 10:30 yesterday morning, she began to develop a constant headache; headache is located across her entire head and was associated with left sided " facial pulling"; patient states she felt as if the left side of her face was rather w eak later that evening. Patient then took Tylenol which partially mitigated her headache. Patient denies ever experiencing these symptoms in the past. Furthermore, patient states that during this time, she began to also experience chest pressure located on the left side of her chest. She states that has had a severe , unusual headache from 11 am to 11 pm yesterday , L more than R side skull, w photophobia , numbness of her L face , pain level 10/10 ; worse headahe of her life, has h/o occasional mild headache , no h/o migraine ; her BP also was high at home and ER about 160 SBP , usually has lower BP. She feels much better now, denies weakness, numbness, dizziness, visual symptoms. - Past Medical History Cardio/Vascular: Yes: HTN Pulmonary: Yes: Asthma (triggered by Viral URIs) Endocrine: Yes: Hypothyroidism - Past Surgical History Past Surgical History: Yes: None, Joint Replacement - Alcohol/Substance Use Hx Alcohol Use: No History of Substance Use: reports: None - Smoking History Smoking history: Never smoked Have you smoked in the past 12 months: No Aproximately how many cigarettes per day: 0 - Social History Usual Living Arrangement: Alone ADL: Independent Occupation: Retired History of Recent Travel: No Home Medications - Allergies Allergies/Adverse Reactions: Allergies Allergy/AdvReac Type Severity Reaction Status Date / Time peanut [Peanut] Allergy Verified 01/19/20 05:43 ammonium lactate Allergy Uncoded 01/19/20 05:43 - Home Medications Home Medications: Ambulatory Orders Levothyroxine [Synthroid -] 50 mcg PO DAILY 03/23/14 Latanoprost 0.005% Eye Drops [Xalatan 0.005% Eye Drops -] 1 drop HS 01/19/20 Review of Systems - Review of Systems Constitutional: reports: No Symptoms Eyes: reports: No Symptoms HENT: reports: No Symptoms Neck: reports: No Symptoms Cardiovascular: reports: Chest Pain, Other (ches) Respiratory: reports: No Symptoms Genitourinary: reports: No Symptoms Musculoskeletal: reports: No Symptoms Endocrine: reports: No Symptoms Hematology/Lymphatic: reports: No Symptoms Psychiatric: reports: No Symptoms Physical Exam-Neuro Vital Signs: Vital Signs Temperature 98.1 F 01/19/20 14:27 Pulse Rate 61 01/19/20 18:00 Respiratory Rate 20 01/19/20 14:27 Blood Pressure 130/74 01/19/20 18:00 O2 Sat by Pulse Oximetry (%) 99 01/19/20 18:00 Constitutional: Yes: Well Nourished, Mild Distress Neck: Yes: Supple Cardiovascular: Yes: Regular Rate and Rhythm Respiratory: Yes: WNL Musculoskeletal: Yes: WNL Edema: No Psychiatric: Yes: WNL, Alert, Oriented Labs: CBC, BMP 01/19/20 06:35 01/19/20 06:35 - Neuro Exam Level Of Consciousness: Yes: Alert, Oriented to Person, Oriented to Place, Oriented to Time Eyes: Yes: PERRLA Speech: WNL Cranial Nerves II-XII Intact: Yes Gag: Present DTR's: 1+ Left Bicep, 1+ Right Bicep, 1+ Left Tricep, 1+ Right Tricep, 1+ Left Brachioradialis, 1+ Right Brachioradialis, 1+ Left Achilles, 1+ Right Achilles Babinski: Absent Response to light touch: Normal Response to pain prick: Normal Coordination: Normal: Finger to Nose, Heel to Jacinto Motor Strength: 5/5: Left Arm, Right Arm, Left Leg, Right Leg Gait: Normal (Uses cane ) Imaging - Results Cat Scan: Report Reviewed, Image Reviewed (-ve for acute finding) Problem List - Problems (1) Chest pain Code(s): R07.9 - CHEST PAIN, UNSPECIFIED Qualifiers: Chest pain type: unspecified Qualified Code(s): R07.9 - Chest pain, unspecified (2) Headache Code(s): R51 - HEADACHE Qualifiers: Headache type: unspecified Headache chronicity pattern: acute headache Intractability: not intractable Qualified Code(s): R51 - Headache (3) Morbid obesity Code(s): E66.01 - MORBID (SEVERE) OBESITY DUE TO EXCESS CALORIES Assessment/Plan 69 yo woman with a PMH of OA, obesity, HTN, HLD, temporal arteritis, venous insufficiency, asthma, vertigo, and anxiety who presented to [facility] due to sudden onset headache and chest discomfort. Paroxismal headache which is subsided , associated w high blood pressure , no focal deficit on exam , no evidence of kayla syndrome or cranial nerve lesion ; CTh wo -ve for bleed ; ? hypertensive encephalopathy vs PRESS vs TIA . Will obtain MRI/A brain MRA neck to exclude structural abnormalities BP normalization carefully , avoid dropping BP dramatically Neuro check q 2 hours Health maintenance per primary team. THJonn Espinoza MD [phone]
[2020-01-19] MEDS: LATANOPROST 0.005% OPHTH SOLN 2.5ML BOTTLE OU SCH (22:45)
[2020-01-20 01:40] VITALS: BMI 49.2
[2020-01-20] MEDS: LEVOTHYROXINE NA 50 MCG TABLET (FP) PO SCH (06:38)
[2020-01-20 07:52] LABS: HEMATOCRIT 28.5 % (32.4-45.2); HEMOGLOBIN 9.1 GM/dL (10.7-15.3); MCH 25.2 pg (25.7-33.7); MCHC 31.8 g/dl (32.0-36.0); MEAN CELL VOLUME 79.1 fl (80-96); MEAN PLT VOLUME 8.9 fl (7.5-11.1); PLATELET COUNT 190 K/MM3 (134-434); RDW 18.4 % (11.6-15.6)
[2020-01-20 07:55] LABS: INR 1.22 (0.83-1.09); PROTHROMBIN TIME (PATIENT) 14.4 SEC (9.7-13.0)
[2020-01-20 07:58] LABS: ACTIVATED PTT 30.7 SECONDS (25.2-36.5)
[2020-01-20 08:18] LABS: ALBUMIN 2.7 g/dl (3.4-5.0); BILIRUBIN,TOTAL 0.5 mg/dL (0.2-1); BLOOD UREA NITROGEN 10.8 mg/dL (7-18); CALCIUM 8.5 mg/dL (8.5-10.1); CREATININE 0.9 mg/dL (0.55-1.3); PHOSPHOROUS 3.7 mg/dL (2.5-4.9); TOT PROT 7.4 g/dl (6.4-8.2)
[2020-01-20] MEDS ORDERED: REGADENOSON 0.4 MG/5 ML PRE-FILLED SYRINGE IVPUSH ONE ×2 (09:00→12:37)
--- NOTE | 2020-01-20 11:25 | PN ---
Progress Note (short form) - Note Progress Note: s: no cp sob palps dizzy Current Medications Generic Name Dose Route Start Last Admin Trade Name Freq PRN Reason Stop Dose Admin Acetaminophen 650 mg 01/19/20 15:08 Tylenol - PO Q4H PRN PAIN LEVEL 1-5 Aspirin 81 mg 01/20/20 10:00 Asa - PO DAILY DAVONTE Hydrochlorothiazide 12.5 mg 01/20/20 10:00 Hctz - PO DAILY DAVONTE Latanoprost 1 drop 01/19/20 22:00 01/19/20 22:45 Xalatan 0.005% Eye Drops - OU Not Given HS DAVONTE Levothyroxine Sodium 50 mcg 01/20/20 07:00 01/20/20 06:38 Synthroid - PO 50 mcg AM DAVONTE Administration Lisinopril 2.5 mg 01/19/20 11:00 01/19/20 12:40 Prinivil PO 2.5 mg DAILY DAVONTE Administration Vital Signs Period Temp Pulse Resp BP Sys/Gaona Pulse Ox Last 24 Hr 97.5 F-98.3 F 60-68 18-20 117-150/62-89 95-100 Constitutional: Yes: No Distress, Obese Eyes: No: Sclera Icterus HENT: No: Nasal Congestion Neck: No: Decreased ROM Respiratory: Yes: CTA Bilaterally. No: Accessory Muscle Use, Rales, Wheezes Gastrointestinal: Yes: Normal Bowel Sounds. No: Distention, Hepatomegaly, Palpable Mass, Tenderness Cardiovascular: Yes: Regular Rate and Rhythm JVD: No Carotid Bruit: No PMI: Non-Displaced Heart Sounds: Yes: S1, S2. No: Gallop Murmur: No: Systolic Murmur, Diastolic Murmur Musculoskeletal: Yes: Other (No kyphosis) Extremities: No: Cold, Cool, Cyanosis Edema: Yes (mild nonpitting ankles, chronic venous stasis changes) Peripheral Pulses: 2+ Left Carotid, 2+ Right Carotid, 2+ Left Doralis Pedis, 2+ Right Dorsalis Pedis Integumentary: No: Jaundice Neurological: Yes: Alert, Oriented (x3) Psychiatric: No: Agitated CBC, BMP 01/20/20 06:25 01/20/20 06:25 Dobutamine Stress Echo 05/2017: 90% MPHR. No ST changes. no ischemia (nl EF) Echo 07/26: NL LV FX, NL RVSP, no valve disease CTA chest 04/25: no PE. 2.9 cm main PA. minimal groundglass interstitial thickening bilat mid lung brewster ? small airways dz. normal heart size. no coronary calcifications described (images reviewed: confirms no coronary calcifications present) CTA neck 07/27: no carotid artery dissection ECG: NSR, WNL, similar to priors CXR: no sig chf tele: sr Assessment/Plan chest pain: -atypical sx, intermittent for years -troponin neg. ECG unremarkable. cp resolved. no signs acs. -does not seem cardiac but has risk factors and no recent cardiac testing so will eval further with echo and mibi today, if benign then ok for dc from cardiac pov. le edema/venous insuff: -pt had adverse side effect with lasix, does not want to take, will start hctz 12.5 qd, le edema minimal at present htn: -cont lisinopril, started hctz as above
--- NOTE | 2020-01-20 11:26 | PN ---
Teaching Attending Note Name of Resident: Heraclio Caicedo ATTENDING PHYSICIAN STATEMENT I saw and evaluated the patient. I reviewed the resident's note and discussed the case with the resident. I agree with the resident's findings and plan as documented. SUBJECTIVE: doing well, no cp , no sob, OBJECTIVE:O/E is comfortable, Last Vital Signs Temp Pulse Resp BP Pulse Ox 98 F 68 18 148/84 97 01/20/20 09:00 01/20/20 09:00 01/20/20 09:00 01/20/20 09:00 01/20/20 09:00 GENERAL: Awake, alert, and fully oriented, in no acute distress. HEAD: Normal with no signs of trauma. EYES: Pupils equal, round and reactive to light, sclera anicteric, conjunctiva clear. LUNGS: Breath sounds equal, clear to auscultation bilaterally. No wheezes, and no crackles. No accessory muscle use. HEART: Regular rate and rhythm, normal S1 and S2 ABDOMEN: Soft, nontender, not distended MUSCULOSKELETAL: Normal range of motion at all joints. No bony deformities or tenderness. No CVA tenderness. UPPER EXTREMITIES: 2+ pulses, warm, well-perfused. No cyanosis. No clubbing. No peripheral edema. LOWER EXTREMITIES: 2+ pulses, warm, well-perfused. No calf tenderness.chronic venous stasis changes. NEUROLOGICAL: Cranial nerves II-XII intact. Normal speech. CBC, BMP 01/20/20 06:25 01/20/20 06:25 ASSESSMENT AND PLAN: 69 year old female with a PMHx notable for OA, obesity, HTN, HLD, temporal arteritis, venous insufficiency, asthma, OA s/p right total knee replacement, vertigo, and anxiety who presents with sudden onset headache and chest discomfort found to have anemia. #Headache/Facial weakness. Possible TIA MRI of the brain ordered as per neuro but pt refused, and is asymptomatic now. -Neurology Consult appreciated, #Chest Pain, r/o ACS - 2 set troponin negative, - Follow-up 2D ECHO - cardiology consult appreciated, pt switched to HCTz, not willing to take lasix, # Anemia - fu with anemia huerta #DVT prophylaxsis: Would avoid chemical prophylaxsis in the setting of anemia
--- NOTE | 2020-01-20 13:43 | ECHO ---
Name: BEULAH TESFAYE Exam:Adult Echocardiogram Study Date: 01/20/2020 09:27 AM Age: 69 yrs Height: 63 in Weight: 273 lb BSA: 2.2 m2 MMode/2D Measurements & Calculations RVDd: 3.3 cm Ao root diam: 2.7 cm IVSd: 0.84 cm LA dimension: 3.3 cm LVIDd: 5.1 cm ACS: 2.0 cm LVIDs: 3.3 cm LVPWd: 0.88 cm EDV(Teich): 122.6 ml LVOT diam: 2.0 cm ESV(Teich): 44.2 ml LAV (MOD-bp): 52.0 ml TAPSE: 2.2 cm RV S Marcio: 15.9 cm/sec Doppler Measurements & Calculations MV E max marcio: 74.5 cm/sec Ao V2 max: 131.7 cm/sec MV A max marcio: 88.8 cm/sec Ao max P.9 mmHg MV E/A: 0.84 Ao V2 mean: 95.8 cm/sec MV dec time: 0.21 sec Ao mean P.1 mmHg Ao V2 VTI: 30.0 cm JE(I,D): 2.5 cm2 JE(V,D): 2.8 cm2 LV V1 max P.2 mmHg SV(LVOT): 75.0 ml LV V1 mean P.4 mmHg LV V1 max: 113.5 cm/sec LV V1 mean: 71.6 cm/sec LV V1 VTI: 23.5 cm TR max marcio: 247.0 cm/sec PA V2 max: 90.9 cm/sec TR max P.4 mmHg PA max P.3 mmHg PA acc slope: 494.5 cm/sec2 PA acc time: 0.13 sec PI end-d marcio: 96.4 cm/sec Med Peak E' Marcio: 7.5 cm/sec Med E/e': 9.9 Lat Peak E' Marcio: 8.8 cm/sec Lat E/e': 8.5 PA pr(Accel): 22.0 mmHg Tech Comments TDS due to morbid obesity. Patient scanned sitting up. Suboptimal apicals. Procedure A complete two-dimensional transthoracic echocardiogram was performed (2D, M-mode, Doppler and color flow Doppler). Left Ventricle The left ventricular size, thickness and function are normal. Ejection Fraction = 60-65%. The left ve ntricular wall motion is normal. Right Ventricle The right ventricle is normal in size and function. Atria Normal left and right atrial size and function. Mitral Valve There is no mitral regurgitation noted. Tricuspid Valve There is mild tricuspid regurgitation. Right ventricular systolic pressure is normal. Aortic Valve The aortic valve is trileaflet. No hemodynamically significant valvular aortic stenosis. No aortic regurgitation is present. Pulmonic Valve Mild pulmonic valvular regurgitation. Great Vessels The aortic root is normal size. Pericardium/Pleura There is no pericardial effusion. Interpretation Summary The left ventricular size, thickness and function are normal The right ventricle is normal in size and function. There is mild tricuspid regurgitation. Mild pulmonic valvular regurgitation. MD Shakeel Norris 01/20/2020 01:42 PM
[2020-01-20] MEDS: LISINOPRIL 5 MG TABLET (FP) PO SCH (16:08)
[2020-01-20] MEDS: ASPIRIN 81 MG CHEWABLE TABLETS PO SCH (16:08)
[2020-01-20] MEDS: HYDROCHLOROTHIAZIDE 12.5 MG CAPSULE (FP) PO SCH (16:08)
--- NOTE | 2020-01-20 19:03 | PN ---
Progress Note (short form) - Note Progress Note: 69 yo woman with a PMH of OA, obesity, HTN, HLD, temporal arteritis, venous insufficiency, asthma, vertigo, and anxiety who presented to [facility] due to sudden onset headache and chest discomfort. Patient endorses that ~ 10:30 yesterday morning, 01/19/20 , she began to develop a constant headache; headache is located across her entire head and was associated with left sided " facial pulling"; patient states she felt as if the left side of her face was rather weak later that evening. Patient then took Tylenol which partially mitigated her headache. Patient denies ever experiencing these symptoms in the past. Furthermore, patient states that during this time, she began to also experience chest pressure located on the left side of her chest. She states that has had a severe , unusual headache from 11 am to 11 pm yesterday , L more than R side skull, w photophobia , numbness of her L face , pain level 10/10 ; worse headahe of her life, has h/o occasional mild headache , no h/o migraine ; her BP also was high at home and ER about 160 SBP , usually has lower BP. She feels much better now, denies weakness, numbness, dizziness, visual symptoms. FU : today FLOREZ resolved , no formal FLOREZ or focal motor /sesnory Complaints she think her FLOREZ started after taking LAsix - Past Medical History Cardio/Vascular: Yes: HTN Pulmonary: Yes: Asthma (triggered by Viral URIs) Endocrine: Yes: Hypothyroidism - Past Surgical History Past Surgical History: Yes: None, Joint Replacement - Alcohol/Substance Use Hx Alcohol Use: No History of Substance Use: reports: None - Smoking History Smoking history: Never smoked Have you smoked in the past 12 months: No Aproximately how many cigarettes per day: 0 - Social History Usual Living Arrangement: Alone ADL: Independent Occupation: Retired History of Recent Travel: No Home Medications - Allergies Allergies/Adverse Reactions: Allergies Allergy/AdvReac Type Severity Reaction Status Date / Time peanut [Peanut] Allergy Verified 01/19/20 05:43 ammonium lactate Allergy Uncoded 01/19/20 05:43 - Home Medications Home Medications: Ambulatory Orders Levothyroxine [Synthroid -] 50 mcg PO DAILY 03/23/14 Latanoprost 0.005% Eye Drops [Xalatan 0.005% Eye Drops -] 1 drop HS 01/19/20 Review of Systems - Review of Systems Constitutional: reports: No Symptoms Eyes: reports: No Symptoms HENT: reports: No Symptoms Neck: reports: No Symptoms Cardiovascular: reports: Chest Pain, Other (ches) Respiratory: reports: No Symptoms Genitourinary: reports: No Symptoms Musculoskeletal: reports: No Symptoms Endocrine: reports: No Symptoms Hematology/Lymphatic: reports: No Symptoms Psychiatric: reports: No Symptoms Physical Exam-Neuro Vital Signs: Vital Signs Temperature 98.0 F 01/20/20 17:16 Pulse Rate 69 01/20/20 17:16 Respiratory Rate 18 01/20/20 17:16 Blood Pressure 150/88 01/20/20 17:16 O2 Sat by Pulse Oximetry (%) 97 01/20/20 15:00 Constitutional: Yes: Well Nourished, Mild Distress Neck: Yes: Supple Cardiovascular: Yes: Regular Rate and Rhythm Respiratory: Yes: WNL Musculoskeletal: Yes: WNL Edema: No Psychiatric: Yes: WNL, Alert, Oriented Labs: CBCD WBC 5.0 K/mm3 (4.0-10.0) 01/20/20 06:25 RBC 3.60 M/mm3 (3.60-5.2) 01/20/20 06:25 Hgb 9.1 GM/dL (10.7-15.3) L 01/20/20 06:25 Hct 28.5 % (32.4-45.2) L 01/20/20 06:25 MCV 79.1 fl (80-96) L 01/20/20 06:25 MCHC 31.8 g/dl (32.0-36.0) L 01/20/20 06:25 RDW 18.4 % (11.6-15.6) H 01/20/20 06:25 Plt Count 190 K/MM3 (134-434) 01/20/20 06:25 MPV 8.9 fl (7.5-11.1) 01/20/20 06:25 CMP Sodium 145 mmol/L (136-145) 01/20/20 06:25 Potassium 4.0 mmol/L (3.5-5.1) 01/20/20 06:25 Chloride 110 mmol/L (98-107) H 01/20/20 06:25 Carbon Dioxide 29 mmol/L (21-32) 01/20/20 06:25 Anion Gap 7 MMOL/L (8-16) L 01/20/20 06:25 BUN 10.8 mg/dL (7-18) 01/20/20 06:25 Creatinine 0.9 mg/dL (0.55-1.3) 01/20/20 06:25 Calcium 8.5 mg/dL (8.5-10.1) 01/20/20 06:25 Total Bilirubin 0.5 mg/dL (0.2-1) 01/20/20 06:25 AST 12 U/L (15-37) L 01/20/20 06:25 ALT 12 U/L (13-61) L 01/20/20 06:25 Alkaline Phosphatase 75 U/L (45-117) 01/20/20 06:25 Total Protein 7.4 g/dl (6.4-8.2) 01/20/20 06:25 Albumin 2.7 g/dl (3.4-5.0) L 01/20/20 06:25 - Neuro Exam Level Of Consciousness: Yes: Alert, Oriented to Person, Oriented to Place, Oriented to Time Eyes: Yes: PERRLA Speech: WNL Cranial Nerves II-XII Intact: Yes Gag: Present DTR's: 1+ Left Bicep, 1+ Right Bicep, 1+ Left Tricep, 1+ Right Tricep, 1+ Left Brachioradialis, 1+ Right Brachioradialis, 1+ Left Achilles, 1+ Right Achilles Babinski: Absent Response to light touch: Normal Response to pain prick: Normal Coordination: Normal: Finger to Nose, Heel to Jacinto Motor Strength: 5/5: Left Arm, Right Arm, Left Leg, Right Leg Gait: Normal (Uses cane ) Imaging - Results Cat Scan: Report Reviewed, Image Reviewed (-ve for acute finding) Problem List - Problems (1) Chest pain Code(s): R07.9 - CHEST PAIN, UNSPECIFIED Qualifiers: Chest pain type: unspecified Qualified Code(s): R07.9 - Chest pain, unspecified (2) Headache Code(s): R51 - HEADACHE Qualifiers: Headache type: unspecified Headache chronicity pattern: acute headache Intractability: not intractable Qualified Code(s): R51 - Headache (3) Morbid obesity Code(s): E66.01 - MORBID (SEVERE) OBESITY DUE TO EXCESS CALORIES Assessment/Plan 69 yo woman with a PMH of OA, obesity, HTN, HLD, temporal arteritis, venous insufficiency, asthma, vertigo, and anxiety who presented to [facility] due to sudden onset headache and chest discomfort. Paroxysmal headache which is subsided , associated w high blood pressure , no focal deficit on exam , no evidence of kayla syndrome or cranial nerve lesion ; CTh (-), ? BP related vs RX related , now resolved given resolution of her Sx, can hold off on MRI she can FU with her outpt neurologist neuro sign off DR GRANADO
--- NOTE | 2020-01-20 19:24 | PN ---
Physical Exam: SUBJECTIVE: Patient seen and examined. Pt. states that she developed headache after taking Lasix. Pt. endorses that her temporal arteries were biopsied in the past but that the results were negative. Pt. states that she can have open MRI but that she hong not have closed MRI even when medications were offered. OBJECTIVE: Vital Signs Period Temp Pulse Resp BP Sys/Gaona Pulse Ox Last 24 Hr 97.5 F-98.3 F 60-69 18-20 117-150/62-88 95-97 GENERAL: The patient is awake, alert, and fully oriented, in mild acute distress 2/2 anxiety. HEAD: Normal with no signs of trauma. EYES: Sclera anicteric, conjunctiva clear. ENT: Ears normal, nares patent, oropharynx clear without exudates, moist mucous membranes. NECK: Trachea midline, full range of motion, supple. LUNGS: Breath sounds equal, clear to auscultation bilaterally, no wheezes, no crackles, no accessory muscle use. HEART: Regular rate and rhythm, S1, S2 without murmur ABDOMEN: Soft, nontender, nondistended, normoactive bowel sounds, no guarding, no rebound EXTREMITIES: 1+ dorsal pedal pulses, warm, no calf tendernss, well-perfused, 1+ edema, chronic skin changes NEUROLOGICAL: No focal deficits appreciated. Normal speech, gait not observed. PSYCH: Anxious SKIN: Warm, dry Laboratory Results - last 24 hr 01/19/20 01/20/20 01/20/20 09:37 06:25 06:25 WBC 5.0 RBC 3.60 Hgb 9.1 L Hct 28.5 L MCV 79.1 L MCH 25.2 L MCHC 31.8 L RDW 18.4 H Plt Count 190 MPV 8.9 PT with INR 14.40 H INR 1.22 H PTT (Actin FS) 30.7 Sodium Potassium Chloride Carbon Dioxide Anion Gap BUN Creatinine Est GFR (CKD-EPI)AfAm Est GFR (CKD-EPI)NonAf Random Glucose Calcium Phosphorus Magnesium Iron TIBC Iron Saturation Unsaturated IBC Ferritin Total Bilirubin AST ALT Alkaline Phosphatase Troponin I Total Protein Albumin COVID-19 (SHANT) Not detected 01/20/20 01/20/20 01/20/20 06:25 06:25 16:20 WBC RBC Hgb Hct MCV MCH MCHC RDW Plt Count MPV PT with INR INR PTT (Actin FS) Sodium 145 Potassium 4.0 Chloride 110 H Carbon Dioxide 29 Anion Gap 7 L BUN 10.8 Creatinine 0.9 Est GFR (CKD-EPI)AfAm 75.61 Est GFR (CKD-EPI)NonAf 65.24 Random Glucose 80 Calcium 8.5 Phosphorus 3.7 Magnesium 2.0 Iron 30 L TIBC 228 L Iron Saturation 13 L Unsaturated IBC 198 L Ferritin 52.7 Total Bilirubin 0.5 AST 12 L ALT 12 L Alkaline Phosphatase 75 Troponin I < 0.02 Total Protein 7.4 Albumin 2.7 L COVID-19 (SHANT) Active Medications Generic Name Dose Route Start Last Admin Trade Name Freq PRN Reason Stop Dose Admin Acetaminophen 650 mg 01/19/20 15:08 Tylenol - PO Q4H PRN PAIN LEVEL 1-5 Aspirin 81 mg 01/20/20 10:00 01/20/20 16:08 Asa - PO 81 mg DAILY DAVONTE Administration Hydrochlorothiazide 12.5 mg 01/20/20 10:00 01/20/20 16:08 Hctz - PO 12.5 mg DAILY DAVONTE Administration Latanoprost 1 drop 01/19/20 22:00 01/19/20 22:45 Xalatan 0.005% Eye Drops - OU Not Given HS DAVONTE Levothyroxine Sodium 50 mcg 01/20/20 07:00 01/20/20 06:38 Synthroid - PO 50 mcg AM DAVONTE Administration Lisinopril 2.5 mg 01/19/20 11:00 01/20/20 16:08 Prinivil PO 2.5 mg DAILY DAVONTE Administration ASSESSMENT/PLAN: Pt. is a 69 y.o. F w/ PMHx. of OA, obesity, HTN, HLD, venous insufficiency, CKD, asthma, OA s/p right total knee replacement, vertigo, and anxiety who presents with sudden onset headache and chest discomfort and found to have anemia. #Headache/Facial weakness -Head CT Neg for acute pathology -MRI/ MRA if Pt. amenable, if not as outpatient? -Neurology Consult appreciated #Chest Pain, r/o ACS - Trop neg x 3 - Cardiology consult appreciated. Can be d/c-ed from cardio perspective - ECHO and Stress test normal #CKD #Microcytic Anemia - Pt. at baseline for last 3 years, likely 2/2 anemia of chronic disease and CKD - Iron studies suggest Iron deficiency, will supplement with IV Venofer 200mg today , B12/folate/TSH #DVT prophylaxsis SCDs ATTENDING PHYSICIAN STATEMENT I saw and evaluated the patient. I reviewed the resident's note and discussed the case with the resident. I agree with the resident's findings and plan as documented. SUBJECTIVE: OBJECTIVE: ASSESSMENT AND PLAN:
[2020-01-20] MEDS ORDERED: PT OWN MED DRAWER 7, Y5N ONE ×2 (19:33→21:21)
[2020-01-20] MEDS ORDERED: IRON SUCROSE INJECTION 200 MG in SODIUM CHLORIDE 90 ML IVPB ONE (20:00)
[2020-01-20] MEDS: LATANOPROST 0.005% OPHTH SOLN 2.5ML BOTTLE OU SCH (21:32)
[2020-01-21] MEDS: LEVOTHYROXINE NA 50 MCG TABLET (FP) PO SCH (06:04)
--- NOTE | 2020-01-21 07:31 | PN ---
Progress Note, Physician Chief Complaint: cp - Current Medication List Current Medications: Active Medications Acetaminophen (Tylenol -) 650 mg PO Q4H PRN PRN Reason: PAIN LEVEL 1-5 Aspirin (Asa -) 81 mg PO DAILY [facility] Last Admin: 01/20/20 16:08 Dose: 81 mg Documented by: Hydrochlorothiazide (Hctz -) 12.5 mg PO DAILY [facility] Last Admin: 01/20/20 16:08 Dose: 12.5 mg Documented by: Latanoprost (Xalatan 0.005% Eye Drops -) 1 drop OU HS [facility] Last Admin: 01/20/20 21:32 Dose: 1 drop Documented by: Levothyroxine Sodium (Synthroid -) 50 mcg PO AM [facility] Last Admin: 01/21/20 06:04 Dose: 50 mcg Documented by: Lisinopril (Prinivil) 2.5 mg PO DAILY [facility] Last Admin: 01/20/20 16:08 Dose: 2.5 mg Documented by: - Objective Vital Signs: Vital Signs Temperature 98.3 F 01/21/20 05:00 Pulse Rate 78 01/21/20 05:00 Respiratory Rate 20 01/21/20 05:00 Blood Pressure 148/93 01/21/20 05:00 O2 Sat by Pulse Oximetry (%) 78 L 01/21/20 05:00 Labs: CBC, BMP 01/20/20 06:25 01/20/20 06:25 INR, PTT INR 1.22 (0.83-1.09) H 01/20/20 06:25 Assessment/Plan chest pain: -atypical sx, intermittent for years -troponin neg. ECG unremarkable. cp resolved. no signs acs. -MPI normal perfusion yesterday. echo normal. cleared for d/c by consulting cardio yesterday. -d/c tele le edema/venous insuff: -pt had adverse side effect with lasix, does not want to take, will start hctz 12.5 qd, le edema minimal at present htn: -cont lisinopril, started hctz as above
--- NOTE | 2020-01-21 07:33 | PN ---
Progress Note (short form) - Note Progress Note: dr gracia note reviewed. pt with chronic, intermittent cp for years. no cardiac etiology suspected, normal ecg/troponins here. rec'd stress test and echo which were completed yest, both normal. he cleared her for discharge. still in hospital, being w/u'd for FLOREZ, facial weakness, iron being repleted. d/c tele plan per pmd
[2020-01-21 08:17] LABS: HEMATOCRIT 28.3 % (32.4-45.2); HEMOGLOBIN 9.1 GM/dL (10.7-15.3); MCH 25.5 pg (25.7-33.7); MCHC 32.2 g/dl (32.0-36.0); MEAN CELL VOLUME 79.1 fl (80-96); MEAN PLT VOLUME 9.4 fl (7.5-11.1); PLATELET COUNT 186 K/MM3 (134-434); RBC 3.57 M/mm3 (3.60-5.2); RDW 18.3 % (11.6-15.6); WHITE BLOOD COUNT 5.4 K/mm3 (4.0-10.0)
[2020-01-21] MEDS: LISINOPRIL 5 MG TABLET (FP) PO SCH (09:56)
[2020-01-21] MEDS: ASPIRIN 81 MG CHEWABLE TABLETS PO SCH (09:56)
[2020-01-21] MEDS: HYDROCHLOROTHIAZIDE 12.5 MG CAPSULE (FP) PO SCH (09:56)
[2020-01-21 15:59] LABS: PH,URINE 5.5 (5.0-8.0); URINE APPEARANCE CLEAR; URINE BILIRUBIN NEGATIVE (NEGATIVE); URINE COLOR YELLOW; URINE GLUCOSE (UA) NEGATIVE (NEGATIVE); URINE KETONE NEGATIVE (NEGATIVE); URINE LEUK ESTERASE NEGATIVE (NEGATIVE); URINE NITRITE NEGATIVE (NEGATIVE); URINE PROTEIN NEGATIVE (NEGATIVE); URINE UROBILINOGEN 0.2 mg/dL (0.2-1.0)
[2020-01-21] MEDS ORDERED: POLYETHYLENE GLYCOL 3350 119 GM BTL PO SCH (17:45)
[2020-01-21] MEDS ORDERED: DOCUSATE SODIUM 100 MG CAPSULE (FP) PO SCH (17:45)
[2020-01-21 17:54] VITALS: BP 153/88; PULSE 75; TEMP 97.8
--- NOTE | 2020-01-21 18:07 | DS ---
Physical Exam: SUBJECTIVE: Patient seen and examined OBJECTIVE: Patient seen and examined at bedside, admitted for HTN urgency, ?adverse reaction to Lasix, BP meds adjusted, pt. now asymptomatic, cleared by Cardiology and Neurology service for OP follow up. VSS. Vital Signs Period Temp Pulse Resp BP Sys/Gaona Pulse Ox Last 24 Hr 97 F-98.3 F 64-78 18-20 125-153/68-93 78-97 PHYSICAL EXAM GENERAL:AAox3, speaking in full sentences, obese HEAD: Normal with no signs of trauma. No temporal tenderness to palpation. EYES: PERRL, extraocular movements intact, sclera anicteric, conjunctiva clear. ENT: Ears normal, nares patent, oropharynx clear without exudates, moist mucous membranes. NECK: Trachea midline, full range of motion, supple. LUNGS: Breath sounds equal, clear to auscultation bilaterally, no wheezes, no crackles, no accessory muscle use. HEART: Regular rate and rhythm, S1, S2 without murmur, rub or gallop. ABDOMEN: Soft, nontender, nondistended, normoactive bowel sounds, no guarding, no rebound, no hepatosplenomegaly, no masses. EXTREMITIES: 2+ pulses, warm, well-perfused, no edema. NEUROLOGICAL: Cranial nerves II through XII grossly intact. Normal speech, gait not observed. Good strength Ue and LE b/l. PSYCH: Normal mood, normal affect. SKIN: Warm, dry, normal turgor, no rashes or lesions noted. LABS Laboratory Results - last 24 hr 01/21/20 01/21/20 01/21/20 06:50 11:45 15:00 WBC 5.4 RBC 3.57 L Hgb 9.1 L Hct 28.3 L MCV 79.1 L MCH 25.5 L MCHC 32.2 RDW 18.3 H Plt Count 186 MPV 9.4 Urine Color Yellow Urine Appearance Clear Urine pH 5.5 Ur Specific [place] 1.009 L Urine Protein Negative Urine Glucose (UA) Negative Urine Ketones Negative Urine Blood Negative Urine Nitrite Negative Urine Bilirubin Negative Urine Urobilinogen 0.2 Ur Leukocyte Esterase Negative Stool Occult Blood Negative HOSPITAL COURSE: 69 F h/o OA, obesity, HTN, HLD, venous insufficiency, CKD, asthma, OA s/p right total knee replacement, vertigo, and anxiety presents with symptoms of facial weakness, severe FLOREZ, and some blurriness of vision. Patient describes symptoms on or around when she took Lasix, her BP readings around 160mmHg systolic. Patient admitted for BP management, was evaluated by Cardiology and Neurology service and was deemed not to have a cardiac/neurological emergency/urgency. CT head neg. for acute intracranial process, and during inpatient stay pt. symptoms completely resolved. Pt. BP meds adjusted, Lisinopril added to regimen, and pt. cleared for OP follow up w/. Cardiology/Neurology and PCP Dr. Mccoy. Date of Admission:01/19/20 Date of Discharge: 01/21/20 DC Meds: Home Medications Medication Instructions Recorded Levothyroxine [Synthroid -] 50 mcg PO DAILY 03/23/14 Latanoprost 0.005% Eye Drops 1 drop HS 01/19/20 [Xalatan 0.005% Eye Drops -] Albuterol Sulfate [Proair 1 puff IH PRN PRN 01/20/20 Digihaler] Fluticasone/Salmeterol [Advair 1 puff IH DAILY 01/20/20 250-50 Diskus] Hydrochlorothiazide [Hctz -] 12.5 mg PO BID #14 cap 01/21/20 Lisinopril 10 mg PO DAILY #30 tablet 01/21/20 Minutes to complete discharge: 40 Discharge Summary Problems reviewed: Yes Reason For Visit: HEADACHE,HYPOTHYROIDISM,CHEST PAIN Current Active Problems Chest pain (Acute) Condition: Improved - Instructions Diet, Activity, Other Instructions: You were admitted to the hospital for treatment of your uncontrolled blood pressure and symptoms of facial weakness and headache you were experiencing. Your CT scan of your head revealed you did not have an acute intracranial process causing your symptoms. Cardiology also evaluated you and deemed your symptoms were not cardiac related. Due to your symptoms resolving, Neurology service cleared you for discharge and to follow up with them as outpatient. If you feel you have shortness of breath, facial weakness, severe headache, vision loss or vision changes, trouble speaking or swallowing, weakness, syncope, chest pain, loss of balance, fall, please go to ED immediately. Please resume your blood pressure medications and take them regularly. You need to follow up with your PCP Dr. Mccoy this week and follow up with your Neurologist Dr. Pollard in 1 week. DC Medications STOP Lasix 20mg Start: Lisinopril 10mg daily HCTZ 12.5mg twice a day Continue all other home medications. Referrals: Sukhwinder Mccoy MD [Staff Physician] - James Domínguez MD [Staff Physician] - Scot Pollard DO [Staff Physician] - Disposition: HOME - Home Medications Comprehensive Discharge Medication List: Ambulatory Orders Levothyroxine [Synthroid -] 50 mcg PO DAILY 03/23/14 Latanoprost 0.005% Eye Drops [Xalatan 0.005% Eye Drops -] 1 drop HS 01/19/20 Albuterol Sulfate [Proair Digihaler] 1 puff IH PRN PRN 01/20/20 Fluticasone/Salmeterol [Advair 250-50 Diskus] 1 puff IH DAILY 01/20/20 Hydrochlorothiazide [Hctz -] 12.5 mg PO BID #14 cap 01/21/20 Lisinopril 10 mg PO DAILY #30 tablet 01/21/20 This patient is new to me today: Yes Date on this admission: 01/21/20 Emergency Visit: Yes ED Registration Date: 01/19/20 Care time: The patient presented to the Emergency Department on the above date and was hospitalized for further evaluation of their emergent condition. Critical Care patient: No - Discharge Referral Referred to [facility] Med P.C.: No
[2020-01-21] MEDS ORDERED: SENNOSIDES 8.6MG TABLET (FP) PO SCH (22:00)
[2020-01-22] MEDS ORDERED: LISINOPRIL 10 MG TABLET (FP) PO SCH (10:00)
== END 2020-01-21 18:52 | disposition home or self-care (01) ==
LOC: JER 05:05 → JERBED 09:37 → UNDOADMOB 09:49 → JERBED 09:49 → INTOOBSV 09:49 → JERBED 20:11 → J4W 20:11
PROVIDERS: ADMIT Internal Medicine
PROC: 3E023GC Introduction of Other Therapeutic Substance into Muscle, Percutaneous Approach (ICD-10-PCS; principal; 2020-01-19)
PROC: 3E033GC Introduction of Other Therapeutic Substance into Peripheral Vein, Percutaneous Approach (ICD-10-PCS; 2020-01-19)
DX: Z29.9 Encounter for prophylactic measures, unspecified (principal); E66.01 Morbid (severe) obesity due to excess calories; Z68.42 Body mass index [BMI] 45.0-49.9, adult; M19.90 Unspecified osteoarthritis, unspecified site; M31.6 Other giant cell arteritis; I10 Essential (primary) hypertension; F41.9 Anxiety disorder, unspecified; R42 Dizziness and giddiness; Z96.651 Presence of right artificial knee joint; Z91.010 Allergy to peanuts; E03.9 Hypothyroidism, unspecified; E78.5 Hyperlipidemia, unspecified; I87.2 Venous insufficiency (chronic) (peripheral); D64.9 Anemia, unspecified
CPT/HCPCS: 36415; 70450-TC; 71045-TC-FY; 78452-TC; 80053; 81003; 82272; 82550; 82553; 82728; 83540; 83550; 83735; 83880; 84100; 84484; 85025; 85027; 85610; 85730; 93005; 93010; 93017; 93306-TC; 96365; 96372; 96375; 99285-25; A9502; G0378; J1644; J1756; J2785; U0003

== ENCOUNTER 2020-02-14 11:09 | Observation (INO) | payer OTHER ==
--- NOTE | 2020-02-14 11:38 | PDOC ---
History of Present Illness - General Chief Complaint: Lightheaded Stated Complaint: SYNCOPE Time Seen by Provider: 02/14/20 11:37 History Source: Patient, Old Records Exam Limitations: No Limitations - History of Present Illness Initial Comments: 02/14/20 11:37 Fanny Bustillo is a 69F with PMH obesity, HTN, HLD, vertigo, OA s/p right TKA, anxiety, temporal arteritis, asthma, sent by PMD Dr. Diamond for a syncopal episode in the clinic. Called PMD and reports that patient has had some trouble with BP medications, was on different medications but BP uncontrolled, has been seeing PMD for BP med management. Today in clinic patient had a syncopal episode and was unresponsive for 2-3 minutes, no fall or head injury. Per PMD sent here for evaluation. Per patient has been feeling fatigued and lightheaded for the last 6 days. Denies chest pain, abdominal pain, N/V/C/D, or urinary sx. Had some SOB that felt like asthma a few days ago that was relieved by albuterol. Reports BP this AM was SBP 150s, went to clinic for BP medication management as scheduled. Does not remember syncopal event, denies presyncopal symptoms, but is concerned that it is happening. Has vertigo but is untreated, usually sleeps sitting up in a recliner as she is too dizzy to lie flat. PSH knee replacement, left breast biopsy Denies alcohol/drugs/tobacco use Past History - Medical History Allergies/Adverse Reactions: Allergies Allergy/AdvReac Type Severity Reaction Status Date / Time peanut [Peanut] Allergy Verified 01/19/20 05:43 ammonium lactate Allergy Uncoded 01/19/20 05:43 Home Medications: Ambulatory Orders Levothyroxine [Synthroid -] 50 mcg PO DAILY 03/23/14 Latanoprost 0.005% Eye Drops [Xalatan 0.005% Eye Drops -] 1 drop HS 01/19/20 Albuterol Sulfate [Proair Digihaler] 1 puff IH PRN PRN 01/20/20 Fluticasone/Salmeterol [Advair 250-50 Diskus] 1 puff IH DAILY 01/20/20 Hydrochlorothiazide [Hctz -] 12.5 mg PO BID #14 cap 01/21/20 Lisinopril 10 mg PO DAILY #30 tablet 01/21/20 Anemia: Yes Asthma: Yes Cancer: No Cardiac Disorders: Yes (chest pain 07/2017) CVA: No COPD: No CHF: No Dementia: No Diabetes: No GI Disorders: No Disorders: No HTN: Yes Hypercholesterolemia: Yes Liver Disease: No Seizures: No Thyroid Disease: Yes (HYPO.) - Surgical History Abdominal Surgery: No Appendectomy: No Cardiac Surgery: No Cholecystectomy: No Lung Surgery: No Neurologic Surgery: No Orthopedic Surgery: Yes (right knee replacement) - Immunization History Immunization Up to Date: Yes - Psycho-Social/Smoking History Smoking Status: No Smoking History: Never smoked Have you smoked in the past 12 months: No Number of Cigarettes Smoked Daily: 0 Review of Systems - Review of Systems Able to Perform ROS?: Yes Constitutional: No: Symptoms Reported HEENTM: No: Eye Pain, Blurred Vision, Tearing, Recent change in vision Respiratory: No: Cough, Shortness of Breath, SOB with Exertion, SOB at Rest Cardiac (ROS): Yes: Lightheadedness, Syncope. No: Chest Pain, Edema, Irregular Heart Rate, Palpitations ABD/GI: No: Constipated, Diarrhea, Nausea, Poor Appetite, Poor Fluid Intake, Vomiting, Abdominal cramping : No: Symptoms Reported Musculoskeletal: No: Symptoms Reported Integumentary: No: Symptoms Reported Neurological: Yes: Dizziness. No: Numbness, Paresthesia, Seizure, Unsteady Gait Endocrine: No: Symptoms Reported Hematologic/Lymphatic: No: Symptoms Reported All Other Systems: Reviewed and Negative *Physical Exam - Physical Exam General Appearance: Yes: Nourished, Appropriately Dressed, Obese, Other (resting comfortably in bed, anxious appearing but in NAD). No: Apparent Distress HEENT: positive: EOMI, MARIELA, Normal Voice, Symmetrical, Pharynx Normal, Hearing Grossly Normal. negative: Scleral Icterus (R), Scleral Icterus (L), Pharyngeal Erythema, Tonsillar Exudate Neck: positive: Trachea midline, Normal Thyroid, Supple. negative: Tender, Rigid, Lymphadenopathy (R), Lymphadenopathy (L), Tender lateral, Tender midline Respiratory/Chest: positive: Lungs Clear, Normal Breath Sounds. negative: Chest Tender, Respiratory Distress, Accessory Muscle Use, Crackles, Rales, Rhonchi, Stridor, Wheezing Cardiovascular: positive: Regular Rhythm, Regular Rate. negative: Murmur, Tac hycardia Gastrointestinal/Abdominal: positive: Normal Bowel Sounds, Flat, Soft. negative: Tender, Organomegaly, Pulsatile Mass, Guarding, Rebound Musculoskeletal: positive: Normal Inspection. negative: CVA Tenderness, Decreased Range of Motion, Vertebral Tenderness Extremity: positive: Normal Capillary Refill, Normal Inspection, Normal Range of Motion, Pelvis Stable. negative: Tender, Pedal Edema, Swelling Integumentary: positive: Normal Color, Dry, Warm Neurologic: positive: Fully Oriented, Alert, Normal Mood/Affect, Normal Response, Other (dizzy when reclining supine) ED Treatment Course - LABORATORY CBC & Chemistry Diagram: 02/14/20 12:10 02/14/20 14:30 Medical Decision Making - Medical Decision Making 02/14/20 12:52 Patient sent from PMD for syncopal episode at the office. Patient denies any palpitations or chest pain, but has been feeling lightheaded recently outside of her current vertigo. VSS in ED, in NAD. Unable to tolerate orthostatics 2/2 severe vertigo when supine. Ordering CBC/CMP/CP/ECG/CXR/UA/UC/BNP for eval syncope. Given presentation suspect cardiogenic over orthostatic, less likely neurogenic. Per PMD would like admission to [facility] if needed. 02/14/20 13:10 ECG NSR with HR 68, QTc 416, no KATRIN/D or TWI. CXR read as possible atelectasis at L base, prominent mediastinum, central congestive changes. Labs notable for: - Hgb 10.1 with MCV 78.4 - CK 321 - trop negative - K 6.6, grossly hemolyzed, will repeat 02/14/20 15:36 Repeat K 4.1, WNL. Discussed case with Dr. Huynh with admitting team, good for tele/obs. Discharge - Discharge Information Problems reviewed: Yes Clinical Impression/Diagnosis: Syncope Qualifiers: Syncope type: unspecified Qualified Code(s): R55 - Syncope and collapse Condition: Stable - Admission Yes - Follow up/Referral Referrals: Anju Diamond MD [Primary Care Provider] - - Patient Discharge Instructions - Post Discharge Activity
--- NOTE | 2020-02-14 12:08 | PDOC ---
Attending Attestation - Resident Resident Name: Bentley Read - ED Attending Attestation I have performed the following: I have examined & evaluated the patient, The case was reviewed & discussed with the resident, I agree w/resident's findings & plan - HPI HPI: 02/14/20 12:07 69 yo woman with a PMH of OA, obesity, HTN, HLD, temporal arteritis, venous insufficiency, asthma, vertigo, and anxiety who presented to [facility] with syncopal episode x several minutes, witnessed by her PMD TECHNICAL DEVELOPER 02/14/20 15:49 - Physicial Exam PE: 02/14/20 12:07 Agree with the resident's HPI and PE as documented in the electronic medical record. NAD, well appearing, EOMI, PERRL, nl conjunctiva, anicteric; neck supple. lungs clear, RRR, abdomen soft nontender. No rebound, no guarding. Back nontender. VOGEL x4, no focal neuro deficits. No peripheral edema. normal color for ethnicity, WWP. - Medical Decision Making 02/14/20 12:45 Vital Signs Temp Pulse Resp BP Pulse Ox 98.0 F 72 20 127/84 100 02/14/20 11:20 02/14/20 11:20 02/14/20 11:20 02/14/20 11:20 02/14/20 11:20 vitals reviewed, wnl awake now. not confused or postictal no neuro deficits no cp or sob does not remember event. no trauma last CT head in january without acute pathology, defer retesting at this time. labs and lytes WNL, BASELINE anemia, no bleed ekg is sinus rhythm, nonischemic trop neg, reassuring, less likely cardiac initial potassium hemolyzed, normal on recheck. admit to [facility] for syncope workup 02/14/20 15:49 Heart Score/ECG Review #1 ECG reviewed & interpreted by me at: 11:55 General ECG Interpretation: Sinus Rhythm, Normal Rate, Normal Intervals Compared to previous ECG there are: No significant change 02/14/20 12:07 EKG normal sinus rhythm at 68 bpm, no interval abnormalities, narrow QRS, ST and T wave segments and morphology normal. Nonspecific T wave abnormality/flattening in III only Discharge - Discharge Information Problems reviewed: Yes Clinical Impression/Diagnosis: Syncope Qualifiers: Syncope type: unspecified Qualified Code(s): R55 - Syncope and collapse Condition: Stable - Admission Yes - Follow up/Referral Referrals: Anju Diamond MD [Primary Care Provider] - - Patient Discharge Instructions - Post Discharge Activity
[2020-02-14 12:37] LABS: BASO % 1.1 % (0-2.0); EOS % 4.3 % (0-4.5); HEMATOCRIT 31.4 % (32.4-45.2); HEMOGLOBIN 10.1 GM/dL (10.7-15.3); MCH 25.1 pg (25.7-33.7); MEAN CELL VOLUME 78.4 fl (80-96); MONO % 7.2 % (3.8-10.2); NEUT % 74.4 % (42.8-82.8); PLATELET COUNT 206 K/MM3 (134-434); RDW 18.3 % (11.6-15.6); WHITE BLOOD COUNT 7.6 K/mm3 (4.0-10.0)
[2020-02-14 12:46] LABS: INR 1.23 (0.83-1.09); PROTHROMBIN TIME (PATIENT) 14.6 SEC (9.7-13.0)
[2020-02-14 12:49] LABS: ACTIVATED PTT 30.4 SECONDS (25.2-36.5)
[2020-02-14 13:03] LABS: ALBUMIN 2.6 g/dl (3.4-5.0); ALK PHOS 92 U/L (45-117); BILIRUBIN,TOTAL 0.4 mg/dL (0.2-1); BLOOD UREA NITROGEN 12.2 mg/dL (7-18); CALCIUM 8.7 mg/dL (8.5-10.1); CHLORIDE 104 mmol/L (98-107); CO2 30 mmol/L (21-32); CREATININE 0.9 mg/dL (0.55-1.3); GLUCOSE,RANDOM 86 mg/dL (74-106); N-TERMINAL BNP 55.8 pg/ml (5-125); SGOT/AST 56 U/L (15-37); SODIUM 137 mmol/L (136-145); TOT PROT 8.7 g/dl (6.4-8.2)
[2020-02-14 13:40] LABS: ANION GAP 3 MMOL/L (8-16); SGPT/ALT 18 U/L (13-61)
[2020-02-14 13:43] LABS: POTASSIUM 6.6 mmol/L (3.5-5.1)
[2020-02-14] MEDS ORDERED: SODIUM CHLORIDE 500 ML IV STA (16:23)
--- NOTE | 2020-02-14 17:01 | HP ---
CHIEF COMPLAINT: syncope PCP: Dr Diamond HISTORY OF PRESENT ILLNESS: 69 y.o female with PMH of HTN HLD vertigo temporal arteritis s/p TKA was sent to the ED from her PCP's office after having a syncopal episode at the office- patient states that she has not been feeling well for over a year and has been h aving on and off lightheadedness that has been getting progressively worse since last - she states that she has been feeling very weak, tired, dizzy and is constantly fatigued but she doesn't want to worry her son, today she went to clinic and as she was walking up the steps she felt very short of breath to the point where she didnt think she would make it up the steps and she got t the de sk felt very dizzy (denies nay palpitations or chets pain preceding) and next thing she knew she was on the ground she denies any recent travel or any sick contacts ER course was notable for: (1)vitals wnl; not orthostatic (2) Cr 1 ; CK 321 trop negative x1 (3)head CT pending; received IVF Recent Travel: PAST MEDICAL HISTORY: see above PAST SURGICAL HISTORY: right knee replacement 2005 Social History: Smoking:denies Alcohol:occasional Drugs: denies Allergies peanut [Peanut] Allergy (Verified 01/19/20 05:43) ammonium lactate Allergy (Uncoded 01/19/20 05:43) blisters HOME MEDICATIONS: Home Medications Medication Instructions Recorded Levothyroxine [Synthroid -] 50 mcg PO DAILY 03/23/14 Latanoprost 0.005% Eye Drops 1 drop HS 01/19/20 [Xalatan 0.005% Eye Drops -] Albuterol Sulfate [Proair 1 puff IH PRN PRN 01/20/20 Digihaler] Fluticasone/Salmeterol [Advair 1 puff IH DAILY 01/20/20 250-50 Diskus] Hydrochlorothiazide [Hctz -] 12.5 mg PO BID #14 cap 01/21/20 Lisinopril 10 mg PO DAILY #30 tablet 01/21/20 REVIEW OF SYSTEMS CONSTITUTIONAL: Absent: fever, chills, diaphoresis, generalized weakness, malaise, loss of appetite, weight change HEENT: Absent: rhinorrhea, nasal congestion, throat pain, throat swelling, difficulty swallowing, mouth swelling, ear pain, eye pain, visual changes CARDIOVASCULAR: Absent: chest pain, syncope, palpitations, irregular heart rate, lightheadedness, peripheral edema RESPIRATORY: Absent: cough, shortness of breath, dyspnea with exertion, orthopnea, wheezing, stridor, hemoptysis GASTROINTESTINAL: Absent: abdominal pain, abdominal distension, nausea, vomiting, diarrhea, constipation, melena, hematochezia GENITOURINARY: Absent: dysuria, frequency, urgency, hesitancy, hematuria, flank pain, genital pain MUSCULOSKELETAL: Present: myalgia Absent: myalgia, arthralgia, joint swelling, back pain, neck pain SKIN: Absent: rash, itching, pallor HEMATOLOGIC/IMMUNOLOGIC: Absent: easy bleeding, easy bruising, lymphadenopathy, frequent infections ENDOCRINE: Absent: unexplained weight gain, unexplained weight loss, heat intolerance, cold intolerance NEUROLOGIC: Absent: headache, focal weakness or paresthesias, dizziness, unsteady gait, seizure, mental status changes, bladder or bowel incontinence PSYCHIATRIC: Absent: anxiety, depression, suicidal or homicidal ideation, hallucinations. PHYSICAL EXAMINATION Vital Signs - 24 hr 02/14/20 11:20 Temperature 98.0 F Pulse Rate 72 Respiratory 20 Rate Blood Pressure 127/84 O2 Sat by Pulse 100 Oximetry (%) GENERAL: Awake, alert, and fully oriented,tearful. EYES: PEERLA: EOMI no scleral icterus . NECK: no JVD; no lymphadenoapthy LUNGS: CTA Bl no rales, rhonchi or wheezing HEART: Regular rate and rhythm, normal S1 and S2 without murmur, rub or gallop. ABDOMEN: Soft, NT ND +BS in all 4 quadrants MUSCULOSKELETAL: Normal range of motion at all joints. No bony deformities or tenderness. No CVA tenderness. EXTREMITIES: warm well-perfused no clubbing.cyanosis trace pedal edema b/l (improving) NEUROLOGICAL: Cranial nerves II-XII intact. Normal speech. 5/5 strenght B.l UE and LE sensation fully intact PSYCHIATRIC: Cooperative. Good eye contact. Appropriate mood and affect. SKIN: Warm, dry, normal turgor, no rashes or lesions noted, normal capillary refill. Laboratory Results - last 24 hr 02/14/20 02/14/20 02/14/20 12:10 12:10 12:10 WBC 7.6 RBC 4.00 Hgb 10.1 L Hct 31.4 L MCV 78.4 L MCH 25.1 L MCHC 32.0 RDW 18.3 H Plt Count 206 MPV 9.0 Absolute Neuts (auto) 5.7 Neutrophils % 74.4 Lymphocytes % 13.0 Monocytes % 7.2 Eosinophils % 4.3 Basophils % 1.1 Nucleated RBC % 0 PT with INR 14.60 H INR 1.23 H PTT (Actin FS) 30.4 Sodium 137 Potassium 6.6 H* Chloride 104 Carbon Dioxide 30 Anion Gap 3 L BUN 12.2 Creatinine 0.9 Est GFR (CKD-EPI)AfAm 75.61 Est GFR (CKD-EPI)NonAf 65.24 Random Glucose 86 Calcium 8.7 Total Bilirubin 0.4 AST 56 H ALT 18 Alkaline Phosphatase 92 Creatine Kinase 321 H Creatine Kinase Index No Result Required. CK-MB (CK-2) < 1.0 Troponin I < 0.02 B-Natriuretic Peptide 55.8 Total Protein 8.7 H Albumin 2.6 L 02/14/20 14:30 WBC RBC Hgb Hct MCV MCH MCHC RDW Plt Count MPV Absolute Neuts (auto) Neutrophils % Lymphocytes % Monocytes % Eosinophils % Basophils % Nucleated RBC % PT with INR INR PTT (Actin FS) Sodium Potassium 4.1 Chloride Carbon Dioxide Anion Gap BUN Creatinine Est GFR (CKD-EPI)AfAm Est GFR (CKD-EPI)NonAf Random Glucose Calcium Total Bilirubin AST ALT Alkaline Phosphatase Creatine Kinase Creatine Kinase Index CK-MB (CK-2) Troponin I B-Natriuretic Peptide Total Protein Albumin ASSESSMENT/PLAN: 69 y.o female with PMH of HTN HLD vertigo temporal arteritis s/p TKA was sent to the ED from her PCP's office after having a syncopal episode at the office #S/P Syncope tele monitoring IVF orthostatic vitals carotid dopplers (patient just had echo back in 01/25 which was normal) cardio consult monitor hemodynamics repeat cardiac profile f/u head CT #HTN holding home BP meds in light of syncope -patient currently normotensive monitor hemodynamics f/e/n IVF monitor electrolytes sodium diet scds dispo: tele Family Medical History Family History: Denies Problem List - Problem (1) Syncope Code(s): R55 - SYNCOPE AND COLLAPSE Qualifiers: Syncope type: unspecified Qualified Code(s): R55 - Syncope and collapse Visit type - Medication Review Med list reviewed for High Risk Meds patients 65 and older: Yes - Emergency Visit Emergency Visit: Yes ED Registration Date: 02/14/20 Care time: The patient presented to the Emergency Department on the above date and was hospitalized for further evaluation of their emergent condition. - New Patient This patient is new to me today: Yes Date on this admission: 02/14/20 - Critical Care Critical Care patient: No ATTENDING PHYSICIAN STATEMENT I saw and evaluated the patient. I reviewed the resident's note and discussed the case with the resident. I agree with the resident's findings and plan as documented. SUBJECTIVE: OBJECTIVE: ASSESSMENT AND PLAN:
--- NOTE | 2020-02-14 17:33 | EKG ---
Test Reason : Blood Pressure : / mmHG Vent. Rate : 068 BPM Atrial Rate : 068 BPM P-R Int : 178 ms QRS Dur : 084 ms QT Int : 392 ms P-R-T Axes : 041 025 039 degrees QTc Int : 416 ms NORMAL SINUS RHYTHM NORMAL ECG Confirmed by MD ISAACS GREGORY ([id number]) on 02/14/2020 5:33:06 PM Referred By: Confirmed By:HALLE ISAACS MD
--- NOTE | 2020-02-14 18:29 | PN ---
Teaching Attending Note Name of Resident: Maria Thompson ATTENDING PHYSICIAN STATEMENT I saw and evaluated the patient. I reviewed the resident's note and discussed the case with the resident. I agree with the resident's findings and plan as documented. SUBJECTIVE: Patient seen and examined at bedside, endorses dizziness going on for the past 1 week, where she held her BP meds d/t excessive dizziness, was in clinic this morning and had a witnessed syncopal episode where she was unresponsive. OBJECTIVE: GA AAox3, speaking in full sentences HEENT NC/AT, EOMI, neck supple, dry MM Chest CTAb, no crackles CVS s1, S2+, RRR Abd morbidly obese, Soft, NT, BS+, no guarding Ext LE venous stasis changes, 1+ pitting edema, no calf tenderness Orthostatics negative at bedside Vital Signs - 24 hr 02/14/20 02/14/20 02/14/20 11:20 18:56 19:00 Temperature 98.0 F 98.0 F Pulse Rate 72 Pulse Rate [ 70 Apical] Respiratory 20 20 Rate Blood Pressure 127/84 Blood Pressure 114/60 [Left Arm] O2 Sat by Pulse 100 100 100 Oximetry (%) Laboratory Results - last 24 hr 02/14/20 02/14/20 02/14/20 12:10 12:10 12:10 WBC 7.6 RBC 4.00 Hgb 10.1 L Hct 31.4 L MCV 78.4 L MCH 25.1 L MCHC 32.0 RDW 18.3 H Plt Count 206 MPV 9.0 Absolute Neuts (auto) 5.7 Neutrophils % 74.4 Lymphocytes % 13.0 Monocytes % 7.2 Eosinophils % 4.3 Basophils % 1.1 Nucleated RBC % 0 PT with INR 14.60 H INR 1.23 H PTT (Actin FS) 30.4 Sodium 137 Potassium 6.6 H* Chloride 104 Carbon Dioxide 30 Anion Gap 3 L BUN 12.2 Creatinine 0.9 Est GFR (CKD-EPI)AfAm 75.61 Est GFR (CKD-EPI)NonAf 65.24 Random Glucose 86 Calcium 8.7 Total Bilirubin 0.4 AST 56 H ALT 18 Alkaline Phosphatase 92 Creatine Kinase 321 H Creatine Kinase Index No Result Required. CK-MB (CK-2) < 1.0 Troponin I < 0.02 B-Natriuretic Peptide 55.8 Total Protein 8.7 H Albumin 2.6 L 02/14/20 14:30 WBC RBC Hgb Hct MCV MCH MCHC RDW Plt Count MPV Absolute Neuts (auto) Neutrophils % Lymphocytes % Monocytes % Eosinophils % Basophils % Nucleated RBC % PT with INR INR PTT (Actin FS) Sodium Potassium 4.1 Chloride Carbon Dioxide Anion Gap BUN Creatinine Est GFR (CKD-EPI)AfAm Est GFR (CKD-EPI)NonAf Random Glucose Calcium Total Bilirubin AST ALT Alkaline Phosphatase Creatine Kinase Creatine Kinase Index CK-MB (CK-2) Troponin I B-Natriuretic Peptide Total Protein Albumin Home Medications Medication Instructions Recorded Levothyroxine [Synthroid -] 50 mcg PO DAILY 03/23/14 Latanoprost 0.005% Eye Drops 1 drop HS 01/19/20 [Xalatan 0.005% Eye Drops -] Albuterol Sulfate [Proair 1 puff IH PRN PRN 01/20/20 Digihaler] Fluticasone/Salmeterol [Advair 1 puff IH DAILY 01/20/20 250-50 Diskus] Hydrochlorothiazide [Hctz -] 12.5 mg PO BID #14 cap 01/21/20 Lisinopril 10 mg PO DAILY #30 tablet 01/21/20 Current Medications Generic Name Dose Route Start Last Admin Trade Name Freq PRN Reason Stop Dose Admin Levothyroxine Sodium 50 mcg 02/15/20 07:00 Synthroid - PO ACBK [facility] ASSESSMENT AND PLAN: 69 F ?Situational syncope v.s. arrythogenic syncope Morbid obesity HTN HLD Hypothyroidism r/o seizure disorder Plan: Patient seen at [facility] for similar episodes, ?situational syncope v.s. malingering Orthostatics negative at bedside, last visit extensive cardiac workup unremarkable Carotid US unremarkable for stenosis BP meds held, and BP readings are perfect, cont. to hold check TFTs with next blood draw Tele monitoring to r/o arrythmias DVT ppx: Lovenox SC
[2020-02-14] MEDS: HEPARIN NA (PORCINE) 5,000 UNITS/ML 1ML VIAL SQ SCH (22:24)
[2020-02-14] MEDS ORDERED: ALBUTEROL SULFATE IH PRN (22:37)
[2020-02-14] MEDS ORDERED: ALBUTEROL SO4 HFA INHALER IH PRN (22:52)
[2020-02-14] MEDS: LATANOPROST 0.005% OPHTH SOLN 2.5ML BOTTLE OU SCH (23:22)
[2020-02-15] MEDS ORDERED: PNEUMOC 13-VAL CONJ-DIP CRM/PF 0.5 ML DISP.SYRIN IM ONE (01:00)
[2020-02-15 01:18] VITALS: BMI 46.5
[2020-02-15] MEDS: HEPARIN NA (PORCINE) 5,000 UNITS/ML 1ML VIAL SQ SCH ×3 (06:26→21:21)
[2020-02-15] MEDS: LEVOTHYROXINE NA 50 MCG TABLET (FP) PO SCH (06:26)
[2020-02-15] MEDS ORDERED: IBUPROFEN 600 MG TABLET (FP) PO PRN (06:34)
[2020-02-15 08:11] LABS: BASO % 0.7 % (0-2.0); EOS % 6.2 % (0-4.5); HEMATOCRIT 30.8 % (32.4-45.2); HEMOGLOBIN 9.7 GM/dL (10.7-15.3); LYMPH % 24.6 % (8-40); MCH 24.7 pg (25.7-33.7); MCHC 31.4 g/dl (32.0-36.0); MEAN CELL VOLUME 78.6 fl (80-96); MEAN PLT VOLUME 9.6 fl (7.5-11.1); NEUT % 61.5 % (42.8-82.8); PLATELET COUNT 213 K/MM3 (134-434); RBC 3.92 M/mm3 (3.60-5.2); RDW 18.2 % (11.6-15.6); WHITE BLOOD COUNT 6.7 K/mm3 (4.0-10.0)
[2020-02-15 08:22] LABS: ALBUMIN 2.6 g/dl (3.4-5.0); BILIRUBIN,TOTAL 0.3 mg/dL (0.2-1); BLOOD UREA NITROGEN 12.6 mg/dL (7-18); CALCIUM 8.5 mg/dL (8.5-10.1); CREATININE 0.8 mg/dL (0.55-1.3); MAGNESIUM 2.1 mg/dL (1.8-2.4); PHOSPHOROUS 3.6 mg/dL (2.5-4.9); POTASSIUM 4.1 mmol/L (3.5-5.1); TOT PROT 7.4 g/dl (6.4-8.2)
[2020-02-15] MEDS ORDERED: ENOXAPARIN NA (PORCINE) 40 MG/0.4 ML DISP.SYRIN SQ SCH (10:00)
--- NOTE | 2020-02-15 12:21 | CON.CARD ---
Cardiology Consult (text) - Consultation Consultation Note: Consultation Note: Chief Complaint: syncope, dizziness History of Present Illness: 69 F here with syncope, dizziness. Recently admitted with atypical chest pain, nuclear stress test and echo unremarkable. Since last she felt dizzy, lightheadedness like she was going to pass out She had an appointment with her PCP yesterday and felt tired and very short of breath going up the steps. She then felt lightheaded and lost consciousness at the office. no chest pain, palps, dyspnea, edema. PMH: HTN anemia hypothyroid - Past Medical History Cardio/Vascular: Yes: HTN Pulmonary: Yes: Asthma (triggered by Viral URIs) ...: No Endocrine: Yes: Hypothyroidism - Past Surgical History Past Surgical History: Yes: None, Joint Replacement - Alcohol/Substance Use Hx Alcohol Use: No History of Substance Use: reports: None - Smoking History Smoking history: Never smoked Have you smoked in the past 12 months: No Aproximately how many cigarettes per day: 0 - Social History Usual Living Arrangement: Alone Occupation: Retired History of Recent Travel: No Home Medications - Allergies Allergies/Adverse Reactions: Allergies Allergy/AdvReac Type Severity Reaction Status Date / Time peanut [Peanut] Allergy Verified 01/19/20 05:43 ammonium lactate Allergy Uncoded 01/19/20 05:43 Home Medications Medication Instructions Recorded Levothyroxine [Synthroid -] 50 mcg PO DAILY 03/23/14 Latanoprost 0.005% Eye Drops 1 drop OU HS 01/19/20 [Xalatan 0.005% Eye Drops -] Albuterol Sulfate [Proair 1 puff IH Q4H PRN 01/20/20 Digihaler] Fluticasone/Salmeterol [Advair 1 puff IH DAILY 01/20/20 250-50 Diskus] Hydrochlorothiazide [Hctz -] 12.5 mg PO BID #14 cap 01/21/20 Lisinopril 10 mg PO DAILY #30 tablet 01/21/20 Family Disease History - Family Disease History Family History: Denies (no known cmp) Review of Systems - Review of Systems per hpi, all others nl Vital Signs: Vital Signs Period Temp Pulse Resp BP Sys/Gaona Pulse Ox Last 24 Hr 97.6 F-98.0 F 70-74 18-20 97-145/60-76 97-100 Constitutional: Yes: No Distress, Obese Eyes: No: Sclera Icterus HENT: No: Nasal Congestion Neck: No: Decreased ROM Respiratory: Yes: CTA Bilaterally. No: Accessory Muscle Use, Rales, Wheezes Gastrointestinal: Yes: Normal Bowel Sounds. No: Distention, Hepatomegaly, Palpable Mass, Tenderness Cardiovascular: Yes: Regular Rate and Rhythm JVD: No Carotid Bruit: No PMI: Non-Displaced Heart Sounds: Yes: S1, S2. No: Gallop Murmur: No: Systolic Murmur, Diastolic Murmur Musculoskeletal: Yes: Other (No kyphosis) Extremities: No: Cold, Cool, Cyanosis Edema: trace Peripheral Pulses: 2+ Left Carotid, 2+ Right Carotid, 2+ Left Doralis Pedis, 2+ Right Dorsalis Pedis Integumentary: No: Jaundice Neurological: Yes: Alert, Oriented (x3) Psychiatric: No: Agitated Laboratory Last Values WBC 6.7 K/mm3 (4.0-10.0) 02/15/20 06:37 RBC 3.92 M/mm3 (3.60-5.2) 02/15/20 06:37 Hgb 9.7 GM/dL (10.7-15.3) L 02/15/20 06:37 Hct 30.8 % (32.4-45.2) L 02/15/20 06:37 MCV 78.6 fl (80-96) L 02/15/20 06:37 MCH 24.7 pg (25.7-33.7) L 02/15/20 06:37 MCHC 31.4 g/dl (32.0-36.0) L 02/15/20 06:37 RDW 18.2 % (11.6-15.6) H 02/15/20 06:37 Plt Count 213 K/MM3 (134-434) 02/15/20 06:37 MPV 9.6 fl (7.5-11.1) 02/15/20 06:37 Absolute Neuts (auto) 4.1 K/mm3 (1.5-8.0) 02/15/20 06:37 Neutrophils % 61.5 % (42.8-82.8) 02/15/20 06:37 Lymphocytes % 24.6 % (8-40) D 02/15/20 06:37 Monocytes % 7.0 % (3.8-10.2) 02/15/20 06:37 Eosinophils % 6.2 % (0-4.5) H 02/15/20 06:37 Basophils % 0.7 % (0-2.0) 02/15/20 06:37 Nucleated RBC % 0 % (0-0) 02/15/20 06:37 PT with INR 14.60 SEC (9.7-13.0) H 02/14/20 12:10 INR 1.23 (0.83-1.09) H 02/14/20 12:10 PTT (Actin FS) 30.4 SECONDS (25.2-36.5) 02/14/20 12:10 Sodium 142 mmol/L (136-145) 02/15/20 06:37 Potassium 4.1 mmol/L (3.5-5.1) 02/15/20 06:37 Chloride 108 mmol/L (98-107) H 02/15/20 06:37 Carbon Dioxide 28 mmol/L (21-32) 02/15/20 06:37 Anion Gap 6 MMOL/L (8-16) L 02/15/20 06:37 BUN 12.6 mg/dL (7-18) 02/15/20 06:37 Creatinine 0.8 mg/dL (0.55-1.3) 02/15/20 06:37 Est GFR (CKD-EPI)AfAm 87.18 02/15/20 06:37 Est GFR (CKD-EPI)NonAf 75.22 02/15/20 06:37 Random Glucose 65 mg/dL (74-106) L 02/15/20 06:37 Hemoglobin A1c % 5.2 % (4.2-6.3) 02/15/20 06:00 Calcium 8.5 mg/dL (8.5-10.1) 02/15/20 06:37 Phosphorus 3.6 mg/dL (2.5-4.9) 02/15/20 06:37 Magnesium 2.1 mg/dL (1.8-2.4) 02/15/20 06:37 Total Bilirubin 0.3 mg/dL (0.2-1) 02/15/20 06:37 AST 13 U/L (15-37) L 02/15/20 06:37 ALT 14 U/L (13-61) 02/15/20 06:37 Alkaline Phosphatase 91 U/L (45-117) 02/15/20 06:37 Creatine Kinase 172 U/L (26-192) 02/14/20 23:05 Creatine Kinase Index No Result Required. 02/14/20 23:05 CK-MB (CK-2) < 1.0 ng/mL (0.5-3.6) 02/14/20 23:05 Troponin I < 0.02 ng/ml (0.00-0.05) 02/14/20 23:05 B-Natriuretic Peptide 55.8 pg/ml (5-125) 02/14/20 12:10 Total Protein 7.4 g/dl (6.4-8.2) 02/15/20 06:37 Albumin 2.6 g/dl (3.4-5.0) L 02/15/20 06:37 Triglycerides 57 mg/dL (0-150) 02/15/20 06:37 Cholesterol 145 mg/dL (50-200) 02/15/20 06:37 Total LDL Cholesterol 86 mg/dL (5-100) 02/15/20 06:37 HDL Cholesterol 45 mg/dL (40-60) 02/15/20 06:37 TSH 1.69 uIU/ml (0.358-3.74) 02/15/20 06:37 Free T4 1.29 ng/dl (0.76-1.46) 02/15/20 06:37 COVID-19 ([facility]ANT) Not detected (Not Detected) 02/14/20 14:30 Dobutamine Stress Echo 05/2017: 90% MPHR. No ST changes. no ischemia (nl EF) Echo 07/26: NL LV FX, NL RVSP, no valve disease mibi 01/2020 normal perfusion echo 01/2020 nl LV/RV function, mild TR, mild [place] carotid doppler 02/2020 no significant stenosis CTA chest 04/25: no PE. 2.9 cm main PA. minimal groundglass interstitial thickening bilat mid lung brewster ? small airways dz. normal heart size. no coronary calcifications described (images reviewed: confirms no coronary calcifications present) CTA neck 07/27: no carotid artery dissection ECG: NSR, WNL, similar to priors CXR: no sig chf tele: sr 69 F HTN, edema here with syncope, dizziness. dizziness, syncope - had low BPs at home, felt better stopping meds - had been started on HCTZ 12.5 mg last admission for edema - cont holding BP meds for now - tele benign so far, recent echo and mibi unremarkable le edema/venous insuff: -was on HCTZ 12.5 mg daily - minimal edema currently, holding as above for low BPs htn: -holding home meds
[2020-02-15] MEDS ORDERED: POLYETHYLENE GLYCOL 3350 119 GM BTL PO ONE (20:11)
[2020-02-15] MEDS ORDERED: LATANOPROST 0.005% OPHTH SOLN 2.5ML BOTTLE OU SCH ×2 (22:00→22:55)
[2020-02-15] MEDS: LATANOPROST 0.005% OPHTH SOLN 2.5ML BOTTLE OU SCH (23:50)
[2020-02-16] MEDS: LEVOTHYROXINE NA 50 MCG TABLET (FP) PO SCH (06:27)
[2020-02-16] MEDS: HEPARIN NA (PORCINE) 5,000 UNITS/ML 1ML VIAL SQ SCH ×2 (06:27→13:44)
--- NOTE | 2020-02-16 11:52 | PN ---
Progress Note (short form) - Note Progress Note: s: no cp sob palps dizzy Current Medications Generic Name Dose Route Start Last Admin Trade Name Freq PRN Reason Stop Dose Admin Albuterol Sulfate 1 puff 02/14/20 22:52 Ventolin Hfa Inhaler - IH Q4H PRN SHORTNESS OF BREATH Heparin Sodium (Porcine) 5,000 unit 02/14/20 22:00 02/16/20 06:27 Heparin - SQ 5,000 unit TID DAVONTE Administration Latanoprost 1 drop 02/14/20 23:15 02/15/20 23:50 Xalatan 0.005% Eye Drops - OU 1 drop HS DAVONTE Administration Levothyroxine Sodium 50 mcg 02/15/20 07:00 02/16/20 06:27 Synthroid - PO 50 mcg ACBK DAVONTE Administration Pneumococcal 13-Valent Conj Vacc 0.5 ml 02/15/20 01:00 Prevnar 13 Syringe - IM 02/15/20 01:01 .ONCE ONE Vital Signs Period Temp Pulse Resp BP Sys/Gaona Pulse Ox Last 24 Hr 97.7 F-98.4 F 62-80 16-18 100-122/55-74 94-100 Constitutional: Yes: No Distress, Obese Eyes: No: Sclera Icterus HENT: No: Nasal Congestion Neck: No: Decreased ROM Respiratory: Yes: CTA Bilaterally. No: Accessory Muscle Use, Rales, Wheezes Gastrointestinal: Yes: Normal Bowel Sounds. No: Distention, Hepatomegaly, Palpable Mass, Tenderness Cardiovascular: Yes: Regular Rate and Rhythm JVD: No Heart Sounds: Yes: S1, S2. No: Gallop Murmur: No: Systolic Murmur, Diastolic Murmur Musculoskeletal: Yes: Other (No kyphosis) Extremities: No: Cold, Cool, Cyanosis Edema: trace Peripheral Pulses: 2+ Left Carotid, 2+ Right Carotid, 2+ Left Doralis Pedis, 2+ Right Dorsalis Pedis Integumentary: No: Jaundice Neurological: Yes: Alert, Oriented (x3) Psychiatric: No: Agitated CBC, BMP 02/15/20 06:37 02/15/20 06:37 Dobutamine Stress Echo 05/2017: 90% MPHR. No ST changes. no ischemia (nl EF) Echo 07/26: NL LV FX, NL RVSP, no valve disease mibi 01/2020 normal perfusion echo 01/2020 nl LV/RV function, mild TR, mild [place] carotid doppler 02/2020 no significant stenosis CTA chest 04/25: no PE. 2.9 cm main PA. minimal groundglass interstitial thickening bilat mid lung brewster ? small airways dz. normal heart size. no coronary calcifications described (images reviewed: confirms no coronary calcifications present) CTA neck 07/27: no carotid artery dissection ECG: NSR, WNL, similar to priors CXR: no sig chf tele: sr 69 F HTN, edema here with syncope, dizziness. dizziness, syncope - had low BPs at home, felt better stopping meds - had been started on HCTZ 12.5 mg last admission for edema - cont holding BP meds for now - tele benign, recent echo and mibi unremarkable - pt has labile bp so will monitor bp daily at home and take hctz 12.5 qd prn for elevated bp le edema/venous insuff: -was on HCTZ 12.5 mg daily -minimal edema currently, holding as above for low BPs htn: -holding home meds cardiac gomes stable for dc.
--- NOTE | 2020-02-16 13:49 | DS ---
Physical Exam: SUBJECTIVE: Patient seen and examined OBJECTIVE: Vital Signs Period Temp Pulse Resp BP Sys/Gaona Pulse Ox Last 24 Hr 97.7 F-98.4 F 62-80 16-18 100-122/55-74 94-100 PHYSICAL EXAM GENERAL: The patient is awake, alert, and fully oriented, in no acute distress. HEAD: Normal with no signs of trauma. EYES: PERRL, extraocular movements intact, sclera anicteric, conjunctiva clear. ENT: Ears normal, nares patent, oropharynx clear without exudates, moist mucous membranes. NECK: Trachea midline, full range of motion, supple. LUNGS: Breath sounds equal, clear to auscultation bilaterally, no wheezes, no crackles, no accessory muscle use. HEART: Regular rate and rhythm, S1, S2 without murmur, rub or gallop. ABDOMEN: Soft, nontender, nondistended, normoactive bowel sounds, no guarding, no rebound, no hepatosplenomegaly, no masses. EXTREMITIES: 2+ pulses, warm, well-perfused, no edema. NEUROLOGICAL: Cranial nerves II through XII grossly intact. Normal speech, gait not observed. PSYCH: Normal mood, normal affect. SKIN: Warm, dry, normal turgor, no rashes or lesions noted. LABS HOSPITAL COURSE: Date of Admission:02/14/20 Date of Discharge: 02/16/20 69 year-old female with a PMH significant for HTN, anemia, and hypothyroidism. Since last she felt dizzy, lightheadedness like she was going to pass out She had an appointment with her PCP yesterday and felt tired and very short of breath going up the steps. She then felt lightheaded and lost consciousness at the office. Placed on observation for syncope. Had full cardiac workup in January 2020, echo and stress unremarkable. Seen and evaluated by cardiology on this visit, no further workup indicated. Had been started on HCTZ on last admission for edema and BPs were running low at home. Discharged with instructions to take HCTZ only as needed. OK to resume lisinopril. Minutes to complete discharge: 35 Discharge Summary Problems reviewed: Yes Reason For Visit: SYNCOPE Current Active Problems Syncope (Acute) Condition: Stable - Instructions Diet, Activity, Other Instructions: It is recommended you stop taking lisinopril and HCTZ on a daily basis as your blood pressure drops at times. It is recommended you take HCTZ only on an as needed basis for your lower extremity swelling. A prescription has been sent to your pharmacy. Please follow up with your primary care provider within one week of your discharge to have your blood pressure checked. Referrals: Anju Diamond MD [Primary Care Provider] - Disposition: HOME - Home Medications Comprehensive Discharge Medication List: Ambulatory Orders Levothyroxine [Synthroid -] 50 mcg PO DAILY 03/23/14 Latanoprost 0.005% Eye Drops [Xalatan 0.005% Eye Drops -] 1 drop OU HS 01/19/20 Albuterol Sulfate [Proair Digihaler] 1 puff IH Q4H PRN 01/20/20 Fluticasone/Salmeterol [Advair 250-50 Diskus] 1 puff IH DAILY 01/20/20 Hydrochlorothiazide [Hctz -] 12.5 mg PO BID #14 cap 01/21/20 Lisinopril 10 mg PO DAILY #30 tablet 01/21/20 This patient is new to me today: Yes Date on this admission: 02/18/20 Emergency Visit: Yes ED Registration Date: 02/14/20 Care time: The patient presented to the Emergency Department on the above date and was hospitalized for further evaluation of their emergent condition. Critical Care patient: No - Discharge Referral Referred to [facility] Med P.C.: No
[2020-02-16 14:00] LABS: PH,URINE 5.5 (5.0-8.0); URINE APPEARANCE CLEAR; URINE BILIRUBIN NEGATIVE (NEGATIVE); URINE COLOR YELLOW; URINE GLUCOSE (UA) NEGATIVE (NEGATIVE); URINE KETONE NEGATIVE (NEGATIVE); URINE LEUK ESTERASE NEGATIVE (NEGATIVE); URINE NITRITE NEGATIVE (NEGATIVE); URINE PROTEIN NEGATIVE (NEGATIVE); URINE UROBILINOGEN 0.2 mg/dL (0.2-1.0)
[2020-02-16 14:42] VITALS: BP 110/62; PULSE 77; TEMP 97.9
== END 2020-02-16 17:45 | disposition home or self-care (01) ==
LOC: JER 11:09 → JERBED 16:23 → UNDOADMOB 17:12 → JERBED 17:12 → INTOOBSV 17:12 → JERBED 21:49 → J4S 21:49
PROVIDERS: ATTEND Nurse Practitioner Acute Care
PROC: 3E023GC Introduction of Other Therapeutic Substance into Muscle, Percutaneous Approach (ICD-10-PCS; principal; 2020-02-14)
PROC: 3E0337Z Introduction of Electrolytic and Water Balance Substance into Peripheral Vein, Percutaneous Approach (ICD-10-PCS; 2020-02-14)
DX: R55 Syncope and collapse (principal); E66.01 Morbid (severe) obesity due to excess calories; Z68.42 Body mass index [BMI] 45.0-49.9, adult; I10 Essential (primary) hypertension; E78.5 Hyperlipidemia, unspecified; M31.6 Other giant cell arteritis; F41.9 Anxiety disorder, unspecified; J45.909 Unspecified asthma, uncomplicated; M19.90 Unspecified osteoarthritis, unspecified site; Z91.010 Allergy to peanuts; Z29.9 Encounter for prophylactic measures, unspecified; D64.9 Anemia, unspecified; E03.9 Hypothyroidism, unspecified
CPT/HCPCS: 36415; 70450-TC; 71045-TC-FY; 80053; 80061; 81003; 82550; 82553; 83036; 83721; 83735; 83880; 84100; 84132; 84439; 84443; 84484; 85025; 85610; 85730; 87086; 93005; 93010; 93880-TC; 96365; 96372; 99291; G0378; J1644; U0003

== ENCOUNTER 2020-04-09 21:58 | Emergency (ER) | payer OTHER ==
--- NOTE | 2020-04-09 22:39 | PDOC ---
Attending Attestation - Resident Resident Name: María Sarah - ED Attending Attestation I have performed the following: I have examined & evaluated the patient, The case was reviewed & discussed with the resident, I agree w/resident's findings & plan Discharge - Follow up/Referral Referrals: Anju Diamond MD [Primary Care Provider] - - Patient Discharge Instructions - Post Discharge Activity
[2020-04-09 22:40] VITALS: BMI 47.6
--- OUTSIDE RECORDS SUMMARY | 2020-04-09 22:40 | XMS ---
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 [facility]) Documentation of current 12/19/2019 MED GEN ([facility] (procedure) 12:00:00 AM EDT [facility], PC) Documentation of current 12/19/2019 MED GEN ([facility] (procedure) 12:00:00 AM EDT [facility], PC) Documentation of current 12/19/2019 MED GEN ([facility] (procedure) 12:00:00 AM EDT [facility], [facility]) Documentation of current 12/19/2019 MED GEN ([facility] (procedure) 12:00:00 AM EDT [facility], [facility]) Documentation of current 12/19/2019 MED GEN ([facility] (procedure) 12:00:00 AM EDT [facility], [facility]) Documentation of current 12/19/2019 MED GEN ([facility] (procedure) 12:00:00 AM EDT [facility], PC) OFFICE OUTPATIENT VISIT 12/19/2019 MEDG EN ([facility] 25 MINUTES 12:00:00 AM EDT Medical, ) Documentation of current 12/19/2019 MED GEN ([facility] (procedure) 12:00:00 AM EDT [facility], [facility]) Documentation of current 12/19/2019 MED GEN ([facility] (procedure) 12:00:00 AM EDT [facility], PC) Documentation of current 12/19/2019 MED GEN ([facility] (procedure) 12:00:00 AM EDT [facility], [facility]) Documentation of current 12/19/2019 MED GEN ([facility] (procedure) 12:00:00 AM EDT [facility], [facility]) Documentation of current 12/19/2019 MED GEN ([facility] (procedure) 12:00:00 AM EDT [facility], PC) Documentation of current 12/19/2019 MED GEN ([facility] (procedure) 12:00:00 AM EDT [facility], [facility]) OFFICE OUTPATIENT VISIT 12/19/2019 MEDG EN ([facility] 25 MINUTES 12:00:00 AM EDT Medical, PC) Documentation of current 12/19/2019 MED GEN ([facility] (procedure) 12:00:00 AM EDT [facility], [facility]) Documentation of current 12/19/2019 MED GEN ([facility] (procedure) 12:00:00 AM EDT [facility], [facility]) Documentation of current 12/19/2019 MED GEN ([facility] (procedure) 12:00:00 AM EDT [facility]) Documentation of current 12/19/2019 MED GEN ([facility] (procedure) 12:00:00 AM EDT [facility]) Documentation of current 12/19/2019 MED GEN ([facility] (procedure) 12:00:00 AM EDT [facility], [facility]) Documentation of current 12/19/2019 MED GEN ([facility] (procedure) 12:00:00 AM EDT [facility], [facility]) Documentation of current 12/19/2019 MED GEN ([facility] (procedure) 12:00:00 AM EDT [facility], [facility]) Documentation of current 12/19/2019 MED GEN ([facility] (procedure) 12:00:00 AM EDT [facility], [facility]) Documentation of current 12/19/2019 MED GEN ([facility] (procedure) 12:00:00 AM EDT [facility], [facility]) Documentation of current 12/19/2019 MED GEN ([facility] (procedure) 12:00:00 AM EDT [facility]) Documentation of current 12/19/2019 MED GEN ([facility] (procedure) 12:00:00 AM EDT [facility]) Documentation of current 12/19/2019 MED GEN ([facility] (procedure) 12:00:00 AM EDT [facility]) Documentation of current 12/19/2019 MED GEN ([facility] (procedure) 12:00:00 AM EDT [facility]) OFFICE OUTPATIENT VISIT 12/19/2019 MEDG EN ([facility] 25 MINUTES 12:00:00 AM EDT [facility], PC) OFFICE OUTPATIENT VISIT 12/05/2019 MEDG EN ([facility] 15 MINUTES 12:00:00 AM EDT Medical, PC) OFFICE OUTPATIENT VISIT 12/05/2019 MEDG EN ([facility] 15 MINUTES 12:00:00 AM EDT Medical, PC) OFFICE OUTPATIENT VISIT 12/05/2019 MEDG EN ([facility] 15 MINUTES 12:00:00 AM EDT Medical, PC) OFFICE OUTPATIENT VISIT 12/05/2019 MEDG EN ([facility] 15 MINUTES 12:00:00 AM EDT Medical, PC) OFFICE OUTPATIENT VISIT 12/05/2019 MEDG EN ([facility] 15 MINUTES 12:00:00 AM EDT Medical, PC) PHYSICIAN TELEPHONE 12/05/2019 MEDGEN ( [facility] EVALUATION 11-20 MIN 12:00:00 AM EDT Medi bryce, PC) OFFICE OUTPATIENT VISIT 12/05/2019 MEDG EN ([facility] 15 MINUTES 12:00:00 AM EDT Medical, PC) PHYSICIAN TELEPHONE 11/17/2019 MEDGEN ( [facility] EVALUATION 5-10 MIN 12:00:00 AM EDT Medic al, PC) PHYSICIAN TELEPHONE 11/17/2019 MEDGEN ( [facility] EVALUATION 5-10 MIN 12:00:00 AM EDT Medic al, PC) PHYSICIAN TELEPHONE 11/17/2019 MEDGEN ( [facility] EVALUATION 5-10 MIN 12:00:00 AM EDT Medic al, PC) PHYSICIAN TELEPHONE 11/17/2019 MEDGEN ( [facility] EVALUATION 5-10 MIN 12:00:00 AM EDT Medic al, PC) PHYSICIAN TELEPHONE 11/17/2019 MEDGEN ( [facility] EVALUATION 5-10 MIN 12:00:00 AM EDT Medic al, PC) PHYSICIAN TELEPHONE 11/17/2019 MEDGEN ( [facility] EVALUATION 5-10 MIN 12:00:00 AM EDT Medic al, PC) Documentation of current 10/05/2019 MED GEN ([facility] (procedure) 12:00:00 AM EDT GUCCI Zambrano) Documentation of current 10/05/2019 MED GEN ([facility] (procedure) 12:00:00 AM EDT Love [facility]) Documentation of current 10/05/2019 MED GEN ([facility] (procedure) 12:00:00 AM EDT GUCCI Zambrano) Documentation of current 10/05/2019 MED GEN ([facility] (procedure) 12:00:00 AM EDT Love rosado, PC) Documentation of current 10/05/2019 MED GEN ([facility] (procedure) 12:00:00 AM EDT M edical, PC) Documentation of current 10/05/2019 MED GEN ([facility] (procedure) 12:00:00 AM EDT Love rosado, PC) Documentation of current 10/05/2019 MED GEN ([facility] (procedure) 12:00:00 AM EDT alonzo, GUCCI) Documentation of current 10/05/2019 MED GEN ([facility] (procedure) 12:00:00 AM EDT [facility], [facility]) Documentation of current 10/05/2019 MED GEN ([facility] (procedure) 12:00:00 AM EDT alonzo, GUCCI) OFFICE OUTPATIENT VISIT 10/05/2019 MEDG EN ([facility] 10 MINUTES 12:00:00 AM RENETTAT GUCCI Mota) Documentation of current 10/05/2019 MED GEN ([facility] (procedure) 12:00:00 AM EDT [facility], [facility]) Documentation of current 10/05/2019 MED GEN ([facility] (procedure) 12:00:00 AM EDT Love rosado, PC) Documentation of current 10/05/2019 MED GEN ([facility] (procedure) 12:00:00 AM EDT [facility], [facility]) Documentation of current 10/05/2019 MED GEN ([facility] (procedure) 12:00:00 AM EDT [facility], [facility]) Documentation of current 10/05/2019 MED GEN ([facility] (procedure) 12:00:00 AM EDT [facility], [facility]) Documentation of current 10/05/2019 MED GEN ([facility] (procedure) 12:00:00 AM EDT Love rosado, PC) Documentation of current 10/05/2019 MED GEN ([facility] (procedure) 12:00:00 AM EDT [facility], [facility]) Documentation of current 10/05/2019 MED GEN ([facility] (procedure) 12:00:00 AM EDT [facility], [facility]) Documentation of current 10/05/2019 MED GEN ([facility] (procedure) 12:00:00 AM EDT [facility], [facility]) Documentation of current 10/05/2019 MED GEN ([facility] (procedure) 12:00:00 AM EDT [facility], [facility]) Documentation of current 10/05/2019 MED GEN ([facility] (procedure) 12:00:00 AM EDT [facility], [facility]) Documentation of current 10/05/2019 MED GEN ([facility] (procedure) 12:00:00 AM EDT [facility], [facility]) Documentation of current 10/05/2019 MED GEN ([facility] (procedure) 12:00:00 AM EDT [facility], PC) OFFICE OUTPATIENT VISIT 10/05/2019 MEDG EN ([facility] 10 MINUTES 12:00:00 AM EDT Medical, PC) Documentation of current 10/05/2019 MED GEN ([facility] (procedure) 12:00:00 AM EDT [facility], [facility]) Documentation of current 10/05/2019 MED GEN ([facility] (procedure) 12:00:00 AM EDT [facility], [facility]) Documentation of current 10/05/2019 MED GEN ([facility] (procedure) 12:00:00 AM EDT [facility], [facility]) Documentation of current 10/05/2019 MED GEN ([facility] (procedure) 12:00:00 AM EDT [facility], [facility]) Documentation of current 10/05/2019 MED GEN ([facility] (procedure) 12:00:00 AM EDT [facility], PC) Documentation of current 10/05/2019 MED GEN ([facility] (procedure) 12:00:00 AM EDT [facility], PC) Documentation of current 10/05/2019 MED GEN ([facility] (procedure) 12:00:00 AM EDT [facility], [facility]) Documentation of current 10/05/2019 MED GEN ([facility] (procedure) 12:00:00 AM EDT [facility], [facility]) Documentation of current 10/05/2019 MED GEN ([facility] (procedure) 12:00:00 AM EDT [facility], PC) Documentation of current 10/05/2019 MED GEN ([facility] (procedure) 12:00:00 AM EDT [facility], PC) Documentation of current 10/05/2019 MED GEN ([facility] (procedure) 12:00:00 AM EDT [facility], PC) Documentation of current 10/05/2019 MED GEN ([facility] (procedure) 12:00:00 AM EDT [facility], [facility]) Documentation of current 10/05/2019 MED GEN ([facility] medications (procedure) 12:00:00 AM EDT M [facility], [facility]) Documentation of current 10/05/2019 MED GEN ([facility] (procedure) 12:00:00 AM EDT [facility], [facility]) Documentation of current 10/05/2019 MED GEN ([facility] (procedure) 12:00:00 AM EDT [facility], [facility]) Documentation of current 10/05/2019 MED GEN ([facility] (procedure) 12:00:00 AM EDT [facility], [facility]) Documentation of current 10/05/2019 MED GEN ([facility] (procedure) 12:00:00 AM EDT [facility], [facility]) Documentation of current 10/05/2019 MED GEN ([facility] (procedure) 12:00:00 AM EDT [facility], [facility]) Documentation of current 10/05/2019 MED GEN ([facility] (procedure) 12:00:00 AM EDT [facility], [facility]) Documentation of current 10/05/2019 MED GEN ([facility] (procedure) 12:00:00 AM EDT [facility], [facility]) Documentation of current 10/05/2019 MED GEN ([facility] (procedure) 12:00:00 AM EDT [facility], [facility]) Documentation of current 10/05/2019 MED GEN ([facility] (procedure) 12:00:00 AM EDT [facility], [facility]) Documentation of current 10/05/2019 MED GEN ([facility] (procedure) 12:00:00 AM EDT [facility], [facility]) Documentation of current 10/05/2019 MED GEN ([facility] (procedure) 12:00:00 AM EDT [facility], [facility]) Documentation of current 10/05/2019 MED GEN ([facility] (procedure) 12:00:00 AM EDT [facility], [facility]) Documentation of current 10/05/2019 MED GEN ([facility] (procedure) 12:00:00 AM EDT [facility], [facility]) Documentation of current 10/05/2019 MED GEN ([facility] (procedure) 12:00:00 AM EDT Love rosado, PC) OFFICE OUTPATIENT VISIT 10/05/2019 MEDG EN ([facility] 10 MINUTES 12:00:00 AM EDT Medical, PC) Documentation of current 10/05/2019 MED GEN ([facility] (procedure) 12:00:00 AM EDT [facility], [facility]) Documentation of current 10/05/2019 MED GEN ([facility] medications (procedure) 12:00:00 AM EDT [facility], [facility]) Documentation of current 10/05/2019 MED GEN ([facility] medications (procedure) 12:00:00 AM EDT [facility], [facility]) Documentation of current 10/05/2019 MED GEN ([facility] (procedure) 12:00:00 AM EDT [facility], [facility]) Documentation of current 10/05/2019 MED GEN ([facility] (procedure) 12:00:00 AM EDT [facility], [facility]) Documentation of current 10/05/2019 MED GEN ([facility] (procedure) 12:00:00 AM EDT [facility], [facility]) Documentation of current 10/05/2019 MED GEN ([facility] (procedure) 12:00:00 AM EDT [facility], [facility]) Documentation of current 10/05/2019 MED GEN ([facility] (procedure) 12:00:00 AM EDT [facility], [facility]) Documentation of current 10/05/2019 MED GEN ([facility] (procedure) 12:00:00 AM EDT [facility], [facility]) Documentation of current 10/05/2019 MED GEN ([facility] medications (procedure) 12:00:00 AM EDT [facility], [facility]) Documentation of current 10/05/2019 MED GEN ([facility] (procedure) 12:00:00 AM EDT [facility], [facility]) Documentation of current 10/05/2019 MED GEN ([facility] (procedure) 12:00:00 AM EDT [facility], [facility]) Documentation of current 10/05/2019 MED GEN ([facility] (procedure) 12:00:00 AM EDT [facility]) OFFICE OUTPATIENT VISIT 10/05/2019 MEDG EN ([facility] 10 MINUTES 12:00:00 AM EDT [facility], PC) Documentation of current 10/05/2019 MED GEN ([facility] medications (procedure) 12:00:00 AM EDT [facility]) Documentation of current 10/05/2019 MED GEN ([facility] medications (procedure) 12:00:00 AM EDT [facility], [facility]) Documentation of current 10/05/2019 MED GEN ([facility] (procedure) 12:00:00 AM EDT [facility]) OFFICE OUTPATIENT VISIT 10/05/2019 MEDG EN ([facility] 10 MINUTES 12:00:00 AM EDT [facility], PC) Documentation of current 10/05/2019 MED GEN ([facility] medications (procedure) 12:00:00 AM EDT [facility], [facility]) Documentation of current 10/05/2019 MED GEN ([facility] medications (procedure) 12:00:00 AM EDT [facility], [facility]) Documentation of current 10/05/2019 MED GEN ([facility] (procedure) 12:00:00 AM EDT [facility], [facility]) Documentation of current 10/05/2019 MED GEN ([facility] (procedure) 12:00:00 AM EDT [facility], [facility]) Documentation of current 10/05/2019 MED GEN ([facility] (procedure) 12:00:00 AM EDT [facility], [facility]) Documentation of current 10/05/2019 MED GEN ([facility] medications (procedure) 12:00:00 AM EDT [facility], [facility]) Documentation of current 10/05/2019 MED GEN ([facility] (procedure) 12:00:00 AM EDT Love rosado, PC) Documentation of current 10/05/2019 MED GEN ([facility] (procedure) 12:00:00 AM EDT [facility], [facility]) Documentation of current 10/05/2019 MED GEN ([facility] (procedure) 12:00:00 AM EDT [facility], [facility]) Documentation of current 10/05/2019 MED GEN ([facility] medications (procedure) 12:00:00 AM EDT M [facility], [facility]) Documentation of current 10/05/2019 MED GEN ([facility] medications (procedure) 12:00:00 AM EDT [facility], [facility]) OFFICE OUTPATIENT VISIT 10/05/2019 MEDG EN ([facility] 10 MINUTES 12:00:00 AM KI Mota, GUCCI) Documentation of current 06/23/2019 MED GEN ([facility] (procedure) 12:00:00 AM ISATU rosado, GUCCI) Documentation of current 06/23/2019 MED GEN ([facility] medications (procedure) 12:00:00 AM ISATU rosado, GUCCI) Documentation of current 06/23/2019 MED GEN ([facility] medications (procedure) 12:00:00 AM ISATU rosado, GUCCI) Documentation of current 06/23/2019 MED GEN ([facility] (procedure) 12:00:00 AM ISATU rosado, PC) Documentation of current 06/23/2019 MED GEN ([facility] (procedure) 12:00:00 AM ISATU rosado, GUCCI) Documentation of current 06/23/2019 MED GEN ([facility] (procedure) 12:00:00 AM ISATU rosado, PC) Documentation of current 06/23/2019 MED GEN ([facility] medications (procedure) 12:00:00 AM ISATU rosado, GUCCI) Documentation of current 06/23/2019 MED GEN ([facility] medications (procedure) 12:00:00 AM ISATU rosado, GUCCI) Documentation of current 06/23/2019 MED GEN ([facility] medications (procedure) 12:00:00 AM GUCCI Courtney) Documentation of current 06/23/2019 MED GEN ([facility] medications (procedure) 12:00:00 AM GUCCI Courtney) Documentation of current 06/23/2019 MED GEN ([facility] medications (procedure) 12:00:00 AM GUCCI Courtney) Documentation of current 06/23/2019 MED GEN ([facility] medications (procedure) 12:00:00 AM ISATU rosado PC) Documentation of current 06/23/2019 MED GEN ([facility] medications (procedure) 12:00:00 AM ISATU rosado, GUCCI) Documentation of current 06/23/2019 MED GEN ([facility] medications (procedure) 12:00:00 AM ISATU rosado, PC) Documentation of current 06/23/2019 MED GEN ([facility] medications (procedure) 12:00:00 AM GUCCI Courtney) Documentation of current 06/23/2019 MED GEN ([facility] medications (procedure) 12:00:00 AM GUCCI Courtney) OFFICE OUTPATIENT VISIT 06/23/2019 MEDG EN ([facility] 15 MINUTES 12:00:00 AM GUCCI Falk) Documentation of current 06/23/2019 MED GEN ([facility] medications (procedure) 12:00:00 AM GUCCI Courtney) Documentation of current 06/23/2019 MED GEN ([facility] medications (procedure) 12:00:00 AM GUCCI Courtney) Documentation of current 06/23/2019 MED GEN ([facility] medications (procedure) 12:00:00 AM GUCCI Courtney) Documentation of current 06/23/2019 MED GEN ([facility] medications (procedure) 12:00:00 AM GUCCI Courtney) Documentation of current 06/23/2019 MED GEN ([facility] medications (procedure) 12:00:00 AM GUCCI Courtney) Documentation of current 06/23/2019 MED GEN ([facility] medications (procedure) 12:00:00 AM GUCCI Courtney) Documentation of current 06/23/2019 MED GEN ([facility] medications (procedure) 12:00:00 AM GUCCI Courtney) Documentation of current 06/23/2019 MED GEN ([facility] medications (procedure) 12:00:00 AM GUCCI Courtney) Documentation of current 06/23/2019 MED GEN ([facility] medications (procedure) 12:00:00 AM GUCCI Courtney) Documentation of current 06/23/2019 MED GEN ([facility] (procedure) 12:00:00 AM GUCCI Courtney) Documentation of current 06/23/2019 MED GEN ([facility] medications (procedure) 12:00:00 AM GUCCI Courtney) Documentation of current 06/23/2019 MED GEN ([facility] (procedure) 12:00:00 AM GUCCI Courtney) Documentation of current 06/23/2019 MED GEN ([facility] (procedure) 12:00:00 AM GUCCI Courtney) Documentation of current 06/23/2019 MED GEN ([facility] (procedure) 12:00:00 AM GUCCI Courtney) Documentation of current 06/23/2019 MED GEN ([facility] medications (procedure) 12:00:00 AM GUCCI Courtney) Documentation of current 06/23/2019 MED GEN ([facility] (procedure) 12:00:00 AM GUCCI Courtney) OFFICE OUTPATIENT VISIT 06/23/2019 MEDG EN ([facility] 15 MINUTES 12:00:00 AM GUCCI Falk) Documentation of current 06/23/2019 MED GEN ([facility] medications (procedure) 12:00:00 AM ISATU rosado, GUCCI) Documentation of current 06/23/2019 MED GEN ([facility] medications (procedure) 12:00:00 AM GUCCI Courtney) Documentation of current 06/23/2019 MED GEN ([facility] (procedure) 12:00:00 AM GUCCI Courtney) Documentation of current 06/23/2019 MED GEN ([facility] (procedure) 12:00:00 AM GUCCI Courtney) Documentation of current 06/23/2019 MED GEN ([facility] (procedure) 12:00:00 AM GUCCI Courtney) Documentation of current 06/23/2019 MED GEN ([facility] (procedure) 12:00:00 AM GUCCI Courtney) Documentation of current 06/23/2019 MED GEN ([facility] (procedure) 12:00:00 AM GUCCI Courtney) Documentation of current 06/23/2019 MED GEN ([facility] medications (procedure) 12:00:00 AM GUCCI Courtney) Documentation of current 06/23/2019 MED GEN ([facility] medications (procedure) 12:00:00 AM GUCCI Courtney) Documentation of current 06/23/2019 MED GEN ([facility] medications (procedure) 12:00:00 AM GUCCI Courtney) Documentation of current 06/23/2019 MED GEN ([facility] medications (procedure) 12:00:00 AM GUCCI Courtney) Documentation of current 06/23/2019 MED GEN ([facility] (procedure) 12:00:00 AM GUCCI Courtney) Documentation of current 06/23/2019 MED GEN ([facility] medications (procedure) 12:00:00 AM GUCCI Courtney) Documentation of current 06/23/2019 MED GEN ([facility] (procedure) 12:00:00 AM GUCCI Courtney) Documentation of current 06/23/2019 MED GEN ([facility] (procedure) 12:00:00 AM ISATU rosado, GUCCI) Documentation of current 06/23/2019 MED GEN ([facility] medications (procedure) 12:00:00 AM ISATU rosado, GUCCI) OFFICE OUTPATIENT VISIT 06/23/2019 MEDG EN ([facility] 15 MINUTES 12:00:00 AM GUCCI Falk) Documentation of current 06/23/2019 MED GEN ([facility] medications (procedure) 12:00:00 AM GUCCI Courtney) Documentation of current 06/23/2019 MED GEN ([facility] (procedure) 12:00:00 AM ISATU rosado, GUCCI) Documentation of current 06/23/2019 MED GEN ([facility] (procedure) 12:00:00 AM ISATU rosado, GUCCI) Documentation of current 06/23/2019 MED GEN ([facility] (procedure) 12:00:00 AM ISATU rosado, PC) Documentation of current 06/23/2019 MED GEN ([facility] medications (procedure) 12:00:00 AM ISATU rosado, GUCCI) Documentation of current 06/23/2019 MED GEN ([facility] medications (procedure) 12:00:00 AM ISATU rosado, PC) Documentation of current 06/23/2019 MED GEN ([facility] medications (procedure) 12:00:00 AM ISATU rosado, GUCCI) Documentation of current 06/23/2019 MED GEN ([facility] medications (procedure) 12:00:00 AM ISATU rosado, PC) Documentation of current 06/23/2019 MED GEN ([facility] (procedure) 12:00:00 AM ISATU rosado, GUCCI) Documentation of current 06/23/2019 MED GEN ([facility] (procedure) 12:00:00 AM ISATU rosado, PC) Documentation of current 06/23/2019 MED GEN ([facility] (procedure) 12:00:00 AM GUCCI Courtney) Documentation of current 06/23/2019 MED GEN ([facility] medications (procedure) 12:00:00 AM GUCCI Courtney) Documentation of current 06/23/2019 MED GEN ([facility] medications (procedure) 12:00:00 AM GUCCI Courtney) Documentation of current 06/23/2019 MED GEN ([facility] medications (procedure) 12:00:00 AM GUCCI Courtney) Documentation of current 06/23/2019 MED GEN ([facility] medications (procedure) 12:00:00 AM GUCCI Courtney) Documentation of current 06/23/2019 MED GEN ([facility] medications (procedure) 12:00:00 AM GUCCI Courtney) OFFICE OUTPATIENT VISIT 06/23/2019 MEDG EN ([facility] 15 MINUTES 12:00:00 AM GUCCI Falk) Documentation of current 06/23/2019 MED GEN ([facility] medications (procedure) 12:00:00 AM GUCCI Courtney) Documentation of current 06/23/2019 MED GEN ([facility] medications (procedure) 12:00:00 AM GUCCI Courtney) Documentation of current 06/23/2019 MED GEN ([facility] medications (procedure) 12:00:00 AM GUCCI Courtney) Documentation of current 06/23/2019 MED GEN ([facility] medications (procedure) 12:00:00 AM GUCCI Courtney) Documentation of current 06/23/2019 MED GEN ([facility] medications (procedure) 12:00:00 AM GUCCI Courtney) Documentation of current 06/23/2019 MED GEN ([facility] medications (procedure) 12:00:00 AM GUCCI Courtney) Documentation of current 06/23/2019 MED GEN ([facility] medications (procedure) 12:00:00 AM GUCCI Courtney) Documentation of current 06/23/2019 MED GEN ([facility] medications (procedure) 12:00:00 AM GUCCI Courtney) Documentation of current 06/23/2019 MED GEN ([facility] medications (procedure) 12:00:00 AM GUCCI Courtney) Documentation of current 06/23/2019 MED GEN ([facility] medications (procedure) 12:00:00 AM GUCCI Courtney) Documentation of current 06/23/2019 MED GEN ([facility] medications (procedure) 12:00:00 AM GUCCI Courtney) Documentation of current 06/23/2019 MED GEN ([facility] medications (procedure) 12:00:00 AM GUCCI Courtney) Documentation of current 06/23/2019 MED GEN ([facility] medications (procedure) 12:00:00 AM GUCCI Courtney) Documentation of current 06/23/2019 MED GEN ([facility] medications (procedure) 12:00:00 AM ISATU rosado, GUCCI) Documentation of current 06/23/2019 MED GEN ([facility] medications (procedure) 12:00:00 AM GUCCI Courtney) Documentation of current 06/23/2019 MED GEN ([facility] medications (procedure) 12:00:00 AM GUCCI Courtney) OFFICE OUTPATIENT VISIT 06/23/2019 MEDG EN ([facility] 15 MINUTES 12:00:00 AM GUCCI Falk) Documentation of current 06/23/2019 MED GEN ([facility] medications (procedure) 12:00:00 AM ISATU rosado, GUCCI) Documentation of current 06/23/2019 MED GEN ([facility] medications (procedure) 12:00:00 AM GUCCI Courtney) Documentation of current 06/23/2019 MED GEN ([facility] medications (procedure) 12:00:00 AM GUCCI Courtney) Documentation of current 06/23/2019 MED GEN ([facility] medications (procedure) 12:00:00 AM GUCCI Courtney) Documentation of current 06/23/2019 MED GEN ([facility] medications (procedure) 12:00:00 AM ISATU rosado, GUCCI) Documentation of current 06/23/2019 MED GEN ([facility] medications (procedure) 12:00:00 AM ISATU rosado PC) Documentation of current 06/23/2019 MED GEN ([facility] medications (procedure) 12:00:00 AM GUCCI Courtney) Documentation of current 06/23/2019 MED GEN ([facility] medications (procedure) 12:00:00 AM GUCCI Courtney) Documentation of current 06/23/2019 MED GEN ([facility] medications (procedure) 12:00:00 AM EST Love rosado, PC) Documentation of current 06/23/2019 MED GEN ([facility] medications (procedure) 12:00:00 AM EST Love rosado, PC) Documentation of current 06/23/2019 MED GEN ([facility] medications (procedure) 12:00:00 AM EST Lvoe rosado, PC) Documentation of current 06/23/2019 MED GEN ([facility] medications (procedure) 12:00:00 AM EST Love rosado PC) Documentation of current 06/23/2019 MED GEN ([facility] medications (procedure) 12:00:00 AM EST Love rosado, PC) Documentation of current 06/23/2019 MED GEN ([facility] medications (procedure) 12:00:00 AM EST [facility]) Documentation of current 06/23/2019 MED GEN ([facility] medications (procedure) 12:00:00 AM EST [facility], ) OFFICE OUTPATIENT VISIT 06/23/2019 MEDG EN ([facility] 15 MINUTES 12:00:00 AM EST [facility]) Results ID Date Data Source [id number] 02/14/2020 02:30:00 PM EDT [facility] Name Value Range Interpretation Description Data Sup porting Code Source(s) Document(s ) SARS [facility] coronavirus 2 RNA This lab was ordered by [facility] and reported by [facility]. ID Date Data Source [id number] 01/19/2020 09:37:00 AM EDT [facility] Name Value Range Interpretation Description Data Sup porting Code Source(s) Document(s ) SARS [facility] coronavirus 2 RNA This lab was ordered by [facility] and reported by [facility]. ID Date Data Source [id number] 01/17/2020 12:00:00 AM EDT [facility] Name Value Range Interpretation Description Data Sup porting Code Source(s) Document(s ) No Frozen Test not Normal (applies to [facility] (St Received performed non-numeric [facility] . results) [facility], [facility]) ID Date Data Source [id number] 01/17/2020 12:00:00 AM EDT [facility] Name Value Range Interpretation Code Description Data Leslie rce(s) Supporting Document(s ) Uric Acid 7.4 mg/dL Above high normal [facility] [place] ID Date Data Source [id number] 01/17/2020 12:00:00 AM EDT [facility] [place] [place] Name Value Range Interpretation Description Data Sup porting Code Source(s) Document(s ) Glucose 72 mg/dL Normal (applies [facility] (St [Mass/volume] in to non-numeric [facility] Urine collected for results) Medical, unspecified PC) duration eGFR If NonAfricn 72 Normal (applies [facility] (St Am mL/min/1 to non-numeric [facility] .73 results) Medical, ) Urea nitrogen 10 mg/dL Normal (applies [facility] (St [Mass/volume] in to non-numeric [facility] Serum or Plasma results) [facility], PC) Creatinine 0.83 Normal (applies [facility] (St [Interpretation] in mg/dL to non-numeric [facility] Urine results) Medical, ) BUN/Creatinine 12 Normal (applies [facility] (S t Ratio to non-numeric [facility] results) Medical, ) eGFR If Africn Am 83 Normal (applies [facility] (St mL/min/1 to non-numeric [facility] .73 results) [facility], PC) Sodium 142 Normal (applies [facility] (St [Moles/volume] in mmol/L to non-numeric [facility] Serum or Plasma results) [facility], PC) Potassium 3.8 Normal (applies [facility] (St [Mass/volume] in mmol/L to non-numeric [facility] Blood results) Medical, ) Chloride 106 Normal (applies [facility] (St [Moles/volume] in mmol/L to non-numeric [facility] Serum or Plasma results) [facility], PC) Carbon dioxide, 22 Normal (applies [facility] ( St total mmol/L to non-numeric [facility] [Moles/volume] in results) Medical, Serum or Plasma PC) Calcium 8.7 Normal (applies [facility] (St [Moles/volume] in mg/dL to non-numeric [facility] Urine collected for results) Medical, unspecified PC) duration Microalbumin 3.5 g/dL Below low normal [facility] (St [Mass/time] in [facility] Urine collected for Medical, unspecified PC) duration Protein 7.6 g/dL Normal (applies [facility] (St [Mass/volume] in to non-numeric [facility] Serum or Plasma results) [facility], ) Globulin, Total 4.1 g/dL Normal (applies [facility] ( St to non-numeric [facility] results) [facility]) A/G Ratio 0.9 Below low normal [facility] [place] Bilirubin.total 0.4 Normal (applies [facility] ( St [Mass/volume] in mg/dL to non-numeric [facility] Serum or Plasma results) [facility], ) Alkaline 84 IU/L Normal (applies [facility] (St phosphatase to non-numeric [facility] [Enzymatic results) Medical, activity/volume] in ) Serum, Plasma or Blood Alanine 11 IU/L Normal (applies [facility] (St aminotransferase to non-numeric [facility] [Enzymatic results) Medical, activity/volume] in ) Serum or Plasma Aspartate 19 IU/L Normal (applies [facility] (St aminotransferase to non-numeric [facility] [Enzymatic results) Medical, activity/volume] in ) Serum or Plasma ID Date Data Source [id number] 01/17/2020 12:00:00 AM EDT [facility] ([facility], ) Name Value Range Interpretation Description Data Sup porting Code Source(s) Document(s ) Erythrocytes 3.61 Below low normal MEDGEN (St [#/volume] in x10E6/uL [facility] Blood by [facility], ) Automated count Leukocytes 6.5 Normal (applies [facility] (St [#/volume] in x10E3/uL to non-numeric [facility] Blood by results) [facility], ) Automated count Hematocrit 28.7 % Below low normal [facility] (St [Volume [facility] Fraction] of [facility], ) Blood by Automated count Hemoglobin 9.1 g/dL Below low normal [facility] (St [Mass/volume] in [facility] Blood [facility], ) MCH 25.2 pg Below low normal [facility] [place] ) MCV 80 fL Normal (applies [facility] (St to non-numeric [facility] results) [facility]) MCHC 31.7 Normal (applies [facility] (St g/dL to non-numeric [facility] results) [facility]) RDW 17.4 % Above high normal [facility] ([facility] [place] ) Lymphs 15 % Normal (applies [facility] (St to non-numeric [facility] results) Medical, ) Platelets 220 Normal (applies [facility] (St [#/area] in x10E3/uL to non-numeric [facility] Blood by results) [facility], ) Microscopy high power field Neutrophils [#] 71 % Normal (applies [facility] ( St in Body fluid by to non-numeric [facility] Manual count results) [facility], ) Monocytes 7 % Normal (applies [facility] (St [#/volume] in to non-numeric [facility] Cord blood results) [facility], ) Eos 5 % Normal (applies [facility] (St to non-numeric [facility] results) [facility], ) Basos 1 % Normal (applies [facility] (St to non-numeric [facility] results) [facility], ) Neutrophils 4.7 Normal (applies [facility] (St (Absolute) x10E3/uL to non-numeric [facility] results) [facility], ) Monocytes(Absolu 0.4 Normal (applies [facility] (St te) x10E3/uL to non-numeric [facility] results) [facility], ) Lymphs 1.0 Normal (applies [facility] (St (Absolute) x10E3/uL to non-numeric [facility] results) [facility], ) Baso (Absolute) 0.0 Normal (applies [facility] ( St x10E3/uL to non-numeric [facility] results) [facility], ) Immature 1 % Normal (applies [facility] (St Granulocytes to non-numeric [facility] results) [facility], ) Eos (Absolute) 0.3 Normal (applies [facility] (S t x10E3/uL to non-numeric [facility] results) Medical, ) Immature Grans 0.0 Normal (applies [facility]GEN (S t (Abs) x10E3/uL to non-numeric [facility] results) [facility], ) ID Date Data Source [id number] 01/17/2020 12:00:00 AM EDT [facility], ) Name Value Range Interpretation Description Data Sup porting Code Source(s) Document(s ) No Frozen Test not Normal (applies to [facility]GEN (St Received performed non-numeric [facility] . results) [facility], ) ID Date Data Source [id number] 01/17/2020 12:00:00 AM EDT [facility] ([facility], ) Name Value Range Interpretation Code Description Data Leslie rce(s) Supporting Document(s ) Uric Acid 7.4 mg/dL Above high normal [facility] ([facility] [place] ID Date Data Source [id number] 01/17/2020 12:00:00 AM EDT [facility] ([facility], ) Name Value Range Interpretation Description Data Sup porting Code Source(s) Document(s ) Urea nitrogen 10 mg/dL Normal (applies [facility] (St [Mass/volume] in to non-numeric [facility] Serum or Plasma results) [facility], PC) Glucose 72 mg/dL Normal (applies [facility] (St [Mass/volume] in to non-numeric [facility] Urine collected for results) Medical, unspecified PC) duration Creatinine 0.83 Normal (applies [facility] (St [Interpretation] in mg/dL to non-numeric [facility] Urine results) Medical, PC) eGFR If NonAfricn 72 Normal (applies [facility] (St Am mL/min/1 to non-numeric [facility] .73 results) Medical, PC) eGFR If Africn Am 83 Normal (applies [facility] (St mL/min/1 to non-numeric [facility] .73 results) [facility], PC) BUN/Creatinine 12 Normal (applies [facility] (S t Ratio to non-numeric [facility] results) [facility], PC) Sodium 142 Normal (applies [facility] (St [Moles/volume] in mmol/L to non-numeric [facility] Serum or Plasma results) [facility], PC) Potassium 3.8 Normal (applies [facility] (St [Mass/volume] in mmol/L to non-numeric [facility] Blood results) [facility], PC) Chloride 106 Normal (applies [facility] (St [Moles/volume] in mmol/L to non-numeric [facility] Serum or Plasma results) [facility], PC) Calcium 8.7 Normal (applies [facility] (St [Moles/volume] in mg/dL to non-numeric [facility] Urine collected for results) Medical, unspecified PC) duration Carbon dioxide, 22 Normal (applies [facility] ( St total mmol/L to non-numeric [facility] [Moles/volume] in results) Medical, Serum or Plasma PC) Protein 7.6 g/dL Normal (applies [facility] (St [Mass/volume] in to non-numeric [facility] Serum or Plasma results) Medical, ) Microalbumin 3.5 g/dL Below low normal [facility] (St [Mass/time] in [facility] Urine collected for Medical, unspecified PC) duration Globulin, Total 4.1 g/dL Normal (applies [facility] ( St to non-numeric [facility] results) [facility], ) A/G Ratio 0.9 Below low normal [facility] [place] ) Alkaline 84 IU/L Normal (applies [facility] (St phosphatase to non-numeric [facility] [Enzymatic results) Medical, activity/volume] in ) Serum, Plasma or Blood Bilirubin.total 0.4 Normal (applies [facility] ( St [Mass/volume] in mg/dL to non-numeric [facility] Serum or Plasma results) [facility], ) Alanine 11 IU/L Normal (applies [facility] (St aminotransferase to non-numeric [facility] [Enzymatic results) Medical, activity/volume] in ) Serum or Plasma Aspartate 19 IU/L Normal (applies [facility] (St aminotransferase to non-numeric [facility] [Enzymatic results) Medical, activity/volume] in ) Serum or Plasma ID Date Data Source [id number] 01/17/2020 12:00:00 AM EDT [facility] ([facility] [place] Name Value Range Interpretation Description Data Sup porting Code Source(s) Document(s ) Leukocytes 6.5 Normal (applies MED[facility] (St [#/volume] in x10E3/uL to non-numeric [facility] Blood by results) [facility], ) Automated count Hemoglobin 9.1 g/dL Below low normal MEDGEN (St [Mass/volume] in [facility] Blood [facility], ) Erythrocytes 3.61 Below low normal [facility] (St [#/volume] in x10E6/uL [facility] Blood by [facility], ) Automated count Hematocrit 28.7 % Below low normal [facility] (St [Volume [facility] Fraction] of [facility], ) Blood by Automated count MCV 80 fL Normal (applies [facility] (St to non-numeric [facility] results) [facility]) MCH 25.2 pg Below low normal [facility] [place] ) MCHC 31.7 Normal (applies [facility] (St g/dL to non-numeric [facility] results) [facility]) Platelets 220 Normal (applies [facility]GEN (St [#/area] in x10E3/uL to non-numeric [facility] Blood by results) Medical, ) Microscopy high power field RDW 17.4 % Above high normal [facility] ([facility], ) Neutrophils [#] 71 % Normal (applies [facility] ( St in Body fluid by to non-numeric [facility] Manual count results) [facility], ) Lymphs 15 % Normal (applies [facility] (St to non-numeric [facility] results) [facility], ) Basos 1 % Normal (applies [facility] (St to non-numeric [facility] results) [facility], ) Monocytes 7 % Normal (applies [facility] (St [#/volume] in to non-numeric [facility] Cord blood results) [facility], ) Eos 5 % Normal (applies [facility] (St to non-numeric [facility] results) [facility], ) Lymphs 1.0 Normal (applies [facility] (St (Absolute) x10E3/uL to non-numeric [facility] results) [facility], ) Neutrophils 4.7 Normal (applies [facility]GEN (St (Absolute) x10E3/uL to non-numeric [facility]'s results) [facility], ) Monocytes(Absolu 0.4 Normal (applies MEDGEN (St te) x10E3/uL to non-numeric [facility] results) [facility], ) Eos (Absolute) 0.3 Normal (applies [facility]GEN (S t x10E3/uL to non-numeric [facility] results) [facility], ) Baso (Absolute) 0.0 Normal (applies MEDGEN ( St x10E3/uL to non-numeric [facility] results) [facility], ) Immature 1 % Normal (applies [facility] (St Granulocytes to non-numeric [facility]'s results) [facility], ) Immature Grans 0.0 Normal (applies [facility]GEN (S t (Abs) x10E3/uL to non-numeric [facility] results) [facility], ) ID Date Data Source [id number] 01/17/2020 12:00:00 AM EDT [facility] ([facility], ) Name Value Range Interpretation Description Data Sup porting Code Source(s) Document(s ) No Frozen Test not Normal (applies to MEDGEN (St Received performed non-numeric [facility] . results) [facility], ) ID Date Data Source [id number] 01/17/2020 12:00:00 AM EDT [facility] ( [facility], ) Name Value Range Interpretation Code Description Data Leslie rce(s) Supporting Document(s ) Uric Acid 7.4 mg/dL Above high normal [facility] ([facility] [place] ID Date Data Source [id number] 01/17/2020 12:00:00 AM EDT [facility] ( [facility], ) Name Value Range Interpretation Description Data Sup porting Code Source(s) Document(s ) Urea nitrogen 10 mg/dL Normal (applies [facility] (St [Mass/volume] in to non-numeric [facility] Serum or Plasma results) Medical, PC) Glucose 72 mg/dL Normal (applies [facility] (St [Mass/volume] in to non-numeric [facility] Urine collected for results) Medical, unspecified PC) duration eGFR If NonAfricn 72 Normal (applies [facility] (St Am mL/min/1 to non-numeric [facility] .73 results) Medical, PC) Creatinine 0.83 Normal (applies [facility] (St [Interpretation] in mg/dL to non-numeric [facility] Urine results) Medical, PC) BUN/Creatinine 12 Normal (applies [facility]GEN (S t Ratio to non-numeric [facility] results) Medical, PC) eGFR If Africn Am 83 Normal (applies [facility] (St mL/min/1 to non-numeric [facility] .73 results) Medical, PC) Sodium 142 Normal (applies [facility]GEN (St [Moles/volume] in mmol/L to non-numeric [facility] Serum or Plasma results) Medical, PC) Potassium 3.8 Normal (applies [facility] (St [Mass/volume] in mmol/L to non-numeric [facility] Blood results) Medical, PC) Carbon dioxide, 22 Normal (applies [facility] ( St total mmol/L to non-numeric [facility]'s [Moles/volume] in results) Medical, Serum or Plasma PC) Chloride 106 Normal (applies [facility]GEN (St [Moles/volume] in mmol/L to non-numeric [facility] Serum or Plasma results) Medical, PC) Protein 7.6 g/dL Normal (applies [facility] (St [Mass/volume] in to non-numeric [facility] Serum or Plasma results) Medical, PC) Calcium 8.7 Normal (applies [facility]GEN (St [Moles/volume] in mg/dL to non-numeric [facility] Urine collected for results) Medical, unspecified ) duration Globulin, Total 4.1 g/dL Normal (applies [facility] ( St to non-numeric [facility]'s results) [facility], ) Microalbumin 3.5 g/dL Below low normal [facility] (St [Mass/time] in [facility] Urine collected for Medical, unspecified ) duration Bilirubin.total 0.4 Normal (applies [facility] ( St [Mass/volume] in mg/dL to non-numeric [facility] Serum or Plasma results) [facility], ) A/G Ratio 0.9 Below low normal [facility] [place] Aspartate 19 IU/L Normal (applies [facility] (St aminotransferase to non-numeric [facility]'s [Enzymatic results) Medical, activity/volume] in ) Serum or Plasma Alkaline 84 IU/L Normal (applies [facility] (St phosphatase to non-numeric [facility]'s [Enzymatic results) Medical, activity/volume] in ) Serum, Plasma or Blood Alanine 11 IU/L Normal (applies [facility] (St aminotransferase to non-numeric [facility]'s [Enzymatic results) Medical, activity/volume] in ) Serum or Plasma ID Date Data Source [id number] 01/17/2020 12:00:00 AM EDT [facility] ([facility] [place] ) Name Value Range Interpretation Description Data Sup porting Code Source(s) Document(s ) Leukocytes 6.5 Normal (applies [facility] (St [#/volume] in x10E3/uL to non-numeric [facility] Blood by results) [facility], ) Automated count Erythrocytes 3.61 Below low normal [facility] (St [#/volume] in x10E6/uL [facility] Blood by [facility], ) Automated count Hematocrit 28.7 % Below low normal [facility] (St [Volume [facility]'s Fraction] of [facility], ) Blood by Automated count Hemoglobin 9.1 g/dL Below low normal [facility] (St [Mass/volume] in [facility] Blood [facility], ) MCH 25.2 pg Below low normal [facility] [place] MCV 80 fL Normal (applies [facility] (St to non-numeric [facility] results) [facility], ) RDW 17.4 % Above high normal [facility] [place] ) MCHC 31.7 Normal (applies [facility] (St g/dL to non-numeric [facility]'s results) [facility], ) Neutrophils [#] 71 % Normal (applies [facility]GEN ( St in Body fluid by to non-numeric [facility]'s Manual count results) [facility], ) Platelets 220 Normal (applies [facility] (St [#/area] in x10E3/uL to non-numeric [facility] Blood by results) [facility], ) Microscopy high power field Monocytes 7 % Normal (applies [facility]GEN (St [#/volume] in to non-numeric [facility] Cord blood results) [facility], ) Lymphs 15 % Normal (applies [facility] (St to non-numeric [facility]'s results) [facility]) Basos 1 % Normal (applies MEDGEN (St to non-numeric [facility]'s results) [facility], ) Eos 5 % Normal (applies [facility] (St to non-numeric [facility]'s results) [facility], ) Lymphs 1.0 Normal (applies [facility]GEN (St (Absolute) x10E3/uL to non-numeric [facility] results) [facility], ) Neutrophils 4.7 Normal (applies [facility] (St (Absolute) x10E3/uL to non-numeric [facility] results) [facility], ) Eos (Absolute) 0.3 Normal (applies [facility] (S t x10E3/uL to non-numeric [facility] results) [facility], ) Monocytes(Absolu 0.4 Normal (applies MEDGEN (St te) x10E3/uL to non-numeric [facility] results) [facility], ) Immature 1 % Normal (applies [facility] (St Granulocytes to non-numeric [facility]'s results) [facility], ) Baso (Absolute) 0.0 Normal (applies MEDGEN ( St x10E3/uL to non-numeric [facility]'s results) [facility], ) Immature Grans 0.0 Normal (applies [facility] (S t (Abs) x10E3/uL to non-numeric [facility] results) [facility], ) ID Date Data Source [id number] 12/05/2019 12:00:00 AM EDT [facility] ([facility], ) Name Value Range Interpretation Code Description Data Leslie rce(s) Supporting Document(s ) Uric Acid 9.9 mg/dL Above high normal [facility] ([facility], ) ID Date Data Source [id number] 12/05/2019 12:00:00 AM EDT [facility] ([facility], ) Name Value Range Interpretation Code Description Data Leslie rce(s) Supporting Document(s ) TSH 3.340 Normal (applies to MEDGEN (St uIU/mL non-numeric results) [facility], ) ID Date Data Source [id number] 12/05/2019 12:00:00 AM EDT [facility] ([facility], ) Name Value Range Interpretation Description Data Sup porting Code Source(s) Document(s ) Hemoglobin A1c 5.6 % Normal (applies to MEDGEN (St in Blood non-numeric [facility]'s results) Medical, PC) ID Date Data Source [id number] 12/05/2019 12:00:00 AM EDT [facility] ([facility], ) Name Value Range Interpretation Description Data Sup porting Code Source(s) Document(s ) Cholesterol 153 Normal (applies [facility] (St [Mass/volume] in mg/dL to non-numeric [facility] Serum or Plasma results) [facility], PC) Triglyceride 71 mg/dL Normal (applies [facility] (St [Mass/volume] in to non-numeric [facility] Serum or Plasma results) Medical, PC) HDL Cholesterol 48 mg/dL Normal (applies [facility] ( St to non-numeric [facility] results) Medical, PC) VLDL Cholesterol 14 mg/dL Normal (applies [facility] (St Bryce to non-numeric [facility]'s results) Medical, PC) LDL Cholesterol 91 mg/dL Normal (applies MEDGEN ( St Calc to non-numeric [facility]'s results) Medical, PC) ID Date Data Source [id number] 12/05/2019 12:00:00 AM EDT [facility] ([facility], ) Name Value Range Interpretation Description Data Sup porting Code Source(s) Document(s ) Glucose 96 mg/dL Normal (applies [facility] (St [Mass/volume] in to non-numeric [facility] Urine collected for results) Medical, unspecified PC) duration Creatinine 1.02 Above high MEDGEN (St [Interpretation] in mg/dL normal [facility] Urine Medical, PC) Urea nitrogen 13 mg/dL Normal (applies [facility]GEN (St [Mass/volume] in to non-numeric [facility] Serum or Plasma results) Medical, PC) eGFR If NonAfricn 56 Below low normal MEDGE N (St Am mL/min/1 [facility] .73 Medical, PC) eGFR If Africn Am 65 Normal (applies [facility]GEN (St mL/min/1 to non-numeric [facility]'s .73 results) Medical, PC) Potassium 3.8 Normal (applies [facility] (St [Mass/volume] in mmol/L to non-numeric [facility] Blood results) Medical, ) BUN/Creatinine 13 Normal (applies [facility]GEN (S t Ratio to non-numeric [facility]'s results) Medical, PC) Sodium 137 Normal (applies [facility] (St [Moles/volume] in mmol/L to non-numeric [facility] Serum or Plasma results) Medical, PC) Chloride 99 Normal (applies [facility]GEN (St [Moles/volume] in mmol/L to non-numeric [facility] Serum or Plasma results) Medical, ) Carbon dioxide, 22 Normal (applies MEDGEN ( St total mmol/L to non-numeric [facility]'s [Moles/volume] in results) Medical, Serum or Plasma PC) Calcium 9.0 Normal (applies [facility]GEN (St [Moles/volume] in mg/dL to non-numeric [facility] Urine collected for results) Medical, unspecified PC) duration Protein 7.8 g/dL Normal (applies [facility]GEN (St [Mass/volume] in to non-numeric [facility] Serum or Plasma results) Medical, ) Globulin, Total 4.4 g/dL Normal (applies MEDGEN ( St to non-numeric [facility]'s results) Medical, ) Microalbumin 3.4 g/dL Below low normal [facility] (St [Mass/time] in [facility] Urine collected for Medical, unspecified PC) duration Bilirubin.total 0.5 Normal (applies MEDGEN ( St [Mass/volume] in mg/dL to non-numeric [facility] Serum or Plasma results) Medical, ) A/G Ratio 0.8 Below low normal [facility] ([facility], ) Aspartate 15 IU/L Normal (applies MEDGEN (St aminotransferase to non-numeric Danny's [Enzymatic results) Medical, activity/volume] in PC) Serum or Plasma Alkaline 95 IU/L Normal (applies [facility]GEN (St phosphatase to non-numeric Danny's [Enzymatic results) Medical, activity/volume] in PC) Serum, Plasma or Blood Alanine 8 IU/L Normal (applies MEDGEN (St aminotransferase to non-numeric Danny's [Enzymatic results) [facility], activity/volume] in PC) Serum or Plasma Leukocytes 7.3 Normal (applies MEDGEN (St [#/volume] in Blood x10E3/uL to non-numeric Danny' s by Automated count results) [facility], ) Hematocrit [Volume 31.5 % Below low normal MEDG EN (St Fraction] of Blood Danny's by Automated count [facility], ) Erythrocytes 4.00 Normal (applies MEDGEN (St [#/volume] in Blood x10E6/uL to non-numeric Danny' s by Automated count results) [facility], ) Hemoglobin 10.0 Below low normal MED[facility] (St [Mass/volume] in g/dL [facility] Blood [facility], ) MCH 25.0 pg Below low normal [facility] ([facility], ) MCV 79 fL Normal (applies MEDGEN (St to non-numeric Danny's results) [facility], ) MCHC 31.7 Normal (applies MEDGEN (St g/dL to non-numeric Danny's results) [facility], ) RDW 16.6 % Above high MEDGEN (St normal Danny's [facility], ) Platelets [#/area] 241 Normal (applies MEDGE N (St in Blood by x10E3/uL to non-numeric Danny's Microscopy high results) [facility], power field ) Neutrophils [#] in 74 % Normal (applies MEDGE N (St Body fluid by to non-numeric Danny's Manual count results) [facility], ) Lymphs 15 % Normal (applies [facility] (St to non-numeric Danny's results) [facility], ) Eos 4 % Normal (applies [facility]GEN (St to non-numeric Danny's results) [facility], ) Monocytes 7 % Normal (applies MEDGEN (St [#/volume] in Cord to non-numeric Danny's blood results) [facility], ) Basos 0 % Normal (applies [facility]GEN (St to non-numeric Danny's results) [facility], ) Neutrophils 5.4 Normal (applies MEDGEN (St (Absolute) x10E3/uL to non-numeric Danny's results) [facility], ) Lymphs (Absolute) 1.1 Normal (applies MEDGEN (St x10E3/uL to non-numeric [facility] results) [facility], ) Monocytes(Absolute) 0.5 Normal (applies MEDG EN (St x10E3/uL to non-numeric Danny's results) Medical, ) Baso (Absolute) 0.0 Normal (applies MEDGEN ( St x10E3/uL to non-numeric [facility]'s results) Medical, ) Eos (Absolute) 0.3 Normal (applies MEDGEN (S t x10E3/uL to non-numeric Danny's results) Medical, ) Immature Grans 0.0 Normal (applies MEDGEN (S t (Abs) x10E3/uL to non-numeric Danny's results) Medical, ) Immature 0 % Normal (applies MEDGEN (St Granulocytes to non-numeric Danny's results) Medical, ) ID Date Data Source [id number] 12/05/2019 12:00:00 AM EDT MEDGEN ([facility], ) Name Value Range Interpretation Code Description Data Leslie rce(s) Supporting Document(s ) Uric Acid 9.9 mg/dL Above high normal [facility] [place] ID Date Data Source [id number] 12/05/2019 12:00:00 AM EDT MEDGEN ([facility], ) Name Value Range Interpretation Code Description Data Leslie rce(s) Supporting Document(s ) TSH 3.340 Normal (applies to MEDGEN (St uIU/mL non-numeric results) [facility], ) ID Date Data Source [id number] 12/05/2019 12:00:00 AM EDT MEDGEN ([facility], ) Name Value Range Interpretation Description Data Sup porting Code Source(s) Document(s ) Hemoglobin A1c 5.6 % Normal (applies to MEDGEN (St in Blood non-numeric Danny's results) [facility], ) ID Date Data Source [id number] 12/05/2019 12:00:00 AM EDT MED[facility] ([facility], ) Name Value Range Interpretation Description Data Sup porting Code Source(s) Document(s ) Triglyceride 71 mg/dL Normal (applies MEDGEN (St [Mass/volume] in to non-numeric Danny's Serum or Plasma results) Medical, ) Cholesterol 153 Normal (applies MEDGEN (St [Mass/volume] in mg/dL to non-numeric Danny's Serum or Plasma results) Medical, PC) VLDL Cholesterol 14 mg/dL Normal (applies MEDGEN (St Bryce to non-numeric Danny's results) Medical, PC) LDL Cholesterol 91 mg/dL Normal (applies MEDGEN ( St Calc to non-numeric [facility]'s results) Medical, PC) HDL Cholesterol 48 mg/dL Normal (applies MEDGEN ( St to non-numeric [facility]'s results) [facility], [facility]) ID Date Data Source [id number] 12/05/2019 12:00:00 AM EDT [facility] ([facility] Name Value Range Interpretation Description Data Sup porting Code Source(s) Document(s ) Glucose 96 mg/dL Normal (applies MEDGEN (St [Mass/volume] in to non-numeric Danny's Urine collected for results) Medical, unspecified PC) duration Creatinine 1.02 Above high MEDGEN (St [Interpretation] in mg/dL normal Danny's Urine Medical, PC) Urea nitrogen 13 mg/dL Normal (applies MEDGEN (St [Mass/volume] in to non-numeric Danny's Serum or Plasma results) Medical, PC) eGFR If Africn Am 65 Normal (applies MEDGEN (St mL/min/1 to non-numeric Danny's .73 results) Medical, PC) eGFR If NonAfricn 56 Below low normal MEDGE N (St Am mL/min/1 Danny's .73 Medical, PC) Sodium 137 Normal (applies MEDGEN (St [Moles/volume] in mmol/L to non-numeric Danny's Serum or Plasma results) Medical, PC) BUN/Creatinine 13 Normal (applies MEDGEN (S t Ratio to non-numeric Danny's results) [facility], PC) Potassium 3.8 Normal (applies MEDGEN (St [Mass/volume] in mmol/L to non-numeric [facility] Blood results) Medical, PC) Chloride 99 Normal (applies MEDGEN (St [Moles/volume] in mmol/L to non-numeric Danny's Serum or Plasma results) [facility], PC) Calcium 9.0 Normal (applies MEDGEN (St [Moles/volume] in mg/dL to non-numeric [facility] Urine collected for results) Medical, unspecified PC) duration Carbon dioxide, 22 Normal (applies MEDGEN ( St total mmol/L to non-numeric Danny's [Moles/volume] in results) Medical, Serum or Plasma PC) Protein 7.8 g/dL Normal (applies MEDGEN (St [Mass/volume] in to non-numeric Danny's Serum or Plasma results) [facility], ) Microalbumin 3.4 g/dL Below low normal MEDGEN (St [Mass/time] in Danny's Urine collected for Medical, unspecified PC) duration Globulin, Total 4.4 g/dL Normal (applies MEDGEN ( St to non-numeric Danny's results) [facility], ) A/G Ratio 0.8 Below low normal MEDGEN ([facility], ) Aspartate 15 IU/L Normal (applies MEDGEN (St aminotransferase to non-numeric Danny's [Enzymatic results) Medical, activity/volume] in ) Serum or Plasma Alkaline 95 IU/L Normal (applies MEDGEN (St phosphatase to non-numeric Danny's [Enzymatic results) Medical, activity/volume] in ) Serum, Plasma or Blood Bilirubin.total 0.5 Normal (applies MEDGEN ( St [Mass/volume] in mg/dL to non-numeric Danny's Serum or Plasma results) [facility], ) Alanine 8 IU/L Normal (applies MEDGEN (St aminotransferase to non-numeric Danny's [Enzymatic results) Medical, activity/volume] in PC) Serum or Plasma Leukocytes 7.3 Normal (applies MEDGEN (St [#/volume] in Blood x10E3/uL to non-numeric Danny' s by Automated count results) [facility], ) Erythrocytes 4.00 Normal (applies MEDGEN (St [#/volume] in Blood x10E6/uL to non-numeric Danny' s by Automated count results) [facility], ) Hemoglobin 10.0 Below low normal MEDGEN (St [Mass/volume] in g/dL Danny's Blood [facility], ) Hematocrit [Volume 31.5 % Below low normal MEDG EN (St Fraction] of Blood Danny's by Automated count [facility], ) MCV 79 fL Normal (applies MEDGEN (St to non-numeric Danny's results) [facility], ) MCHC 31.7 Normal (applies MEDGEN (St g/dL to non-numeric Danny's results) [facility], ) MCH 25.0 pg Below low normal MEDGEN ([facility], ) RDW 16.6 % Above high MEDGEN (St normal [facility], ) Platelets [#/area] 241 Normal (applies MEDGE N (St in Blood by x10E3/uL to non-numeric [facility]'s Microscopy high results) [facility], [facility]) Neutrophils [#] in 74 % Normal (applies MEDGE N (St Body fluid by to non-numeric Danny's Manual count results) [facility]) Monocytes 7 % Normal (applies MEDGEN (St [#/volume] in Cord to non-numeric Danny's blood results) [facility], ) Lymphs 15 % Normal (applies MEDGEN (St to non-numeric [facility]'s results) [facility]) Basos 0 % Normal (applies MEDGEN (St to non-numeric Danny's results) [facility]) Eos 4 % Normal (applies MEDGEN (St to non-numeric [facility]'s results) [facility]) Neutrophils 5.4 Normal (applies MEDGEN (St (Absolute) x10E3/uL to non-numeric [facility]'s results) [facility]) Lymphs (Absolute) 1.1 Normal (applies MEDGEN (St x10E3/uL to non-numeric Danny's results) [facility]) Eos (Absolute) 0.3 Normal (applies MEDGEN (S t x10E3/uL to non-numeric Danny's results) [facility]) Monocytes(Absolute) 0.5 Normal (applies MEDG EN (St x10E3/uL to non-numeric [facility]'s results) [facility]) Baso (Absolute) 0.0 Normal (applies MEDGEN ( St x10E3/uL to non-numeric Danny's results) [facility]) Immature 0 % Normal (applies MEDGEN (St Granulocytes to non-numeric Danny's results) [facility]) Immature Grans 0.0 Normal (applies MEDGEN (S t (Abs) x10E3/uL to non-numeric [facility]'s results) [facility]) ID Date Data Source [id number] 12/05/2019 12:00:00 AM EDT MEDGEN ([facility], ) Name Value Range Interpretation Code Description Data Leslie rce(s) Supporting Document(s ) Uric Acid 9.9 mg/dL Above high normal MEDGEN ([facility], ) ID Date Data Source [id number] 12/05/2019 12:00:00 AM EDT MEDGEN ([facility], ) Name Value Range Interpretation Code Description Data Leslie rce(s) Supporting Document(s ) TSH 3.340 Normal (applies to MEDGEN (St uIU/mL non-numeric results) [facility]) ID Date Data Source [id number] 12/05/2019 12:00:00 AM EDT [facility] ([facility] [place] ) Name Value Range Interpretation Description Data Sup porting Code Source(s) Document(s ) Hemoglobin A1c 5.6 % Normal (applies to MEDGEN (St in Blood non-numeric Danny's results) Medical, ) ID Date Data Source [id number] 12/05/2019 12:00:00 AM EDT [facility] ([facility] [place] ) Name Value Range Interpretation Description Data Sup porting Code Source(s) Document(s ) Cholesterol 153 Normal (applies MEDGEN (St [Mass/volume] in mg/dL to non-numeric Danny's Serum or Plasma results) Medical, ) HDL Cholesterol 48 mg/dL Normal (applies MEDGEN ( St to non-numeric Danny's results) Medical, ) Triglyceride 71 mg/dL Normal (applies MEDGEN (St [Mass/volume] in to non-numeric Danny's Serum or Plasma results) Medical, ) VLDL Cholesterol 14 mg/dL Normal (applies MEDGEN (St Bryce to non-numeric Danny's results) Medical, ) LDL Cholesterol 91 mg/dL Normal (applies MEDGEN ( St Calc to non-numeric Danny's results) [facility], ) ID Date Data Source [id number] 12/05/2019 12:00:00 AM EDT MEDGEN ([facility] [place], ) Name Value Range Interpretation Description Data Sup porting Code Source(s) Document(s ) Glucose 96 mg/dL Normal (applies MEDGEN (St [Mass/volume] in to non-numeric Danny's Urine collected for results) [facility], unspecified ) duration Urea nitrogen 13 mg/dL Normal (applies MEDGEN (St [Mass/volume] in to non-numeric Danny's Serum or Plasma results) Medical, PC) Creatinine 1.02 Above high MEDGEN (St [Interpretation] in mg/dL normal Danny's Urine [facility], ) eGFR If NonAfricn 56 Below low normal MEDGE N (St Am mL/min/1 [facility]'s .73 Medical, PC) eGFR If Africn Am 65 Normal (applies MEDGEN (St mL/min/1 to non-numeric Danny's .73 results) Medical, PC) BUN/Creatinine 13 Normal (applies MEDGEN (S t Ratio to non-numeric [facility]'s results) Medical, PC) Sodium 137 Normal (applies MEDGEN (St [Moles/volume] in mmol/L to non-numeric Danny's Serum or Plasma results) Medical, PC) Potassium 3.8 Normal (applies MEDGEN (St [Mass/volume] in mmol/L to non-numeric [facility]'s Blood results) Medical, PC) Chloride 99 Normal (applies MEDGEN (St [Moles/volume] in mmol/L to non-numeric Danny's Serum or Plasma results) Medical, PC) Carbon dioxide, 22 Normal (applies MEDGEN ( St total mmol/L to non-numeric Danny's [Moles/volume] in results) Medical, Serum or Plasma PC) Calcium 9.0 Normal (applies MEDGEN (St [Moles/volume] in mg/dL to non-numeric Danny's Urine collected for results) Medical, unspecified PC) duration Microalbumin 3.4 g/dL Below low normal MEDGEN (St [Mass/time] in Danny's Urine collected for Medical, unspecified PC) duration Protein 7.8 g/dL Normal (applies MEDGEN (St [Mass/volume] in to non-numeric Danny's Serum or Plasma results) Medical, PC) Bilirubin.total 0.5 Normal (applies MEDGEN ( St [Mass/volume] in mg/dL to non-numeric Danny's Serum or Plasma results) Medical, PC) A/G Ratio 0.8 Below low normal [facility] ([facility]) Globulin, Total 4.4 g/dL Normal (applies MEDGEN ( St to non-numeric Danny's results) Medical, PC) Aspartate 15 IU/L Normal (applies MEDGEN (St aminotransferase to non-numeric Danny's [Enzymatic results) Medical, activity/volume] in PC) Serum or Plasma Alkaline 95 IU/L Normal (applies MEDGEN (St phosphatase to non-numeric Danny's [Enzymatic results) Medical, activity/volume] in PC) Serum, Plasma or Blood Alanine 8 IU/L Normal (applies MEDGEN (St aminotransferase to non-numeric Danny's [Enzymatic results) Medical, activity/volume] in PC) Serum or Plasma Leukocytes 7.3 Normal (applies MEDGEN (St [#/volume] in Blood x10E3/uL to non-numeric Danny' s by Automated count results) [facility], ) Hemoglobin 10.0 Below low normal MEDGEN (St [Mass/volume] in g/dL [facility]'s Blood [facility], ) Erythrocytes 4.00 Normal (applies MEDGEN (St [#/volume] in Blood x10E6/uL to non-numeric Danny' s by Automated count results) [facility], ) Hematocrit [Volume 31.5 % Below low normal MEDG EN (St Fraction] of Blood Danny's by Automated count [facility], ) MCV 79 fL Normal (applies MEDGEN (St to non-numeric Danny's results) [facility], ) MCHC 31.7 Normal (applies MEDGEN (St g/dL to non-numeric Danny's results) [facility], ) MCH 25.0 pg Below low normal MEDGEN ([facility], ) RDW 16.6 % Above high MEDGEN (St normal [facility], ) Platelets [#/area] 241 Normal (applies MEDGE N (St in Blood by x10E3/uL to non-numeric [facility]'s Microscopy high results) [facility], power field ) Neutrophils [#] in 74 % Normal (applies MEDGE N (St Body fluid by to non-numeric Danny's Manual count results) [facility], ) Lymphs 15 % Normal (applies MEDGEN (St to non-numeric Danny's results) [facility], ) Basos 0 % Normal (applies MEDGEN (St to non-numeric Danny's results) Medical, ) Eos 4 % Normal (applies MEDGEN (St to non-numeric Danny's results) [facility], ) Monocytes 7 % Normal (applies MEDGEN (St [#/volume] in Cord to non-numeric Danny's blood results) [facility], ) Lymphs (Absolute) 1.1 Normal (applies MEDGEN (St x10E3/uL to non-numeric Danny's results) [facility], ) Neutrophils 5.4 Normal (applies MEDGEN (St (Absolute) x10E3/uL to non-numeric Danny's results) [facility], ) Monocytes(Absolute) 0.5 Normal (applies MEDG EN (St x10E3/uL to non-numeric Danny's results) Medical, ) Eos (Absolute) 0.3 Normal (applies MEDGEN (S t x10E3/uL to non-numeric Danny's results) Medical, ) Immature 0 % Normal (applies MEDGEN (St Granulocytes to non-numeric Danny's results) [facility], ) Baso (Absolute) 0.0 Normal (applies MEDGEN ( St x10E3/uL to non-numeric Danny's results) Medical, ) Immature Grans 0.0 Normal (applies MEDGEN (S t (Abs) x10E3/uL to non-numeric Danny's results) Medical, ) ID Date Data Source [id number] 12/05/2019 12:00:00 AM EDT MEDGEN ([facility], ) Name Value Range Interpretation Code Description Data Leslie rce(s) Supporting Document(s ) Uric Acid 9.9 mg/dL Above high normal [facility] [place] ID Date Data Source [id number] 12/05/2019 12:00:00 AM EDT MEDGEN ([facility], ) Name Value Range Interpretation Code Description Data Leslie rce(s) Supporting Document(s ) TSH 3.340 Normal (applies to MEDGEN (St uIU/mL non-numeric results) [facility]) ID Date Data Source [id number] 12/05/2019 12:00:00 AM EDT MEDGEN ([facility], ) Name Value Range Interpretation Description Data Sup porting Code Source(s) Document(s ) Hemoglobin A1c 5.6 % Normal (applies to MEDGEN (St in Blood non-numeric Danny's results) [facility], ) ID Date Data Source [id number] 12/05/2019 12:00:00 AM EDT MEDGEN ([facility], ) Name Value Range Interpretation Description Data Sup porting Code Source(s) Document(s ) Triglyceride 71 mg/dL Normal (applies MEDGEN (St [Mass/volume] in to non-numeric Danny's Serum or Plasma results) Medical, ) Cholesterol 153 Normal (applies MEDGEN (St [Mass/volume] in mg/dL to non-numeric Danny's Serum or Plasma results) Medical, ) VLDL Cholesterol 14 mg/dL Normal (applies MEDGEN (St Bryce to non-numeric Adnny's results) Medical, ) HDL Cholesterol 48 mg/dL Normal (applies MEDGEN ( St to non-numeric Danny's results) Medical, PC) LDL Cholesterol 91 mg/dL Normal (applies MEDGEN ( St Calc to non-numeric Danny's results) Medical, PC) ID Date Data Source [id number] 12/05/2019 12:00:00 AM EDT [facility] ([facility], ) Name Value Range Interpretation Description Data Sup porting Code Source(s) Document(s ) Glucose 96 mg/dL Normal (applies MEDGEN (St [Mass/volume] in to non-numeric Danny's Urine collected for results) Medical, unspecified PC) duration Urea nitrogen 13 mg/dL Normal (applies MEDGEN (St [Mass/volume] in to non-numeric Danny's Serum or Plasma results) Medical, PC) eGFR If NonAfricn 56 Below low normal MEDGE N (St Am mL/min/1 Danny's .73 Medical, PC) Creatinine 1.02 Above high MEDGEN (St [Interpretation] in mg/dL normal [facility]'s Urine Medical, ) Sodium 137 Normal (applies MEDGEN (St [Moles/volume] in mmol/L to non-numeric Danny's Serum or Plasma results) Medical, PC) BUN/Creatinine 13 Normal (applies MEDGEN (S t Ratio to non-numeric Danny's results) Medical, PC) eGFR If Africn Am 65 Normal (applies MEDGEN (St mL/min/1 to non-numeric Danny's .73 results) Medical, PC) Chloride 99 Normal (applies MEDGEN (St [Moles/volume] in mmol/L to non-numeric Danny's Serum or Plasma results) Medical, PC) Potassium 3.8 Normal (applies MEDGEN (St [Mass/volume] in mmol/L to non-numeric Danny's Blood results) Medical, PC) Carbon dioxide, 22 Normal (applies MEDGEN ( St total mmol/L to non-numeric Danny's [Moles/volume] in results) Medical, Serum or Plasma PC) Calcium 9.0 Normal (applies MEDGEN (St [Moles/volume] in mg/dL to non-numeric Danny's Urine collected for results) Medical, unspecified PC) duration Globulin, Total 4.4 g/dL Normal (applies MEDGEN ( St to non-numeric Danny's results) [facility], ) Protein 7.8 g/dL Normal (applies MEDGEN (St [Mass/volume] in to non-numeric Danny's Serum or Plasma results) [facility]) Microalbumin 3.4 g/dL Below low normal MEDGEN (St [Mass/time] in Danny's Urine collected for Medical, unspecified PC) duration A/G Ratio 0.8 Below low normal [facility] [place] Bilirubin.total 0.5 Normal (applies MEDGEN ( St [Mass/volume] in mg/dL to non-numeric Danny's Serum or Plasma results) [facility], ) Aspartate 15 IU/L Normal (applies MEDGEN (St aminotransferase to non-numeric Danny's [Enzymatic results) Medical, activity/volume] in ) Serum or Plasma Alkaline 95 IU/L Normal (applies MEDGEN (St phosphatase to non-numeric Danny's [Enzymatic results) [facility], activity/volume] in ) Serum, Plasma or Blood Alanine 8 IU/L Normal (applies MEDGEN (St aminotransferase to non-numeric Danny's [Enzymatic results) Medical, activity/volume] in ) Serum or Plasma Leukocytes 7.3 Normal (applies MEDGEN (St [#/volume] in Blood x10E3/uL to non-numeric Danny' s by Automated count results) [facility], ) Erythrocytes 4.00 Normal (applies MEDGEN (St [#/volume] in Blood x10E6/uL to non-numeric Danny' s by Automated count results) [facility], ) Hematocrit [Volume 31.5 % Below low normal MEDG EN (St Fraction] of Blood Danny's by Automated count [facility], ) Hemoglobin 10.0 Below low normal MEDGEN (St [Mass/volume] in g/dL [facility] Blood [facility], ) MCHC 31.7 Normal (applies MEDGEN (St g/dL to non-numeric Danny's results) [facility], ) MCH 25.0 pg Below low normal [facility] MCV 79 fL Normal (applies MEDGEN (St to non-numeric Danny's results) [facility], ) RDW 16.6 % Above high MEDGEN (St normal [facility], ) Platelets [#/area] 241 Normal (applies MEDGE N (St in Blood by x10E3/uL to non-numeric Danny's Microscopy high results) Medical, power field PC) Neutrophils [#] in 74 % Normal (applies MEDGE N (St Body fluid by to non-numeric Danny's Manual count results) [facility], ) Lymphs 15 % Normal (applies MEDGEN (St to non-numeric Danny's results) [facility], ) Eos 4 % Normal (applies MEDGEN (St to non-numeric Danny's results) [facility], ) Basos 0 % Normal (applies MEDGEN (St to non-numeric Danny's results) [facility], ) Monocytes 7 % Normal (applies MEDGEN (St [#/volume] in Cord to non-numeric Danny's blood results) [facility], ) Neutrophils 5.4 Normal (applies MEDGEN (St (Absolute) x10E3/uL to non-numeric Danny's results) [facility], ) Lymphs (Absolute) 1.1 Normal (applies MEDGEN (St x10E3/uL to non-numeric Danny's results) [facility], ) Baso (Absolute) 0.0 Normal (applies MEDGEN ( St x10E3/uL to non-numeric Danny's results) [facility], ) Monocytes(Absolute) 0.5 Normal (applies MEDG EN (St x10E3/uL to non-numeric Danny's results) [facility], ) Eos (Absolute) 0.3 Normal (applies MEDGEN (S t x10E3/uL to non-numeric Danny's results) [facility], ) Immature Grans 0.0 Normal (applies MEDGEN (S t (Abs) x10E3/uL to non-numeric Danny's results) [facility], ) Immature 0 % Normal (applies MEDGEN (St Granulocytes to non-numeric Danny's results) [facility], ) ID Date Data Source [id number] 12/05/2019 12:00:00 AM EDT MEDGEN ([facility], ) Name Value Range Interpretation Code Description Data Leslie rce(s) Supporting Document(s ) Uric Acid 9.9 mg/dL Above high normal MEDGEN ([facility], ) ID Date Data Source [id number] 12/05/2019 12:00:00 AM EDT MED[facility] ([facility], ) Name Value Range Interpretation Code Description Data Leslie rce(s) Supporting Document(s ) TSH 3.340 Normal (applies to MEDGEN (St uIU/mL non-numeric results) [facility], ) ID Date Data Source [id number] 12/05/2019 12:00:00 AM EDT [facility] ([facility] [place], ) Name Value Range Interpretation Description Data Sup porting Code Source(s) Document(s ) Hemoglobin A1c 5.6 % Normal (applies to MEDGEN (St in Blood non-numeric Danny's results) [facility], ) ID Date Data Source [id number] 12/05/2019 12:00:00 AM EDT MEDGEN ([facility] [place], ) Name Value Range Interpretation Description Data Sup porting Code Source(s) Document(s ) Cholesterol 153 Normal (applies MEDGEN (St [Mass/volume] in mg/dL to non-numeric Danny's Serum or Plasma results) Medical, ) HDL Cholesterol 48 mg/dL Normal (applies MEDGEN ( St to non-numeric Danny's results) Medical, PC) Triglyceride 71 mg/dL Normal (applies MEDGEN (St [Mass/volume] in to non-numeric Danny's Serum or Plasma results) Medical, ) LDL Cholesterol 91 mg/dL Normal (applies MEDGEN ( St Calc to non-numeric Danny's results) Medical, PC) VLDL Cholesterol 14 mg/dL Normal (applies MEDGEN (St Bryce to non-numeric Danny's results) [facility], ) ID Date Data Source [id number] 12/05/2019 12:00:00 AM EDT MEDGEN ([facility] [place], ) Name Value Range Interpretation Description Data Sup porting Code Source(s) Document(s ) Creatinine 1.02 Above high MEDGEN (St [Interpretation] in mg/dL normal [facility]'s Urine [facility], ) Urea nitrogen 13 mg/dL Normal (applies MEDGEN (St [Mass/volume] in to non-numeric Danny's Serum or Plasma results) Medical, ) Glucose 96 mg/dL Normal (applies MEDGEN (St [Mass/volume] in to non-numeric Danny's Urine collected for results) [facility] duration eGFR If NonAfricn 56 Below low normal MEDGE N (St Am mL/min/1 Danny's .73 Medical, ) eGFR If Africn Am 65 Normal (applies MEDGEN (St mL/min/1 to non-numeric Danny's .73 results) Medical, PC) BUN/Creatinine 13 Normal (applies MEDGEN (S t Ratio to non-numeric Danny's results) Medical, PC) Sodium 137 Normal (applies MEDGEN (St [Moles/volume] in mmol/L to non-numeric Danny's Serum or Plasma results) Medical, PC) Chloride 99 Normal (applies MEDGEN (St [Moles/volume] in mmol/L to non-numeric Danny's Serum or Plasma results) Medical, PC) Potassium 3.8 Normal (applies MEDGEN (St [Mass/volume] in mmol/L to non-numeric [facility] Blood results) Medical, PC) Protein 7.8 g/dL Normal (applies MEDGEN (St [Mass/volume] in to non-numeric Danny's Serum or Plasma results) Medical, PC) Carbon dioxide, 22 Normal (applies MEDGEN ( St total mmol/L to non-numeric [facility]'s [Moles/volume] in results) Medical, Serum or Plasma PC) Calcium 9.0 Normal (applies MEDGEN (St [Moles/volume] in mg/dL to non-numeric [facility] Urine collected for results) Medical, unspecified PC) duration Globulin, Total 4.4 g/dL Normal (applies MEDGEN ( St to non-numeric Danny's results) Medical, PC) Microalbumin 3.4 g/dL Below low normal MEDGEN (St [Mass/time] in Danny's Urine collected for Medical, unspecified PC) duration Bilirubin.total 0.5 Normal (applies MEDGEN ( St [Mass/volume] in mg/dL to non-numeric [facility] Serum or Plasma results) Medical, PC) A/G Ratio 0.8 Below low normal [facility] ([facility]) Alanine 8 IU/L Normal (applies MEDGEN (St aminotransferase to non-numeric [facility] [Enzymatic results) Medical, activity/volume] in PC) Serum or Plasma Aspartate 15 IU/L Normal (applies MEDGEN (St aminotransferase to non-numeric [facility] [Enzymatic results) Medical, activity/volume] in PC) Serum or Plasma Alkaline 95 IU/L Normal (applies MEDGEN (St phosphatase to non-numeric [facility] [Enzymatic results) Medical, activity/volume] in PC) Serum, Plasma or Blood Erythrocytes 4.00 Normal (applies MEDGEN (St [#/volume] in Blood x10E6/uL to non-numeric [facility] by Automated count results) [facility], ) Leukocytes 7.3 Normal (applies MEDGEN (St [#/volume] in Blood x10E3/uL to non-numeric [facility] by Automated count results) [facility], ) Hemoglobin 10.0 Below low normal MEDGEN (St [Mass/volume] in g/dL [facility] Blood [facility], ) Hematocrit [Volume 31.5 % Below low normal MEDG EN (St Fraction] of Blood [facility] by Automated count [facility], ) MCV 79 fL Normal (applies MEDGEN (St to non-numeric [facility] results) [facility], ) MCH 25.0 pg Below low normal [facility] ([facility], ) MCHC 31.7 Normal (applies MEDGEN (St g/dL to non-numeric [facility] results) [facility], ) Platelets [#/area] 241 Normal (applies MEDGE N (St in Blood by x10E3/uL to non-numeric [facility] Microscopy high results) [facility], [place] ) RDW 16.6 % Above high MEDGEN (St normal [facility], ) Neutrophils [#] in 74 % Normal (applies MEDGE N (St Body fluid by to non-numeric [facility] Manual count results) [facility], ) Lymphs 15 % Normal (applies MEDGEN (St to non-numeric [facility] results) [facility], ) Eos 4 % Normal (applies MEDGEN (St to non-numeric [facility] results) [facility], ) Monocytes 7 % Normal (applies MEDGEN (St [#/volume] in Cord to non-numeric [facility] blood results) [facility], ) Basos 0 % Normal (applies MEDGEN (St to non-numeric [facility] results) [facility], ) Neutrophils 5.4 Normal (applies MEDGEN (St (Absolute) x10E3/uL to non-numeric [facility] results) [facility], ) Eos (Absolute) 0.3 Normal (applies MEDGEN (S t x10E3/uL to non-numeric [facility] results) [facility], ) Monocytes(Absolute) 0.5 Normal (applies MEDG EN (St x10E3/uL to non-numeric [facility] results) [facility], ) Lymphs (Absolute) 1.1 Normal (applies MEDGEN (St x10E3/uL to non-numeric [facility] results) [facility], PC) Immature 0 % Normal (applies MEDGEN (St Granulocytes to non-numeric [facility] results) [facility], PC) Baso (Absolute) 0.0 Normal (applies MEDGEN ( St x10E3/uL to non-numeric [facility] results) [facility], [facility]) Immature Grans 0.0 Normal (applies MEDGEN (S t (Abs) x10E3/uL to non-numeric [facility] results) [facility], [facility]) ID Date Data Source [id number] 11/18/2019 07:00:00 AM EDT [facility] Name Value Range Interpretation Description Data Sup porting Code Source(s) Document(s ) SARS [facility] CORONAVIRUS 2 RNA This lab was ordered by [facility] and reported by [facility]. Procedure Social History Code Duration Value Status Description Data Source(s ) Smoking 02/16/2020 Born [place] 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 Smoking 12/05/2019 Unknown if ever completed Unknown if ever MEDG EN (St 12:00:00 AM smoked smoked [facility]) Vital Signs ID Date Data Source UNK Name Value Range Interpretation Code Description Data Source(s) Heart rate 75 /min 75 /min MED[facility] ([facility] , [facility]) Respiratory rate 12 /min 12 /min [facility] ( [facility]) Inhaled oxygen 98 % 98 % MEDGEN ([facility], ) Diastolic blood 67 mm[Hg] 67 mm[Hg] MEDGEN (S t pressure [facility]) Systolic blood 125 mm[Hg] 125 mm[Hg] MEDGEN ([facility] , ) Heart rate 74 /min 74 /min [facility] ([facility]) Respiratory rate 14 /min 14 /min MED[facility] ( [facility]) Body temperature 97.8 F 97.8 F MEDGEN ( [facility]) Inhaled oxygen 96 % 96 % MEDGEN ([facility], ) Body mass index 49.8 kg/m2 49.8 kg/m2 MEDGEN (S t (BMI) [Ratio] [facility], ) Diastolic blood 83 mm[Hg] 83 mm[Hg] MEDGEN (S t pressure [facility]) Systolic blood 149 mm[Hg] 149 mm[Hg] MEDGEN ([facility]) Body weight 281 lb 281 lb MED[facility] ([facility]) Body height 63 in 63 in MEDGEN ([facility]) Heart rate 74 /min 74 /min [facility] ([facility]) Respiratory rate 14 /min 14 /min [facility] ( [facility] [place] Body temperature 97.8 F 97.8 F MEDGEN ( [facility]) Inhaled oxygen 96 % 96 % MEDGEN ([facility], ) Body mass index 49.8 kg/m2 49.8 kg/m2 MEDGEN (S t (BMI) [Ratio] [facility], ) Diastolic blood 83 mm[Hg] 83 mm[Hg] MEDGEN (S t pressure [facility]) Systolic blood 149 mm[Hg] 149 mm[Hg] MEDGEN ([facility]) Body weight 281 lb 281 lb MED[facility] ([facility]) Body height 63 in 63 in MEDGEN ([facility]) Heart rate 74 /min 74 /min MED[facility] ([facility]) Respiratory rate 14 /min 14 /min MED[facility] ( [facility]) Body temperature 97.8 F 97.8 F MEDGEN ( [facility]) Inhaled oxygen 96 % 96 % MEDGEN ([facility]) Body mass index 49.8 kg/m2 49.8 kg/m2 MEDGEN (S t (BMI) [Ratio[place] [facility] Diastolic blood 83 mm[Hg] 83 mm[Hg] MEDGEN (S t pressure [facility]) Systolic blood 149 mm[Hg] 149 mm[Hg] MEDGEN ([facility]) Body weight 281 lb 281 lb MED[facility] ([facility]) Body height 63 in 63 in MED[facility] ([facility]) Heart rate 75 /min 75 /min MED[facility] ([facility]) Respiratory rate 12 /min 12 /min MED[facility] ( [facility]) Body temperature 99 F 99 F MEDGEN ( [facility]) Inhaled oxygen 98 % 98 % MEDGEN ([facility], ) Diastolic blood 85 mm[Hg] 85 mm[Hg] MEDGEN (S t pressure [facility]) Systolic blood 149 mm[Hg] 149 mm[Hg] MEDGEN ([facility]) Heart rate 75 /min 75 /min MED[facility] ([facility]) Respiratory rate 12 /min 12 /min MED[facility] ( [facility]) Body temperature 99 F 99 F MEDGEN ( [facility]) Inhaled oxygen 98 % 98 % MEDGEN ([facility], ) Diastolic blood 85 mm[Hg] 85 mm[Hg] MEDGEN (S t pressure [facility]) Systolic blood 149 mm[Hg] 149 mm[Hg] MEDGEN ([facility]) Heart rate 75 /min 75 /min MED[facility] ([facility]) Respiratory rate 12 /min 12 /min MED[facility] ( [facility]) Body temperature 99 F 99 F MEDGEN ( [facility]) Inhaled oxygen 98 % 98 % MEDGEN ([facility], ) Diastolic blood 85 mm[Hg] 85 mm[Hg] MEDGEN (S t pressure [facility]) Systolic blood 149 mm[Hg] 149 mm[Hg] MEDGEN (St pressure [facility] , [facility]) Heart rate 75 /min 75 /min [facility] ([facility]) Respiratory rate 12 /min 12 /min [facility] ( [facility]) Body temperature 99 F 99 F MED[facility] ( [facility]) Inhaled oxygen 98 % 98 % MEDGEN (St concentration [facility], [facility]) Diastolic blood 85 mm[Hg] 85 mm[Hg] MEDGEN (S t pressure [facility] , [facility]) Systolic blood 149 mm[Hg] 149 mm[Hg] MEDGEN (St pressure [facility] , [facility]) Pain severity - 0-10 10 10 MEDG EN (St verbal numeric [facility], rating [Score] - PC) Reported Heart rate 80 /min 80 /min [facility] ([facility]) Respiratory rate 12 /min 12 /min [facility] ( [facility]) Inhaled oxygen 98 % 98 % MEDGEN (St concentration [facility], PC) Diastolic blood 54 mm[Hg] 54 mm[Hg] MEDGEN (S t pressure [facility] , [facility]) Systolic blood 100 mm[Hg] 100 mm[Hg] MEDGEN (St pressure [facility] , [facility]) Diastolic blood 54 mm[Hg] 54 mm[Hg] MEDGEN (S t pressure [facility] , [facility]) Systolic blood 100 mm[Hg] 100 mm[Hg] MEDGEN (St pressure [facility] , [facility]) Pain severity - 0-10 10 10 MEDG EN (St verbal numeric [facility], rating [Score] - PC) Reported Heart rate 80 /min 80 /min [facility] ([facility]) Respiratory rate 12 /min 12 /min [facility] ( [facility]) Inhaled oxygen 98 % 98 % MEDGEN (St concentration [facility], PC) Diastolic blood 54 mm[Hg] 54 mm[Hg] MEDGEN (S t pressure [facility] , [facility]) Systolic blood 100 mm[Hg] 100 mm[Hg] MEDGEN (St pressure [facility] , [facility]) Pain severity - 0-10 10 10 MEDG EN (St verbal numeric [facility], rating [Score] - PC) Reported Heart rate 80 /min 80 /min [facility] ([facility]) Respiratory rate 12 /min 12 /min MED[facility] ( [facility]) Inhaled oxygen 98 % 98 % MEDGEN (St concentration [facility], [facility]) Heart rate 80 /min 80 /min [facility] ([facility]) Respiratory rate 12 /min 12 /min MED[facility] ( [facility]) Inhaled oxygen 98 % 98 % MEDGEN (St concentration [facility], PC) Diastolic blood 54 mm[Hg] 54 mm[Hg] MEDGEN (S t pressure [facility] , PC) Systolic blood 100 mm[Hg] 100 mm[Hg] MEDGEN (St [facility] , ) Pain severity - 0-10 10 10 MEDG EN (St verbal numeric [facility] Med ical, rating [Score] - PC) Reported Heart rate 80 /min 80 /min [facility] ([facility]) Respiratory rate 12 /min 12 /min [facility] ( [facility]) Inhaled oxygen 98 % 98 % MEDGEN (St concentration [facility], PC) Diastolic blood 54 mm[Hg] 54 mm[Hg] MEDGEN (S t pressure [facility] , [facility]) Systolic blood 100 mm[Hg] 100 mm[Hg] MEDGEN (St pressure [facility] , [facility]) Heart rate 100 /min 100 /min [facility] ([facility]) Respiratory rate 12 /min 12 /min MED[facility] ( [facility]) Body temperature 97.6 F 97.6 F MED[facility] ( [facility] , [facility]) Inhaled oxygen 95 % 95 % MEDGEN (St concentration [facility], PC) Diastolic blood 80 mm[Hg] 80 mm[Hg] MEDGEN (S t pressure [facility] , PC) Systolic blood 127 mm[Hg] 127 mm[Hg] MEDGEN (St pressure [facility] , [facility]) Heart rate 100 /min 100 /min [facility] ([facility]) Respiratory rate 12 /min 12 /min MED[facility] ( [facility]) Body temperature 97.6 F 97.6 F MEDGEN ( [facility] , ) Inhaled oxygen 95 % 95 % [facility] ([facility], ) Diastolic blood 80 mm[Hg] 80 mm[Hg] MEDGEN (S t pressure [facility] , ) Systolic blood 127 mm[Hg] 127 mm[Hg] MEDGEN (St pressure [facility] , ) Heart rate 100 /min 100 /min [facility] ([facility] , ) Respiratory rate 12 /min 12 /min MEDGEN ( [facility] , ) Body temperature 97.6 F 97.6 F MEDGEN ( [facility] , ) Inhaled oxygen 95 % 95 % MEDGEN ([facility], ) Diastolic blood 80 mm[Hg] 80 mm[Hg] MEDGEN (S t pressure [facility] , ) Systolic blood 127 mm[Hg] 127 mm[Hg] MEDGEN (St [facility] , ) Heart rate 100 /min 100 /min [facility] ([facility] , ) Respiratory rate 12 /min 12 /min MED[facility] ( [facility] , ) Body temperature 97.6 F 97.6 F MED[facility] ( [facility] , ) Inhaled oxygen 95 % 95 % MEDGEN (St [facility], ) Heart rate 100 /min 100 /min [facility] ([facility] , ) Respiratory rate 12 /min 12 /min MED[facility] ( [facility] , ) Body temperature 97.6 F 97.6 F [facility] ( [facility] ) Inhaled oxygen 95 % 95 % MEDGEN ([facility], ) Diastolic blood 80 mm[Hg] 80 mm[Hg] MEDGEN (S t pressure [facility] , ) Systolic blood 127 mm[Hg] 127 mm[Hg] MEDGEN (St pressure [facility] , ) Diastolic blood 80 mm[Hg] 80 mm[Hg] MEDGEN (S t pressure [facility] , ) Systolic blood 127 mm[Hg] 127 mm[Hg] MEDGEN (St pressure [facility] , ) Heart rate 100 /min 100 /min [facility] ([facility] , ) Respiratory rate 12 /min 12 /min MEDGEN ( [place] , ) Body temperature 97.6 F 97.6 F MEDGEN ( [facility] , [facility]) Inhaled oxygen 95 % 95 % MEDGEN ([facility], [facility]) Diastolic blood 80 mm[Hg] 80 mm[Hg] [facility] [place] Systolic blood 127 mm[Hg] 127 mm[Hg] MEDGEN ([facility] , )
--- NOTE | 2020-04-09 23:03 | PDOC ---
History of Present Illness - General Chief Complaint: Respiratory Stated Complaint: THROAT PAIN Time Seen by Provider: 04/09/20 22:39 History Source: Patient - History of Present Illness Initial Comments: 04/09/20 23:03 69 y.o female with PMH of HTN, HLD, vertigo, temporal arteritis Complaining of right-sided neck pain worse with laying down for many months. Patient reports that she feels choking sensation when she lays back. Denies dizziness, nausea, vomiting, chest pain, shortness of breath, sudden onset of pain. History of CTA neck last year with normal finding.04/10/20 02:25 Past History - Medical History Allergies/Adverse Reactions: Allergies Allergy/AdvReac Type Severity Reaction Status Date / Time peanut [Peanut] Allergy Verified 01/19/20 05:43 ammonium lactate Allergy Uncoded 01/19/20 05:43 Home Medications: Ambulatory Orders Levothyroxine [Synthroid -] 50 mcg PO DAILY 03/23/14 Latanoprost 0.005% Eye Drops [Xalatan 0.005% Eye Drops -] 1 drop OU HS 01/19/20 Albuterol Sulfate [Proair Digihaler] 1 puff IH Q4H PRN 01/20/20 Fluticasone/Salmeterol [Advair 250-50 Diskus] 1 puff IH DAILY 01/20/20 Hydrochlorothiazide [Hctz -] 12.5 mg PO DAILY #30 cap 02/16/20 Anemia: Yes Asthma: Yes Cancer: No Cardiac Disorders: Yes (chest pain 07/2017) CVA: No COPD: No CHF: No Dementia: No Diabetes: No GI Disorders: Yes (constipation) Disorders: No HTN: Yes Hypercholesterolemia: Yes Liver Disease: No Seizures: No Thyroid Disease: Yes (hypothyroid) - Surgical History Abdominal Surgery: No Appendectomy: No Cardiac Surgery: No Cholecystectomy: No Lung Surgery: No Neurologic Surgery: No Orthopedic Surgery: Yes (right knee replacement) - Immunization History Immunization Up to Date: Yes - Psycho-Social/Smoking History Smoking Status: No Smoking History: Never smoked Have you smoked in the past 12 months: No Number of Cigarettes Smoked Daily: 0 - Substance Abuse Hx (Audit-C & DAST Scrn) How often the patient has a drink containing alcohol: Never Score: In Men: 4 or > Positive; In Women: 3 or > Positive: 0 Screen Result (Pos requires Nsg. Audit-10AR): Negative Respiratory Specific PMHX - Complaint Specific PMHX Hx Pneumonia: Yes Review of Systems - Review of Systems Able to Perform ROS?: Yes Is the patient limited Japanese proficient: No Constitutional: No: Symptoms Reported, See HPI, Chills, Diaphoresis, Fever, Loss of Appetite, Malaise, Night Sweats, Weakness, Weight Stable, Unintentional Wgt. Loss, Unexplained wgt Loss, Other HEENTM: Yes: Other (neck pain). No: Symptoms Reported, See HPI, Eye Pain, Blurred Vision, Tearing, Recent change in vision, Double Vision, Cataracts, Ear Pain, Ocular Prothesis, Ear Discharge, Nose Pain, Nose Congestion, Tinnitus, Nose Bleeding, Hearing Loss, Throat Pain, Throat Swelling, Mouth Pain, Dental Problems, Difficulty Swallowing, Mouth Swelling Respiratory: No: Symptoms reported, See HPI, Cough, Orthopnea, Shortness of Breath, SOB with Exertion, SOB at Rest, Stridor, Wheezing, Productive cough, Hemoptysis, Other Cardiac (ROS): No: Symptoms Reported, See HPI, Chest Pain, Edema, Irregular Heart Rate, Lightheadedness, Palpitations, Syncope, Chest Tightness, Other *Physical Exam - Vital Signs Last Vital Signs Temp Pulse Resp BP Pulse Ox 97.6 F 79 20 160/92 95 04/09/20 22:13 04/09/20 22:13 04/09/20 22:13 04/09/20 22:13 04/09/20 22:13 - Physical Exam General Appearance: Yes: Appropriately Dressed, Obese HEENT: positive: Normal ENT Inspection Neck: positive: Tender lateral (right lateral neck tenderness). negative: Lymphadenopathy (R) Respiratory/Chest: positive: Lungs Clear, Normal Breath Sounds Cardiovascular: positive: Regular Rhythm, Regular Rate Integumentary: positive: Normal Color, Dry, Warm Neurologic: positive: Fully Oriented, Alert, Normal Mood/Affect ED Treatment Course - LABORATORY CBC & Chemistry Diagram: 04/09/20 00:15 04/09/20 00:15 ED Progress Note - Progress Note Progress Note: A: neck pain P: cbc cmp TSH CTA neck EKG Medical Decision Making - Medical Decision Making 04/10/20 02:38 Patient status post CTA neck. Pending results. Patient reports feeling nauseous unsure of reaction to the contrast. No oral swelling no tongue swelling uvula midline. Will give 1 dose of Benadryl and Zofran. 04/10/20 02:54 patient screaming , reports she cannot breath., breath sounds clear, uvula midline, no oral swelling, EKG: NSR. CTA results pending. 04/10/20 02:58 CTA neck: The cervical common carotid arteries, the bifurcations, the cervical internal carotid arteries in the bilateral cervical vertebral arteries are all patent without stenosis occlusion dissection or aneurysm. Bilateral internal jugular veins are also patent. Mild atherosclerotic plaque left carotid bifurcation. Soft tissues: Parotid and submandibular glands are normal. No obvious abnormalities of the thyroid. Nasopharynx, oropharynx, parapharyngeal spaces, epiglottis and larynx and vocal cords are unremarkable. Cervical airways patent. Osseous structures are intact. 04/10/20 02:58 previous studies reviewed will refer patient to pulmonary and cardiology 04/10/20 04:32 Patient reports feeling better. Patient reports that her son will be picking up. Patient advised to follow-up with PCP and cardiology. Strict return precautions reviewed with patient. Patient verbalized understanding.IV removed. Discharge - Discharge Information Problems reviewed: Yes Clinical Impression/Diagnosis: Neck pain on right side Condition: Good Disposition: HOME - Follow up/Referral Referrals: Anju Diamond MD [Primary Care Provider] - Shakeel Norris MD [Staff Physician] - Call tomorrow Puneet Santoro MD [Staff Physician] - Call tomorrow - Patient Discharge Instructions Patient Printed Discharge Instructions: DI for Neck Pain Additional Instructions: Please follow-up with pulmonary and cardiology as soon as possible Please follow-up with your primary care doctor as soon as possible Return to the emergency room for any worsening symptoms Continue all your medications - Post Discharge Activity
[2020-04-09] MEDS ORDERED: FAMOTIDINE 20 MG/50 ML IVPB 20 MG/50 ML MG IVPB ONE (23:23)
[2020-04-09] MEDS ORDERED: ACETAMINOPHEN 325 MG TABLET (FP) PO ONE (23:24)
[2020-04-10] MEDS ORDERED: ACETAMINOPHEN 325 MG TABLET (FP) ONE (00:19)
[2020-04-10] MEDS ORDERED: FAMOTIDINE 20 MG/50 ML IVPB 20 MG/50 ML MG IVPB ONE (00:19)
[2020-04-10 00:26] LABS: BASO % 0.9 % (0-2.0); HEMATOCRIT 33.8 % (32.4-45.2); HEMOGLOBIN 10.6 GM/dL (10.7-15.3); LYMPH % 17.6 % (8-40); MCH 24.4 pg (25.7-33.7); MCHC 31.4 g/dl (32.0-36.0); MEAN CELL VOLUME 77.7 fl (80-96); MEAN PLT VOLUME 8.5 fl (7.5-11.1); NEUT % 67.5 % (42.8-82.8); PLATELET COUNT 222 K/MM3 (134-434); RBC 4.35 M/mm3 (3.60-5.2); RDW 20.3 % (11.6-15.6); WHITE BLOOD COUNT 6.3 K/mm3 (4.0-10.0)
[2020-04-10 00:52] LABS: POTASSIUM 3.9 mmol/L (3.5-5.1)
[2020-04-10 00:54] LABS: CALCIUM 8.5 mg/dL (8.5-10.1)
[2020-04-10 00:55] LABS: ALBUMIN 2.9 g/dl (3.4-5.0); BLOOD UREA NITROGEN 11.7 mg/dL (7-18)
[2020-04-10 00:58] LABS: CREATININE 0.9 mg/dL (0.55-1.3)
[2020-04-10 00:59] LABS: BILIRUBIN,TOTAL 0.3 mg/dL (0.2-1); TOT PROT 8.2 g/dl (6.4-8.2)
[2020-04-10] MEDS ORDERED: ONDANSETRON 4 MG/2 ML VIAL ONE (02:35)
[2020-04-10] MEDS ORDERED: ONDANSETRON 4 MG/2 ML VIAL IVPB ONE (02:35)
[2020-04-10 03:09] VITALS: BP 156/77; PULSE 63; TEMP 98.8
--- NOTE | 2020-04-10 10:21 | EKG ---
Test Reason : Blood Pressure : / mmHG Vent. Rate : 069 BPM Atrial Rate : 069 BPM P-R Int : 178 ms QRS Dur : 088 ms QT Int : 398 ms P-R-T Axes : 040 005 008 degrees QTc Int : 426 ms NORMAL SINUS RHYTHM NORMAL ECG WHEN COMPARED WITH ECG OF 14-FEB-2020 11:52, NO SIGNIFICANT CHANGE WAS FOUND Confirmed by MD SANDOVAL PENG ([id number]) on 04/10/2020 10:20:31 AM Referred By: Confirmed By:EDITH SANDOVAL MD
== END 2020-04-10 05:15 | disposition home or self-care (01) ==
LOC: JER 21:58
PROC: 3E033GC Introduction of Other Therapeutic Substance into Peripheral Vein, Percutaneous Approach (ICD-10-PCS; principal; 2020-04-09)
PROC: 3E033GC Introduction of Other Therapeutic Substance into Peripheral Vein, Percutaneous Approach (ICD-10-PCS; 2020-04-09)
PROC: 3E033GC Introduction of Other Therapeutic Substance into Peripheral Vein, Percutaneous Approach (ICD-10-PCS; 2020-04-09)
DX: M54.2 Cervicalgia (principal)
CPT/HCPCS: 36415; 70498-TC; 80053; 84443; 85025; 93005; 93010; 99285-25

== ENCOUNTER 2020-05-08 06:03 | Day surgery (SDC) | payer OTHER ==
[2020-05-07 11:03] VITALS: BMI 47.1
[2020-05-08] MEDS ORDERED: MIDAZOLAM HCL 2 MG/2 ML SINGLE DOSE VIAL ONE (07:40)
[2020-05-08] MEDS ORDERED: PROPOFOL 20 ML ONE (07:40)
[2020-05-08] MEDS ORDERED: oxyCODONE HCL 5 MG TABLET PO PRN ×2 (08:09→09:56)
[2020-05-08] MEDS ORDERED: ONDANSETRON 4 MG/2 ML VIAL IVPUSH PRN ×2 (08:09→09:56)
[2020-05-08] MEDS ORDERED: PROMETHAZINE HCL 25 MG/1 ML VIAL IVPB PRN (08:09)
[2020-05-08] MEDS ORDERED: LACTATED RINGERS SOLUTION 1,000 ML IV SCH (08:15)
[2020-05-08] MEDS ORDERED: LIDOCAINE HCL/PF 2% SDV 5ML VIAL ONE (08:31)
[2020-05-08] MEDS ORDERED: KETOROLAC TROMETHAMINE 30 MG/1 ML VIAL ONE (08:52)
[2020-05-08] MEDS ORDERED: IBUPROFEN 600 MG TABLET (FP) PO PRN (09:56)
[2020-05-08] MEDS ORDERED: IBUPROFEN 800 MG/8 ML IJ IVPB PRN (09:56)
[2020-05-08] MEDS ORDERED: ELECTROLYTE-148 SOLN 1,000 ML IV SCH (10:00)
[2020-05-08 12:22] VITALS: BP 135/68; PULSE 70; TEMP 97.5
== END 2020-05-08 12:35 | disposition home or self-care (01) ==
LOC: JASU-SURG 06:03
PROVIDERS: ATTEND Obstetrics & Gynecology
PROC: 0UJD8ZZ Inspection of Uterus and Cervix, Via Natural or Artificial Opening Endoscopic (ICD-10-PCS; 2020-05-08)
PROC: 0UB97ZX Excision of Uterus, Via Natural or Artificial Opening, Diagnostic (ICD-10-PCS; principal; 2020-05-08 08:30)
PROC: 0UDB7ZX Extraction of Endometrium, Via Natural or Artificial Opening, Diagnostic (ICD-10-PCS; 2020-05-08 08:30)
DX: N95.0 Postmenopausal bleeding (principal); N84.0 Polyp of corpus uteri; E66.01 Morbid (severe) obesity due to excess calories; Z68.42 Body mass index [BMI] 45.0-49.9, adult
CPT/HCPCS: 88305-TC; 94760

== ENCOUNTER 2020-07-10 20:21 | Emergency (ER) | payer OTHER ==
[2020-07-10 20:42] VITALS: TEMP 98.8; BMI 35.4
[2020-07-10 21:01] LABS: HEMATOCRIT 32.6 % (32.4-45.2); HEMOGLOBIN 10.7 GM/dL (10.7-15.3); MCH 25.8 pg (25.7-33.7); MCHC 32.7 g/dl (32.0-36.0); MEAN PLT VOLUME 8.9 fl (7.5-11.1); PLATELET COUNT 208 K/MM3 (134-434); RBC 4.13 M/mm3 (3.60-5.2); RDW 17.6 % (11.6-15.6); WHITE BLOOD COUNT 6.4 K/mm3 (4.0-10.0)
[2020-07-10 21:10] LABS: INR 1.28 (0.83-1.09); PROTHROMBIN TIME (PATIENT) 15.4 SEC (9.7-13.0)
[2020-07-10 21:20] LABS: CHLORIDE 110 mmol/L (98-107); POTASSIUM 3.4 mmol/L (3.5-5.1); SODIUM 145 mmol/L (136-145)
[2020-07-10 21:22] LABS: ANION GAP 6 MMOL/L (8-16); CALCIUM 8.8 mg/dL (8.5-10.1); CO2 28 mmol/L (21-32)
[2020-07-10 21:23] LABS: ALBUMIN 2.8 g/dl (3.4-5.0); BLOOD UREA NITROGEN 12.9 mg/dL (7-18); GLUCOSE,RANDOM 99 mg/dL (74-106)
[2020-07-10 21:25] LABS: SGPT/ALT 14 U/L (13-61)
[2020-07-10 21:27] LABS: CREATININE 0.9 mg/dL (0.55-1.3); SGOT/AST 15 U/L (15-37)
[2020-07-10 21:28] LABS: BILIRUBIN,TOTAL 0.5 mg/dL (0.2-1)
[2020-07-10 21:29] LABS: ALK PHOS 101 U/L (45-117)
[2020-07-10 22:03] LABS: N-TERMINAL BNP 17.6 pg/ml (5-125)
[2020-07-10] MEDS ORDERED: ACETAMINOPHEN 1000 MG/100 ML VIAL (NON FORMULARY) IVPB ONE (22:04)
[2020-07-10] MEDS ORDERED: ACETAMINOPHEN INJECTION 100 ML IVPB ONE (22:16)
[2020-07-11 04:48] VITALS: BP 116/74; PULSE 74
== END 2020-07-11 04:48 | disposition home or self-care (01) ==
LOC: JER 20:21
DX: R06.02 Shortness of breath (principal); R07.9 Chest pain, unspecified
CPT/HCPCS: 36415; 71045-TC-FY; 80053; 82550; 82553; 83880; 84484; 85027; 85610; 93005; 93010; 99285-25; C9803; J0131; U0003

== ENCOUNTER 2020-07-13 11:20 | Emergency (ER) | payer OTHER ==
[2020-07-13 11:42] VITALS: BMI 49.1
[2020-07-13] MEDS ORDERED: SODIUM CHLORIDE 500 ML IV STA (12:00)
[2020-07-13] MEDS ORDERED: FAMOTIDINE 20 MG/50 ML IVPB 20 MG/50 ML MG IVPB ONE ×2 (12:00→12:12)
[2020-07-13] MEDS ORDERED: MAG HYDROX/AL HYDROX/SIMETH -MYLANTA- ORAL SUSPENSION PO ONE (12:00)
[2020-07-13] MEDS ORDERED: MAG HYDROX/AL HYDROX/SIMETH 30 ML UNIT-DOSE CUP ONE (12:11)
[2020-07-13] MEDS ORDERED: ONDANSETRON 4 MG/2 ML VIAL ONE (12:16)
[2020-07-13] MEDS ORDERED: ACETAMINOPHEN 1000 MG/100 ML VIAL (NON FORMULARY) IVPB ONE (12:19)
[2020-07-13] MEDS ORDERED: ONDANSETRON 4 MG/2 ML VIAL IVPUSH ONE (12:19)
[2020-07-13 12:43] LABS: BASO % 0.5 % (0-2.0); EOS % 2.8 % (0-4.5); HEMATOCRIT 33.8 % (32.4-45.2); HEMOGLOBIN 11.1 GM/dL (10.7-15.3); LYMPH % 16.3 % (8-40); MCH 25.7 pg (25.7-33.7); MCHC 32.7 g/dl (32.0-36.0); MEAN CELL VOLUME 78.5 fl (80-96); MEAN PLT VOLUME 8.7 fl (7.5-11.1); MONO % 8.8 % (3.8-10.2); NEUT % 71.6 % (42.8-82.8); PLATELET COUNT 215 K/MM3 (134-434); RDW 17.4 % (11.6-15.6); WHITE BLOOD COUNT 6.3 K/mm3 (4.0-10.0)
[2020-07-13] MEDS ORDERED: ACETAMINOPHEN INJECTION 100 ML IVPB ONE (12:44)
[2020-07-13 13:12] LABS: CHLORIDE 103 mmol/L (98-107); POTASSIUM 3.9 mmol/L (3.5-5.1); SODIUM 139 mmol/L (136-145)
[2020-07-13 13:14] LABS: CALCIUM 9.1 mg/dL (8.5-10.1)
[2020-07-13 13:15] LABS: ALBUMIN 2.8 g/dl (3.4-5.0); ANION GAP 9 MMOL/L (8-16); BLOOD UREA NITROGEN 11.2 mg/dL (7-18); CO2 27 mmol/L (21-32); GLUCOSE,RANDOM 87 mg/dL (74-106); LIPASE 66 U/L (73-393)
[2020-07-13 13:18] LABS: CREATININE 0.8 mg/dL (0.55-1.3); SGOT/AST 32 U/L (15-37); SGPT/ALT 19 U/L (13-61)
[2020-07-13 13:19] LABS: BILIRUBIN,TOTAL 0.5 mg/dL (0.2-1)
[2020-07-13 13:20] LABS: TOT PROT 8.3 g/dl (6.4-8.2)
[2020-07-13 13:21] LABS: ALK PHOS 98 U/L (45-117)
[2020-07-13 17:01] VITALS: BP 130/87; PULSE 89; TEMP 98.7
== END 2020-07-13 17:11 | disposition home or self-care (01) ==
LOC: JER 11:20
PROC: 3E033NZ Introduction of Analgesics, Hypnotics, Sedatives into Peripheral Vein, Percutaneous Approach (ICD-10-PCS; principal; 2020-07-13)
PROC: 3E0337Z Introduction of Electrolytic and Water Balance Substance into Peripheral Vein, Percutaneous Approach (ICD-10-PCS; 2020-07-13)
PROC: 3E033GC Introduction of Other Therapeutic Substance into Peripheral Vein, Percutaneous Approach (ICD-10-PCS; 2020-07-13)
DX: R07.9 Chest pain, unspecified (principal); R10.9 Unspecified abdominal pain
CPT/HCPCS: 36415; 71045-TC-FY; 80053; 82272; 82550; 82553; 83690; 84484; 85025; 93005; 93010; 99285-25; J0131

== ENCOUNTER 2020-09-13 15:16 | Emergency (ER) | payer OTHER ==
[2020-09-13 15:43] VITALS: BP 111/71; PULSE 85; BMI 44.8
[2020-09-13 15:53] VITALS: TEMP 98.5
[2020-09-13] MEDS ORDERED: ACETAMINOPHEN 500 MG TABLET (FP) PO ONE (17:50)
[2020-09-13] MEDS ORDERED: ACETAMINOPHEN 500 MG TABLET (FP) ONE (17:56)
== END 2020-09-13 21:00 | disposition home or self-care (01) ==
LOC: JER 15:16 → JERFT 15:16
DX: F07.81 Postconcussional syndrome (principal)
CPT/HCPCS: 70450-TC; 70486-TC; 72125-TC; 99284-25

== ENCOUNTER 2021-03-27 11:24 | Emergency (ER) | payer OTHER ==
[2021-03-27 11:45] VITALS: TEMP 97.8; BMI 41.1
[2021-03-27 15:28] VITALS: BP 118/70; PULSE 76
== END 2021-03-27 15:28 | disposition home or self-care (01) ==
LOC: JER 11:24
DX: R04.0 Epistaxis (principal); S40.869A Insect bite (nonvenomous) of unspecified upper arm, initial encounter; W57.XXXA Bitten or stung by nonvenomous insect and other nonvenomous arthropods, initial encounter
CPT/HCPCS: 99281-25

== ENCOUNTER 2021-05-23 16:22 | Emergency (ER) | payer OTHER ==
[2021-05-23 16:35] VITALS: TEMP 98; BMI 41.6
[2021-05-23] MEDS ORDERED: ACETAMINOPHEN 1000 MG/100 ML VIAL IVPB ONE (16:56)
[2021-05-23] MEDS ORDERED: ACETAMINOPHEN INJECTION 100 ML IVPB ONE (17:02)
[2021-05-23] MEDS ORDERED: MAG HYDROX/AL HYDROX/SIMETH -MYLANTA- ORAL SUSPENSION PO ONE (17:12)
[2021-05-23] MEDS ORDERED: FAMOTIDINE 20 MG/50 ML IVPB 20 MG/50 ML MG IVPB ONE ×2 (17:12→17:30)
[2021-05-23] MEDS ORDERED: LACTATED RINGERS SOLUTION 1,000 ML/1,000 ML INFUS.BAG IV SCH (17:15)
[2021-05-23] MEDS ORDERED: ONDANSETRON 4 MG/2 ML VIAL IVPUSH ONE (17:20)
[2021-05-23] MEDS ORDERED: MAG HYDROX/AL HYDROX/SIMETH 30 ML UNIT-DOSE CUP ONE (17:29)
[2021-05-23] MEDS ORDERED: ONDANSETRON 4 MG/2 ML VIAL ONE (17:29)
[2021-05-23 17:51] LABS: BASO % 0.5 % (0-2.0); EOS % 4.1 % (0-4.5); HEMATOCRIT 34.1 % (32.4-45.2); HEMOGLOBIN 11.1 GM/dL (10.7-15.3); LYMPH % 23.6 % (8-40); MCH 25.8 pg (25.7-33.7); MCHC 32.7 g/dl (32.0-36.0); MEAN PLT VOLUME 8.7 fl (7.5-11.1); MONO % 9.4 % (3.8-10.2); NEUT % 62.4 % (42.8-82.8); PLATELET COUNT 207 10^3/uL (134-434); RBC 4.31 M/mm3 (3.60-5.2); RDW 17.1 % (11.6-15.6); WHITE BLOOD COUNT 5.6 K/mm3 (4.0-10.0)
[2021-05-23] MEDS ORDERED: LIDOCAINE 5% TOPICAL PATCH TP ONE (18:02)
[2021-05-23 18:06] LABS: CHLORIDE 103 mmol/L (98-107); SODIUM 138 mmol/L (136-145)
[2021-05-23 18:12] LABS: BLOOD UREA NITROGEN 17.6 mg/dL (7-18)
[2021-05-23 18:13] LABS: ALBUMIN 2.8 g/dl (3.4-5.0); CALCIUM 8.9 mg/dL (8.5-10.1); GLUCOSE,RANDOM 82 mg/dL (74-106)
[2021-05-23] MEDS ORDERED: LIDOCAINE 5% TOPICAL PATCH ONE (18:13)
[2021-05-23 18:14] LABS: ANION GAP 8 MMOL/L (8-16); CO2 27 mmol/L (21-32); LIPASE 88 U/L (73-393); MAGNESIUM 2.2 mg/dL (1.8-2.4)
[2021-05-23 18:17] LABS: SGOT/AST 18 U/L (15-37); SGPT/ALT 25 U/L (13-61)
[2021-05-23 18:18] LABS: TOT PROT 7.8 g/dl (6.4-8.2)
[2021-05-23 18:20] LABS: ALK PHOS 111 U/L (45-117); BILIRUBIN,TOTAL 0.4 mg/dL (0.2-1)
[2021-05-23 18:46] LABS: URINE APPEARANCE CLEAR; URINE BILIRUBIN NEGATIVE (NEGATIVE); URINE COLOR YELLOW; URINE GLUCOSE (UA) NEGATIVE (NEGATIVE); URINE KETONE NEGATIVE (NEGATIVE); URINE LEUK ESTERASE NEGATIVE (NEGATIVE); URINE NITRITE NEGATIVE (NEGATIVE); URINE PROTEIN NEGATIVE (NEGATIVE); URINE UROBILINOGEN 0.2 mg/dL (0.2-1.0)
[2021-05-23 19:57] VITALS: BP 114/61; PULSE 63
[2021-05-23] MEDS ORDERED: LIDOCAINE PATCH REMOVAL MC ONE (22:00)
== END 2021-05-23 20:10 | disposition home or self-care (01) ==
LOC: JER 16:22
PROC: 3E033GC Introduction of Other Therapeutic Substance into Peripheral Vein, Percutaneous Approach (ICD-10-PCS; principal; 2021-05-23)
DX: R10.84 Generalized abdominal pain (principal)
CPT/HCPCS: 36415; 71045-TC-FY; 74177-TC; 80053; 81003; 82550; 82553; 83690; 83735; 84484; 85025; 87086; 93005; 93010; 99285-25; C9803; J0131; Q9967; U0003; U0005

== ENCOUNTER 2021-09-07 08:09 | Emergency (ER) | payer OTHER ==
[2021-09-07] MEDS ORDERED: DEXAMETHASONE 4 MG TABLET (FP) PO ONE (08:26)
[2021-09-07] MEDS ORDERED: DEXAMETHASONE SOD PHOSPHATE 10 MG/1 ML VIAL ONE (08:27)
[2021-09-07] MEDS ORDERED: FAMOTIDINE 20 MG TABLET ONE (08:30)
[2021-09-07] MEDS ORDERED: FAMOTIDINE 20 MG TABLET PO ONE (08:30)
[2021-09-07 08:32] VITALS: BP 137/73; PULSE 79; TEMP 98.1; BMI 40.7
== END 2021-09-07 09:00 | disposition home or self-care (01) ==
LOC: JERFT 08:09
DX: L50.9 Urticaria, unspecified (principal); M79.602 Pain in left arm
CPT/HCPCS: 93005; 93010; 99283-25

== ENCOUNTER 2021-12-04 04:31 | Inpatient (IN) | payer OTHER ==
[2021-12-04] MEDS ORDERED: DEXAMETHASONE SOD PHOSPHATE 10 MG/1 ML VIAL IVPUSH ONE (04:59)
[2021-12-04] MEDS ORDERED: DEXAMETHASONE SOD PHOSPHATE 10 MG/1 ML VIAL ONE (05:05)
[2021-12-04] MEDS: ALBUTEROL SO4 2.5/IPRATROPIUM 0.5 INH SOL 3 ML VIAL.NEB. NEB SCH ×2 (05:27→05:59)
[2021-12-04] MEDS ORDERED: ACETAMINOPHEN 1000 MG/100 ML BAG IVPB ONE (05:44)
[2021-12-04] MEDS ORDERED: ACETAMINOPHEN INJECTION 100 ML IVPB ONE (06:00)
[2021-12-04 06:02] LABS: BASO % 0.7 % (0-2.0); EOS % 1.2 % (0-4.5); HEMOGLOBIN 11.1 GM/dL (10.7-15.3); LYMPH % 5.9 % (8-40); MCH 26.3 pg (25.7-33.7); MCHC 32.7 g/dl (32.0-36.0); MEAN CELL VOLUME 80.5 fl (80-96); MEAN PLT VOLUME 9.5 fl (7.5-11.1); NEUT % 77.2 % (42.8-82.8); PLATELET COUNT 158 10^3/uL (134-434); RBC 4.23 M/mm3 (3.60-5.2); WHITE BLOOD COUNT 4.1 K/mm3 (4.0-10.0)
[2021-12-04 06:14] LABS: INR 1.25 (0.83-1.09); PROTHROMBIN TIME (PATIENT) 14.4 SEC (9.7-13.0)
[2021-12-04 06:34] LABS: ALBUMIN 2.9 g/dl (3.4-5.0); BILIRUBIN,TOTAL 0.6 mg/dL (0.2-1); BLOOD UREA NITROGEN 15.6 mg/dL (7-18); CALCIUM 8.6 mg/dL (8.5-10.1); N-TERMINAL BNP 65.7 pg/ml (5-125); TOT PROT 8.1 g/dl (6.4-8.2)
[2021-12-04] MEDS ORDERED: SODIUM CHLORIDE 1,000 ML IV SCH (08:45)
[2021-12-04] MEDS ORDERED: FAMOTIDINE 20 MG TABLET ONE (09:13)
[2021-12-04] MEDS ORDERED: ALBUTEROL SO4 HFA INHALER IH ONE (09:14)
[2021-12-04] MEDS ORDERED: DEXAMETHASONE SOD PHOSPHATE 4 MG/1 ML VIAL ONE (09:14)
[2021-12-04] MEDS: ALBUTEROL SO4 HFA INHALER IH SCH ×4 (09:25→21:19)
[2021-12-04] MEDS: FAMOTIDINE 20 MG TABLET PO SCH (09:56)
[2021-12-04] MEDS: DEXAMETHASONE SOD PHOSPHATE 10 MG/1 ML VIAL IVPUSH SCH (09:56)
[2021-12-04] MEDS ORDERED: ENOXAPARIN NA (PORCINE) 40 MG/0.4 ML DISP.SYRIN SQ SCH (10:00)
[2021-12-04 10:40] LABS: PH,URINE 6.5 (5.0-8.0); URINE APPEARANCE CLEAR; URINE BILIRUBIN NEGATIVE (NEGATIVE); URINE COLOR YELLOW; URINE GLUCOSE (UA) NEGATIVE (NEGATIVE); URINE KETONE NEGATIVE (NEGATIVE); URINE LEUK ESTERASE NEGATIVE (NEGATIVE); URINE NITRITE NEGATIVE (NEGATIVE); URINE PROTEIN NEGATIVE (NEGATIVE); URINE UROBILINOGEN 0.2 mg/dL (0.2-1.0)
[2021-12-04] MEDS: INSULIN SLIDING SCALE (NOVOLOG) 1 VIAL SQ SCH ×3 (11:55→23:30)
[2021-12-04] MEDS ORDERED: REMDESIVIR 200 MG in SODIUM CHLORIDE 250 ML IVPB ONE (12:15)
[2021-12-04] MEDS ORDERED: INSULIN SLIDING SCALE (NOVOLOG) 1 VIAL SQ ONE (12:28)
[2021-12-04] MEDS ORDERED: HEPARIN NA (PORCINE) 5,000 UNITS/ML 1ML VIAL ONE ×2 (14:12→23:25)
[2021-12-04] MEDS: HEPARIN NA (PORCINE) 5,000 UNITS/ML 1ML VIAL SQ SCH (14:14)
[2021-12-04] MEDS: BUDESONIDE/FORMETEROL FUMARATE 160/4.5 mcg INHALER IH SCH ×2 (14:14→23:00)
[2021-12-04] MEDS ORDERED: ACETAMINOPHEN 1000 MG/100 ML BAG IVPB PRN (15:23)
[2021-12-05] MEDS: ALBUTEROL SO4 HFA INHALER IH SCH ×6 (00:53→21:25)
[2021-12-05] MEDS: HEPARIN NA (PORCINE) 5,000 UNITS/ML 1ML VIAL SQ SCH ×4 (00:53→21:25)
[2021-12-05] MEDS ORDERED: LEVOTHYROXINE NA 50 MCG TABLET (FP) ONE (05:44)
[2021-12-05] MEDS: LATANOPROST 0.005% OPHTH SOLN 2.5ML BOTTLE OU SCH ×2 (05:58→21:25)
[2021-12-05] MEDS: LEVOTHYROXINE NA 50 MCG TABLET (FP) PO SCH (06:23)
[2021-12-05] MEDS ORDERED: LEVOTHYROXINE NA 50 MCG TABLET (FP) PO SCH (07:00)
[2021-12-05 07:07] LABS: BASO % 0.1 % (0-2.0); HEMATOCRIT 33.5 % (32.4-45.2); LYMPH % 9.2 % (8-40); MCH 26.4 pg (25.7-33.7); MCHC 32.7 g/dl (32.0-36.0); MEAN CELL VOLUME 80.7 fl (80-96); MEAN PLT VOLUME 9.1 fl (7.5-11.1); NEUT % 84.7 % (42.8-82.8); PLATELET COUNT 138 10^3/uL (134-434); RBC 4.16 M/mm3 (3.60-5.2); RDW 15.7 % (11.6-15.6)
[2021-12-05 07:27] LABS: BLOOD UREA NITROGEN 23.7 mg/dL (7-18)
[2021-12-05 07:28] LABS: ALBUMIN 2.9 g/dl (3.4-5.0); CALCIUM 8.2 mg/dL (8.5-10.1)
[2021-12-05 07:31] LABS: CREATININE 0.9 mg/dL (0.55-1.3); PHOSPHOROUS 3.4 mg/dL (2.5-4.9)
[2021-12-05 07:32] LABS: BILIRUBIN,TOTAL 0.3 mg/dL (0.2-1); TOT PROT 7.9 g/dl (6.4-8.2)
[2021-12-05] MEDS: INSULIN SLIDING SCALE (NOVOLOG) 1 VIAL SQ SCH ×4 (08:03→21:31)
[2021-12-05] MEDS: DEXAMETHASONE SOD PHOSPHATE 10 MG/1 ML VIAL IVPUSH SCH (10:59)
[2021-12-05] MEDS: FAMOTIDINE 20 MG TABLET PO SCH (10:59)
[2021-12-05] MEDS: REMDESIVIR 100 MG in SODIUM CHLORIDE 250 ML IVPB SCH (11:00)
[2021-12-05] MEDS: BUDESONIDE/FORMETEROL FUMARATE 160/4.5 mcg INHALER IH SCH ×2 (12:37→21:25)
[2021-12-05] MEDS: HYDROCHLOROTHIAZIDE 12.5 MG CAPSULE (FP) PO SCH (14:10)
[2021-12-05 14:33] VITALS: BMI 43.7
[2021-12-05] MEDS: IBUPROFEN 400 MG TABLET (FP) PO PRN (16:14)
[2021-12-06] MEDS: ALBUTEROL SO4 HFA INHALER IH SCH ×6 (03:23→22:23)
[2021-12-06] MEDS: HEPARIN NA (PORCINE) 5,000 UNITS/ML 1ML VIAL SQ SCH ×3 (05:36→22:23)
[2021-12-06] MEDS: INSULIN SLIDING SCALE (NOVOLOG) 1 VIAL SQ SCH ×2 (06:02→11:44)
[2021-12-06] MEDS: LEVOTHYROXINE NA 50 MCG TABLET (FP) PO SCH (06:03)
[2021-12-06 09:07] LABS: HEMATOCRIT 31.8 % (32.4-45.2); HEMOGLOBIN 10.4 GM/dL (10.7-15.3); MCH 26.6 pg (25.7-33.7); MCHC 32.9 g/dl (32.0-36.0); PLATELET COUNT 129 10^3/uL (134-434); RBC 3.93 M/mm3 (3.60-5.2); WHITE BLOOD COUNT 5.1 K/mm3 (4.0-10.0)
[2021-12-06 09:32] LABS: CALCIUM 8.1 mg/dL (8.5-10.1)
[2021-12-06 09:33] LABS: ALBUMIN 2.6 g/dl (3.4-5.0); BLOOD UREA NITROGEN 25.4 mg/dL (7-18)
[2021-12-06 09:36] LABS: CREATININE 0.9 mg/dL (0.55-1.3)
[2021-12-06 09:38] LABS: BILIRUBIN,TOTAL 0.3 mg/dL (0.2-1)
[2021-12-06] MEDS: DEXAMETHASONE SOD PHOSPHATE 10 MG/1 ML VIAL IVPUSH SCH (11:03)
[2021-12-06] MEDS: FAMOTIDINE 20 MG TABLET PO SCH (11:03)
[2021-12-06] MEDS: HYDROCHLOROTHIAZIDE 12.5 MG CAPSULE (FP) PO SCH (11:04)
[2021-12-06] MEDS: REMDESIVIR 100 MG in SODIUM CHLORIDE 250 ML IVPB SCH (11:04)
[2021-12-06] MEDS: BUDESONIDE/FORMETEROL FUMARATE 160/4.5 mcg INHALER IH SCH ×2 (11:16→22:23)
[2021-12-06] MEDS: IBUPROFEN 400 MG TABLET (FP) PO PRN (13:51)
[2021-12-06] MEDS: LATANOPROST 0.005% OPHTH SOLN 2.5ML BOTTLE OU SCH (22:24)
[2021-12-07] MEDS: ALBUTEROL SO4 HFA INHALER IH SCH ×6 (00:20→22:23)
[2021-12-07] MEDS: LEVOTHYROXINE NA 50 MCG TABLET (FP) PO SCH (06:27)
[2021-12-07] MEDS: HEPARIN NA (PORCINE) 5,000 UNITS/ML 1ML VIAL SQ SCH ×3 (06:27→22:23)
[2021-12-07] MEDS: DEXAMETHASONE SOD PHOSPHATE 10 MG/1 ML VIAL IVPUSH SCH (09:23)
[2021-12-07] MEDS: REMDESIVIR 100 MG in SODIUM CHLORIDE 250 ML IVPB SCH (09:24)
[2021-12-07] MEDS: HYDROCHLOROTHIAZIDE 12.5 MG CAPSULE (FP) PO SCH (09:24)
[2021-12-07] MEDS: FAMOTIDINE 20 MG TABLET PO SCH (09:24)
[2021-12-07] MEDS: BUDESONIDE/FORMETEROL FUMARATE 160/4.5 mcg INHALER IH SCH ×2 (09:26→22:24)
[2021-12-07 10:08] LABS: HEMATOCRIT 33.6 % (32.4-45.2); HEMOGLOBIN 10.6 GM/dL (10.7-15.3); MCH 25.7 pg (25.7-33.7); MCHC 31.5 g/dl (32.0-36.0); MEAN CELL VOLUME 81.8 fl (80-96); MEAN PLT VOLUME 9.5 fl (7.5-11.1); PLATELET COUNT 140 10^3/uL (134-434); RBC 4.11 M/mm3 (3.60-5.2); WHITE BLOOD COUNT 5.3 K/mm3 (4.0-10.0)
[2021-12-07 10:17] LABS: CALCIUM 7.6 mg/dL (8.5-10.1)
[2021-12-07 10:18] LABS: ALBUMIN 2.7 g/dl (3.4-5.0); BLOOD UREA NITROGEN 24.2 mg/dL (7-18)
[2021-12-07 10:21] LABS: CREATININE 0.8 mg/dL (0.55-1.3)
[2021-12-07 10:22] LABS: BILIRUBIN,TOTAL 0.2 mg/dL (0.2-1)
[2021-12-07] MEDS: LATANOPROST 0.005% OPHTH SOLN 2.5ML BOTTLE OU SCH (22:24)
[2021-12-08] MEDS: ALBUTEROL SO4 HFA INHALER IH SCH ×6 (00:47→21:21)
[2021-12-08] MEDS: HEPARIN NA (PORCINE) 5,000 UNITS/ML 1ML VIAL SQ SCH ×3 (05:59→21:20)
[2021-12-08] MEDS: LEVOTHYROXINE NA 50 MCG TABLET (FP) PO SCH (05:59)
[2021-12-08 10:03] LABS: HEMATOCRIT 31.6 % (32.4-45.2); HEMOGLOBIN 10.3 GM/dL (10.7-15.3); MCH 26.4 pg (25.7-33.7); MCHC 32.7 g/dl (32.0-36.0); MEAN CELL VOLUME 80.7 fl (80-96); MEAN PLT VOLUME 9.2 fl (7.5-11.1); PLATELET COUNT 118 10^3/uL (134-434); RBC 3.91 M/mm3 (3.60-5.2); RDW 16.4 % (11.6-15.6); WHITE BLOOD COUNT 4.8 K/mm3 (4.0-10.0)
[2021-12-08] MEDS: BUDESONIDE/FORMETEROL FUMARATE 160/4.5 mcg INHALER IH SCH ×2 (10:26→21:21)
[2021-12-08] MEDS: HYDROCHLOROTHIAZIDE 12.5 MG CAPSULE (FP) PO SCH (10:26)
[2021-12-08] MEDS: REMDESIVIR 100 MG in SODIUM CHLORIDE 250 ML IVPB SCH (10:27)
[2021-12-08] MEDS: FAMOTIDINE 20 MG TABLET PO SCH (10:27)
[2021-12-08] MEDS: DEXAMETHASONE SOD PHOSPHATE 10 MG/1 ML VIAL IVPUSH SCH (10:27)
[2021-12-08 10:34] LABS: CALCIUM 7.5 mg/dL (8.5-10.1)
[2021-12-08 10:35] LABS: ALBUMIN 2.6 g/dl (3.4-5.0); BLOOD UREA NITROGEN 18.6 mg/dL (7-18)
[2021-12-08 10:38] LABS: CREATININE 0.8 mg/dL (0.55-1.3)
[2021-12-08 10:40] LABS: BILIRUBIN,TOTAL 0.3 mg/dL (0.2-1); TOT PROT 6.6 g/dl (6.4-8.2)
[2021-12-08] MEDS ORDERED: guaiFENesin/CODEINE 10 ML UNIT-DOSE CUPS PO PRN (10:44)
[2021-12-08] MEDS: AZITHROMYCIN IVPB 500 MG/250 ML BAG IVPB SCH (15:23)
[2021-12-08] MEDS: LATANOPROST 0.005% OPHTH SOLN 2.5ML BOTTLE OU SCH (21:22)
[2021-12-09] MEDS: ALBUTEROL SO4 HFA INHALER IH SCH ×5 (00:31→17:18)
[2021-12-09] MEDS: HEPARIN NA (PORCINE) 5,000 UNITS/ML 1ML VIAL SQ SCH ×2 (05:17→14:56)
[2021-12-09] MEDS: LEVOTHYROXINE NA 50 MCG TABLET (FP) PO SCH (06:14)
[2021-12-09] MEDS: DEXAMETHASONE SOD PHOSPHATE 10 MG/1 ML VIAL IVPUSH SCH (09:59)
[2021-12-09] MEDS: HYDROCHLOROTHIAZIDE 12.5 MG CAPSULE (FP) PO SCH (09:59)
[2021-12-09] MEDS: FAMOTIDINE 20 MG TABLET PO SCH (09:59)
[2021-12-09] MEDS: BUDESONIDE/FORMETEROL FUMARATE 160/4.5 mcg INHALER IH SCH (10:02)
[2021-12-09] MEDS: AZITHROMYCIN IVPB 500 MG/250 ML BAG IVPB SCH (10:04)
[2021-12-09 10:18] LABS: HEMATOCRIT 32.3 % (32.4-45.2); HEMOGLOBIN 10.6 GM/dL (10.7-15.3); MCH 26.3 pg (25.7-33.7); MCHC 32.7 g/dl (32.0-36.0); MEAN CELL VOLUME 80.5 fl (80-96); MEAN PLT VOLUME 9.4 fl (7.5-11.1); PLATELET COUNT 131 10^3/uL (134-434); RBC 4.02 M/mm3 (3.60-5.2); WHITE BLOOD COUNT 5.4 K/mm3 (4.0-10.0)
[2021-12-09 10:51] LABS: ALBUMIN 2.5 g/dl (3.4-5.0); BLOOD UREA NITROGEN 20.4 mg/dL (7-18); CALCIUM 7.9 mg/dL (8.5-10.1)
[2021-12-09 10:54] LABS: CREATININE 0.9 mg/dL (0.55-1.3)
[2021-12-09 10:56] LABS: BILIRUBIN,TOTAL 0.9 mg/dL (0.2-1); TOT PROT 6.8 g/dl (6.4-8.2)
[2021-12-09 11:29] LABS: ERYTHROCYTE SEDIMENTATION RATE 56 mm/hr (0-30)
[2021-12-09 18:19] VITALS: BP 133/45; PULSE 67; TEMP 97.6
== END 2021-12-09 18:43 | disposition home or self-care (01) | DRG 177 ==
LOC: JER 04:31 → JERBED 08:14 → J5S 12-05 08:30
PROVIDERS: ADMIT Internal Medicine; ATTEND Internal Medicine
PROC: XW033E5 Introduction of Remdesivir Anti-infective into Peripheral Vein, Percutaneous Approach, New Technology Group 5 (ICD-10-PCS; principal; 2021-12-04)
PROC: 3E0333Z Introduction of Anti-inflammatory into Peripheral Vein, Percutaneous Approach (ICD-10-PCS; 2021-12-04)
DX: U07.1 COVID-19 (principal); J12.82 Pneumonia due to coronavirus disease 2019; J96.01 Acute respiratory failure with hypoxia; Z68.41 Body mass index [BMI] 40.0-44.9, adult; E03.9 Hypothyroidism, unspecified; E78.00 Pure hypercholesterolemia, unspecified; E66.01 Morbid (severe) obesity due to excess calories; I10 Essential (primary) hypertension; E78.5 Hyperlipidemia, unspecified; F41.9 Anxiety disorder, unspecified; R19.7 Diarrhea, unspecified; I12.9 Hypertensive chronic kidney disease with stage 1 through stage 4 chronic kidney disease, or unspecified chronic kidney disease; N18.9 Chronic kidney disease, unspecified; R11.0 Nausea; J20.9 Acute bronchitis, unspecified; H40.9 Unspecified glaucoma; I73.89 Other specified peripheral vascular diseases; Z96.651 Presence of right artificial knee joint
CPT/HCPCS: 0241U-QW; 36415; 71045-TC-FY; 80053; 80061; 81003; 82728; 82962; 83036; 83615; 83735; 83880; 84100; 84484; 85025; 85027; 85379; 85610; 85651; 85730; 86140; 87086; 93005; 93010; 94761; 99285-25; C9399; J1100; J1644

== ENCOUNTER 2022-03-14 11:19 | Emergency (ER) | payer OTHER ==
[2022-03-14 11:28] VITALS: TEMP 98.4; BMI 45.5
[2022-03-14] MEDS ORDERED: ACETAMINOPHEN 1000 MG/100 ML BAG IVPB ONE (14:51)
[2022-03-14] MEDS ORDERED: ACETAMINOPHEN INJECTION 100 ML IVPB ONE (15:23)
[2022-03-14 15:53] LABS: HEMATOCRIT 34.4 % (32.4-45.2); HEMOGLOBIN 10.8 GM/dL (10.7-15.3); MCH 25.7 pg (25.7-33.7); MCHC 31.4 g/dl (32.0-36.0); MEAN CELL VOLUME 81.9 fl (80-96); PLATELET COUNT 208 10^3/uL (134-434); RBC 4.21 M/mm3 (3.60-5.2); RDW 16.7 % (11.6-15.6)
[2022-03-14 15:54] LABS: BASO % 1.1 % (0-2.0); EOS % 5.3 % (0-4.5); LYMPH % 28.4 % (8-40); MEAN PLT VOLUME 8.8 fl (7.5-11.1); MONO % 8.7 % (3.8-10.2); NEUT % 56.5 % (42.8-82.8)
[2022-03-14 16:14] LABS: INR 1.09 (0.83-1.09); PROTHROMBIN TIME (PATIENT) 12.6 SEC (9.7-13.0)
[2022-03-14 16:17] LABS: ACTIVATED PTT 31.5 SECONDS (25.2-36.5)
[2022-03-14 16:25] LABS: ALBUMIN 2.9 g/dl (3.4-5.0); BLOOD UREA NITROGEN 23.8 mg/dL (7-18)
[2022-03-14 16:29] LABS: CREATININE 0.9 mg/dL (0.55-1.3)
[2022-03-14 16:30] LABS: BILIRUBIN,TOTAL 0.4 mg/dL (0.2-1); TOT PROT 7.4 g/dl (6.4-8.2)
[2022-03-14] MEDS ORDERED: SODIUM CHLORIDE 0.9% 500 ML INFUS.BAG IV ONE (18:03)
[2022-03-14 21:04] VITALS: BP 127/76; PULSE 64; RESP 20
== END 2022-03-14 23:48 | disposition home or self-care (01) ==
LOC: JER 11:19
PROC: 3E0333Z Introduction of Anti-inflammatory into Peripheral Vein, Percutaneous Approach (ICD-10-PCS; principal; 2022-03-14)
DX: M79.605 Pain in left leg (principal); M79.604 Pain in right leg
CPT/HCPCS: 36415; 71275-TC; 80053; 85025; 85379; 85610; 85730; 86850; 86900; 86901; 93005; 93010; 93970-TC; 99285-25; Q9967

== ENCOUNTER 2022-06-10 09:28 | Emergency (ER) | payer OTHER ==
[2022-06-10 09:40] VITALS: BMI 48.1
[2022-06-10] MEDS ORDERED: METOCLOPRAMIDE HCL 10 MG TABLET (FP) PO ONE ×2 (11:48→12:04)
[2022-06-10 11:57] LABS: EOS % 5.3 % (0-4.5); HEMATOCRIT 35.2 % (32.4-45.2); HEMOGLOBIN 11.1 GM/dL (10.7-15.3); LYMPH % 28.1 % (8-40); MCH 25.8 pg (25.7-33.7); MCHC 31.5 g/dl (32.0-36.0); MEAN CELL VOLUME 81.9 fl (80-96); MEAN PLT VOLUME 9.5 fl (7.5-11.1); MONO % 9.3 % (3.8-10.2); NEUT % 56.3 % (42.8-82.8); PLATELET COUNT 202 10^3/uL (134-434); RDW 16.1 % (11.6-15.6); WHITE BLOOD COUNT 3.7 K/mm3 (4.0-10.0)
[2022-06-10 12:15] LABS: CALCIUM 8.7 mg/dL (8.5-10.1)
[2022-06-10 12:16] LABS: BLOOD UREA NITROGEN 18.9 mg/dL (7-18)
[2022-06-10 12:18] LABS: CREATININE 0.8 mg/dL (0.55-1.3)
[2022-06-10 12:20] LABS: BILIRUBIN,TOTAL 0.5 mg/dL (0.2-1); TOT PROT 7.8 g/dl (6.4-8.2)
[2022-06-10 12:24] LABS: N-TERMINAL BNP 54.1 pg/ml (5-125)
[2022-06-10 12:38] LABS: ERYTHROCYTE SEDIMENTATION RATE 78 mm/hr (0-30)
[2022-06-10] MEDS ORDERED: ACETAMINOPHEN 1000 MG/100 ML BAG IVPB ONE (12:44)
[2022-06-10] MEDS ORDERED: ACETAMINOPHEN INJECTION 100 ML IVPB ONE (12:47)
[2022-06-10 14:44] LABS: INR 1.07 (0.83-1.09); PROTHROMBIN TIME (PATIENT) 12.3 SEC (9.7-13.0)
[2022-06-10 14:47] LABS: ACTIVATED PTT 31.8 SECONDS (25.2-36.5)
[2022-06-10 16:35] VITALS: BP 106/78; PULSE 72; RESP 16; TEMP 97.8
== END 2022-06-10 17:03 | disposition home or self-care (01) ==
LOC: JER 09:28
PROC: 3E0333Z Introduction of Anti-inflammatory into Peripheral Vein, Percutaneous Approach (ICD-10-PCS; principal; 2022-06-10)
DX: R51.9 Headache, unspecified (principal)
CPT/HCPCS: 0241U-QW; 36415; 70450-TC; 70496-TC; 70498-TC; 80053; 83880; 85025; 85610; 85651; 85730; 86850; 86900; 86901; 93005; 93010; 99285-25; Q9967

== ENCOUNTER 2023-02-16 05:25 | Day surgery (SDC) | payer OTHER ==
[2023-02-11 12:23] VITALS: BMI 47.9
[2023-02-16 08:43] VITALS: TEMP 97.8
[2023-02-16 09:26] VITALS: RESP 21
[2023-02-16 09:27] VITALS: BP 117/71; PULSE 77
== END 2023-02-16 10:05 | disposition home or self-care (01) ==
LOC: JASU-ENDO 05:25
PROVIDERS: ATTEND Internal Medicine Gastroenterology
PROC: 0DB68ZX Excision of Stomach, Via Natural or Artificial Opening Endoscopic, Diagnostic (ICD-10-PCS; 2023-02-16)
PROC: 0DB78ZX Excision of Stomach, Pylorus, Via Natural or Artificial Opening Endoscopic, Diagnostic (ICD-10-PCS; 2023-02-16)
PROC: 0DJD8ZZ Inspection of Lower Intestinal Tract, Via Natural or Artificial Opening Endoscopic (ICD-10-PCS; principal; 2023-02-16 08:00)
DX: K29.50 Unspecified chronic gastritis without bleeding (principal); K64.8 Other hemorrhoids; I10 Essential (primary) hypertension
CPT/HCPCS: 88305-TC; 88342-TC

== ENCOUNTER 2023-09-21 15:21 | Emergency (ER) | payer OTHER ==
[2023-09-21 15:55] VITALS: TEMP 97.7; BMI 45.7
[2023-09-21] MEDS ORDERED: ALBUTEROL SO4 2.5/IPRATROPIUM 0.5 INH SOL 3 ML VIAL.NEB. NEB ONE (16:07)
[2023-09-21] MEDS ORDERED: ACETAMINOPHEN INJECTION 100 ML IVPB ONE (16:08)
[2023-09-21 16:31] LABS: HEMATOCRIT 33.4 % (32.4-45.2); HEMOGLOBIN 10.8 GM/dL (10.7-15.3); LYMPH % 19.3 % (8-40); MCH 25.8 pg (25.7-33.7); MCHC 32.4 g/dl (32.0-36.0); MEAN CELL VOLUME 79.6 fl (80-96); MEAN PLT VOLUME 8.3 fl (7.5-11.1); NEUT % 65.7 % (42.8-82.8); PLATELET COUNT 199 10^3/uL (134-434); RBC 4.19 M/mm3 (3.60-5.2); RDW 16.9 % (11.6-15.6); WHITE BLOOD COUNT 4.1 K/mm3 (4.0-10.0)
[2023-09-21 16:36] LABS: VENOUS BASE EXCESS 1.7 mmol/L (-2-2); VENOUS PCO2 47.9 mmHg (38-52); VENOUS PH 7.375 (7.310-7.410)
[2023-09-21] MEDS: ACETAMINOPHEN 1000 MG/100 ML BAG IVPB ONE (16:37)
[2023-09-21] MEDS: ALBUTEROL SO4 2.5/IPRATROPIUM 0.5 INH SOL 3 ML VIAL.NEB. NEB SCH (16:37)
[2023-09-21 16:39] LABS: INR 1.17 (0.83-1.09); PROTHROMBIN TIME (PATIENT) 13.5 SEC (9.7-13.0)
[2023-09-21] MEDS ORDERED: FAMOTIDINE 20 MG/50 ML IVPB 20 MG/50 ML MG IVPB ONE (16:43)
[2023-09-21] MEDS: FAMOTIDINE 20 MG/50 ML IVPB 20 MG/50 ML MG IVPB ONE (16:45)
[2023-09-21 16:46] LABS: POTASSIUM 3.4 mmol/L (3.5-5.1)
[2023-09-21 16:48] LABS: ALBUMIN 2.7 g/dl (3.4-5.0); BLOOD UREA NITROGEN 15.6 mg/dL (7-18); CALCIUM 8.5 mg/dL (8.5-10.1); MAGNESIUM 2.2 mg/dL (1.8-2.4)
[2023-09-21 16:51] LABS: CREATININE 0.8 mg/dL (0.55-1.3); PHOSPHOROUS 2.8 mg/dL (2.5-4.9)
[2023-09-21 16:53] LABS: BILIRUBIN,TOTAL 0.5 mg/dL (0.2-1); TOT PROT 7.4 g/dl (6.4-8.2)
[2023-09-21 18:59] VITALS: BP 116/50; PULSE 75; RESP 16
== END 2023-09-21 19:12 | disposition home or self-care (01) ==
LOC: JER 15:21
PROC: 3E030NZ Introduction of Analgesics, Hypnotics, Sedatives into Peripheral Vein, Open Approach (ICD-10-PCS; principal; 2023-09-21)
PROC: 3E0F7GC Introduction of Other Therapeutic Substance into Respiratory Tract, Via Natural or Artificial Opening (ICD-10-PCS; 2023-09-21)
DX: J45.901 Unspecified asthma with (acute) exacerbation (principal); R07.89 Other chest pain; R42 Dizziness and giddiness; R06.02 Shortness of breath; R11.0 Nausea; R05.9 Cough, unspecified; R50.9 Fever, unspecified; Z20.822 Contact with and (suspected) exposure to COVID-19
CPT/HCPCS: 0241U-QW; 36415; 71045-TC-FY; 80053; 82803; 82962; 83735; 84100; 84484; 85025; 85610; 86850; 86900; 86901; 93005; 93010; 99285-25; J0131

== ENCOUNTER 2024-01-28 14:40 | Emergency (ER) | payer OTHER ==
[2024-01-28 14:54] VITALS: BP 128/78; PULSE 70; RESP 18; TEMP 98.1; BMI 45.7
[2024-01-28] MEDS ORDERED: ACETAMINOPHEN INJECTION 100 ML IVPB ONE (15:47)
[2024-01-28] MEDS: SODIUM CHLORIDE 1,000 ML IV STA (16:02)
[2024-01-28] MEDS: ACETAMINOPHEN 1000 MG/100 ML BAG IVPB ONE (16:03)
[2024-01-28 16:14] LABS: BASO % 0.8 % (0-2.0); EOS % 7.1 % (0-4.5); HEMATOCRIT 31.3 % (32.4-45.2); HEMOGLOBIN 10.1 GM/dL (10.7-15.3); LYMPH % 21.7 % (8-40); MCH 25.8 pg (25.7-33.7); MCHC 32.2 g/dl (32.0-36.0); MEAN CELL VOLUME 80.2 fl (80-96); MEAN PLT VOLUME 8.4 fl (7.5-11.1); MONO % 8.5 % (3.8-10.2); NEUT % 61.9 % (42.8-82.8); PLATELET COUNT 178 10^3/uL (134-434); RBC 3.91 M/mm3 (3.60-5.2); RDW 16.7 % (11.6-15.6); WHITE BLOOD COUNT 3.9 K/mm3 (4.0-10.0)
[2024-01-28 16:24] LABS: INR 1.11 (0.83-1.09); PROTHROMBIN TIME (PATIENT) 12.5 SEC (9.7-13.0)
[2024-01-28 16:26] LABS: ACTIVATED PTT 31.2 SECONDS (25.2-36.5)
[2024-01-28 16:31] LABS: POTASSIUM 3.5 mmol/L (3.5-5.1)
[2024-01-28 16:33] LABS: ALBUMIN 2.7 g/dl (3.4-5.0); CALCIUM 8.5 mg/dL (8.5-10.1)
[2024-01-28 16:34] LABS: BLOOD UREA NITROGEN 16.9 mg/dL (7-18)
[2024-01-28 16:36] LABS: CREATININE 0.8 mg/dL (0.55-1.3)
[2024-01-28 16:38] LABS: BILIRUBIN,TOTAL 0.5 mg/dL (0.2-1); TOT PROT 7.1 g/dl (6.4-8.2)
[2024-01-28] MEDS ORDERED: KETOROLAC TROMETHAMINE 15 MG/ML VIAL ONE (18:01)
[2024-01-28] MEDS: KETOROLAC TROMETHAMINE 15 MG/ML VIAL IVPUSH ONE (18:06)
[2024-01-28] MEDS ORDERED: LIDOCAINE 4% PATCH TP ONE (18:09)
[2024-01-28] MEDS ORDERED: METHOCARBAMOL 500 MG TABLET ONE (18:09)
[2024-01-28] MEDS: METHOCARBAMOL 500 MG TABLET PO ONE (18:11)
[2024-01-28] MEDS: LIDOCAINE 4% PATCH TP ONE (18:11)
[2024-01-28] MEDS ORDERED: HYDROCHLOROTHIAZIDE 25 MG TABLET (FP) ONE (18:41)
[2024-01-28] MEDS: HYDROCHLOROTHIAZIDE 12.5 MG CAPSULE (FP) PO ONE (18:50)
[2024-01-29] MEDS ORDERED: LIDOCAINE PATCH REMOVAL MC SCH (06:00)
== END 2024-01-28 21:11 | disposition home or self-care (01) ==
LOC: JERFT 14:40
PROC: 3E033NZ Introduction of Analgesics, Hypnotics, Sedatives into Peripheral Vein, Percutaneous Approach (ICD-10-PCS; principal; 2024-01-28)
PROC: 3E0333Z Introduction of Anti-inflammatory into Peripheral Vein, Percutaneous Approach (ICD-10-PCS; 2024-01-28)
PROC: 3E0337Z Introduction of Electrolytic and Water Balance Substance into Peripheral Vein, Percutaneous Approach (ICD-10-PCS; 2024-01-28)
DX: M79.602 Pain in left arm (principal)
CPT/HCPCS: 36415; 71045-TC-FY; 80053; 84484; 85025; 85610; 85730; 86850; 86900; 86901; 93005; 93010; 99285-25; J0131

== ENCOUNTER 2024-03-15 04:02 | Day surgery (SDC) | payer OTHER ==
[2024-03-11 13:43] VITALS: BMI 47.0
[2024-03-15] MEDS ORDERED: oxyCODONE HCL 5 MG TABLET PO PRN (08:40)
[2024-03-15] MEDS ORDERED: IBUPROFEN 600 MG TABLET (FP) PO PRN (08:40)
[2024-03-15] MEDS ORDERED: IBUPROFEN 800 MG/8 ML IJ IVPB PRN (08:40)
[2024-03-15] MEDS ORDERED: ELECTROLYTE-148 SOLN 1,000 ML IV SCH (08:45)
[2024-03-15] MEDS ORDERED: ALBUTEROL SO4 HFA INHALER IH ONE (08:49)
[2024-03-15] MEDS ORDERED: PROPOFOL 20 ML ONE (08:50)
[2024-03-15] MEDS ORDERED: ROCURONIUM BROMIDE 50 MG/5 ML SYRINGE ONE (08:50)
[2024-03-15] MEDS ORDERED: MIDAZOLAM HCL 2 MG/2 ML SINGLE DOSE VIAL ONE (08:50)
[2024-03-15] MEDS ORDERED: ONDANSETRON 4 MG/2 ML VIAL ONE (10:09)
[2024-03-15] MEDS: ONDANSETRON 4 MG/2 ML VIAL IVPUSH PRN (10:13)
[2024-03-15] MEDS: ACETAMINOPHEN 500 MG TABLET (FP) PO ONE (11:53)
[2024-03-15] MEDS ORDERED: ACETAMINOPHEN 500 MG TABLET (FP) ONE (11:54)
[2024-03-15 13:38] VITALS: RESP 20
[2024-03-15 15:44] VITALS: BP 118/68; PULSE 68; TEMP 97.8
== END 2024-03-15 15:30 | disposition home or self-care (01) ==
LOC: JASU-SURG 04:02
PROVIDERS: ATTEND Obstetrics & Gynecology
PROC: 0UDB8ZZ Extraction of Endometrium, Via Natural or Artificial Opening Endoscopic (ICD-10-PCS; principal; 2024-03-15 08:30)
DX: N85.00 Endometrial hyperplasia, unspecified (principal); D25.0 Submucous leiomyoma of uterus
CPT/HCPCS: 88305-TC; 94760

== ENCOUNTER 2024-06-04 15:19 | Inpatient (IN) | payer OTHER ==
[2024-06-04 15:31] VITALS: BMI 47.5
[2024-06-04] MEDS ORDERED: KETOROLAC TROMETHAMINE 15 MG/ML VIAL ONE (16:44)
[2024-06-04 16:49] LABS: BASO % 0.8 % (0-2.0); EOS % 4.7 % (0-4.5); HEMATOCRIT 34.2 % (32.4-45.2); HEMOGLOBIN 10.8 GM/dL (10.7-15.3); LYMPH % 11.7 % (8-40); MCH 25.5 pg (25.7-33.7); MCHC 31.7 g/dl (32.0-36.0); MEAN CELL VOLUME 80.4 fl (80-96); MONO % 7.5 % (3.8-10.2); NEUT % 75.3 % (42.8-82.8); PLATELET COUNT 193 10^3/uL (134-434); RBC 4.25 M/mm3 (3.60-5.2); RDW 16.3 % (11.6-15.6); WHITE BLOOD COUNT 5.3 K/mm3 (4.0-10.0)
[2024-06-04] MEDS: morphine CARPU-JECT 4 MG/1 ML DISP.SYRIN IVPUSH ONE ×2 (16:56→21:07)
[2024-06-04] MEDS: KETOROLAC TROMETHAMINE 15 MG/ML VIAL IVPUSH ONE (16:56)
[2024-06-04 17:04] LABS: POTASSIUM 3.4 mmol/L (3.5-5.1)
[2024-06-04 17:05] LABS: INR 1.09 (0.83-1.09); PROTHROMBIN TIME (PATIENT) 12.5 SEC (9.7-13.0)
[2024-06-04 17:06] LABS: ALBUMIN 2.8 g/dl (3.4-5.0); BLOOD UREA NITROGEN 17.5 mg/dL (7-18); CALCIUM 8.8 mg/dL (8.5-10.1)
[2024-06-04 17:08] LABS: ACTIVATED PTT 30.7 SECONDS (25.2-36.5)
[2024-06-04 17:10] LABS: CREATININE 0.9 mg/dL (0.55-1.3)
[2024-06-04 17:11] LABS: BILIRUBIN,TOTAL 0.4 mg/dL (0.2-1); TOT PROT 7.7 g/dl (6.4-8.2)
[2024-06-04 17:31] LABS: N-TERMINAL BNP 119.6 pg/ml (5-125)
[2024-06-04] MEDS ORDERED: ACETAMINOPHEN INJECTION 100 ML ONE (17:59)
[2024-06-04] MEDS: ACETAMINOPHEN 1000 MG/100 ML BAG IVPB ONE (18:17)
[2024-06-04] MEDS ORDERED: morphine SULFATE 4 MG/ML VIAL ONE (21:08)
[2024-06-05] MEDS: morphine SULFATE 4 MG/ML VIAL IVPUSH ONE ×2 (00:39→05:39)
[2024-06-05] MEDS: ACETAMINOPHEN 1000 MG/100 ML BAG IVPB ONE (02:24)
[2024-06-05] MEDS: LATANOPROST 0.005% OPHTH SOLN 2.5ML BOTTLE OU SCH (03:31)
[2024-06-05] MEDS: POTASSIUM CHLORIDE ORAL LIQUID 20 MEQ/15 ML PO ONE (04:36)
[2024-06-05] MEDS: KCL 20 MEQ PREMIX BAG 20 MEQ/100 ML INFUS.BAG IVPB SCH (05:19)
[2024-06-05 05:43] LABS: EPI CELLS 35 /uL (0-25.1); HYALINE CASTS 13 /uL (0-3.1); URINE APPEARANCE TURBID; URINE BACTERIA 204 /uL (0-1359); URINE BILIRUBIN NEGATIVE (NEGATIVE); URINE COLOR YELLOW; URINE GLUCOSE (UA) NEGATIVE (NEGATIVE); URINE KETONE NEGATIVE (NEGATIVE); URINE LEUK ESTERASE 1+ (NEGATIVE); URINE NITRITE NEGATIVE (NEGATIVE); URINE PROTEIN NEGATIVE (NEGATIVE); URINE UROBILINOGEN 0.2 mg/dL (0.2-1.0); URINE WBC 344 /uL (0-25.8)
[2024-06-05 06:14] LABS: URINE RBC 516.7 /uL (0-23.9)
[2024-06-05 06:15] LABS: URINE CRYSTALS PRESENT /hpf
[2024-06-05] MEDS: LEVOTHYROXINE NA 50 MCG TABLET (FP) PO SCH (06:37)
[2024-06-05 08:27] LABS: MAGNESIUM 1.9 mg/dL (1.8-2.4)
[2024-06-05] MEDS: MINERAL OIL/PET HY-PHL TOPICAL OINTMENT 454 GM JAR TP SCH (09:22)
[2024-06-05] MEDS: ENOXAPARIN NA (PORCINE) 40 MG/0.4 ML DISP.SYRIN SQ SCH (09:22)
[2024-06-05 09:35] LABS: BASO % 0.8 % (0-2.0); EOS % 9.2 % (0-4.5); HEMATOCRIT 31.7 % (32.4-45.2); HEMOGLOBIN 10.3 GM/dL (10.7-15.3); LYMPH % 20.3 % (8-40); MCH 26.1 pg (25.7-33.7); MCHC 32.5 g/dl (32.0-36.0); MEAN CELL VOLUME 80.2 fl (80-96); MEAN PLT VOLUME 8.8 fl (7.5-11.1); MONO % 10.7 % (3.8-10.2); PLATELET COUNT 177 10^3/uL (134-434); RBC 3.95 M/mm3 (3.60-5.2); RDW 16.6 % (11.6-15.6)
[2024-06-05 09:40] LABS: POTASSIUM 4.2 mmol/L (3.5-5.1)
[2024-06-05 09:43] LABS: BLOOD UREA NITROGEN 17.2 mg/dL (7-18); CALCIUM 8.7 mg/dL (8.5-10.1)
[2024-06-05 09:44] LABS: POTASSIUM 4.2 mmol/L (3.5-5.1)
[2024-06-05 09:46] LABS: CREATININE 0.9 mg/dL (0.55-1.3)
[2024-06-05 09:58] LABS: CALCIUM 8.7 mg/dL (8.5-10.1)
[2024-06-05 09:59] LABS: ALBUMIN 2.6 g/dl (3.4-5.0); BLOOD UREA NITROGEN 17.2 mg/dL (7-18); MAGNESIUM 2.1 mg/dL (1.8-2.4)
[2024-06-05 10:02] LABS: CREATININE 0.9 mg/dL (0.55-1.3); PHOSPHOROUS 3.7 mg/dL (2.5-4.9)
[2024-06-05 10:03] LABS: BILIRUBIN,TOTAL 0.8 mg/dL (0.2-1)
[2024-06-05] MEDS: KETOROLAC TROMETHAMINE 10 MG TABLET PO PRN (10:37)
[2024-06-05] MEDS ORDERED: SENNOSIDES 8.6MG TABLET (FP) PO PRN (12:53)
[2024-06-05] MEDS: DOCUSATE SODIUM 100 MG CAPSULE (FP) PO SCH (13:59)
[2024-06-05] MEDS: GABAPENTIN 300 MG CAPSULE PO SCH (13:59)
[2024-06-05] MEDS: morphine SULFATE 4 MG/ML VIAL IVPUSH PRN (18:31)
[2024-06-05] MEDS: ACETAMINOPHEN 1000 MG/100 ML BAG IVPB PRN (21:52)
[2024-06-06] MEDS: ALBUTEROL SO4 HFA INHALER IH PRN (03:25)
[2024-06-06] MEDS ORDERED: ALBUTEROL SO4 2.5/IPRATROPIUM 0.5 INH SOL 3 ML VIAL.NEB. NEB ONE (05:18)
[2024-06-06] MEDS: ALBUTEROL SO4 2.5/IPRATROPIUM 0.5 INH SOL 3 ML VIAL.NEB. NEB ONE (05:18)
[2024-06-06] MEDS: methylPREDNISolone NA SUCC 40 MG/1 ML VIAL IVPUSH ONE (05:23)
[2024-06-06] MEDS: ALBUTEROL SO4 2.5/IPRATROPIUM 0.5 INH SOL 3 ML VIAL.NEB. NEB SCH (07:45)
[2024-06-06] MEDS: CEFTRIAXONE 2 GM-D5W BAG 2 GM/50 ML BAG IVPB SCH (09:44)
[2024-06-06] MEDS: methylPREDNISolone NA SUCC 40 MG/1 ML VIAL IVPUSH SCH ×2 (11:35→22:48)
[2024-06-06] MEDS: ACETAMINOPHEN 500 MG TABLET (FP) PO SCH (16:00)
[2024-06-06] MEDS: LIDOCAINE 5% TOPICAL PATCH TP SCH (16:02)
[2024-06-06] MEDS: GABAPENTIN 400 MG CAPSULE PO SCH (16:03)
[2024-06-06] MEDS: MONTELUKAST NA 10 MG TABLET PO SCH (22:48)
[2024-06-06] MEDS: LIDOCAINE PATCH REMOVAL MC SCH (23:10)
[2024-06-07 09:08] LABS: BASO % 0.2 % (0-2.0); EOS % 0.3 % (0-4.5); HEMATOCRIT 30.8 % (32.4-45.2); HEMOGLOBIN 10.2 GM/dL (10.7-15.3); MCH 26.4 pg (25.7-33.7); MCHC 33.1 g/dl (32.0-36.0); MEAN CELL VOLUME 79.9 fl (80-96); MEAN PLT VOLUME 8.9 fl (7.5-11.1); MONO % 2.2 % (3.8-10.2); NEUT % 90.3 % (42.8-82.8); PLATELET COUNT 180 10^3/uL (134-434); RBC 3.86 M/mm3 (3.60-5.2); RDW 16.6 % (11.6-15.6); WHITE BLOOD COUNT 5.5 K/mm3 (4.0-10.0)
[2024-06-07 09:34] LABS: CALCIUM 8.4 mg/dL (8.5-10.1)
[2024-06-07 09:37] LABS: ALBUMIN 2.8 g/dl (3.4-5.0); BLOOD UREA NITROGEN 21.9 mg/dL (7-18); MAGNESIUM 1.9 mg/dL (1.8-2.4)
[2024-06-07 09:39] LABS: CREATININE 1.1 mg/dL (0.55-1.3)
[2024-06-07 09:40] LABS: BILIRUBIN,TOTAL 0.4 mg/dL (0.2-1)
[2024-06-07 09:41] LABS: TOT PROT 7.6 g/dl (6.4-8.2)
[2024-06-07] MEDS: HYDROCHLOROTHIAZIDE 12.5 MG CAPSULE (FP) PO SCH (09:53)
[2024-06-08 08:42] LABS: BASO % 0.1 % (0-2.0); EOS % 0.3 % (0-4.5); HEMATOCRIT 30.6 % (32.4-45.2); LYMPH % 8.1 % (8-40); MCH 26.1 pg (25.7-33.7); MCHC 32.5 g/dl (32.0-36.0); MEAN CELL VOLUME 80.4 fl (80-96); MEAN PLT VOLUME 9.2 fl (7.5-11.1); MONO % 6.4 % (3.8-10.2); NEUT % 85.1 % (42.8-82.8); PLATELET COUNT 187 10^3/uL (134-434); RBC 3.81 M/mm3 (3.60-5.2); RDW 16.6 % (11.6-15.6); WHITE BLOOD COUNT 6.6 K/mm3 (4.0-10.0)
[2024-06-08 09:01] LABS: POTASSIUM 4.9 mmol/L (3.5-5.1)
[2024-06-08 09:05] LABS: CALCIUM 8.5 mg/dL (8.5-10.1)
[2024-06-08 09:07] LABS: BLOOD UREA NITROGEN 28.1 mg/dL (7-18); MAGNESIUM 2.1 mg/dL (1.8-2.4)
[2024-06-08 09:08] LABS: ALBUMIN 2.7 g/dl (3.4-5.0)
[2024-06-08 09:10] LABS: BILIRUBIN,TOTAL 0.2 mg/dL (0.2-1); TOT PROT 7.3 g/dl (6.4-8.2)
[2024-06-08] MEDS: ACETAMINOPHEN 325 MG TABLET (FP) PO ONE (22:08)
[2024-06-09 09:22] LABS: BASO % 0.6 % (0-2.0); EOS % 5.3 % (0-4.5); HEMATOCRIT 30.9 % (32.4-45.2); HEMOGLOBIN 9.8 GM/dL (10.7-15.3); LYMPH % 15.1 % (8-40); MCH 25.8 pg (25.7-33.7); MCHC 31.8 g/dl (32.0-36.0); MEAN CELL VOLUME 81.2 fl (80-96); MEAN PLT VOLUME 9.2 fl (7.5-11.1); MONO % 11.1 % (3.8-10.2); NEUT % 67.9 % (42.8-82.8); PLATELET COUNT 186 10^3/uL (134-434); RBC 3.81 M/mm3 (3.60-5.2); RDW 16.8 % (11.6-15.6); WHITE BLOOD COUNT 6.9 K/mm3 (4.0-10.0)
[2024-06-09 09:43] LABS: POTASSIUM 4.1 mmol/L (3.5-5.1)
[2024-06-09 09:46] LABS: CALCIUM 8.3 mg/dL (8.5-10.1)
[2024-06-09 09:47] LABS: ALBUMIN 2.6 g/dl (3.4-5.0); MAGNESIUM 2.1 mg/dL (1.8-2.4)
[2024-06-09 09:51] LABS: BILIRUBIN,TOTAL 0.2 mg/dL (0.2-1); TOT PROT 6.9 g/dl (6.4-8.2)
[2024-06-09] MEDS: predniSONE 20 MG TABLET (UD) PO SCH (10:13)
[2024-06-09 15:18] VITALS: RESP 20
[2024-06-09 18:18] VITALS: BP 148/78; PULSE 88; TEMP 98
== END 2024-06-09 18:25 | disposition home health service (06) | DRG 202 ==
LOC: JER 15:19 → JERBED 22:54 → J8W 06-05 00:58 → OBSVTOIN 06-07 09:58
PROVIDERS: ADMIT Internal Medicine; ATTEND Nurse Practitioner Family
DX: J45.901 Unspecified asthma with (acute) exacerbation (principal); Z68.42 Body mass index [BMI] 45.0-49.9, adult; I10 Essential (primary) hypertension; E03.9 Hypothyroidism, unspecified; E87.6 Hypokalemia; E66.01 Morbid (severe) obesity due to excess calories; M17.12 Unilateral primary osteoarthritis, left knee; M79.605 Pain in left leg; M51.379 Other intervertebral disc degeneration, lumbosacral region without mention of lumbar back pain or lower extremity pain; M54.16 Radiculopathy, lumbar region
CPT/HCPCS: 0241U-QW; 36415; 71045-TC-FY; 72100-TC-FY; 72170-TC-FY; 73562-TC-LT-FY; 73562-TC-RT-FY; 80048; 80053; 80061; 81003; 82962; 83735; 83880; 84100; 84443; 84484; 85025; 85610; 85730; 86850; 86900; 86901; 87086; 93005; 93010; 93971-TC; 94640; 97116-GP; 97161-GP; 99285-25; G0378; J0131

== ENCOUNTER 2024-07-19 08:55 | Inpatient (IN) | payer OTHER ==
[2024-07-19] MEDS ORDERED: methylPREDNISolone NA SUCC 125 MG/2 ML VIAL ONE (09:52)
[2024-07-19 09:54] LABS: VENOUS BASE EXCESS 1.8 mmol/L (-2-2); VENOUS O2 SATURATION 49.3 % (70-80); VENOUS PCO2 50.2 mmHg (38-52); VENOUS PH 7.363 (7.310-7.410)
[2024-07-19 09:56] LABS: BASO % 0.9 % (0-2.0); EOS % 7.5 % (0-4.5); HEMATOCRIT 36.5 % (32.4-45.2); HEMOGLOBIN 11.4 GM/dL (10.7-15.3); LYMPH % 16.9 % (8-40); MCH 25.4 pg (25.7-33.7); MCHC 31.2 g/dl (32.0-36.0); MEAN CELL VOLUME 81.5 fl (80-96); MEAN PLT VOLUME 8.8 fl (7.5-11.1); MONO % 7.1 % (3.8-10.2); NEUT % 67.6 % (42.8-82.8); PLATELET COUNT 193 10^3/uL (134-434); RBC 4.48 M/mm3 (3.60-5.2); RDW 17.5 % (11.6-15.6); WHITE BLOOD COUNT 5.5 K/mm3 (4.0-10.0)
[2024-07-19] MEDS: methylPREDNISolone NA SUCC 125 MG/2 ML VIAL IVPUSH ONE (09:59)
[2024-07-19] MEDS: ALBUTEROL SO4 2.5/IPRATROPIUM 0.5 INH SOL 3 ML VIAL.NEB. NEB SCH ×2 (09:59→12:35)
[2024-07-19] MEDS ORDERED: MAGNESIUM SULFATE IN WATER 2 GM/50 ML IVPB IVPB ONE (10:05)
[2024-07-19] MEDS: MAGNESIUM SULFATE IN WATER 2 GM/50 ML IVPB IVPB ONE (10:15)
[2024-07-19 10:21] LABS: POTASSIUM 3.8 mmol/L (3.5-5.1)
[2024-07-19 10:23] LABS: CALCIUM 9.2 mg/dL (8.5-10.1)
[2024-07-19] MEDS ORDERED: CEFTRIAXONE 1 G/50 ML PREMIX 50 ML IVPB ONE ×2 (10:23→10:40)
[2024-07-19 10:24] LABS: BLOOD UREA NITROGEN 10.3 mg/dL (7-18)
[2024-07-19 10:27] LABS: CREATININE 0.9 mg/dL (0.55-1.3)
[2024-07-19 10:28] LABS: BILIRUBIN,TOTAL 0.6 mg/dL (0.2-1); TOT PROT 7.8 g/dl (6.4-8.2)
[2024-07-19] MEDS ORDERED: AZITHROMYCIN IVPB 500 MG/250 ML BAG IVPB ONE (10:41)
[2024-07-19] MEDS: CEFTRIAXONE 1,000 MG in DEXTROSE 5%-WATER - 50 ML IVPB ONE (10:45)
[2024-07-19] MEDS: AZITHROMYCIN IVPB 500 MG in DEXTROSE 5%-WATER - 250 ML IVPB ONE (10:50)
[2024-07-19] MEDS: GABAPENTIN 400 MG CAPSULE PO SCH (13:09)
[2024-07-19] MEDS ORDERED: ALBUTEROL SO4 2.5/IPRATROPIUM 0.5 INH SOL 3 ML VIAL.NEB. NEB ONE ×2 (18:04→20:48)
[2024-07-19] MEDS ORDERED: methylPREDNISolone NA SUCC 40 MG/1 ML VIAL ONE (18:05)
[2024-07-19] MEDS: methylPREDNISolone NA SUCC 40 MG/1 ML VIAL IVPUSH SCH (18:14)
[2024-07-19] MEDS ORDERED: ENOXAPARIN NA (PORCINE) 30 MG/0.3 ML DISP.SYRIN SQ ONE (22:15)
[2024-07-19] MEDS ORDERED: MONTELUKAST NA 10 MG TABLET ONE (22:15)
[2024-07-19] MEDS ORDERED: GABAPENTIN 400 MG CAPSULE ONE (22:15)
[2024-07-19] MEDS: MONTELUKAST NA 10 MG TABLET PO SCH (22:38)
[2024-07-19] MEDS: ENOXAPARIN NA (PORCINE) 30 MG/0.3 ML DISP.SYRIN SQ SCH (22:38)
[2024-07-20] MEDS: LATANOPROST 0.005% OPHTH SOLN 2.5ML BOTTLE OU SCH (00:01)
[2024-07-20] MEDS: guaiFENesin/D-METHORPHAN HB 10 ML UNIT-DOSE CUPS PO PRN (01:13)
[2024-07-20] MEDS: ACETAMINOPHEN 325 MG TABLET (FP) PO PRN (01:13)
[2024-07-20] MEDS: LEVOTHYROXINE NA 50 MCG TABLET (FP) PO SCH (07:00)
[2024-07-20 07:21] LABS: HEMATOCRIT 34.4 % (32.4-45.2); HEMOGLOBIN 10.7 GM/dL (10.7-15.3); MCH 25.3 pg (25.7-33.7); MCHC 31.2 g/dl (32.0-36.0); MEAN CELL VOLUME 81.2 fl (80-96); MEAN PLT VOLUME 9.6 fl (7.5-11.1); PLATELET COUNT 174 10^3/uL (134-434); RBC 4.24 M/mm3 (3.60-5.2); RDW 17.3 % (11.6-15.6); WHITE BLOOD COUNT 7.8 K/mm3 (4.0-10.0)
[2024-07-20 07:38] LABS: POTASSIUM 4.5 mmol/L (3.5-5.1)
[2024-07-20 07:40] LABS: ALBUMIN 2.7 g/dl (3.4-5.0)
[2024-07-20 07:41] LABS: BLOOD UREA NITROGEN 17.5 mg/dL (7-18); MAGNESIUM 2.2 mg/dL (1.8-2.4)
[2024-07-20 07:43] LABS: CREATININE 0.9 mg/dL (0.55-1.3)
[2024-07-20 07:44] LABS: PHOSPHOROUS 3.2 mg/dL (2.5-4.9)
[2024-07-20 07:45] LABS: BILIRUBIN,TOTAL 0.4 mg/dL (0.2-1); TOT PROT 7.1 g/dl (6.4-8.2)
[2024-07-20] MEDS: AZITHROMYCIN IVPB 500 MG/250 ML BAG IVPB SCH (09:29)
[2024-07-20] MEDS: HYDROCHLOROTHIAZIDE 12.5 MG CAPSULE (FP) PO SCH (09:29)
[2024-07-20] MEDS: CEFTRIAXONE 1 G/50 ML PREMIX 50 ML IVPB SCH (09:29)
[2024-07-20] MEDS: ALBUTEROL SO4 2.5/IPRATROPIUM 0.5 INH SOL 3 ML VIAL.NEB. NEB SCH (12:10)
[2024-07-21] MEDS: PANTOPRAZOLE 40 MG TABLET PO SCH (09:53)
[2024-07-21 11:52] VITALS: BMI 49.4
[2024-07-21] MEDS: GABAPENTIN 400 MG CAPSULE PO SCH (13:56)
[2024-07-21] MEDS: ALBUTEROL SO4 2.5/IPRATROPIUM 0.5 INH SOL 3 ML VIAL.NEB. NEB SCH (16:10)
[2024-07-21] MEDS: methylPREDNISolone NA SUCC 40 MG/1 ML VIAL IVPUSH SCH (17:44)
[2024-07-21] MEDS: ENOXAPARIN NA (PORCINE) 30 MG/0.3 ML DISP.SYRIN SQ SCH (21:27)
[2024-07-21] MEDS: MONTELUKAST NA 10 MG TABLET PO SCH (21:27)
[2024-07-21] MEDS: ACETAMINOPHEN 325 MG TABLET (FP) PO PRN (21:34)
[2024-07-21] MEDS: LATANOPROST 0.005% OPHTH SOLN 2.5ML BOTTLE OU SCH (23:19)
[2024-07-22] MEDS: guaiFENesin/D-METHORPHAN HB 10 ML UNIT-DOSE CUPS PO PRN (02:32)
[2024-07-22] MEDS: LEVOTHYROXINE NA 50 MCG TABLET (FP) PO SCH (06:32)
[2024-07-22] MEDS ORDERED: CEFTRIAXONE 1 G/50 ML PREMIX 50 ML IVPB SCH (10:00)
[2024-07-22 10:03] VITALS: PULSE 120
[2024-07-22 10:37] VITALS: BP 144/74; RESP 20; TEMP 97.9
[2024-07-22] MEDS: PANTOPRAZOLE 40 MG TABLET PO SCH (10:39)
[2024-07-22] MEDS: HYDROCHLOROTHIAZIDE 12.5 MG CAPSULE (FP) PO SCH (10:39)
== END 2024-07-22 14:35 | disposition home or self-care (01) | DRG 202 ==
LOC: JER 08:55 → JERBED 10:31 → OBSVTOIN 12:08 → J4W 22:44 → J6S 07-21 13:45
PROVIDERS: ADMIT Internal Medicine; ATTEND Internal Medicine
DX: J45.901 Unspecified asthma with (acute) exacerbation (principal); J18.9 Pneumonia, unspecified organism; Z68.42 Body mass index [BMI] 45.0-49.9, adult; I10 Essential (primary) hypertension; E03.9 Hypothyroidism, unspecified; E66.01 Morbid (severe) obesity due to excess calories
CPT/HCPCS: 0241U-QW; 36415; 71045-TC-FY; 71250-TC; 80053; 82803; 83735; 84100; 84484; 85025; 85027; 87899; 93005; 93010; 94010; 94640; 94761; 97116-GP; 97162-GP; 99291; G0378

== ENCOUNTER 2024-09-27 15:29 | Inpatient (IN) | payer OTHER ==
[2024-09-27] MEDS ORDERED: ALBUTEROL SO4 2.5/IPRATROPIUM 0.5 INH SOL 3 ML VIAL.NEB. NEB ONE (15:52)
[2024-09-27] MEDS: ALBUTEROL SO4 2.5/IPRATROPIUM 0.5 INH SOL 3 ML VIAL.NEB. NEB SCH (15:55)
[2024-09-27 16:42] LABS: VENOUS BASE EXCESS 2.2 mmol/L (-2-2); VENOUS O2 SATURATION 44.4 % (70-80); VENOUS PCO2 53.1 mmHg (38-52); VENOUS PH 7.351 (7.310-7.410)
[2024-09-27] MEDS ORDERED: methylPREDNISolone NA SUCC 125 MG/2 ML VIAL ONE (16:46)
[2024-09-27] MEDS ORDERED: MAGNESIUM SULFATE IN WATER 2 GM/50 ML IVPB IVPB ONE (16:47)
[2024-09-27 16:53] LABS: ABSOLUTE IMMATURE GRANULOCYTES 0.03 x10^3/uL (0.0-0.031); BASOPHILS # 0.04 x10^3/uL (0.01-0.08); EOSINOPHIL % 6.1 % (0.7-5.8); EOSINOPHILS # 0.33 x10^3/uL (0.04-0.36); HEMATOCRIT 34.7 % (34.1-44.9); HEMOGLOBIN 10.8 g/dL (11.2-15.7); MCHC 31.1 g/dl (32.2-35.5); MEAN PLT VOLUME 10.9 fl (9.4-12.3); MONOCYTE # 0.51 x10^3/uL (0.24-0.86); MONOCYTE % 9.4 % (4.7-12.5); PLATELET COUNT 196 x10^3/uL (182-369); RDW 16.5 % (12.4-16.6)
[2024-09-27] MEDS: methylPREDNISolone NA SUCC 125 MG/2 ML VIAL IVPUSH ONE (17:02)
[2024-09-27] MEDS: MAGNESIUM SULF 50% (8.12 MEQ/2 ML-1 GM VIAL) IVPB ONE (17:03)
[2024-09-27 17:11] LABS: POTASSIUM 3.7 mmol/L (3.5-5.1)
[2024-09-27 17:13] LABS: CALCIUM 9.3 mg/dL (8.5-10.1)
[2024-09-27 17:14] LABS: BLOOD UREA NITROGEN 10.3 mg/dL (7-18)
[2024-09-27 17:17] LABS: CREATININE 1.1 mg/dL (0.55-1.3)
[2024-09-27 17:18] LABS: BILIRUBIN,TOTAL 0.6 mg/dL (0.2-1); TOT PROT 7.4 g/dl (6.4-8.2)
[2024-09-27 18:03] LABS: HCV DIAGNOSTIC IN-HOUSE W/RFLX NON-REACTIVE (NONREACTIVE)
[2024-09-27 18:04] LABS: HIV INTERPRETATION NEGATIVE (NEGATIVE)
[2024-09-27] MEDS ORDERED: ALBUTEROL SO4 0.083% IH SOL 2.5 MG/3 ML VIAL.NEB. NEB PRN (18:59)
[2024-09-27 20:25] VITALS: BMI 48.2
[2024-09-27] MEDS: SODIUM CHLORIDE 1,000 ML IV SCH (20:47)
[2024-09-27] MEDS: MONTELUKAST NA 10 MG TABLET PO SCH (21:18)
[2024-09-27] MEDS: GABAPENTIN 400 MG CAPSULE PO SCH (21:18)
[2024-09-27] MEDS: guaiFENesin/D-METHORPHAN HB 10 ML UNIT-DOSE CUPS PO PRN (21:19)
[2024-09-27] MEDS: HEPARIN NA (PORCINE) 5,000 UNITS/ML 1ML VIAL SQ SCH (21:19)
[2024-09-28] MEDS: methylPREDNISolone NA SUCC 40 MG/1 ML VIAL IVPUSH SCH (01:51)
[2024-09-28] MEDS: LEVOTHYROXINE NA 50 MCG TABLET (FP) PO SCH (06:04)
[2024-09-28 09:15] LABS: HEMOGLOBIN 10.4 g/dL (11.2-15.7); MCHC 30.6 g/dl (32.2-35.5); MEAN CELL VOLUME 83.7 fl (79.4-94.8); MEAN PLT VOLUME 11.3 fl (9.4-12.3); PLATELET COUNT 189 x10^3/uL (182-369); RDW 16.3 % (12.4-16.6)
[2024-09-28] MEDS: FAMOTIDINE 20 MG TABLET PO SCH (09:24)
[2024-09-28 09:54] LABS: POTASSIUM 4.1 mmol/L (3.5-5.1)
[2024-09-28 10:25] LABS: BLOOD UREA NITROGEN 12.4 mg/dL (7-18); CALCIUM 9.1 mg/dL (8.5-10.1); MAGNESIUM 2.4 mg/dL (1.8-2.4)
[2024-09-28 10:29] LABS: CREATININE 0.8 mg/dL (0.55-1.3)
[2024-09-28] MEDS: HYDROCHLOROTHIAZIDE 12.5 MG CAPSULE (FP) PO SCH (11:02)
[2024-09-28] MEDS: ALBUTEROL SO4 2.5/IPRATROPIUM 0.5 INH SOL 3 ML VIAL.NEB. NEB SCH (16:17)
[2024-09-28] MEDS: BUDESONIDE/FORMETEROL FUMARATE 160/4.5 mcg INHALER IH SCH (21:17)
[2024-09-28] MEDS: LATANOPROST 0.005% OPHTH SOLN 2.5ML BOTTLE OU SCH (21:34)
[2024-09-29 08:25] LABS: HEMATOCRIT 33.4 % (34.1-44.9); HEMOGLOBIN 10.2 g/dL (11.2-15.7); MCHC 30.5 g/dl (32.2-35.5); MEAN CELL VOLUME 83.9 fl (79.4-94.8); MEAN PLT VOLUME 11.8 fl (9.4-12.3); PLATELET COUNT 203 x10^3/uL (182-369); RDW 16.3 % (12.4-16.6)
[2024-09-29 08:37] LABS: POTASSIUM 4.1 mmol/L (3.5-5.1)
[2024-09-29 08:43] LABS: ALBUMIN 2.8 g/dl (3.4-5.0); BLOOD UREA NITROGEN 18.2 mg/dL (7-18); MAGNESIUM 2.1 mg/dL (1.8-2.4)
[2024-09-29 08:45] LABS: CREATININE 0.8 mg/dL (0.55-1.3)
[2024-09-29 08:46] LABS: BILIRUBIN,TOTAL 0.4 mg/dL (0.2-1); PHOSPHOROUS 2.9 mg/dL (2.5-4.9)
[2024-09-29] MEDS: guaiFENesin/CODEINE 10 ML UNIT-DOSE CUPS PO SCH (21:22)
[2024-09-30 09:11] LABS: HEMATOCRIT 33.5 % (34.1-44.9); HEMOGLOBIN 10.1 g/dL (11.2-15.7); MCHC 30.1 g/dl (32.2-35.5); MEAN PLT VOLUME 12.4 fl (9.4-12.3); PLATELET COUNT 192 x10^3/uL (182-369); RDW 16.6 % (12.4-16.6)
[2024-09-30 09:57] LABS: POTASSIUM 4.2 mmol/L (3.5-5.1)
[2024-09-30 10:03] LABS: ALBUMIN 2.9 g/dl (3.4-5.0); BLOOD UREA NITROGEN 17.3 mg/dL (7-18); CALCIUM 8.9 mg/dL (8.5-10.1); MAGNESIUM 2.2 mg/dL (1.8-2.4)
[2024-09-30 10:06] LABS: PHOSPHOROUS 3.6 mg/dL (2.5-4.9)
[2024-09-30 10:07] LABS: CREATININE 0.9 mg/dL (0.55-1.3)
[2024-09-30 10:08] LABS: BILIRUBIN,TOTAL 0.3 mg/dL (0.2-1); TOT PROT 7.2 g/dl (6.4-8.2)
[2024-09-30] MEDS: FUROSEMIDE 40 MG/4 ML INJECTABLE VIAL IVPUSH ONE (12:38)
[2024-10-01] MEDS: guaiFENesin/CODEINE 10 ML UNIT-DOSE CUPS PO PRN (06:37)
[2024-10-01 08:31] LABS: HEMATOCRIT 34.7 % (34.1-44.9); HEMOGLOBIN 10.5 g/dL (11.2-15.7); MCHC 30.3 g/dl (32.2-35.5); MEAN PLT VOLUME 10.6 fl (9.4-12.3); PLATELET COUNT 184 x10^3/uL (182-369); RDW 16.7 % (12.4-16.6)
[2024-10-01 09:20] LABS: POTASSIUM 4.2 mmol/L (3.5-5.1)
[2024-10-01 09:24] LABS: ALBUMIN 2.8 g/dl (3.4-5.0); BLOOD UREA NITROGEN 21.8 mg/dL (7-18); CALCIUM 8.7 mg/dL (8.5-10.1); MAGNESIUM 2.4 mg/dL (1.8-2.4)
[2024-10-01 09:27] LABS: CREATININE 0.9 mg/dL (0.55-1.3)
[2024-10-01 09:28] LABS: PHOSPHOROUS 3.8 mg/dL (2.5-4.9)
[2024-10-01 09:29] LABS: BILIRUBIN,TOTAL 0.3 mg/dL (0.2-1)
[2024-10-01] MEDS ORDERED: PIPERACILLIN/TAZOB 3.375 GM 3.375 GM in DEXTROSE 5%-WATER - 50 ML IVPB SCH (10:00)
[2024-10-01] MEDS: PIPERACILLIN/TAZOB 3.375 GM 50 ML IVPB SCH (11:00)
[2024-10-02] MEDS: methylPREDNISolone NA SUCC 40 MG/1 ML VIAL IVPUSH SCH (17:39)
[2024-10-02] MEDS ORDERED: PIPERACILLIN/TAZOB 3.375 GM 3.375 GM in DEXTROSE 5%-WATER - 50 ML IVPB SCH (18:00)
[2024-10-02] MEDS: guaiFENesin/CODEINE 10 ML UNIT-DOSE CUPS PO PRN (21:39)
[2024-10-03 08:46] LABS: ABSOLUTE IMMATURE GRANULOCYTES 0.22 x10^3/uL (0.0-0.031); BASOPHILS # 0.02 x10^3/uL (0.01-0.08); HEMATOCRIT 33.9 % (34.1-44.9); HEMOGLOBIN 10.6 g/dL (11.2-15.7); MCHC 31.3 g/dl (32.2-35.5); MEAN CELL VOLUME 84.1 fl (79.4-94.8); MEAN PLT VOLUME 11.5 fl (9.4-12.3); MONOCYTE # 0.63 x10^3/uL (0.24-0.86); MONOCYTE % 7.2 % (4.7-12.5); PLATELET COUNT 180 x10^3/uL (182-369); RDW 16.6 % (12.4-16.6)
[2024-10-03 10:04] VITALS: PULSE 82
[2024-10-03 12:10] LABS: ALBUMIN 2.5 g/dl (3.4-5.0); BILIRUBIN,TOTAL 0.3 mg/dL (0.2-1); BLOOD UREA NITROGEN 32.5 mg/dL (7-18); CALCIUM 8.1 mg/dL (8.5-10.1); CREATININE 1.1 mg/dL (0.55-1.3); POTASSIUM 3.7 mmol/L (3.5-5.1); TOT PROT 6.5 g/dl (6.4-8.2)
[2024-10-03 16:36] VITALS: BP 125/55; RESP 18; TEMP 98.1
== END 2024-10-03 18:43 | disposition home or self-care (01) | DRG 202 ==
LOC: JER 15:29 → JERBED 17:51 → J5S 20:03 → OBSVTOIN 09-28 11:32
PROVIDERS: ADMIT Hospitalist
DX: J45.41 Moderate persistent asthma with (acute) exacerbation (principal); J18.9 Pneumonia, unspecified organism; Z68.42 Body mass index [BMI] 45.0-49.9, adult; E66.01 Morbid (severe) obesity due to excess calories; D72.10 Eosinophilia, unspecified; E03.9 Hypothyroidism, unspecified; I87.2 Venous insufficiency (chronic) (peripheral); D64.9 Anemia, unspecified; I10 Essential (primary) hypertension
CPT/HCPCS: 0241U-QW; 36415; 71045-TC-FY; 73610-TC-RT-FY; 80048; 80053; 82803; 83735; 84100; 84484; 85025; 85027; 86803; 87389; 93005; 93010; 93306-TC; 93971-TC; 94150; 94640; 94761; 97116-GP; 97161-GP; 99285-25; G0378; J1644